=== PATIENT | female | born 1980 | race African-American/Black ===

== ENCOUNTER → 2019-07-29 09:43 | Outpatient (CLI) | payer OTHER, SELFPAY ==
--- NOTE | ~2019-07-29 | XR_ITS ---
EXAMINATION: XR ankle LT min 3V, XR foot LT min 3V EXAM DATE: 07/29/2019 10:17 INDICATION: No known recent injury provided at this time. Pain of the left foot, ankle. TECHNIQUE: Left foot dorsoplantar, lateral and oblique projections obtained and reviewed. Left ankle frontal, lateral and oblique projections obtained and reviewed. There is no prior study for compari son. FINDINGS: Left metatarsal bones unremarkable. The left ankle mortise appears intact. There are no acute fractures or dislocations identified. There is no subcutaneous gas. The soft tissue is unrem arkable. There are no radiopaque foreign bodies. IMPRESSION: 1. Unremarkable left foot, ankle exam. Reviewed, dictated and finalized at location A. DIEM IMPRESSION: 1. Unremarkable left foot, ankle exam.
== END ==
PROVIDERS: PCP Emergency Medicine; Visit Provider Emergency Medicine
DX: M79.672 Pain in left foot (principal)
CPT/HCPCS: 73610; 73630

== ENCOUNTER 2020-11-03 14:45 | Outpatient (CLI) | payer OTHER, SELFPAY ==
--- NOTE | ~2020-11-03 | MM_ITS ---
EXAMINATION: MM screening jose BI w any HISTORY: Screening mammogram TECHNIQUE: Craniocaudal and mediolateral oblique 3-D tomosynthesis images were obtained and synthetic 2-D images were generated. CAD analysis was submitted and interpreted. COMPARISON: None, baseline BREAST PARENCHYMAL COMPOSITION: The breasts are almost entirely fatty. FINDINGS: RIGHT BREAST: An asymmetry is present in the middle third of the breast 10 cm from the nipple, in adelso e with the nipple axis, on the craniocaudal view. LEFT BREAST: There is an asymmetry in the subareolar aspect of the breast on the mediolateral oblique view. IMPRESSION: 1. Bilateral breast findings as described above. 2. Additional mammographic views and possible breast ultrasound are recommended to evaluate for malig barrie and establish a baseline given that this is the first mammographic examination. BI-RADS Category 0: Incomplete: Needs additional imaging evaluation. Reviewed, dictated and finalized at location A. IMPRESSION: 1. Bilateral breast findings as described above. 2. Additional mammographic views and possible breast ultrasound are recommended to evaluate for malignancy and establish a baseline given that this is the fir st mammographic examination. BI-RADS Category 0: Incomplete: Needs additional imaging evaluation.
== END 2020-11-03 14:46 | disposition home or self-care (01) ==
LOC: ANHIMG 14:48
PROVIDERS: PCP Emergency Medicine; Visit Provider Advanced Practice Midwife
DX: Z12.31 Encounter for screening mammogram for malignant neoplasm of breast (principal); R92.8 Other abnormal and inconclusive findings on diagnostic imaging of breast
CPT/HCPCS: 77063; 77067

== ENCOUNTER 2020-11-26 12:59 | Outpatient (CLI) | payer OTHER, SELFPAY ==
--- NOTE | ~2020-11-26 | MMUS_ITS ---
EXAMINATION: MM diagnostic mammo BI, US breast BI limited HISTORY: Bilateral breast asymmetries on baseline screening mammogram TECHNIQUE: Additional 3-D tomosynthesis images of the right breast were performed and synthetic 2-D i mages were generated. CAD analysis was submitted and interpreted. High resolution limited right breas t ultrasound was performed. COMPARISON: 11/03/2020 FINDINGS: MAMMOGRAPHIC FINDINGS: There is a 5 mm asymmetry in the posterior third of the right breast at the 6:00 location 11 cm from the nipple. No persistent asymmetry is identified with spot compression of the left breast. ULTRASOUND: There is no evidence of focal abnormal solid or cystic mass in the vicinity of the mammographic findi ng in either breast. IMPRESSION: 1. Probably benign asymmetry of the right breast. No mammographic evidence of malignancy in the left breast. 2. Recommend 6 month follow-up right diagnostic mammogram and possible ultrasound and routine screeni ng of the left breast. BI-RADS category 3, probably benign findings. Reviewed, dictated and finalized at location A. IMPRESSION: 1. Probably benign asymmetry of the right breast. No mammographic evidence of m alignancy in the left breast. 2. Recommend 6 month follow-up right diagnostic mammogram and possible ultrasou nd and routine screening of the left breast. BI-RADS category 3, probably benign findings.
== END 2020-11-26 13:00 | disposition home or self-care (01) ==
LOC: ANHIMG 13:00
PROVIDERS: PCP Emergency Medicine; Visit Provider Advanced Practice Midwife
DX: R92.8 Other abnormal and inconclusive findings on diagnostic imaging of breast (principal)
CPT/HCPCS: 76642; 77066

== ENCOUNTER 2021-02-17 12:31 | Outpatient (CLI) | payer OTHER, SELFPAY ==
--- NOTE | ~2021-02-17 | XR_ITS ---
XR foot LT min 3V DATE: 02/17/2021 12:49 INDICATION: Left heel pain. No injury. TECHNIQUE: 4 views COMPARISON: 07/29/2019 left foot FINDINGS: Mild plantar calcaneal enthesopathy. No associated erosive change or periostitis. No fracture or dislocation, periosteal reaction or bone destruction. No erosions. IMPRESSION: Mild plantar calcaneal enthesopathy Reviewed, dictated and finalized at location B.
== END 2021-02-17 12:32 | disposition home or self-care (01) ==
LOC: ANHIMG 12:32
PROVIDERS: PCP Emergency Medicine; Visit Provider Emergency Medicine
DX: M77.32 Calcaneal spur, left foot (principal)
CPT/HCPCS: 73630

== ENCOUNTER → 2021-07-20 03:16 | Outpatient (CLI) | payer OTHER, SELFPAY ==
[2021-07-21 14:36] LABS: SARS-CoV-2 RNA PCR Positive
== END ==
PROVIDERS: PCP Emergency Medicine; Visit Provider Emergency Medicine
DX: U07.1 COVID-19 (principal)
CPT/HCPCS: C9803; U0003; U0005

== ENCOUNTER 2022-01-29 18:38 | Emergency (ER) | payer OTHER, SELFPAY ==
[2022-01-29] VITALS (8 sets, daily range): BP systolic 114–132; BP diastolic 59–75; PULSE 72–85; RESP 16; TEMP 35.8–36.8; O2SAT 96–100
--- NOTE | ~2022-01-29 | CT_ITS ---
EXAMINATION: CT abdomen pelvis w con DATE: 01/29/2022 23:00 INDICATION: Left-sided abdominal pain, flank pain TECHNIQUE: Computed tomography (CT) of the abdomen and pelvis was performed with 100 CC Omnipaque 300 intravenous contrast. Automated exposure control and iterative reconstruction technique were employe d. Exam dose: 1212.24 mGy-cm total exam DLP. COMPARISON: None. FINDINGS: The lung bases are clear. Heart size is within normal range. No pericardial or pleural effu dasha. Multiple small stones and/or sludge create a linear interface with bile in the gallbladder lumen. No gallbladder wall thickening or pericholecystic fluid or fat stranding. No bile duct or pancreatic marline t dilatation. No hepatic, pancreatic or splenic space-occupying mass lesion or splenomegaly. Normal morphology of the adrenal glands. No renal mass lesion or urinary tract calculus or hydroureteronephrosis. The urinary bladder is unrem arkable. Uterus and adnexal areas are unremarkable. Normal caliber of the abdominal aorta. There is a stent within the caudal aspect of the IVC and the c ommon iliac veins. No intraperitoneal or retroperitoneal or pelvic mass lesion or adenopathy or ascites. Normal appendix. No bowel obstruction, bowel wall thickening, pneumatosis or intraperitoneal free air . Small fat-containing umbilical hernia. Included skeletal structures are unremarkable. No suspicious osteolytic or osteoblastic lesion. IMPRESSION: Status post cholecystectomy Normal appendix Inferior vena cava and iliac vein stent Probable cholelithiasis versus hyperdense sludge dependent gallbladder; consider gallbladder ultrasou nd examination Reviewed, dictated and finalized at [facility]. Reviewed, dictated and finalized at [facility]. IMPRESSION: Status post cholecystectomy Normal appendix Inferior vena cava and iliac vein stent Probable cholelithiasis versus hyperdense sludge dependent gallbladder; conside r gallbladder ultrasound examination
--- NOTE | 2022-01-29 20:46 | ED.BACK ---
HPI - Back Pain/Injury General Chief Complaint: Back Pain/Injury <Frankie Henderson MD - Last Filed: 01/29/22 21:59> Stated Complaint: back pain <Frankie Henderson MD - Last Filed: 01/29/22 21:59> Time Seen by Provider: 01/29/22 20:45 <Frankie Henderson MD - Last Filed: 01/29/22 21:59> Source: patient <Frankie Henderson MD - Last Filed: 01/29/22 21:59> Mode of arrival: ambulatory <Frankie Henderson MD - Last Filed: 01/29/22 21:59> Limitations: no limitations <Frankie Henderson MD - Last Filed: 01/29/22 21:59> History of Present Illness HPI Narrative: 41 years old -[place]i female presented with sudden onset of sharp pain at the left flank area started 5hours ago. Worse with certain movement, nothing make it better, did not take any pain medication so far. She denies any fever, chills, nausea, vomiting, diarrhea, constipation, urinary symptoms or history of similar symptoms. Patient also denies any recent physical activity. <Frankie Henderson MD - Last Filed: 01/29/22 21:59> Related Data Home Medications: Home Medications Medication Instructions Recorded Confirmed Iron (ferrous sulfate) 07/11/19 lisinopril 20 mg tablet 07/11/19 metformin 500 mg tablet mg 07/11/19 <Frankie Henderson MD - Last Filed: 01/29/22 21:59> Allergies/Adverse Reactions: Allergies Allergy/AdvReac Type Severity Reaction Status Date / Time No Known Allergies Allergy Verified 01/29/22 19:43 <Frankie Henderson MD - Last Filed: 01/29/22 21:59> Review of Systems Review of Systems: All systems reviewed & are unremarkable except as noted in HPI and below <Frankie Henderson MD - Last Filed: 01/29/22 21:59> PMFSH Social History Social History: Social History Gender identity (if verbalized by the patient): Female <Frankie Henderson MD - Last Filed: 01/29/22 21:59> Exam Narrative: General appearance: Well-developed, well-nourished Skin: Normal color Head: Normocephalic, nontraumatic Eyes: Clear conjunctiva ENT: Oropharynx normal, ears normal, nose normal Neck: Supple, nontender Chest and respiratory: Airway patent, no respiratory distress, no accessory muscle use Heart: Regular rate/rhythm Abdomen: Soft, moderate tenderness left abdomen, left upper quadrant, left flank area. No rash, no bruises, no swelling. organomegaly, quiet bowel sounds Vascular: Normal peripheral pulses, normal capillary refill. Musculoskeletal: Normal range of motion, nontender back Neurologic: Alert and oriented ?3, SPARE PARTS CLERK is normal as tested, no gross motor deficit <Frankie Henderson MD - Last Filed: 01/29/22 21:59> Course Course Emergency Course: CT scan of the abdomen pelvis showed no evidence of acute abnormality. <Samy Santiago MD - Last Filed: 01/30/22 00:37> Vital Signs Vital signs: Vital Signs Temperature 36.8 C 01/29/22 18:53 Pulse Rate 85 01/29/22 18:53 Respiratory Rate 16 01/29/22 18:53 Pulse Oximetry 100 01/29/22 18:53 Temperature 35.8 C L 01/29/22 22:47 Pulse Rate 72 01/29/22 22:47 Respiratory Rate 16 01/29/22 22:47 Blood Pressure 120/72 01/29/22 23:46 Pulse Oximetry 100 01/29/22 23:45 <Frankie Henderson MD - Last Filed: 01/29/22 21:59> Vital Signs Temperature 36.8 C 01/29/22 18:53 Pulse Rate 85 01/29/22 18:53 Respiratory Rate 16 01/29/22 18:53 Pulse Oximetry 100 01/29/22 18:53 Temperature 35.8 C L 01/29/22 22:47 Pulse Rate 72 01/29/22 22:47 Respiratory Rate 16 01/29/22 22:47 Blood Pressure 120/72 01/29/22 23:46 Pulse Oximetry 100 01/29/22 23:45 <Samy Santiago MD
[2022-01-29] MEDS: SODIUM CHLORIDE 0.9% IV 1,000 ML 999 ML IV CONT (22:01)
[2022-01-29] MEDS: MORPHINE SULFATE (*CRX) 4 MG/ML INJ IV PUSH (22:01)
[2022-01-29] MEDS: ONDANSETRON INJ 4 MG/2 ML VIAL IV PUSH (22:02)
[2022-01-29 22:14] LABS: Appearance Urine Slightly Cloudy (Clear); Basophils Absolute Auto 0.1 K/mm3 (0.0-0.1); Basophils Percent Auto 1.1 % (0.2-1.2); Bilirubin Urine Negative (Negative); Blood Urine Negative (Negative); Color Urine Yellow (Yellow); Eosinophils Absolute Auto 0.1 K/mm3 (0-0.3); Eosinophils Percent Auto 1.4 % (0-4.4); Glucose Urine UA Negative (Negative); Hematocrit 41.1 % (37.0-47.0); Hemoglobin 12.5 g/dL (12.0-15.0); Immature Granulocyte Absolute 0.03 K/mm3 (0.00-0.031); Immature Granulocyte Percent A 0.3 % (0-0.5); Ketones Urine Trace mg/dL (Negative); Leukocyte Esterase Ur Negative LEU/UL (Negative); Lymphocytes Absolute Auto 3.24 K/mm3 (0.9-3.2); Mean Corpuscular HGB Conc 30.4 g/dl (32-36); Mean Corpuscular Volume 82.2 fl (80-100); Mean Platelet Volume 10.1 fl (7.4-10.4); Monocytes Absolute Auto 0.7 K/mm3 (0.1-0.6); Neutrophils Absolute Auto 5.1 K/mm3 (1.3-6.7); Neutrophils Percent Auto 55.2 % (45.5-73.1); Nitrate Urine Negative (Negative); Platelet Count Result 383 k/mm3 (150-375); Protein Urine Negative (Negative); Specific Grav Ur 1.025 (1.001-1.035); White Blood Count 9.3 K/mm3 (4.5-10.0); pH Urine 5.5 (5.0-9.0)
[2022-01-29 22:17] LABS: Bacteria Urine Trace /hpf; Mucus Urine Rare /lpf; RBC Urine 0-2 /hpf (0-2); Squamous Epithelial Cell Urine Many /hpf (Few); WBC Urine 0-3 /hpf
[2022-01-29 22:18] LABS: Add Urine Microscopic? YES
[2022-01-29 22:25] LABS: Alanine Aminotransferase 19 U/L (6-35); Albumin Level 4.7 g/dL (3.5-5.1); Alkaline Phosphatase 71 U/L (38-126); Anion Gap 5 mmol/L (8-16); Aspartate Amino Transferase 25 U/L (14-36); Bilirubin,Total 0.3 mg/dL (0.2-1.3); Blood Urea Nitrogen 9 mg/dL (7-17); Calcium 9.3 mg/dL (8.4-10.2); Carbon Dioxide 29 mmol/L (22-30); Chloride 105 mmol/L (98-107); Estimated Glomerular Filt Rate > 60; Glucose 147 mg/dL (65-110); Lipase 77 U/L (23-300); Potassium 3.9 mmol/L (3.4-5.0); Sodium 139 mmol/L (137-145)
[2022-01-30 01:14] VITALS: BP 117/74; PULSE 72; RESP 20; O2SAT 95
== END 2022-01-30 01:15 | disposition home or self-care (01) ==
PROVIDERS: Emergency Medicine; Emergency Provider Emergency Medicine; PCP Emergency Medicine
DX: R10.9 Unspecified abdominal pain (principal); Z79.84 Long term (current) use of oral hypoglycemic drugs
CPT/HCPCS: 36415; 74177; 80053; 81001; 81025; 83690; 85025; 96361; 96374; 96375; 99284; J2270; J2405; J7030; Q9967

== ENCOUNTER 2022-02-02 10:24 | Outpatient (CLI) | payer OTHER, SELFPAY ==
--- NOTE | ~2022-02-02 | US_ITS ---
US abdomen complete EXAMINATION: US Abdomen Complete INDICATION: Left flank pain PROCEDURE: Realtime High Resolution abdomen ultrasound. COMPARISON: No prior studies for comparison FINDINGS: There are gallstones. No significant gallbladder wall thickening or pericholecystic fluid. Common bile duct measures 4.7 mm. Liver echotexture is increased, consistent with fatty infiltration.. Pancreas within normal limits. Pancreatic tail is obscured by bowel gas. Spleen is unremarkeable. Renal echotexture is within norm al limits bilaterally without hydronephrosis, contour deforming mass or renal stone. Right kidney juan sures 11.9 cm. Left kidney measures 11.8 cm. Visualized aspects of the aorta and IVC are within normal limits. Portal vein is patent. No sonograph ic Velázquez's sign indicated by the technologist. IMPRESSION: 1: Cholelithiasis. 2: Hepatic steatosis. Reviewed, dictated and finalized at [facility].
== END 2022-02-02 10:25 | disposition home or self-care (01) ==
PROVIDERS: PCP Emergency Medicine; Visit Provider Emergency Medicine
DX: R10.32 Left lower quadrant pain (principal); K80.20 Calculus of gallbladder without cholecystitis without obstruction; K76.0 Fatty (change of) liver, not elsewhere classified
CPT/HCPCS: 76700

== ENCOUNTER 2022-04-05 09:13 | Outpatient (CLI) | payer OTHER, SELFPAY ==
--- NOTE | ~2022-04-05 | NM_ITS ---
. EXAMINATION: NM hepatobiliary wo pharm DATE: 04/05/2022 11:52 INDICATION: Left flank pain. COMPARISON: CT abdomen and pelvis 01/29/2022, ultrasound 02/02/2022 TECHNIQUE: 5.2 mCi Tc-99m mebrofenin (Choletec) was administered intravenously. Scintigraphic images of the abdomen were obtained for one hour. Then, the patient drank 8 oz Ensure, and imaging was cont inued for 60 minutes. FINDINGS: There is normal clearance of radiotracer from the blood pool. There is homogeneous tracer u ptake by the liver. Activity progresses to the bowel and gallbladder. Gallbladder ejection fraction (GBEF) was 10%. Note that with this technique, normal GBEF >= 33%. IMPRESSION: 1. Low gallbladder ejection fraction, consistent with gallbladder dysfunction and/or chronic cholecy stitis. Reviewed, dictated and finalized at location [facility]. IMPRESSION: 1. Low gallbladder ejection fraction, consistent with gallbladder dysfunction and/or chronic cholecystitis.
== END 2022-04-05 09:14 | disposition home or self-care (01) ==
PROVIDERS: PCP Emergency Medicine; Visit Provider Surgery
DX: R10.9 Unspecified abdominal pain (principal)
CPT/HCPCS: 78226; A9537

== ENCOUNTER 2022-04-25 19:36 | Emergency (ER) | payer OTHER, SELFPAY ==
[2022-04-25 19:38] VITALS: BP 122/72; PULSE 80; RESP 18; TEMP 37; O2SAT 100
[2022-04-25 20:30] VITALS: BP 114/66; PULSE 86
[2022-04-25 20:31] VITALS: BP 115/68; PULSE 76
[2022-04-25 20:32] VITALS: BP 121/80; PULSE 79
[2022-04-25 20:47] LABS: Basophils Absolute Auto 0.1 K/mm3 (0.0-0.1); Basophils Percent Auto 0.9 % (0.2-1.2); Eosinophils Absolute Auto 0.1 K/mm3 (0-0.3); Eosinophils Percent Auto 1.4 % (0-4.4); Hematocrit 29.8 % (37.0-47.0); Hemoglobin 9.1 g/dL (12.0-15.0); Immature Granulocyte Absolute 0.03 K/mm3 (0.00-0.031); Immature Granulocyte Percent A 0.3 % (0-0.5); Lymphocytes Absolute Auto 2.98 K/mm3 (0.9-3.2); Lymphocytes Percent Auto 33.6 % (18.3-44.2); Mean Corpuscular HGB Conc 30.5 g/dl (32-36); Mean Corpuscular Volume 81.9 fl (80-100); Mean Platelet Volume 9.9 fl (7.4-10.4); Monocytes Absolute Auto 0.6 K/mm3 (0.1-0.6); Monocytes Percent Auto 7.1 % (2.6-8.5); Neutrophils Percent Auto 56.7 % (45.5-73.1); Platelet Count Result 452 k/mm3 (150-375); Red Blood Count 3.64 M/mm3 (4.2-5.4); Red Cell Distribution Width 14.3 % (11.5-14.5); White Blood Count 8.9 K/mm3 (4.5-10.0)
--- NOTE | 2022-04-25 20:47 | ED.GENADULT ---
HPI - General Adult General Chief complaint: Vaginal Bleeding Stated complaint: Vaginal bleeding Time Seen by Provider: 04/25/22 20:06 History of Present Illness HPI narrative: Patient is a 41-year-old female who presents ER with vaginal bleeding. Has been a chronic issue for several months. Recently was on progesterone for 12 days. It did slow things down but when she stopped her bleeding became heavier again. Of last week she has had heavy periods with golf ball size clots. Over the last day she has had some dizziness when going from sitting to standing. She reports she is going through 3 pads an hour with some regularity over the last week. She does take Plavix due to peripheral vascular disease and stenting in her legs. Her group burner machine recommended she come here to be evaluated given the heavy bleeding and dizziness. Patient recently had an ultrasound and the [facility]. She does not know the results. Related Data Home Medications Medication Instructions Recorded Confirmed aspirin 81 mg tablet,delayed 81 mg PO DAILY 02/08/22 04/13/22 release (Adult Aspirin Regimen) clopidogrel 75 mg tablet 75 mg PO DAILY 02/08/22 04/13/22 furosemide 20 mg tablet 20 mg PO QAM 02/08/22 04/13/22 lisinopril 20 mg tablet 20 mg PO DAILY 04/13/22 04/13/22 metformin 500 mg tablet 500 mg PO DAILY 04/13/22 04/13/22 progesterone micronized 200 mg 200 mg PO .COMPLEX 04/13/22 04/13/22 capsule simvastatin 10 mg tablet 10 mg PO DAILY 04/13/22 04/13/22 Allergies Allergy/AdvReac Type Severity Reaction Status Date / Time No Known Allergies Allergy Verified 04/25/22 19:41 Review of Systems Review of Systems: All systems reviewed & are unremarkable except as noted in HPI and below Constitutional: Constitutional: Denies chills, Denies fatigue and Denies fever(s) ENT: Denies nasal congestion and Denies sore throat Cardiovascular: Cardiovascular: Denies chest pain, Denies rapid heart rate and Denies radiating jaw, neck or arm pain Respiratory: Respiratory: Denies cough and Denies dyspnea Gastrointestinal: Gastrointestinal: Denies abdominal pain, Denies nausea and Denies vomiting Genitourinary: Genitourinary: Reports abnormal vaginal bleeding, Denies nocturia, Denies dysuria and Denies pelvic pain Neurologic: Reports dizziness, Denies focal weakness and Denies numbness PMFSH Past Medical History Medical History (Updated 04/25/22 @ 22:04 by Shoaib Cruz MD) Diabetes Heart disease Surgical History Surgical History (Updated 04/25/22 @ 20:52 by Shoaib Cruz MD) H/O vascular surgery Stent placement bilateral lower extremities December 2021.... IVC and iliac vein stents seen on CT. Family History Family History (Updated 04/13/22 @ 15:00 by Valerie Sibley MA) Other Cancer Heart disease Hypertension Lymphoma Social History Social History Smoking status: Never smoker Alcohol intake: current Gender identity (if verbalized by the patient): Female Exam Narrative: GENERAL: Well-appearing, well-nourished, and in no acute distress. HEAD: Normocephalic, atraumatic. CHEST: Clear to auscultation. No respiratory distress. HEART: Regular rate and rhythm. Normal peripheral pulses. ABDOMEN: Soft, nontender, nondistended. EXTREMITIES: Normal range of motion. No edema. SKIN: Warm, dry, no rash. NEURO: Alert and oriented x3. PSYCH: Normal mood and affect. Course Course Emergency Course: Patient has follow-up with Dr. Boyd on 05/03/2022. Discussed case with on-call OB Dr. Martinez. Given the fact the patient has had stenting of her IVC and iliac vein we are concerned that patient may have a clotting disorder so estrogen will be avoided. Patient will be restarted on her progesterone 200 mg daily. She needs to follow-up with her OB/Guynn for definitive treatment of her bleeding. Patient verbalized understanding this. Discussed return prec
[2022-04-25 20:59] LABS: Prothrombin Time 12.5 Seconds (11.1-14.7)
[2022-04-25] MEDS: SODIUM CHLORIDE 0.9% IV 1,000 ML 999 ML IV CONT (21:04)
[2022-04-25 21:40] LABS: Anion Gap 12 mmol/L (8-16); Blood Urea Nitrogen 8 mg/dL (7-17); Calcium 8.5 mg/dL (8.4-10.2); Carbon Dioxide 24 mmol/L (22-30); Chloride 103 mmol/L (98-107); Estimated CRCL calculation 103 ml/min; Estimated Glomerular Filt Rate > 60; Glucose 164 mg/dL (65-110); Potassium 3.6 mmol/L (3.4-5.0); Sodium 139 mmol/L (137-145)
[2022-04-25 23:19] VITALS: BP 140/79; PULSE 72; RESP 18; O2SAT 98
== END 2022-04-25 23:21 | disposition home or self-care (01) ==
PROVIDERS: Emergency Provider Emergency Medicine; PCP Emergency Medicine
DX: N92.0 Excessive and frequent menstruation with regular cycle (principal); E11.9 Type 2 diabetes mellitus without complications; I51.9 Heart disease, unspecified; Z79.82 Long term (current) use of aspirin; Z79.84 Long term (current) use of oral hypoglycemic drugs
CPT/HCPCS: 36415; 80048; 85025; 85610; 85730; 96360; 99283; J7030

== ENCOUNTER 2022-08-16 08:58 | Outpatient (CLI) | payer OTHER, SELFPAY ==
--- NOTE | 2022-08-16 09:05 | ECG_ITS ---
Measurements Intervals [place] Rate: 61 P: 38 WV: 161 QRS: 10 QRSD: 83 T: -1 QT: 375 QTc: 379 Interpretive Statements SINUS RHYTHM WITH SINUS ARRHYTHMIA NO PREVIOUS ECG AVAILABLE FOR COMPARISON Electronically Signed On 08-16-2022 14:58:26 [employer]OUNTS RECEIVABLE ASSOCIATE by Esvin Rivera M.D.
[2022-08-16 10:56] LABS: Hematocrit 37.7 % (37.0-47.0); Hemoglobin 11.1 g/dL (12.0-15.0)
[2022-08-16 11:13] LABS: Anion Gap 5 mmol/L (8-16); Blood Urea Nitrogen 10 mg/dL (7-17); Calcium 8.8 mg/dL (8.4-10.2); Carbon Dioxide 28 mmol/L (22-30); Chloride 103 mmol/L (98-107); Estimated Glomerular Filt Rate > 60; Glucose 123 mg/dL (65-110); Potassium 3.8 mmol/L (3.4-5.0); Sodium 136 mmol/L (137-145)
[2022-08-16 11:14] LABS: Alanine Aminotransferase 17 U/L (6-35); Albumin Level 4.3 g/dL (3.5-5.1); Alkaline Phosphatase 72 U/L (38-126); Amylase 65 U/L (30-110); Aspartate Amino Transferase 22 U/L (14-36); Bilirubin,Total 0.4 mg/dL (0.2-1.3); Lipase 49 U/L (23-300)
== END 2022-08-16 08:59 | disposition home or self-care (01) ==
LOC: ANHSURGERY 09:02
PROVIDERS: Anesthesiology; PCP Emergency Medicine; Visit Provider Surgery
DX: E11.9 Type 2 diabetes mellitus without complications (principal); D64.9 Anemia, unspecified; K80.10 Calculus of gallbladder with chronic cholecystitis without obstruction; Z01.818 Encounter for other preprocedural examination
CPT/HCPCS: 36415; 80048; 80076; 82150; 83690; 85014; 85018; 86850; 86900; 86901; 93005

== ENCOUNTER 2022-08-21 00:58 | Day surgery (SDC) | payer OTHER, SELFPAY ==
[2022-08-10 10:00] VITALS: BMI 37.8
--- NOTE | 2022-08-10 10:06 | PC.NURSE ---
Addendum entered by Shirley Cm RN 08/10/22 10:10: FOLLOW INSTRUCTIONS FROM DR. PAULINO REGARDING PLAVIX. Original Note: Report to the Outpatient Waiting Room, entrance under the green pavilion located off [facility], at time 7:30 on date 08/21/22. Planned Procedure Time: 9:30. Time changes happen often and if your time is changed the preop area will call you the afternoon before. - You and your visitor will be asked to self-screen and do not enter if you have any COVID symptoms. - Only one visitor is requested with a max of two and NO children visitors are allowed at this time. - The patient visitor may be requested to leave or wait in car when not with patient due to distancing restrictions. - A mask is optional within the hospital at this time. Patients may have clear liquids (water, carbonated beverages, clear teas, apple juice) until 3 hours prior to surgery (6:30) with a maximum of 20 ounces. - No food from midnight until time of surgery Take the following medications with a SIP of water the morning of surgery: NONE DO NOT STOP ANY OF YOUR OTHER PRESCRIPTION MEDICATIONS PRIOR TO SURGERY EXCEPT THE FOLLOWING Medications to discontinue per physician: VITAMINS/SUPPLEMENTS Date to take last dose: 08/17/22 Please no make-up, nail dominican, hairspray, perfume, deodorant, or body powder the day of surgery. No jewelry (including any body piercings) or valuables the day of surgery, leave them at home. Please take a shower or bath the night before, or the morning of, surgery with an antibacterial soap (HIBICLENS). Wear comfortable, loose fitting clothing. - Jewelry must be removed prior to entering the operating room. Rings and piercings that are not removed may be cut off. - The hospital will not accept responsibility for valuables. - Please leave all valuables, including medications, at home the day of surgery. If you are going home after surgery, a licensed sanitation truck driver must drive you home. - NO public transportation without another adult if you receive anesthesia. - We recommend that an adult stay with you for 24 hours following discharge. - We also recommend that you do not drive, make important decision, drink alcoholic beverages, or take any drugs that were not prescribed by your health care provider for at least 24 hours after your discharge time. Follow any additional instructions given to you from your surgeon. If you or anyone in your household have experienced Covid symptoms in the past week, please notify your surgeon or the nurse liaison at the phone number below for possible testing. Telephone instructions given to MARIBELL BIRD and asked if any additional questions and then verbalized understanding. Patient advised to call surgeon office or pre surgery nurse liaison [phone] if any additional questions.
--- NOTE | 2022-08-18 13:30 | WPDANESEPPF ---
Anes - Initial Pre Proc Eval Procedure: Operation Date: 08/21/22 09:30 Proposed Procedures p Robotic Assisted Cholecystectomy - Sheila Limon MD <Silvio Vega MD - Last Filed: 08/22/22 11:10> Date/Time: 08/18/22 13:30 <Silvio Vega MD - Last Filed: 08/22/22 11:10> Surgeon: Sheila Limon MD <Silvio Vega MD - Last Filed: 08/22/22 11:10> Pre Op Diagnosis: chronic calculus cholecystitis <Silvio Vega MD - Last Filed: 08/22/22 11:10> Patient Data Age: 42 Gender: F Height: 1.63 m Weight: 99.8 kg <Silvio Vega MD - Last Filed: 08/22/22 11:10> Allergies Allergy/AdvReac Type Severity Reaction Status Date / Time No Known Allergies Allergy Verified 08/21/22 07:59 <Silvio Vega MD - Last Filed: 08/22/22 11:10> Home Medications Medication Instructions Recorded Confirmed Type aspirin 81 mg tablet,delayed 81 mg PO DAILY 02/08/22 08/10/22 History release (Adult Aspirin Regimen) clopidogrel 75 mg tablet 75 mg PO DAILY 02/08/22 08/10/22 History furosemide 20 mg tablet 20 mg PO QAM 02/08/22 08/10/22 History lisinopril 20 mg tablet 20 mg PO DAILY 04/13/22 08/10/22 History metformin 500 mg tablet 500 mg PO DAILY 04/13/22 08/10/22 History simvastatin 10 mg tablet 10 mg PO DAILY 04/13/22 08/10/22 History progesterone micronized 200 mg 200 mg PO DAILY #12 caps 04/25/22 08/10/22 Rx capsule ferrous sulfate 325 mg (65 mg 325 mg PO DAILY 08/10/22 08/10/22 History iron) tablet (Iron (ferrous sulfate)) hydrocodone 5 mg-acetaminophen 325 1 tablet PO Q6H PRN pain #20 tabs 08/21/22 Rx mg tablet <Silvio Vega MD - Last Filed: 08/22/22 11:10> Patient hx anesthesia problems: none <Giovani Zazueta MD - Last Filed: 08/21/22 08:48> Family hx anesthesia problems: none <Giovani Zazueta MD - Last Filed: 08/21/22 08:48> Results Review: All pre-operative results and documents have been reviewed as part of the pre-operative evaluation. <Silvio Vega MD - Last Filed: 08/22/22 11:10> PMFSH Past Medical History Medical History: Medical History Diabetes Heart disease KENDAL (obstructive sleep apnea) <Silvio Vega MD - Last Filed: 08/22/22 11:10> Surgical History Surgical History: Surgical History H/O vascular surgery Stent placement bilateral lower extremities December 2021.... IVC and iliac vein stents seen on CT. <Silvio Vega MD - Last Filed: 08/22/22 11:10> Family History Family History: Family History Other Cancer Heart disease Hypertension Lymphoma <Silvio Vega MD - Last Filed: 08/22/22 11:10> Social History Social History: Social History Smoking status: Never smoker Alcohol intake: never Substance use: never Substance use type: does not use Living arrangements: with family Occupation/Education: unemployed Gender identity (if verbalized by the patient): Female Spiritual care concerns: No <Silvio Vega MD - Last Filed: 08/22/22 11:10> Anes - Eval Final PreProcedure Day of Procedure 08/18/22 13:30 <Silvio Vega MD - Last Filed: 08/22/22 11:10> Patient weight: obese <Giovani Zazueta MD - Last Filed: 08/21/22 08:48> Heart: regular rate and rhythm <Giovani Zazueta MD - Last Filed: 08/21/22 08:48> Lungs: clear to auscultation <Giovani Zazueta MD - Last Filed: 08/21/22 08:48> Airway: Mallampati scale class II <Giovani Zazueta MD - Last Filed: 08/21/22 08:48> Neurological: alert and oriented <Giovani Zazueta MD - Last Filed: 08/21/22 08:48> Last oral intake: >/= 8 hours <Giovani Zazueta MD - Last Filed: 08/21/22 08:48> ASA classificatio
[2022-08-21] VITALS (10 sets, daily range): BP systolic 102–140; BP diastolic 53–90; PULSE 52–80; RESP 16–17; TEMP 36.7–36.8; O2SAT 92–100
[2022-08-21] MEDS: ACETAMINOPHEN 500 MG TABLET 1000 MG PO (08:01)
[2022-08-21] MEDS: LACTATED RINGERS 1,000 ML 30 ML IV CONT ×2 (08:26→11:37)
[2022-08-21] MEDS: INDOCYANINE GREEN 25 MG VIAL 3.75 MG IV PUSH (08:28)
[2022-08-21] MEDS: KETOROLAC 15 MG/ML VIAL (*BKC) IV PUSH (08:28)
[2022-08-21 08:38] LABS: Glucose Point of Care 125 mg/dl (65-105)
--- NOTE | 2022-08-21 09:23 | WPDHPUPDATE1 ---
History and Physical Update Update Date/Time: 08/21/22 09:23 History and Physical has been reviewed, including an updated exam of the patient. There are NO changes in the patient's condition. Risks, benefits, and alternatives have been discussed and questions answered. Patient agrees to proceed with procedure.
--- NOTE | 2022-08-21 11:28 | W.PM.PROC2 ---
Procedure Note - Detailed Date of Procedure 08/21/22 Pre-op Diagnosis chronic calculus cholecystitis Post-op Diagnosis Same Procedure Performed Robotic assisted cholecystectomy Surgeon Sheila Limon MD Anesthesia General Indications 42-year-old female presenting to the office with history and imaging consistent with chronic cholecystitis, cholelithiasis Findings moderate cholecystitis Description of Procedure The patient was taken to the operating room and placed in the supine position. After adequate induction of general anesthesia, the patient was prepped and draped in the normal sterile fashion. A time-out was then done to verify the patient's identity, as well as the procedure being performed. I began by making a 8 mm incision in the periumbilical region. A Veress needle was then placed in the peritoneal cavity and CO2 gas was insufflated. After adequate pneumoperitoneum was achieved, the Veress needle was removed and a 8 mm Optiview trocar was placed under direct visualization. Once into the abdominal cavity, the introducer was removed and the laparoscope was placed through this trocar site. Under direct visualization, I placed a further 12 mm port in the left mid abdomen and 2 8 mm ports in the right mid abdomen. The robot was then docked to these ports sites. I then went to the console. The gallbladder was then identified and noted to be moderately inflamed. I was able to place a grasper at the dome of the gallbladder and this was retracted up and over the liver. A 2nd retractor was used to grasp the infundibulum and retracted laterally. This allowed visualization and dissection of the triangle of Calot. There were some omental adhesions to the gallbladder and these were taken down with the cautery. I then began dissection around the triangle Calot. I first identified the cystic duct, I was able to visualize the entirety of the duct from its proximal insertion into the gallbladder 2 at the distal junction with the common hepatic/common bile duct junction. I did use the firefly visualization at this point to confirm the anatomy. The proximal cystic duct was then further skeletonized, clipped, and transected. Next I visualized the cystic artery. Again the structure was skeletonized, clipped, and transected. I then again used firefly to confirm anatomy and no aberrant anatomy was noted. I then used the Bovie cautery to take down the peritoneal attachments of the gallbladder off the liver bed. Once the gallbladder specimen was completely detached, an Endo pouch was placed through the 12 mm port site and the gallbladder specimen was placed in the endo-pouch and subsequently removed. I then re-examined the right upper quadrant. Hemostasis was noted in the liver bed and the clips were noted to be in good position on both the duct and the artery. No other pathology was seen in the right upper quadrant. All instruments were then removed and the robot was undocked. I then closed the 12 incision at the fascial level using a Lm cone and 0 Vicryl suture under direct visualization. The abdomen was then desufflated and all ports were removed. All port sites were then closed with 4-0 Monocryl subcuticular suture. Dermabond was placed on each was wound. The patient tolerated the procedure well and was extubated in the operating room postop. The patient will now be transferred to the recovery room in stable condition. Estimated Blood Loss 5 Drains No Packing No Pathology Yes Complications No immediate complications Condition Stable Disposition PACU [facility] Billing Surgery - Charge Forward: Surgery Billing
[2022-08-21 11:47] LABS: Glucose Point of Care 134 mg/dl (65-105)
[2022-08-21] MEDS: fentaNYL CITRATE INJ (*CRX) 100 MCG/2 ML VIAL 25 MCG IV PUSH ×4 (12:03→12:49)
[2022-08-21] MEDS: oxyCODONE HCL (*CRX) 5 MG TAB IR PO (13:04)
== END 2022-08-21 13:54 | disposition home or self-care (01) ==
PROVIDERS: PCP Emergency Medicine; Visit Provider Surgery
PROC: 0FT44ZZ Resection of Gallbladder, Percutaneous Endoscopic Approach (ICD-10-PCS; CPT 47562; principal; 2022-08-21 09:30)
DX: K80.10 Calculus of gallbladder with chronic cholecystitis without obstruction (principal); E11.9 Type 2 diabetes mellitus without complications; I51.9 Heart disease, unspecified; G47.33 Obstructive sleep apnea (adult) (pediatric); Z95.820 Peripheral vascular angioplasty status with implants and grafts; Z79.82 Long term (current) use of aspirin; E66.9 Obesity, unspecified; Z68.37 Body mass index [BMI] 37.0-37.9, adult
CPT/HCPCS: 47562; 82948; 88304; A9270; J1100; J1170; J1885; J2250; J2405; J2704; J3010; J7120

== ENCOUNTER 2023-07-21 15:11 | Emergency (ER) | payer OTHER, SELFPAY ==
[2023-07-21 15:34] VITALS: BP 147/86; PULSE 68; RESP 16; TEMP 37.6; O2SAT 100
--- NOTE | 2023-07-21 15:42 | ED.URI ---
HPI - URI/Sore Throat General Chief Complaint: Upper Respiratory Infection Stated Complaint: Sore Throat Time Seen by Provider: 07/21/23 15:50 Source: patient and RN notes reviewed Mode of arrival: ambulatory Limitations: no limitations History of Present Illness HPI Narrative: 42-year-old female presents concern for several day history of sore throat, cough. She denies fever, body aches, chills, sweats. Denies taking any medications [id number] for her symptoms MD elicited complaint: cough and sore throat Related Data Home Medications Medication Instructions Recorded Confirmed aspirin 81 mg tablet,delayed 81 mg PO DAILY 02/08/22 07/21/23 release (Adult Aspirin Regimen) clopidogrel 75 mg tablet 75 mg PO DAILY 02/08/22 07/21/23 furosemide 20 mg tablet 20 mg PO QAM 02/08/22 07/21/23 lisinopril 20 mg tablet 20 mg PO DAILY 04/13/22 07/21/23 metformin 500 mg tablet 500 mg PO DAILY 04/13/22 07/21/23 simvastatin 10 mg tablet 10 mg PO DAILY 04/13/22 07/21/23 ferrous sulfate 325 mg (65 mg 325 mg PO DAILY 08/10/22 07/21/23 iron) tablet (Iron (ferrous sulfate)) Allergies Allergy/AdvReac Type Severity Reaction Status Date / Time No Known Allergies Allergy Verified 07/21/23 15:35 Review of Systems Review of Systems: CONSTITUTIONAL: Denies malaise, chills, sweats, or fever. EYES: Denies visual changes, redness, or discharge. ENT: Reports rhinorrhea, congestion, and sore throat. CARDIOVASCULAR: Denies chest pain, palpitations, or edema. RESPIRATORY: Reports cough. Denies dyspnea. GASTROINTESTINAL: Denies abdominal pain, nausea, vomiting, diarrhea SKIN: Denies rash or itching. MUSCULOSKELETAL: Denies myalgia. NEUROLOGIC: Denies headache. All systems reviewed & are unremarkable except as noted in HPI and below PMFSH Past Medical History Medical History (Updated 07/21/23 @ 15:57 by Sarah Flynn NP) Diabetes Heart disease KENDAL (obstructive sleep apnea) Surgical History Surgical History (Updated 09/05/22 @ 09:37 by Angelica Sarah) H/O vascular surgery Stent placement bilateral lower extremities December 2021.... IVC and iliac vein stents seen on CT. Hx laparoscopic cholecystectomy robotic assisted cholecystectomy 08/21/22 Family History Family History Other Cancer Heart disease Hypertension Lymphoma Social History Social History Smoking status: Never smoker Alcohol intake: never Substance use: never Substance use type: does not use Living arrangements: with family Occupation/Education: unemployed Gender identity (if verbalized by the patient): Female Spiritual care concerns: No Comments At time of signature, agree with nursing past medical, surgical, social and family history. There is no relevant family history pertinent to the presenting complaint Exam Narrative: GENERAL: Well-appearing, well-nourished, and in no acute distress. HEAD: Normocephalic EYES: PERRLA, conjunctivae clear ENT: Nares clear, turbinates edematous and erythematous, clear discharge. Mucous membranes moist. TM pearly ennis with dull light reflex bilaterally; no tragal tenderness. Oropharynx not erythematous without lesions. Tonsils not enlarged and without exudate, no drooling, no hoarseness, no trismus, uvula midline. NECK: Supple. No lymphadenopathy CHEST: Clear to auscultation, breath sounds equal. No wheezing, rhonchi, rales, or stridor. No respiratory distress, speaks in full sentences. HEART: Regular rate and rhythm. No murmur heard. SKIN: Warm, dry, no rash. NEURO: Alert and oriented x3. PSYCH: Normal mood and affect Course Course Emergency Course: Patient is aware of diagnosis, understands and agrees to treatment plan. Anticipatory guidance given. Patient agrees to follow-up as directed and is aware of reasons to seek care at the emergency department. Portions of this record november
== END 2023-07-21 16:05 | disposition home or self-care (01) ==
PROVIDERS: Emergency Provider Nurse Practitioner; PCP Emergency Medicine
DX: J06.9 Acute upper respiratory infection, unspecified (principal); E11.9 Type 2 diabetes mellitus without complications; Z79.84 Long term (current) use of oral hypoglycemic drugs; E78.00 Pure hypercholesterolemia, unspecified; I10 Essential (primary) hypertension; I73.9 Peripheral vascular disease, unspecified; G47.33 Obstructive sleep apnea (adult) (pediatric); Z95.820 Peripheral vascular angioplasty status with implants and grafts; Z79.82 Long term (current) use of aspirin
CPT/HCPCS: 87081; 87426; 87804; 87880; 99213; C9803; G0463

== ENCOUNTER 2023-10-08 15:18 | Emergency (ER) | payer OTHER, SELFPAY ==
--- NOTE | ~2023-10-08 | US_ITS ---
EXAMINATION: US venous doppler LE RT DATE: 10/08/2023 16:11 INDICATION: Right lower extremity swelling TECHNIQUE: Jain scale images without and with compression and Doppler images of the right lower extre mity veins were obtained. COMPARISON: None FINDINGS: The right common femoral vein, profunda femoral vein, femoral vein, popliteal vein, peronea l trunk, posterior tibial veins, and greater saphenous vein are patent. IMPRESSION: 1. Patent right lower extremity veins. No evidence of deep venous thrombosis. Reviewed, dictated and finalized at location F.
[2023-10-08 15:36] VITALS: BP 145/86; PULSE 87; RESP 20; TEMP 36.9; O2SAT 100
--- NOTE | 2023-10-08 15:37 | ED.GENADULT ---
HPI - General Adult General Chief complaint: Extremity Problem,Nontraumatic Stated complaint: RLE swelling/tender/warm below knee Time Seen by Provider: 10/08/23 15:37 Focused HPI: This is a 43-year-old female with PMH of DM, vascular insufficiency who presents to the ED with chief complaint of right lower extremity swelling and erythema beginning earlier today. Patient reports the lateral right calf is painful and seems to be more swollen than the left. Also reports the areas seems warm. Reports history of arterial stents and this leg due to vascular insufficiency and currently takes Plavix but no anticoagulant meds. Denies fevers, chills, nausea, vomiting, recent infection or injury. Denies any recent wounds. States she contacted her doctor who told her to the ER for further evaluation GENERAL: Well-appearing, well-nourished, and in no acute distress. HEAD: Normocephalic, atraumatic. CHEST: Clear to auscultation. No respiratory distress. HEART: Regular rate and rhythm. NEURO: Alert and oriented x3. MSK: Minimal swelling noted to the right lateral calf. Moderate tenderness in this area. Minimal skin changes noted. Patient screened in triage and initial orders placed. Additional care and disposition to be based upon diagnostic testing and treatment. Source: patient Mode of arrival: ambulatory Limitations: no limitations Related Data Home Medications Medication Instructions Recorded Confirmed aspirin 81 mg tablet,delayed 81 mg PO DAILY 02/08/22 07/21/23 release (Adult Aspirin Regimen) clopidogrel 75 mg tablet 75 mg PO DAILY 02/08/22 07/21/23 furosemide 20 mg tablet 20 mg PO QAM 02/08/22 07/21/23 lisinopril 20 mg tablet 20 mg PO DAILY 04/13/22 07/21/23 metformin 500 mg tablet 500 mg PO DAILY 04/13/22 07/21/23 simvastatin 10 mg tablet 10 mg PO DAILY 04/13/22 07/21/23 ferrous sulfate 325 mg (65 mg 325 mg PO DAILY 08/10/22 07/21/23 iron) tablet (Iron (ferrous sulfate)) Allergies Allergy/AdvReac Type Severity Reaction Status Date / Time No Known Allergies Allergy Verified 07/21/23 15:35 Review of Systems Review of Systems: All systems as dictated in HPI [facility] Past Medical History Medical History (Updated 10/08/23 @ 16:47 by Walter Harris PA-C) Diabetes Heart disease KENDAL (obstructive sleep apnea) Surgical History Surgical History (Updated 09/05/22 @ 09:37 by Angelica Sarah) H/O vascular surgery Stent placement bilateral lower extremities December 2021.... IVC and iliac vein stents seen on CT. Hx laparoscopic cholecystectomy robotic assisted cholecystectomy 08/21/22 Family History Family History Other Cancer Heart disease Hypertension Lymphoma Social History Social History Smoking status: Never smoker Alcohol intake: never Substance use: never Substance use type: does not use Living arrangements: with family Occupation/Education: unemployed Gender identity (if verbalized by the patient): Female Spiritual care concerns: No Exam Narrative: GENERAL: Well-appearing, well-nourished, and in no acute distress. HEAD: Normocephalic, atraumatic. EYES: PERRLA and EOMI. ENT: Nares clear, no rhinorrhea or epistaxis. Mucous membranes moist. Oropharynx without tonsillar hypertrophy exudate or other lesions. NECK: Supple. No adenopathy or masses. CHEST: No respiratory distress. Clear to auscultation. No wheezes rales or rhonchi HEART: Regular rate and rhythm. No murmur heard. Normal peripheral pulses. ABDOMEN: Soft, nontender, nondistended, normal active bowel sounds. MSK: See triage note SKIN: See triage note NEURO: Alert and oriented x3. No focal deficits. PSYCH: Normal mood and affect. Medical Decision Making MDM Narrative Medical decision making narrative: This is a 43-year-old female who presents to the ED with chief complaint of right lower extr
[2023-10-08 15:57] LABS: Basophils Absolute Auto 0.1 K/mm3 (0.0-0.1); Basophils Percent Auto 1.1 % (0.2-1.2); Eosinophils Absolute Auto 0.1 K/mm3 (0-0.3); Eosinophils Percent Auto 0.9 % (0-4.4); Immature Granulocyte Absolute 0.03 K/mm3 (0.00-0.031); Immature Granulocyte Percent A 0.4 % (0-0.5); Lymphocytes Absolute Auto 2.61 K/mm3 (0.9-3.2); Lymphocytes Percent Auto 37.3 % (18.3-44.2); Mean Corpuscular Hemoglobin 25.6 pg (26-34); Mean Corpuscular Volume 82.7 fl (80-100); Mean Platelet Volume 10.4 fl (7.4-10.4); Monocytes Absolute Auto 0.5 K/mm3 (0.1-0.6); Monocytes Percent Auto 6.4 % (2.6-8.5); Neutrophils Absolute Auto 3.8 K/mm3 (1.3-6.7); Neutrophils Percent Auto 53.9 % (45.5-73.1); Platelet Count Result 407 k/mm3 (150-375); Red Blood Count 5.08 M/mm3 (4.2-5.4); Red Cell Distribution Width 14.6 % (11.5-14.5)
[2023-10-08 16:07] LABS: Anion Gap 5 mmol/L (8-16); Blood Urea Nitrogen 8 mg/dL (7-17); Calcium 9.5 mg/dL (8.4-10.2); Carbon Dioxide 28 mmol/L (22-30); Chloride 104 mmol/L (98-107); Estimated CRCL calculation 118 ml/min; Estimated Glomerular Filt Rate > 60; Glucose 206 mg/dL (65-110); Potassium 3.8 mmol/L (3.4-5.0); Sodium 137 mmol/L (137-145)
[2023-10-08 16:08] LABS: INR 0.9; Prothrombin Time 12.8 Seconds (11.1-14.7)
== END 2023-10-08 16:59 | disposition home or self-care (01) ==
LOC: ANHED 16:58
PROVIDERS: Emergency Provider Physician Assistant; PCP Emergency Medicine
DX: L03.115 Cellulitis of right lower limb (principal); I51.9 Heart disease, unspecified; E11.9 Type 2 diabetes mellitus without complications; G47.33 Obstructive sleep apnea (adult) (pediatric); Z90.49 Acquired absence of other specified parts of digestive tract; Z79.82 Long term (current) use of aspirin; Z79.84 Long term (current) use of oral hypoglycemic drugs
CPT/HCPCS: 36415; 80048; 85025; 85610; 85730; 93971; 99284

== ENCOUNTER 2024-05-04 11:25 | Emergency (ER) | payer OTHER, SELFPAY ==
[2024-05-04 11:34] VITALS: BP 155/115; PULSE 89; RESP 18; TEMP 36.8; O2SAT 98
[2024-05-04 13:22] VITALS: BP 153/97; PULSE 87; RESP 14; TEMP 36.7; O2SAT 99
--- NOTE | 2024-05-04 13:40 | ED.FALL ---
HPI - Fall General Chief Complaint: Fall Stated Complaint: dizzy, fall Time Seen by Provider: 05/04/24 13:13 History of Present Illness HPI Narrative: 43-year-old female presents to the emergency department for evaluation for vertigo and lightheaded dizziness. Patient states this morning when she got a shower she had some lightheaded dizziness. Patient states this occurred a 2nd time. Patient denies striking head denies any loss of consciousness. Patient denies any injury from the falls. Patient does have history of hypertension and diabetes. Related Data Home Medications Medication Instructions Recorded Confirmed aspirin 81 mg tablet,delayed 81 mg PO DAILY 02/08/22 07/21/23 release (Adult Aspirin Regimen) clopidogrel 75 mg tablet 75 mg PO DAILY 02/08/22 07/21/23 furosemide 20 mg tablet 20 mg PO QAM 02/08/22 07/21/23 lisinopril 20 mg tablet 20 mg PO DAILY 04/13/22 07/21/23 metformin 500 mg tablet 500 mg PO DAILY 04/13/22 07/21/23 simvastatin 10 mg tablet 10 mg PO DAILY 04/13/22 07/21/23 ferrous sulfate 325 mg (65 mg 325 mg PO DAILY 08/10/22 07/21/23 iron) tablet (Iron (ferrous sulfate)) Allergies Allergy/AdvReac Type Severity Reaction Status Date / Time No Known Allergies Allergy Verified 07/21/23 15:35 Review of Systems Review of Systems: All systems reviewed & are unremarkable except as noted in HPI and below PMFSH Past Medical History Medical History (Updated 05/04/24 @ 16:14 by Mustapha Zaidi MD) Diabetes Heart disease KENDAL (obstructive sleep apnea) Surgical History Surgical History (Updated 09/05/22 @ 09:37 by Angelica Sarah) H/O vascular surgery Stent placement bilateral lower extremities December 2021.... IVC and iliac vein stents seen on CT. Hx laparoscopic cholecystectomy robotic assisted cholecystectomy 08/21/22 Family History Family History Other Cancer Heart disease Hypertension Lymphoma Social History Social History Smoking status: Never smoker Alcohol intake: never Substance use: never Substance use type: does not use Living arrangements: with family Occupation/Education: unemployed Gender identity (if verbalized by the patient): Female Spiritual care concerns: No Exam Narrative: APPEARANCE: Well appearing, no pain, no distress, well-nourished. HEAD: normocephalic, atraumatic. EYES: PERRLA/EOMI, conjunctivae clear. NOSE: Normal no drainage EARS:TMS clear with good light reflex. THROAT: Pharynx clear, no exudate. NECK: Supple. No adenopathy, no masses. RESPIRATORY: Airway patent, respirations nonlabored. Clear to auscultation bilaterally, no rales, rhonchi, wheezing. CARDIOVASCULAR: Regular rate and rhythm without murmurs rubs or gallops. ABDOMINAL: Soft, nontender, nondistended, normal bowel sounds MUSCULOSKELETAL: Moves all extremities. Strength/ROM intact, No edema, No calf tenderness. NEURO: Alert. Cranial nerves II through XII intact. Grossly intact SKIN: Warm, dry. Normal Color Course Vital Signs Vital signs: Vital Signs Temperature 98.2 F 05/04/24 11:34 Pulse Rate 89 05/04/24 11:34 Respiratory Rate 18 05/04/24 11:34 Blood Pressure 155/115 H 05/04/24 11:34 Pulse Oximetry 98 05/04/24 11:34 Oxygen Delivery Room Air 05/04/24 11:34 Temperature 98.1 F 05/04/24 13:22 Pulse Rate 96 05/04/24 15:54 Respiratory Rate 15 05/04/24 15:54 Blood Pressure 158/98 H 05/04/24 15:54 Pulse Oximetry 100 05/04/24 15:54 Oxygen Delivery Room Air 05/04/24 11:34 MDM - Fall MDM Narrative Medical decision making narrative: 43-year-old female present to the emergency department for evaluation for dizziness. Patient is afebrile with no leukocytosis and hemoglobin of 13. Patient has an INR of 1.0 patient has no acute abnormalities on her CMP. Urine was concerning for urinary tract infection. Patient di
[2024-05-04] MEDS: lisinopriL 20 MG TABLET PO (14:17)
[2024-05-04] MEDS: MECLIZINE HCL 25 MG TABLET PO (14:17)
[2024-05-04] MEDS: hydrALAZINE HCL 20 MG/ML VIAL 10 MG IV PUSH (14:18)
[2024-05-04 14:20] LABS: Basophils Absolute Auto 0.1 K/mm3 (0.0-0.1); Eosinophils Absolute Auto 0.1 K/mm3 (0-0.3); Eosinophils Percent Auto 0.9 % (0-4.4); Hematocrit 41.3 % (37.0-47.0); Immature Granulocyte Absolute 0.02 K/mm3 (0.00-0.031); Immature Granulocyte Percent A 0.3 % (0-0.5); Lymphocytes Absolute Auto 2.65 K/mm3 (0.9-3.2); Lymphocytes Percent Auto 33.7 % (18.3-44.2); Mean Corpuscular HGB Conc 31.5 g/dl (32-36); Mean Corpuscular Hemoglobin 25.2 pg (26-34); Mean Corpuscular Volume 80.2 fl (80-100); Mean Platelet Volume 9.6 fl (7.4-10.4); Monocytes Absolute Auto 0.5 K/mm3 (0.1-0.6); Monocytes Percent Auto 6.6 % (2.6-8.5); Neutrophils Absolute Auto 4.5 K/mm3 (1.3-6.7); Neutrophils Percent Auto 57.5 % (45.5-73.1); Platelet Count Result 364 k/mm3 (150-375); Red Blood Count 5.15 M/mm3 (4.2-5.4); Red Cell Distribution Width 13.9 % (11.5-14.5); White Blood Count 7.9 K/mm3 (4.5-10.0)
[2024-05-04 14:20] LABS: Influenza A QL RT-PCR Negative (Negative); Influenza B QL RT-PCR Negative (Negative); RSV RNA, RT-PCR Negative (Negative); SARS-CoV-2 RNA PCR Negative (Negative)
[2024-05-04 14:30] LABS: Alanine Aminotransferase 15 U/L (6-35); Albumin Level 4.1 g/dL (3.5-5.1); Alkaline Phosphatase 75 U/L (38-126); Anion Gap 7 mmol/L (4-12); Aspartate Amino Transferase 24 U/L (14-36); Bilirubin,Total 0.4 mg/dL (0.2-1.3); Blood Urea Nitrogen 9 mg/dL (7-17); Calcium 9.2 mg/dL (8.4-10.2); Carbon Dioxide 28 mmol/L (22-30); Chloride 103 mmol/L (98-107); Estimated CRCL calculation 121 ml/min; Estimated Glomerular Filt Rate > 60; Glucose 118 mg/dL (65-110); Partial Thromboplastin Time 26.5 Seconds (22.3-36.8); Potassium 3.9 mmol/L (3.4-5.0); Prothrombin Time 13.4 Seconds (11.1-14.7); Sodium 138 mmol/L (137-145)
[2024-05-04 14:32] LABS: Add Urine Microscopic? YES; Appearance Urine Clear (Clear); Bacteria Urine 3+ /hpf; Bilirubin Urine Negative (Negative); Blood Urine Negative (Negative); Color Urine Yellow (Yellow); Glucose Urine UA Negative (Negative); Ketones Urine Trace mg/dL (Negative); Leukocyte Esterase Ur 2+ LEU/UL (Negative); Nitrate Urine Positive (Negative); Non Pathogenic Casts 0-2; Protein Urine Trace mg/dL (Negative); Specific Grav Ur 1.025 (1.001-1.035); Squamous Epithelial Cell Urine Few /hpf (Few); WBC Urine 51-100 /hpf (0-3); pH Urine 6.5 (5.0-9.0)
[2024-05-04 14:57] VITALS: BP 164/77; BP 168/100; PULSE 78
[2024-05-04 15:00] VITALS: BP 147/120
[2024-05-04 15:09] VITALS: BP 152/108; PULSE 79
[2024-05-04 15:54] VITALS: BP 158/98; PULSE 96; RESP 15; O2SAT 100
[2024-05-04] MEDS: KETOROLAC 15 MG/ML VIAL (*BKC) IV PUSH (16:35)
== END 2024-05-04 16:56 | disposition home or self-care (01) ==
PROVIDERS: Emergency Provider Emergency Medicine; PCP Emergency Medicine
DX: N39.0 Urinary tract infection, site not specified (principal); R42 Dizziness and giddiness; Z20.822 Contact with and (suspected) exposure to COVID-19; I51.9 Heart disease, unspecified; E11.9 Type 2 diabetes mellitus without complications; G47.33 Obstructive sleep apnea (adult) (pediatric); Z79.82 Long term (current) use of aspirin; Z79.02 Long term (current) use of antithrombotics/antiplatelets; Z79.84 Long term (current) use of oral hypoglycemic drugs; Z90.49 Acquired absence of other specified parts of digestive tract
CPT/HCPCS: 36415; 80053; 81001; 85025; 85610; 85730; 87086; 87186; 87637; 96365; 96375; 99284; A9270; J0360; J0696; J1885

== ENCOUNTER 2024-05-23 15:20 | Outpatient (CLI) | payer OTHER, SELFPAY ==
--- NOTE | ~2024-05-23 | MM_ITS ---
EXAMINATION: MM screening [facility] BI w any HISTORY: Screening TECHNIQUE: Craniocaudal and mediolateral oblique 3-D tomosynthesis images were obtained and synthetic 2-D images were generated. CAD analysis was submitted and interpreted. COMPARISON: Comparison to multiple prior studies sequentially, with oldest reviewed study dated 11/03. BREAST PARENCHYMAL COMPOSITION: Not dense: There are scattered areas of fibroglandular density. FINDINGS: There is developing asymmetry in the subareolar location of the left breast. There is no ma mmographic evidence for malignancy in the right breast. IMPRESSION: 1. Developing left breast asymmetry. 2. Additional mammographic views and possible breast ultrasound are recommended. BI-RADS Category 0: Incomplete: Needs additional imaging evaluation. Reviewed, dictated and finalized at location B. ICTIVE MAINTENANCE TECHNICIAN IMPRESSION: 1. Developing left breast asymmetry. 2. Additional mammographic views and possible breast ultrasound are recommended . BI-RADS Category 0: Incomplete: Needs additional imaging evaluation.
== END 2024-05-23 15:21 | disposition home or self-care (01) ==
LOC: ANHIMG 15:38
PROVIDERS: PCP Emergency Medicine; Visit Provider Emergency Medicine
DX: Z12.31 Encounter for screening mammogram for malignant neoplasm of breast (principal); R92.8 Other abnormal and inconclusive findings on diagnostic imaging of breast
CPT/HCPCS: 77063; 77067

== ENCOUNTER 2024-07-29 11:06 | Outpatient (CLI) | payer OTHER, SELFPAY ==
--- NOTE | ~2024-07-29 | MMUS_ITS ---
EXAMINATION: MM diagnostic jose LT w any, US breast LT limited HISTORY: Left breast asymmetry, milky discharge TECHNIQUE: Additional 3-D tomosynthesis images of the left breast were performed and synthetic 2-D im ages were generated. CAD analysis was submitted and interpreted. High resolution limited left breast ultrasound was performed. COMPARISON: 05/23/2024 BREAST PARENCHYMAL COMPOSITION:Not Dense. There are scattered areas of fibroglandular density. FINDINGS: MAMMOGRAPHIC FINDINGS: Left breast asymmetry effaces with spot compression. No persistent mass lesion or distortion seen. Be nign calcifications are present. ULTRASOUND: Sonographic imaging of the subareolar region demonstrates no solid or cystic mass. No dilated ducts s een. IMPRESSION: No mammographic or sonographic evidence for malignancy. No significant abnormality identified. BI-RADS Category 1: Negative Reviewed, dictated and finalized at [facility]. ISHING SPECIALIST IMPRESSION: No mammographic or sonographic evidence for malignancy. No significant abnorma lity identified. BI-RADS Category 1: Negative
== END 2024-07-29 11:07 | disposition home or self-care (01) ==
PROVIDERS: PCP Emergency Medicine; Visit Provider Emergency Medicine
DX: R92.8 Other abnormal and inconclusive findings on diagnostic imaging of breast (principal)
CPT/HCPCS: 76642; 77061; 77065; G0279

== ENCOUNTER 2024-08-04 21:36 | Emergency (ER) | payer OTHER, SELFPAY ==
[2024-08-04 21:54] VITALS: BP 146/96; PULSE 99; RESP 18; TEMP 37.1; O2SAT 97
[2024-08-04 23:08] LABS: Influenza A QL RT-PCR Positive (Negative); Influenza B QL RT-PCR Negative (Negative); RSV RNA, RT-PCR Negative (Negative); SARS-CoV-2 RNA PCR Negative (Negative)
[2024-08-04 23:10] VITALS: O2SAT 98
--- NOTE | 2024-08-04 23:10 | PC.NURSE ---
pt c/o cough, headache and sore throat since yesterday but states sx have worsened today
--- NOTE | 2024-08-04 23:17 | ED_ITS ---
HPI - General Adult General Chief complaint: Upper Respiratory Infection Stated complaint: sore throat, fever, headache Time Seen by Provider: 08/04/24 22:30 History of Present Illness HPI narrative: The patient is a 44-year-old female who presents to the emergency department this evening complaining of a cough, sore throat, fevers, headaches and body aches which started last night and worsened this morning. Denies any sick contacts at home or at work. Denies any nausea vomiting or abdominal pain and denies any additional symptoms or concerns at this time. Related Data Home Medications ?Medication ?Instructions ?Recorded ?Confirmed ?Last Taken ?Type aspirin 81 mg tablet,delayed 81 mg PO DAILY 02/08/22 07/21/23 Unknown History release (Adult Aspirin Regimen) clopidogrel 75 mg tablet 75 mg PO DAILY 02/08/22 07/21/23 Unknown History furosemide 20 mg tablet 20 mg PO QAM 02/08/22 07/21/23 Unknown History lisinopril 20 mg tablet 20 mg PO DAILY 04/13/22 07/21/23 Unknown History metformin 500 mg tablet 500 mg PO DAILY 04/13/22 07/21/23 Unknown History simvastatin 10 mg tablet 10 mg PO DAILY 04/13/22 07/21/23 Unknown History ferrous sulfate 325 mg (65 mg 325 mg PO DAILY 08/10/22 07/21/23 Unknown History iron) tablet (Iron (ferrous sulfate)) Allergies Allergy/AdvReac Type Severity Reaction Status Date / Time No Known Allergies Allergy Verified 08/04/24 21:37 Review of Systems Review of Systems: All systems are reviewed and are negative unless stated otherwise in the HPI. [facility] Past Medical History Medical History KENDAL (obstructive sleep apnea) Heart disease Diabetes Surgical History Surgical History Hx laparoscopic cholecystectomy robotic assisted cholecystectomy 08/21/22 H/O vascular surgery Stent placement bilateral lower extremities December 2021.... IVC and iliac vein stents seen on CT. Family History Family History Other Cancer Heart disease Hypertension Lymphoma Social History Social History Smoking status: Never smoker Alcohol intake: never Substance use: never Substance use type: does not use Living arrangements: with family Occupation/Education: unemployed Gender identity (if verbalized by the patient): Female Spiritual care concerns: No Exam Narrative: General: Alert, awake, afebrile, in no acute distress, dry cough. HEENT: PERRL, no rhinorrhea, no post nasal drip, oropharynx clear, no tonsillar exudates. Neck: Trachea midline, no JVD, no lymphadenopathy. Cardiovascular: Regular rate and rhythm, no murmurs, rubs or gallops, no peripheral edema. Respiratory: Clear to auscultation bilaterally, no tachypnea, no wheezing, no rhonchi, no rubs, no respiratory distress. Abdomen: Soft, nontender, nondistended, no rebound, no guarding, no peritoneal signs. Musculoskeletal: No joint swelling or deformity, normal muscle tone. Skin: No rashes or petechia, no signs of infection. Psychiatric: Alert and oriented, normal behavior and judgment for situation. Neurological: Alert and oriented to person, place, and time. Follows all commands. No focal deficits, speech is clear and fluent. Course Vital Signs Vital signs: Vital Signs Temperature 98.7 F 08/04/24 21:54 Pulse Rate 99 08/04/24 21:54 Respiratory Rate 18 08/04/24 21:54 Blood Pressure 146/96 H 08/04/24 21:54 Pulse Oximetry 97 08/04/24 21:54 Oxygen Delivery Room Air 08/04/24 21:54 Temperature 98.7 F 08/04/24 21:54 Pulse Rate 99 08/04/24 21:54 Respiratory Rate 18 08/04/24 21:54 Blood Pressure 146/96 H 08/04/24 21:54 Pulse Oximetry 98 08/04/24 23:10 Oxygen Delivery Room Air 08/04/24 23:10 Medical Decision Making MDM Narrative Medical decision making narrative: The patient was evaluated by myself in the emergency department. History is obtained from patient who is an independent historian and physical exam was performed. External medical records were reviewed at this time. Patient was administered 15 mg of IM Toradol for body aches. Viral swabs were obtained at this time and did return back positive for influenza A. Patient was administered her 1st dose of Tamiflu 75 mg at this time. Differential diagnosis considerations include acute viral syndrome, strep throat, influenza. Comorbidities impacting this visit include none. I have evaluated and discussed social determinants of health with the patient that could potentially impact subsequent diagnosis and treatment plans. On repeat assessment of the patient, reevaluation revealed that the patient is doing well and is in no acute distress. Patient symptoms have improved since she arrived to our emergency department. Repeat vital signs were all reviewed and noted to be stable. Differential diagnosis and treatment plan were discussed with the patient at bedside. Patient agrees with discussion and after shared medical decision making agrees with discharge. All questions were answered to the patient's satisfaction. Patient will follow up with her PCP in 3-5 days. Script for Tamiflu sent to patient's pharmacy to take as prescribed for the next 5 days. Patient was provided with strict return precautions and instructed to return to the emergency department if any new or worsening symptoms develop. The patient was discharged in stable condition. Vital Signs Vital Signs: Vital Signs Temperature 98.7 F 08/04/24 21:54 Pulse Rate 99 08/04/24 21:54 Respiratory Rate 18 08/04/24 21:54 Blood Pressure 146/96 H 08/04/24 21:54 Pulse Oximetry 97 08/04/24 21:54 Oxygen Delivery Room Air 08/04/24 21:54 Temperature 98.7 F 08/04/24 21:54 Pulse Rate 99 08/04/24 21:54 Respiratory Rate 18 08/04/24 21:54 Blood Pressure 146/96 H 08/04/24 21:54 Pulse Oximetry 98 08/04/24 23:10 Oxygen Delivery Room Air 08/04/24 23:10 Lab Data Labs: Lab Results 08/04/24 Range/Units 22:20 Influenza A (RT-PCR) Positive A (Negative) Influenza B (RT-PCR) Negative (Negative) RSV (RT-PCR) Negative (Negative) SARS-CoV-2 RNA (RT-PCR) Negative (Negative) Discharge Plan Discharge Clinical Impression: Influenza Patient Disposition: Home, Self-Care Condition: Improved Instructions: Antibiotic Form, Influenza (ED) Additional Instructions: Please follow-up with your family doctor within the next 3-5 days. Return to the ED if any new or worsening symptoms develop. Take the prescribed Tamiflu as instructed. Use Tylenol and or ibuprofen as needed for fevers and body aches. Maintain your oral hydration by drinking lots of fluids. Patient Language: [place] Prescriptions: New oseltamivir [Tamiflu] 75 mg capsule 75 mg PO Q12H 5 Days Qty: 9 0RF No Action pseudoephedrine HCl [12 Hour Decongestant] 120 mg tablet extended release 120 mg PO Q12H PRN (Reason: nasal congestion) Qty: 20 0RF dextromethorphan-guaifenesin [Mucinex DM] 60-1,200 mg tablet extended release 12 hr 1 tablet PO Q12H Qty: 12 0RF furosemide 20 mg tablet 20 mg PO QAM clopidogrel 75 mg tablet 75 mg PO DAILY aspirin [Adult Aspirin Regimen] 81 mg tablet,delayed release (DR/EC) 81 mg PO DAILY metformin 500 mg tablet 500 mg PO DAILY simvastatin 10 mg tablet 10 mg PO DAILY lisinopril 20 mg tablet 20 mg PO DAILY progesterone micronized 200 mg capsule 200 mg PO DAILY Qty: 12 0RF cephalexin 500 mg capsule 500 mg PO Q8H 7 Days Qty: 21 0RF cephalexin 500 mg capsule 500 mg PO Q8H 7 Days Qty: 21 0RF ferrous sulfate [Iron (ferrous sulfate)] 325 mg (65 mg iron) Tablet 325 mg PO DAILY hydrocodone-acetaminophen 5-325 mg tablet 1 tablet PO Q6H PRN (Reason: pain) Qty: 20 0RF Follow-up/Referrals: Keenan William MD [Primary Care Provider] - 3 Days Time of Disposition: 23:18
[2024-08-04] MEDS: KETOROLAC 30 MG/ML VIAL (*BKC) 15 MG IM (23:35)
[2024-08-04 23:36] VITALS: BP 136/83; PULSE 87; RESP 18; O2SAT 99
[2024-08-04] MEDS: OSELTAMIVIR PHOSPHATE 75 MG CAPSULE PO (23:36)
--- OUTSIDE RECORDS SUMMARY | 2024-08-07 15:01 | XMS_ITS | CONTINUITY OF CARE DOCUMENT ---
Author Name tico doshi Address Unknown Organization [facility] Address [address] [facility] [address] [place] [address] Phone [phone] Care Team Providers Care Director Of Aviation Name Role Phone Mesfin JONES, Lynette Tse Unavailable [phone] Sunny DIAZ, Corinne Unavailable HITESH VELIZ MD Unavailable [phone] PROBLEMS Condition Status Date Provider Notes Shortness of breath active Lynette Toure MD HTN essential active Lynette Toure MD DM - type 2 active Lynette Toure MD Hypercholesterolemia active Lynette bradford MD Edema - localized active Lynette Chew Venous insufficiency active Lynette bradford MD Cardiovascular Condition Screening active S jeyson Toure MD Sleep apnea active Lynette Toure MD Cardiology examination active Lynette sandhu MD ENCOUNTERS Date Type Provider Location Encounter Diag nosis - In-person encounter Office Visit Lynette Toure MD [facility] - In-person encounter Office Visit Lynette Toure MD [facility] Cardiology examination - In-person encounter Office Visit Lynette Toure MD [facility] - In-person encounter Office Visit Lynette Toure MD [facility] - In-person encounter Office Visit Lynette Toure MD [facility] Sleep apnea - In-person encounter Office Visit Lynette Toure MD [facility] Cardiovascular Condition Screening - In-person encounter Office Visit Lynette Toure MD [facility] Venous insufficiency - In-person encounter Office Visit Lynette Toure MD [facility] Shortness of breathHTN essentialDM - type 2HypercholesterolemiaE jorge l - localized VITAL SIGNS Date Observation Value Provider Body Mass Index (Ratio) 39.82 kg/m2 Mainor Toure MD blood pressure, diastolic -1 mm[Hg] Li nkLogic blood pressure, systolic 137 mm[Hg] Amina kLog blood pressure, diastolic 90 mm[Hg] Shawn yla [facility] blood pressure, systolic 137 mm[Hg] Martha la [facility] oxygen saturation, oximetry 98 % Claudia [facility] pulse rate 83 /min Claudia [facility] blood pressure, cuff size regular Ka yla [facility] weight E&M 232 [lb_av] Claudia [facility] height E&M 64 [in_i] Claudia [facility] Body Mass Index (Ratio) 38.41 kg/m2 Mainor Toure MD blood pressure, cuff size large Ta randall Vora blood pressure, diastolic 84 mm[Hg] Ta bitha Vora blood pressure, systolic 126 mm[Hg] Tab ithsanchez Vora weight E&M 223.8 [lb_av] Veronika Vora respiratory rate E&M 12 /min Veronikasanchez Vora pulse rate 80 /min Veronika Vora height E&M 64 [in_i] Veronika Vora Body Mass Index (Ratio) 39.82 kg/m2 Mainor Toure MD blood pressure, diastolic 72 mm[Hg] Li nkLog blood pressure, systolic 140 mm[Hg] Amina Marciog blood pressure, cuff size regular Fa chris Weiser blood pressure, diastolic 72 mm[Hg] Fa [facility] blood pressure, systolic 140 mm[Hg] Wyatt [facility] oxygen saturation, oximetry 95 % [facility] respiratory rate E&M 16 /min Claribel Holloway ille pulse rate 82 /min [facility] weight E&M 232 [lb_av] [facility] height E&M 64 [in_i] [facility] Body Mass Index (Ratio) 43.77 kg/m2 Mainor Toure MD blood pressure, diastolic -1 mm[Hg] Irma sonaliLog blood pressure, systolic 127 mm[Hg] Amina Covarrubiasog blood pressure, diastolic 82 mm[Hg] [facility] de[facility] Pires blood pressure, systolic 127 mm[Hg] Sta savannah Pires pulse rate 69 /min Cait Pranay weight E&M 255 [lb_av] Cait Pranay respiratory rate E&M 18 /min Cait Jeevan paul height E&M 64 [in_i] Cait Pranay Body Mass Index (Ratio) 37.76 kg/m2 Mainor Toure MD blood pressure, cuff size large Ke rri Frederickuenenfsuzie blood pressure, diastolic 82 mm[Hg] Ke rri Frederickuenenfeldchasity blood pressure, systolic 131 mm[Hg] Ker ri Shannan respiratory rate E&M 16 /min Mariluz zayasdevinchasity pulse rate 66 /min Mariluz Brooks lder weight E&M 220 [lb_av] Mariluz Brooks lder height E&M 64 [in_i] Mariluz Brooks lder Body Mass Index (Ratio) 39.13 kg/m2 Carradha Perez blood pressure, diastolic 87 mm[Hg] Li nkLogic blood pressure, systolic 134 mm[Hg] Amina kLogic blood pressure, diastolic 87 mm[Hg] Sa ra Lopes blood pressure, systolic 134 mm[Hg] Pal a Lopes oxygen saturation, oximetry 96 % Roxanne Lopes respiratory rate E&M 20 /min Roxanne Si ms pulse rate 66 /min Orxanne Lopes weight E&M 228 [lb_av] Roxanne Lopes blood pressure, cuff size regular Sa ra Lopes height E&M 64 [in_i] Roxanne Lopes Body Mass Index (Ratio) 39.30 kg/m2 Raphael jasso Barrios blood pressure, diastolic 80 mm[Hg] Irma nkLogic blood pressure, systolic 146 mm[Hg] Amina kLogic blood pressure, diastolic 80 mm[Hg] Rebecca Knowles blood pressure, systolic 146 mm[Hg] Rakesh Knowles respiratory rate E&M 18 /min Deb Knowles pulse rate 71 /min Derick narvaez weight E&M 229 [lb_av] Derick narvaez blood pressure, cuff size regular Rebecca Knowles height E&M 64 [in_i] Derick narvaez weight E&M 231 [lb_av] Marty Call al Body Mass Index (Ratio) 39.65 kg/m2 Mainor Toure MD blood pressure, diastolic 98 mm[Hg] Li nkLogic blood pressure, systolic 142 mm[Hg] Amina kLogic blood pressure, diastolic 98 mm[Hg] Ca therine Nico blood pressure, systolic 142 mm[Hg] Cat herine Nico respiratory rate E&M 16 /min Catheri ne [place] pulse rate 67 /min Prerna [place] weight E&M 231 [lb_av] Prerna Nico height E&M 64 [in_i] Prerna [place] ALLERGIES No Known Drug Allergies HISTORY OF MEDICATION USE Medication Status Instructions Dates Provider Indications Com ments Mauro Bautista U-100 Insulin 100 unit/mL (3 mL) insulin pen active 23 units of an evening Veronika Vora clopidogrel 75 mg tablet active TAKE 1 TABLET BY MOUTH EVERY DAY Lynette Toure MD aspirin 81 mg tablet,delayed release (DR/EC) active TAKE 1 TABLET BY MOUTH EVERY DAY ret furosemide 20 mg tablet active Take 1 tablet by mouth twice a day Lynette Toure MD aspirin 81 mg tablet,delayed release (DR/EC) completed - [facility] clopidogrel 75 mg tablet completed - Aurelio Lasix 20 mg tablet completed TAKE 1 TABLET BY MOUTH DAILY - Lynette Toure MD simvastatin 10 mg tablet active Take 1 tablet by mouth once a day Lynette Toure MD hydrochlorothiazide 12.5 mg capsule active TAKE 1 CAPSULE BY MOUTH EVERY DAY Lynette Toure MD lisinopril 20 mg tablet active Take 1 1/2 tablet by mouth once a day okay to take 1 pill in the morning and the other half in the evening to get a total of 30mg a day Lynette Toure MD metformin 1,000 mg tablet active Take 1 tablet twice a day Derick Knowles SOCIAL HISTORY Date Observation Value Provider smoking status Never smoker Lynette sandhu MD smoking status Never smoker Lynette sandhu MD social history reviewed E&M revi ewed - no changes required Lynette Toure MD social history reviewed E&M revi ewed - no changes required Lynette Toure MD social history E&M S moking History: Ratna olmos has never smoked. Lynette Toure MD smoking status Never smoker Cait Pires social history reviewed E&M revi ewed - no changes required Lynette Toure MD social history E&M S moking History: Ratna olmos has never smoked. Lynette Toure MD smoking status Never smoker Mariluz An dasilva social history reviewed E&M revi ewed - no changes required Lynette Toure MD number of grandchildren Lynette Toure MD Concepcion Denis social history reviewed E&M revi ewed - no changes required Lynette Toure MD social history E&M S moking History: Ratna olmos has never smoked. Lynette Toure MD social history reviewed E&M revi ewed - no changes required Lynette Toure MD smoking status Never smoker Prerna butler INSURANCE PROVIDERS Payer name Policy type / Coverage type [facility] party ID [employer] MEDICA[employer] Medicaid [id number] ADVANCE DIRECTIVES Name Date DISCUSSED - NO DECISION MADE TREATMENT PLAN Date Name Performer [id number],B,h as noted improvement of SOB w ill add additonal 10mg of lisinopril for better BP H er updated medication list for this problem includes: Aspirin 81 Mg Tablet,delayed Release (dr/ec) (Aspirin) ..... Take 1 tablet by mouth every day Furosemide 20 Mg Tablet (Furosemide) ..... Take 1 tablet by mouth twice a day Hydrochlorothiazide 12.5 Mg Capsule (Hydrochlorothiazide) Lisinopril 20 Mg Tablet (Lisinopril) Lynette Toure MD [id number],S,h as had improvement of her edema s till has trace edema bilateral lower extremities. Lynette Toure MD [id number],C, H er updated medication list for this problem includes: Simvastatin 10 Mg Tablet (Simvastatin) Lynette Toure MD [id number],C, B P today: 127/82 P rior BP: 131/82 (05/26/2022) Her updated medication list for this problem includes: Aspirin 81 Mg Tablet,delayed Release (dr/ec) (Aspirin) ..... Take 1 tablet by mouth every day Furosemide 20 Mg Tablet (Furosemide) ..... Take 1 tablet by mouth twice a day Hydrochlorothiazide 12.5 Mg Capsule (Hydrochlorothiazide) Lisinopril 20 Mg Tablet (Lisinopril) Lynette Toure MD [id number],C, H ome sleep study shows an AHI of 13.9 which is consistent with a diagnosis of mild KENDAL. Mean oxygen saturation of 9 5%, with the lowest being 89%. May 26, 2022 P ending getting her CPAP November 24, 2022 T he patient is using CPAP on a regular basis. The patient has been benefiting from therapy and should continue use. May 25, 2023 The patient is using CPAP on a regular basis. The patient has been benefiting from therapy and should continue use. Lynette Toure MD [id number],S, E cho 10/2021 C ONCLUSIONS: 1 . Normal left ventricular systolic function. Normal left ventricular size. Normal left ventricular wall thickness. Normal left v entricular diastolic function. E/E': 7.8. Left ventricular ejection fraction is measured at 60 %. 2 . Normal right ventricular size. Normal right ventricular systolic function. 3 . Normal appearing tricuspid valve leaflets. There is mild tricuspid regurgitation. IVC is normal in size with normal r espiratory response. Unable to adequately assess the RVSP. Routine stress 10/2021 S ummary and Interpretation 1 . Normal exercise capacity 2 . Normal hemodynamic response to exercise 3 . No diagnostic ST or T changes 4 . No significant arrhythmias 5 . There is no evidence for exercise-induced myocardial ischemia Lynette Toure MD [id number],S, H er updated medication list for this problem includes: Aspirin 81 Mg Tablet,delayed Release (dr/ec) (Aspirin) ..... Take 1 tablet by mouth every day Furosemide 20 Mg Tablet (Furosemide) ..... Take 1 tablet by mouth twice a day Hydrochlorothiazide 12.5 Mg Capsule (Hydrochlorothiazide) Lisinopril 20 Mg Tablet (Lisinopril) Lynette Toure MD [id number],C, B P today: 127/82 P rior BP: 131/82 (05/26/2022) Her updated medication list for this problem includes: Aspirin 81 Mg Tablet,delayed Release (dr/ec) (Aspirin) ..... Take 1 tablet by mouth every day Furosemide 20 Mg Tablet (Furosemide) ..... Take 1 tablet by mouth twice a day Hydrochlorothiazide 12.5 Mg Capsule (Hydrochlorothiazide) Lisinopril 20 Mg Tablet (Lisinopril) Lynette Toure MD [id number],S, C heck A1c, 7.6 Lipid panel was good LDL 51. Her updated medication list for this problem includes: Aspirin 81 Mg Tablet,delayed Release (dr/ec) (Aspirin) Metformin 1,000 Mg Tablet (Metformin) ..... Take 1 tablet twice a day Lisinopril 20 Mg Tablet (Lisinopril) Lynette Toure MD [id number],C, H ome sleep study shows an AHI of 13.9 which is consistent with a diagnosis of mild KENDAL. Mean oxygen saturation of 9 5%, with the lowest being 89%. May 26, 2022 P ending getting her CPAP November 24, 2022 T he patient is using CPAP on a regular basis. The patient has been benefiting from therapy and should continue use. Lynette Toure MD [id number],C, S he had stenting 16 x 100 Abre stent R common illiac vein, 16 x 150 into the L common illiac vein, 12/30/21. Has noted some improvement in swelling as well as the pain, right leg. Encouraged use of compression and eventually can graduate to lower levels of compression. 12/2021May 26, 2022 S till notices some improvement but has residual edema. Continues to wear compression stockings November 24, 2022 U sing compression stockings Lynette Toure MD [id number],C,H ome sleep study shows an AHI of 13.9 which is consistent with a diagnosis of mild KENDAL. Mean oxygen saturation of 9 5%, with the lowest being 89%. May 26, 2022 P ending getting her CPAP Lynette Toure MD [id number],S,I ncrfreddye Lasix C onclusions: The diffusing capacity is high for the measured alveolar volume suggesting a chest wall limitation or reduced force generation a s possible explanations for the restriction. P ulmonary Function Diagnosis: M ild Restriction I ncreased Diffusion S evere Neuromuscular Disease Remains on ASA plavix. Lynette Toure MD [id number],S, C heck A1c, Lipid panel was good LDL 51. Her updated medication list for this problem includes: Aspirin 81 Mg Tablet,delayed Release (dr/ec) (Aspirin) Metformin 1,000 Mg Tablet (Metformin) ..... Take 1 tablet twice a day Lisinopril 20 Mg Tablet (Lisinopril) Lynette Toure MD [id number],C, B P today: 131/82 P rior BP: 134/87 (02/24/2022) Her updated medication list for this problem includes: Aspirin 81 Mg Tablet,delayed Release (dr/ec) (Aspirin) Hydrochlorothiazide 12.5 Mg Capsule (Hydrochlorothiazide) Lisinopril 20 Mg Tablet (Lisinopril) Lynette Toure MD [id number],C, S he had stenting 16 x 100 Abre stent R common illiac vein, 16 x 150 into the L common illiac vein, 12/30/21. Has noted some improvement in swelling as well as the pain, right leg. Encouraged use of compression and eventually can graduate to lower levels of compression. 12/2021May 26, 2022 S till notices some improvement but has residual edema. Continues to wear compression stockings Lynette Toure MD [id number],B, s tart lasix 20mg daily for 1month and see if ther eis improveent juan thomson venouls doplers a nd check for chf Lynette Toure MD [id number],C,C onclusions: The diffusing capacity is high for the measured alveolar volume suggesting a chest wall limitation or reduced force generation a s possible explanations for the restriction. P ulmonary Function Diagnosis: M ild Restriction I ncreased Diffusion S evere Neuromuscular Disease Remains on ASA plavix. Lynette Toure MD [id number],C, B P elevated. Discussion of benefits for remote patient monitoring took place. Patient gives consent for remote monitoring of physiologic parameters including, but not limited to, weight, blood pressure, pulse oximetry, respiratory flow rate. B P today: 134/87 P rior BP: 146/80 (11/16/2021) Her updated medication list for this problem includes: Aspirin 81 Mg Tablet,delayed Release (dr/ec) (Aspirin) Lasix 20 Mg Tablet (Furosemide) ..... Take 1 tablet by mouth daily Hydrochlorothiazide 12.5 Mg Capsule (Hydrochlorothiazide) Lisinopril 20 Mg Tablet (Lisinopril) February 24, 2022 R eviewed RPM monitor, she has good downward direction of BP, continue use. Lynette Toure MD [id number],C,C berto A1c, Lipid panel was good LDL 51. Her updated medication list for this problem includes: Aspirin 81 Mg Tablet,delayed Release (dr/ec) (Aspirin) Metformin 1,000 Mg Tablet (Metformin) ..... Take 1 tablet twice a day Lisinopril 20 Mg Tablet (Lisinopril) Lynette Toure MD [id number],C,S he had stenting 16 x 100 Abre stent R common illiac vein, 16 x 150 into the L common illiac vein, 12/30/21. Has noted some improvement in swelling as well as the pain, right leg. Encouraged use of compression and eventually can graduate to lower levels of compression. 12/2021 Lynette Toure MD [id number],SJoe 10/2021 C ONCLUSIONS: 1 . Normal left ventricular systolic function. Normal left ventricular size. Normal left ventricular wall thickness. Normal left v entricular diastolic function. E/E': 7.8. Left ventricular ejection fraction is measured at 60 %. 2 . Normal right ventricular size. Normal right ventricular systolic function. 3 . Normal appearing tricuspid valve leaflets. There is mild tricuspid regurgitation. IVC is normal in size with normal r espiratory response. Unable to adequately assess the RVSP. Routine stress 10/2021 S ummary and Interpretation 1 . Normal exercise capacity 2 . Normal hemodynamic response to exercise 3 . No diagnostic ST or T changes 4 . No significant arrhythmias 5 . There is no evidence for exercise-induced myocardial ischemia Lynette Toure MD [id number],C,B P elevated. Discussion of benefits for remote patient monitoring took place. Patient gives consent for remote monitoring of physiologic parameters including, but not limited to, weight, blood pressure, pulse oximetry, respiratory flow rate. BP today: 146/80 P rior BP: 142/98 (10/14/2021) Her updated medication list for this problem includes: Lasix 20 Mg Tablet (Furosemide) ..... Take 1 tablet by mouth daily Hydrochlorothiazide 12.5 Mg Capsule (Hydrochlorothiazide) Lisinopril 20 Mg Tablet (Lisinopril) Lynette Toure MD [id number],CV ector 10/26/21 CONCLUSIONS: 1 . No evidence of significant venous insufficiency of the lower extremities bilaterally. 2 . Significant venous insufficiency of the great saphenous vein bilaterally. 3 . Significant venous insufficiency of the femoral vein bilaterally. E lectronically Signed By: Carrie Toure MD, [facility] Will schedule JAG and venogram to eval for May-Thurner syndrome. Lynette Toure MD [id number],S,s tart lasix 20mg daily for 1month and see if ther eis improveent c heck venouls doplers a nd check for chf Lynette Toure MD [id number],S, Lynette patiño MD [id number],C, H er updated medication list for this problem includes: Simvastatin 10 Mg Tablet (Simvastatin) Lynette Toure MD [id number],C,c grahamk echo and pft c grahamk stress Lynette Toure MD [id number],C, H er updated medication list for this problem includes: Hydrochlorothiazide 12.5 Mg Capsule (Hydrochlorothiazide) Lisinopril 20 Mg Tablet (Lisinopril) BP today: 142/98 Lynette Toure MD Cardiology: H er updated medication list for this problem includes: Simvastatin 10 Mg Tablet (Simvastatin) ..... Take 1 tablet by mouth once a day T his visit has been a part of the consistent, comprehensive, and ongoing management of the chronic medical condition(s) listed above for the patient. Lynette Toure MD Cardiology: H er updated medication list for this problem includes: Aspirin 81 Mg Tablet,delayed Release (dr/ec) (Aspirin) ..... Take 1 tablet by mouth every day Hydrochlorothiazide 12.5 Mg Capsule (Hydrochlorothiazide) ..... Take 1 capsule by mouth every day Lisinopril 20 Mg Tablet (Lisinopril) ..... Take 1 1/2 tablet by mouth once a day okay to take 1 pill in the morning and the other half in the evening to get a total of 30mg a day Furosemide 20 Mg Tablet (Furosemide) ..... Take 1 tablet by mouth twice a day T his visit has been a part of the consistent, comprehensive, and ongoing management of the chronic medical condition(s) listed above for the patient. B P today: 137/90 P rior BP: 126/84 (12/05/2023) Lynette Toure MD Cardiology: H ome sleep study shows an AHI of 13.9 which is consistent with a diagnosis of mild KENDAL. Mean oxygen saturation of 9 5%, with the lowest being 89%. May 26, 2022 P ending getting her CPAP November 24, 2022 T he patient is using CPAP on a regular basis. The patient has been benefiting from therapy and should continue use. May 25, 2023 T he patient is using CPAP on a regular basis. The patient has been benefiting from therapy and should continue use. December 05, 2023 T he patient is using CPAP on a regular basis. The patient has been benefiting from therapy and should continue use. July 02, 2024 T he patient is using CPAP on a regular basis. The patient has been benefiting from therapy and should continue use. This visit has been a part of the consistent, comprehensive, and ongoing management of the chronic medical condition(s) listed above for the patient. Lynette Toure MD Cardiology: C ONCLUSIONS: 1 . Normal left ventricular systolic function. Normal left ventricular size. Normal left ventricular wall thickness. Normal left v entricular diastolic function. E/E': 7.8. Left ventricular ejection fraction is measured at 60 %. 2 . Normal right ventricular size. Normal right ventricular systolic function. 3 . Normal appearing tricuspid valve leaflets. There is mild tricuspid regurgitation. IVC is normal in size with normal r espiratory response. Unable to adequately assess the RVSP. E lectronically signed by Lynette Toure MD on 11/01/2021 at 8:51 AM Summary and Interpretation 1 . Normal exercise capacity 2 . Normal hemodynamic response to exercise 3 . No diagnostic ST or T changes 4 . No significant arrhythmias 5 . There is no evidence for exercise-induced myocardial ischemia E lectronically signed by Zurdo Diehl MD on 11/03/2021 at 6:07 PM Lynette Toure MD Cardiology: Juan thomson A1c, 7.6 Lipid panel was good LDL 51. May be a candidate for [facility], not on ozempic Lynette Toure MD Cardiology: Juan thomson A1c, 7.6 Lipid panel was good LDL 51. Her updated medication list for this problem includes: Aspirin 81 Mg Tablet,delayed Release (dr/ec) (Aspirin) Metformin 1,000 Mg Tablet (Metformin) ..... Take 1 tablet twice a day Lisinopril 20 Mg Tablet (Lisinopril) M panda 2023 w ill recheck A1c, recalls her last A1c was 10, was started on insulin Lynette Toure MD Cardiology: H ome sleep study shows an AHI of 13.9 which is consistent with a diagnosis of mild KENDAL. Mean oxygen saturation of 9 5%, with the lowest being 89%. May 26, 2022 P ending getting her CPAP November 24, 2022 T he patient is using CPAP on a regular basis. The patient has been benefiting from therapy and should continue use. May 25, 2023 T he patient is using CPAP on a regular basis. The patient has been benefiting from therapy and should continue use. December 05, 2023 T he patient is using CPAP on a regular basis. The patient has been benefiting from therapy and should continue use. Lynette Toure MD Cardiology:check lab s Her updated medication list for this problem includes: Simvastatin 10 Mg Tablet (Simvastatin) ..... Take 1 tablet by mouth once a day Lynette Toure MD Cardiology: S he had stenting 16 x 100 Abre stent R common illiac vein, 16 x 150 into the L common illiac vein, 12/30/21. Has noted some improvement in swelling as well as the pain, right leg. Encouraged use of compression and eventually can graduate to lower levels of compression. 12/2021May 26, 2022 S till notices some improvement but has residual edema. Continues to wear compression stockings November 24, 2022 U sing compression stockings December 05, 2023 r echeck reflux study since she has had bilateral iliac vein revasc. Remains on plavix no bleeding issues Lynette Toure MD Cardiology:CONCLUSIO NS: 1 . Normal left ventricular systolic function. Normal left ventricular size. Normal left ventricular wall thickness. Normal left v entricular diastolic function. E/E': 7.8. Left ventricular ejection fraction is measured at 60 %. 2 . Normal right ventricular size. Normal right ventricular systolic function. 3 . Normal appearing tricuspid valve leaflets. There is mild tricuspid regurgitation. IVC is normal in size with normal r espiratory response. Unable to adequately assess the RVSP. E lectronically signed by Lynette Toure MD on 11/01/2021 at 8:51 AM Summary and Interpretation 1 . Normal exercise capacity 2 . Normal hemodynamic response to exercise 3 . No diagnostic ST or T changes 4 . No significant arrhythmias 5 . There is no evidence for exercise-induced myocardial ischemia E lectronically signed by Zurdo Diehl MD on 11/03/2021 at 6:07 PM Lynette Toure MD Cardiology:has noted improvement of SOB w ill add additonal 10mg of lisinopril for better BP H er updated medication list for this problem includes: Aspirin 81 Mg Tablet,delayed Release (dr/ec) (Aspirin) ..... Take 1 tablet by mouth every day Furosemide 20 Mg Tablet (Furosemide) ..... Take 1 tablet by mouth twice a day Hydrochlorothiazide 12.5 Mg Capsule (Hydrochlorothiazide) Lisinopril 20 Mg Tablet (Lisinopril) Lynette Toure MD Cardiology:has had i mprovement of her edema s till has trace edema bilateral lower extremities. Lynette Toure MD Cardiology: H er updated medication list for this problem includes: Simvastatin 10 Mg Tablet (Simvastatin) Lynette Toure MD Cardiology: B P today: 127/82 P rior BP: 131/82 (05/26/2022) Her updated medication list for this problem includes: Aspirin 81 Mg Tablet,delayed Release (dr/ec) (Aspirin) ..... Take 1 tablet by mouth every day Furosemide 20 Mg Tablet (Furosemide) ..... Take 1 tablet by mouth twice a day Hydrochlorothiazide 12.5 Mg Capsule (Hydrochlorothiazide) Lisinopril 20 Mg Tablet (Lisinopril) Lynette Toure MD Cardiology: H ome sleep study shows an AHI of 13.9 which is consistent with a diagnosis of mild KENDAL. Mean oxygen saturation of 9 5%, with the lowest being 89%. May 26, 2022 P ending getting her CPAP November 24, 2022 T he patient is using CPAP on a regular basis. The patient has been benefiting from therapy and should continue use. May 25, 2023 T he patient is using CPAP on a regular basis. The patient has been benefiting from therapy and should continue use. Lynette Toure MD Cardiology: E magali 10/2021 C ONCLUSIONS: 1 . Normal left ventricular systolic function. Normal left ventricular size. Normal left ventricular wall thickness. Normal left v entricular diastolic function. E/E': 7.8. Left ventricular ejection fraction is measured at 60 %. 2 . Normal right ventricular size. Normal right ventricular systolic function. 3 . Normal appearing tricuspid valve leaflets. There is mild tricuspid regurgitation. IVC is normal in size with normal r espiratory response. Unable to adequately assess the RVSP. Routine stress 10/2021 S ummary and Interpretation 1 . Normal exercise capacity 2 . Normal hemodynamic response to exercise 3 . No diagnostic ST or T changes 4 . No significant arrhythmias 5 . There is no evidence for exercise-induced myocardial ischemia Lynette Toure MD Cardiology: H er updated medication list for this problem includes: Aspirin 81 Mg Tablet,delayed Release (dr/ec) (Aspirin) ..... Take 1 tablet by mouth every day Furosemide 20 Mg Tablet (Furosemide) ..... Take 1 tablet by mouth twice a day Hydrochlorothiazide 12.5 Mg Capsule (Hydrochlorothiazide) Lisinopril 20 Mg Tablet (Lisinopril) Lynette Toure MD Cardiology: B P today: 127/82 P rior BP: 131/82 (05/26/2022) Her updated medication list for this problem includes: Aspirin 81 Mg Tablet,delayed Release (dr/ec) (Aspirin) ..... Take 1 tablet by mouth every day Furosemide 20 Mg Tablet (Furosemide) ..... Take 1 tablet by mouth twice a day Hydrochlorothiazide 12.5 Mg Capsule (Hydrochlorothiazide) Lisinopril 20 Mg Tablet (Lisinopril) Lynette Toure MD Cardiology: C heck A1c, 7.6 Lipid panel was good LDL 51. Her updated medication list for this problem includes: Aspirin 81 Mg Tablet,delayed Release (dr/ec) (Aspirin) Metformin 1,000 Mg Tablet (Metformin) ..... Take 1 tablet twice a day Lisinopril 20 Mg Tablet (Lisinopril) Lynette Toure MD Cardiology: H ome sleep study shows an AHI of 13.9 which is consistent with a diagnosis of mild KENDAL. Mean oxygen saturation of 9 5%, with the lowest being 89%. May 26, 2022 P ending getting her CPAP November 24, 2022 T he patient is using CPAP on a regular basis. The patient has been benefiting from therapy and should continue use. Lynette Toure MD Cardiology: S he had stenting 16 x 100 Abre stent R common illiac vein, 16 x 150 into the L common illiac vein, 12/30/21. Has noted some improvement in swelling as well as the pain, right leg. Encouraged use of compression and eventually can graduate to lower levels of compression. 12/2021May 26, 2022 S till notices some improvement but has residual edema. Continues to wear compression stockings November 24, 2022 U sing compression stockings Lynette Toure MD Cardiology:Home slee p study shows an AHI of 13.9 which is consistent with a diagnosis of mild KENDAL. Mean oxygen saturation of 9 5%, with the lowest being 89%. May 26, 2022 P ending getting her CPAP Lynette Toure MD Cardiology:Increase Lasix C onclusions: The diffusing capacity is high for the measured alveolar volume suggesting a chest wall limitation or reduced force generation a s possible explanations for the restriction. P ulmonary Function Diagnosis: M ild Restriction I ncreased Diffusion S evere Neuromuscular Disease Remains on ASA plavix. Lynette Toure MD Cardiology: Juan thomson A1c, Lipid panel was good LDL 51. Her updated medication list for this problem includes: Aspirin 81 Mg Tablet,delayed Release (dr/ec) (Aspirin) Metformin 1,000 Mg Tablet (Metformin) ..... Take 1 tablet twice a day Lisinopril 20 Mg Tablet (Lisinopril) Lynette Toure MD Cardiology: B P today: 131/82 P rior BP: 134/87 (02/24/2022) Her updated medication list for this problem includes: Aspirin 81 Mg Tablet,delayed Release (dr/ec) (Aspirin) Hydrochlorothiazide 12.5 Mg Capsule (Hydrochlorothiazide) Lisinopril 20 Mg Tablet (Lisinopril) Lynette Toure MD Cardiology: S he had stenting 16 x 100 Abre stent R common illiac vein, 16 x 150 into the L common illiac vein, 12/30/21. Has noted some improvement in swelling as well as the pain, right leg. Encouraged use of compression and eventually can graduate to lower levels of compression. 12/2021May 26, 2022 S till notices some improvement but has residual edema. Continues to wear compression stockings Lynette Toure MD Cardiology: s tart lasix 20mg daily for 1month and see if ther eis improveent c berto venoulcarrie doplers a nd check for chf Lynette Toure MD Cardiology:Conclusio ns: The diffusing capacity is high for the measured alveolar volume suggesting a chest wall limitation or reduced force generation a s possible explanations for the restriction. P ulmonary Function Diagnosis: M ild Restriction I ncreased Diffusion S evere Neuromuscular Disease Remains on ASA plavix. Lynette Toure MD Cardiology: B P elevated. Discussion of benefits for remote patient monitoring took place. Patient gives consent for remote monitoring of physiologic parameters including, but not limited to, weight, blood pressure, pulse oximetry, respiratory flow rate. B P today: 134/87 P rior BP: 146/80 (11/16/2021) Her updated medication list for this problem includes: Aspirin 81 Mg Tablet,delayed Release (dr/ec) (Aspirin) Lasix 20 Mg Tablet (Furosemide) ..... Take 1 tablet by mouth daily Hydrochlorothiazide 12.5 Mg Capsule (Hydrochlorothiazide) Lisinopril 20 Mg Tablet (Lisinopril) February 24, 2022 R maddisond RPM monitor, she has good downward direction of BP, continue use. Lynette Toure MD Cardiology:Check A1c , Lipid panel was good LDL 51. Her updated medication list for this problem includes: Aspirin 81 Mg Tablet,delayed Release (dr/ec) (Aspirin) Metformin 1,000 Mg Tablet (Metformin) ..... Take 1 tablet twice a day Lisinopril 20 Mg Tablet (Lisinopril) Lynette Toure MD Cardiology:She had s tenting 16 x 100 Abre stent R common illiac vein, 16 x 150 into the L common illiac vein, 12/30/21. Has noted some improvement in swelling as well as the pain, right leg. Encouraged use of compression and eventually can graduate to lower levels of compression. 12/2021 Lynette Toure MD Cardiology:Echo 10/15 022 C ONCLUSIONS: 1 . Normal left ventricular systolic function. Normal left ventricular size. Normal left ventricular wall thickness. Normal left v entricular diastolic function. E/E': 7.8. Left ventricular ejection fraction is measured at 60 %. 2 . Normal right ventricular size. Normal right ventricular systolic function. 3 . Normal appearing tricuspid valve leaflets. There is mild tricuspid regurgitation. IVC is normal in size with normal r espiratory response. Unable to adequately assess the RVSP. Routine stress 10/2021 S ummary and Interpretation 1 . Normal exercise capacity 2 . Normal hemodynamic response to exercise 3 . No diagnostic ST or T changes 4 . No significant arrhythmias 5 . There is no evidence for exercise-induced myocardial ischemia Lynette Toure MD Cardiology:BP elevat ed. Discussion of benefits for remote patient monitoring took place. Patient gives consent for remote monitoring of physiologic parameters including, but not limited to, weight, blood pressure, pulse oximetry, respiratory flow rate. BP today: 146/80 P rior BP: 142/98 (10/14/2021) Her updated medication list for this problem includes: Lasix 20 Mg Tablet (Furosemide) ..... Take 1 tablet by mouth daily Hydrochlorothiazide 12.5 Mg Capsule (Hydrochlorothiazide) Lisinopril 20 Mg Tablet (Lisinopril) Lynette Toure MD Cardiology:Venous US 10/26/21 CONCLUSIONS: 1 . No evidence of significant venous insufficiency of the lower extremities bilaterally. 2 . Significant venous insufficiency of the great saphenous vein bilaterally. 3 . Significant venous insufficiency of the femoral vein bilaterally. E lectronically Signed By: Carrie Toure MD, FACC Will schedule JAG and venogram to eval for May-Thurner syndrome. Lynette Toure MD Cardiology:start las ix 20mg daily for 1month and see if ther eis improveent c heck venouls doplers a nd check for chf Lynette Toure MD Cardiology Lynette Toure MD Cardiology: H er updated medication list for this problem includes: Simvastatin 10 Mg Tablet (Simvastatin) Lynette Toure MD Cardiology:check ech o and pft c heck stress Lynette Toure MD Cardiology: H er updated medication list for this problem includes: Hydrochlorothiazide 12.5 Mg Capsule (Hydrochlorothiazide) Lisinopril 20 Mg Tablet (Lisinopril) BP today: 142/98 Lynette Toure MD Date Name Complete Echo HEMOGLOBIN A1c LIPID PANEL COMPREHENSIVE METABO LIC PANEL, W/EGFR Venous Doppler Bilat eral LE - Reflux COMPREHENSIVE METABO LIC PANEL, W/EGFR EKG LIPID PANEL LIPID PANEL HEMOGLOBIN A1c PROTHROMBIN TIME WIT H INR LIPID PANEL CBC (INCLUDES DIFF/P LT) BASIC METABOLIC PANE L W/EGFR EKG RPM (remote patient monitoring) Arterial Duplex Bi-L ower EX Venogram w/ IVUS - S LHV Venous Doppler Bilat eral LE - Reflux Sleep Study Home Complete Echo Stress Routine 6 minute walk test DLCO - 84666 FRC - 28739 FVC - 18378 HISTORY OF PROCEDURES Procedure Date Procedure Name Provider Procedure Notes S tatus Complex e/m visit add on Lynette Toure MD completed EKG Lynette Toure MD compl eted EKG Lynette Toure MD compl eted EKG Lynette Toure MD compl eted EKG Lynette Toure MD compl eted EKG Lynette Toure MD compl eted 6 minute walk test Lynette Toure MD completed Spirometry Lynette Toure MD compl eted FVC / MVV - [id number] Lynette Toure MD completed BLOOD COUNT HEMOGLOBIN Lynette Toure MD completed FRC - 43971 Lynette Toure MD comp leted SpO2 w/o 6min walk/titration Lynette Toure MD completed SVC - 88191 Lynette Toure MD comp leted DLCO - [id number] Lynette Toure MD com pleted
--- OUTSIDE RECORDS SUMMARY | 2024-08-07 15:01 | XMS_ITS | Continuity of Care Document ---
Author Organization [facility] Address [address] [place] [address] Phone Care Team Providers Care Child Custody Evaluator Name Role Phone Lino OCAMPOPrerna Unavailable Unavailable Allergies, Adverse Reactions, Alerts Substance [...] and/or drug screening 6 HEMOGLOBIN; GLYCOSYLATED (A1C) 16 COLLECTION OF CAPILLARY [...] oral eval problem focused 013 OFFICE/OUTPATIENT VISIT, [facility] Advance Directives Directive Yes / No Effective Date File Name No Information Encounters Encounter Description Practice Location Reason(s) For Visit Diagnoses Date Provider Providers Copied on Encounter [facility], [address], [place], [place], [address] , [place] tel: [phone] [facility] No Information 8 Lino Graff. [address], [place], [place], [address], [place]. tel:[phone] OFFICE/OUTPA TIENT VISIT, EST [facility], [address], [place], [place], [address] , [place] tel: [phone] [facility] SOB and Dizziness (chief complaint) Body mass index (BMI) 40.0-44.9, adultType 2 diabetes mellitus with hyperglycemiaEss ential (primary) hypertensionDizz inessIron deficiency anemia, unspecified 8 Lino Graff. [address], [place], [place], [address], [place]. [phone] [facility], [address], [place], [place], [address] , [place] tel: [phone] [facility] No Information 7 No Information OFFICE/OUTPA TIENT VISIT, EST [facility], [address], [place], [place], [address] , [place] tel: [phone] [facility] anemia (chief complaint) diabetes (chief complaint) Type 2 diabetes mellitus with hyperglycemiaMen orrhagiaEssentia l (primary) hypertension 7 No Information OFFICE OUTPT EST 25 MIN [facility], [address], [place], [place], [address] , [place] tel: [phone] [facility] diabetes (chief complaint) Essential (primary) hypertensionIron deficiency anemia, unspecifiedType 2 diabetes mellitus with hyperglycemiaEnc ounter for screening for other disorder 6 No Information OFFICE OUTPT EST 25 MIN [facility], [address], [place], [place], [address] , [place] tel: [phone] [facility] diabetes (chief complaint) hypertensi on (chief complaint) Type 2 diabetes mellitus with diabetic neuropathy, unspecifiedIron deficiency anemia, unspecifiedEssen tial (primary) hypertensionEnco unter for general adult medical examination without abnormal findings 6 No Information OFFICE OUTPT EST 25 MIN [facility], [address], [place], [place], [address] , tel: [phone] [facility] diabetes (chief complaint) Essential (primary) hypertension 6 Kailey Fallon. [address], [place], [place], [address], [place]. [phone] Referring Provider: Vasyl Zaman, [address], [place], [address] . tel:[phone] OFFICE/OUTPA TIENT VISIT, NEW [facility], [address], [place], [place], [address] , [place] tel: [phone] [facility] foot (chief complaint) foot (chief complaint) Venous insufficiencyDia betes mellitus with neurological complications 5 No Information OFFICE OUTPT EST 25 MIN [facility], [address], [place], [place], [address] , [place] tel: [phone] [facility] Diabetes (chief complaint) Hypertensi on (chief complaint) DM (diabetes mellitus)Benign essential hypertensionIron deficiency anemia, unspecifiedOverw eight 5 No Information [facility], [address], [place], [place], [address] , [place] tel: [phone] [facility] Dental examination 4 No Information OFFICE/OUTPA TIENT VISIT, EST [facility], [address], [place], [place], [address] , [place] tel: [phone] [facility] diabetes (chief complaint) Anemia, Iron DeficiencyDiabet es type 2, uncontrolled 4 No Information [facility], [address], [place], [place], [address] , [place] tel: [phone] [facility] No Information 4 No Information OFFICE/OUTPA TIENT VISIT, EST [facility], [address], [place], [place], [address] , tel: [phone] [facility] DM/HTN (chief complaint) Diabetes type 2, uncontrolledHype rtensionLighthea dedness 4 No Information [facility], [address], [place], [place], [address] , tel: [phone] [facility] [place] [place] Dental examination 3 Tiffany Trent. [address], [place], [place], [address], . tel:[phone] [facility], [address], [place], [place], [address] , tel: [phone] [facility] [place] Dental examination 3 Tiffany Trent. [address], [place], [place], [address], . tel:[phone] OFFICE/OUTPA TIENT VISIT, NEW [facility], [address], [place], [place], [address] , tel: [phone] [facility] Hosp f/up for diabetes (chief complaint) hypertensi [...] mellitus Payers Payer name Insurance type Covered constitution party ID Authoriza tion(s) No Information Social History Type Description Quantity Date Captured Comments Sex Female Smoking Status No Information Chief Complaint And Reason For Visit No Information Reason For Referral Reason For Referral No Information Plan Of Treatment Date Type Action Status Goal Urine Microalbumin. Due on F due Goal Lipid Panel. Due on due [...] due Goal Urine Microalbumin. Due on due Referral Referred To: [facility] Ordered: Referrals: Ophthalmology. [facility]. Evaluate and treat ordered Referral Referred To: Chava Gupta DPM [address] [place], [place], [phone] Ordered: Referrals: Podiatry. Chava Gupta DPM. Evaluate and treat ordered Referral Referred To: [facility] Ordered: Referral: [facility]. Electrical Engineering Technologist. Evaluate and treat. ordered Patient Education Iron-Rich [...] Lab Order COMPREHE NSIVE METABOLIC PANEL W/EGFR ([id number]), Appointment on: , Sent on: Sent Future Order: Lab Order HEMOGLOB IN A1c (496), Appointment on: , Sent on: Sent Future Order: Lab Order LIPID PA ROXIE ([id number]), Appointment on: , Sent on: Sent Future Order: Lab Order TSH, 3RD GENERATION ([id number]), Appointment on: , Sent on: Sent Nutrition [...] without explanation. She has not seen an mortgage lender. She checks her feet daily and uses [...] Labs todayLisinopril , Lantus refilled, sent to [facility] next week Related to Dizziness Giving encouragement [...]
--- OUTSIDE RECORDS SUMMARY | 2024-08-07 15:01 | XMS_ITS | Clinical Summary ---
Author Organization [facility] Address [address], [address] [place] [address] Phone Care Team Providers Care Assistant Professor Of Biochemistry Name Role Phone Keenan William MD Primary Care Provider [phone] Neftali Rudd MD Unavailable Allergies No known active allergies Medications lisinopril (PRINIVIL, ZESTRIL) 20 MG Tablet Take 30 mg by mouth daily. 0 08/23/2018 Active Aspirin Low Dose 81 MG Tablet Delayed Response Take 81 mg by mouth daily. 06/09/2022 Active clopidogrel (PLAVIX) 75 MG Tablet Take 75 mg by mouth daily. 06/09/2022 Active furosemide (LASIX) 20 MG Tablet Take 20 mg by mouth 2 times daily. 05/26/2022 Active hydroCHLOROthiaz abelino (MICROZIDE) 12.5 MG Capsule 01/14/2021 Act valentino metFORMIN (GLUCOPHAGE) 1000 MG Tablet 10/31/2021 Acti ve Progesterone 200 MG Capsule Take 200 mg by mouth daily. 06/19/2022 Active simvastatin (ZOCOR) 10 MG Tablet 03/27/2022 Active Lancets (OneTouch Delica Plus [id number]) Misc 09/01/2022 Active OneTouch Verio Strip 09/01/2022 Active Lantus SoloStar 100 UNIT/ML Solution Pen-injector 09/05/2023 Active ergocalciferol (VITAMIN D) 91666 UNIT Capsule 09/05/2023 Active FeroSul 325 (65 Fe) MG TabletIndication s:Iron deficiency anemia due to chronic blood loss TAKE 1 TABLET BY MOUTH DAILY 30 Tablet 06/27/2024 Active Active Problems Problem Noted Date Diagnosed Date HTN (hypertension) 06/05/2024 Iron deficiency anemia due to chronic blood loss 10/08/2018 Encounters Date Type Department Care Team Description 2024 Telephone [facility] [address] [phone] Neftali Rudd MD 06/27/2024 Refill [facility] [address] [phone] Neftali Rudd MD Medication Refill 06/05/2024 10:15 AM DRESSAGE INSTRUCTOR Office Visit [facility] [address] [phone] Ana Cristina Shannon, [employer]ER [employer], DIVER TENDER Iron deficiency anemia due to chronic blood loss (Primary Dx); Thrombocytosis; Other fatigue; Excessive bleeding in premenopausal period 06/05/2024 Travel from Last 3 Months Family History Medical History Relation Name Comments Diabetes Mother Hypertension Mother Relation Name Status Comments Mother Social History Tobacco Use Types Packs/Day Years Used Date Smoking Tobacco: Never Smokeless Tobacco: Never Tobacco Cessation:Counseling Given: Not Answered Alcohol Use Standard Drinks/Week Comments Never 0 (1 standard drink = 0.6 oz pur e alcohol) AUDIT-C Answer Date Recorded Frequency of Alcohol Consumption Never 10/07/2018 Average Number of Drinks Not on file 019 Frequency of Binge Drinking Not on file 09/14 PHQ-2 Answer Date Recorded PHQ-2 Score 0 03/20/2019 Comments Unknown Sex and Gender Information Value Date Recorded Sex Assigned at Not on file Legal Sex Female 12:29 PM DRESSAGE INSTRUCTOR Gender Identity Not on file Sexual Orientation Not on file Last Filed Vital Signs Vital Sign Reading Time Taken Comments Blood Pressure 170/100 06/05/2024 9:02 AM DRESSAGE INSTRUCTOR Pulse 75 06/05/2024 9:02 AM DRESSAGE INSTRUCTOR Temperature 36.8 ??C (98.2 ??F) 06/05/2024 9:02 AM CS T Respiratory Rate 16 06/05/2024 9:02 AM DRESSAGE INSTRUCTOR Oxygen Saturation 98% 06/05/2024 9:02 AM DRESSAGE INSTRUCTOR Inhaled Oxygen Concentration - - Weight 105.2 kg (232 lb) 06/05/2024 9:02 AM DRESSAGE INSTRUCTOR Height 157.5 cm (5' 2 ) 06/05/2024 9:02 AM DRESSAGE INSTRUCTOR Body Mass Index 42.43 06/05/2024 9:02 AM DRESSAGE INSTRUCTOR Plan of Treatment Upcoming Encounters Date Type Department Care Team (Late st Contact Info) Description 09/04/2024 10:00 AM DRESSAGE INSTRUCTOR Lab [facility] [address] [phone] Lab, Cc [facility] 09/04/2024 10:15 AM DRESSAGE INSTRUCTOR Office Visit [facility] [address] [phone] Neftali Rudd MD [address] [place] [address] [phone] Health Maintenance Due Date Last Done Comments TdaP Immunization 1980 Hepatitis B Immunization (1 of 3 - 19+ 3-dose series) 1999 Pap Smear 2001 Cervical Cancer Screening (CCS) 2010 HPV/Cotest 2010 Influenza Immunization (#1) 2024 SARS-COV-2 Immunization ( season) 2024 09/20/2021, 09/21/2020 Respiratory Syncytial Virus (RSV) Immunization (Adult) (1 - 1-dose 75+ series) 2055 Discussion re Starting/Frequency of Mammograms Completed 11/28/2021, 06/06/2021 Hepatitis C Virus (HCV) Screening Completed 01/29/2024 Meningococcal Immunization (ACWY) Aged Out No longer eligible b ased on patient's age to complete this topic Pneumococcal Immunization Combined Aged Out No longer eligible b ased on patient's age to complete this topic Rotavirus Immunization Aged Out No lo nger eligible based on patient's age to complete this topic Procedures Procedure Name Priority Date/Time Associated Diagnosis Comments CBC WITH AUTO DIFF [place] Routine 06/05/2024 8:49 AM DRESSAGE INSTRUCTOR IRON AND TIBC [id number] [place] Routine 06/05/2024 8:49 AM DRESSAGE INSTRUCTOR FERRITIN [id number] [place] Routine 06/05/2024 8: 49 AM DRESSAGE INSTRUCTOR RETICULOCYTE COUNT (RETIC) Routine 06/05/2024 8:49 AM DRESSAGE INSTRUCTOR Iron deficiency anemia due to chronic blood loss Thrombocytosis Other fatigue from Last 3 Months Results * IRON AND TIBC [id number] [place] (06/05/2024 8:49 AM DRESSAGE INSTRUCTOR) Iron Bind.Cap.(TIBC) 321 250 - 450 UG/DL [facility] UIBC 272 131 - 425 UG/DL [facility] Iron, Serum 49 27 - 159 UG/DL [facility] Iron Saturation 15 15 - 55 % [facility] 06/05/2024 8:49 AM DRESSAGE INSTRUCTOR Ko [facility] - 06/06/2024 7:12 AM DRESSAGE INSTRUCTOR TESTING PERFORMED AT: [CB] [employer] [place], [address] [place], [address], PHONE: [phone], BOX LOADER: HOLLY CORNELIUS, PHD us Neftali Rudd MD LAB SEND OUTS Final Result [facility] [place] [address], * FERRITIN [id number] [place] (06/05/2024 8:49 AM DRESSAGE INSTRUCTOR) Ferritin, Serum 42 15 - 150 NG/ML [facility] 06/05/2024 8:49 AM DRESSAGE INSTRUCTOR Ko [facility] - 06/06/2024 7:12 AM DRESSAGE INSTRUCTOR TESTING PERFORMED AT: [CB] [employer] [place], [address] [place], [address], PHONE: [phone], BOX LOADER: HOLLY CORNELIUS, PHD us Neftali Rudd MD LAB SEND OUTS Final Result [facility] [place] [address], * (ABNORMAL) CBC WITH AUTO DIFF [place] (06/05/2024 8:49 AM DRESSAGE INSTRUCTOR) WBC 7.0 4.0 - 10.0 10*3/uL [facility] HGB 12.9 11.2 - 15.7 g/dL [facility] HCT 41.9 34.1 - 44.9 % [facility] PLT 386(H) 163 - 369 10*3/uL [facility] MPV 9.5 9.4 - 12.4 fL [facility] RBC 5.25(H) 3.93 - 5.22 10*6/uL [facility] MCV 80 79 - 95 fL [facility] MCH 24.6(L) 25.6 - 32.2 pg [facility] MCHC 30.8(L) 32.2 - 36.5 g/dL [facility] RDW 14.6(H) 11.6 - 14.4 % [facility] Neutrophils % 59.1 36.0 - 66.0 % [facility] Lymphocytes % 30.4 19.0 - 40.0 % [facility] Monocytes % 7.9 4.1 - 12.1 % [facility] Eosinophils % 1.2 0.0 - 3.5 % [facility] Basophils % 1.0 0.0 - 1.0 % [facility] Absolute Neutrophils 4.1 1.4 - 6.6 10*3/uL [facility] Absolute Lymphocytes 2.1 0.8 - 4.0 10*3/uL [facility] Absolute Monocytes 0.6 0.2 - 1.2 10*3/uL [facility] Absolute Eosinophils 0.1 0.0 - 0.4 10*3/uL [facility] Absolute Basophils 0.1 0.0 - 0.1 10*3/uL [facility] 06/05/2024 8:49 AM DRESSAGE INSTRUCTOR Neftali Rudd MD LAB SEND OUTS Final Result Performing Organization Address [facility] Co de Phone Number [facility] [place] [address], [place] [phone] * RETICULOCYTE COUNT (RETIC) (06/05/2024 8:49 AM DRESSAGE INSTRUCTOR) Reticulocyte count 1.53 0.50 - 1.70 % [facility] RET-He 28.90 28.20 - 36.60 pg [facility] Comment: RET-He is a direct assessment of incorporation of iron into erythrocyte hemoglobin. It provides an indirect measure of the iron available for new erythropoiesis over past 2-4 days. Blood 06/05/2024 8:49 AM DRESSAGE INSTRUCTOR Narrative [facility] - 06/05/2024 9:04 AM DRESSAGE INSTRUCTOR Release to patient->Immediate Neftali Rudd MD HEMATOLOGY ORDERABLES Final Resu lt Performing Organization Address [facility] Co de Phone Number [facility] [place] [address], [place] [phone] from Last 3 Months Insurance MEDICAID [place] Care Teams Assistant Professor Of Biochemistry Relationship Specialty Start Date End Date Keenan William MD [address] [address] PCP - General Family Medicine 09/18/18 Neftali Rudd MD [address] [place] [id number] Consulting Physician Oncology 06/30/22
--- OUTSIDE RECORDS SUMMARY | 2024-08-07 15:01 | XMS_ITS | Data Portability ---
Author Organization [facility] [place] Address [address] [place] [address] [place] [address] Care Team Providers Care Smelter Charger Name Role Phone HITESH VELIZ Primary Care Provider [phone] Assessment No assessment recorded. Plan of Treatment Reminders Order Date Submit Date Provider Last Modified By Organization Details Last Modified Time Details Appointments SURG Salpingec lola 2024 07:30A Amie BOYD MD Not available Not available Not available Lab None recorded. Referral None recorded. Procedures None recorded. Surgeries salpingec lola, laparosco pic (SURG) 2023 025 [facility], [facility] [address], [address], 08/06/2024 15:21:43 oophorect neida (SURG) [address], [address] [place] [address], [address], 08/06/2024 16:32:35 Imaging US, transvagi nal 2023 024 [email or web address] [place], [address], [place], [address], 04/08/2024 15:00:18 US, transvagi nal 2023 024 [email or web address] [place], [address], [place], [address], 06/10/2024 18:14:52 Medication Orders None recorded. Patient TargetsNo targets recorded. Patient InstructionsNo instructions recorded. Reason for Referral None Reported. Results Created Date Observation Date Name Description Value Unit Range Abnormal Flag Note LastModifiedBy Organization Detail LastModifiedTime 01/29/20 24 01/29/2024 HIV 1/2 ANTIG EN/AN TIBOD Y, REFLE X CONFI RMATI ON HIV antigen/anti body Nonrea ctive nonrea ctive HIV-1 antig en and HIV-1 /HIV- 2 antib odies were not detec kwasi. No labor atory evide nce of HIV infec tion. Not Available [facility] (Lab) [address], [place], [address], 01/30/2024 12:50:02 01/29/20 24 01/29/2024 HEPAT ITIS B SURFA CE ANTIG EN hepatitis B surface antigen Non-re active non-re active This assay was perfo rmed using [employer] ratio n reage nts and test kits. Value s obtai ruthie with other assay metho ds or kits canno t be used inter valderrama eably . Not Available [facility] (Lab) [address], [place], [address], 01/30/2024 12:50:03 01/29/20 24 01/29/2024 HEPAT ITIS C ANTIB ARSEN SCREE N, REFLE X TO CONFI RMATI ON hepatitis C antibody Non-re active non-re active Antib odies to HCV Not Detec kwasi, does not exclu de the possi bilit y of expos ure to HCV. Not Available [facility] (Lab) [address], [place], [address], 01/30/2024 12:50:04 01/29/20 24 01/29/2024 RPR SCREE N, REFLE X TITER /CONF IRMAT ION RPR screen Nonrea ctive nonrea ctive Not Available [facility] (Lab) [address] [place], [address], 01/30/2024 12:50:05 01/29/20 24 01/29/2024 HEPAT ITIS B CORE, IGM hepatitis B core IgM antibody Non-re active non-re active IgM anti- HBc not detec kwasi. Does not exclu de the possi bilit y of expos ure to or infec tion with HBV. Not Available [facility] (Lab) [address], [place], [address], 01/30/2024 12:50:06 01/29/20 24 01/29/2024 IMAGE GUIDE D PAP AND HPV REGAR DLESS image guided Pap, HPV regardless of Pap result SEE RESULT S BELOW CASE REPOR T: Cytol ogy Gynec ologi lynn Repor t Case: [id number] Aut[address] sukumar ledesma Provi rosa elena: Aruna Zamarripa, JOE Bacon cted: 01/28 1638 Order ing Locat ion: [place] [facility] Recei warner: 01/29 0139 First Scree n: Leann Roman ret, CT Speci men: Karen ayoub Pap - Image d, Cervi x STATE MENT OF ADEQU ACY: Satis facto ry for evalu ation Trans forma tion zone compo nent prese nt ----- ----- ----- ----- ----- ----- ----- ----- ----- ----- ----- ----- ----- ----- ----- ----- ----- ---- FINAL DIAGN OSIS: Negat valentino for Intra epith elial Diana luther or Paolo sood (NIL) . David fairchild d by Leann Roman ret, CT on 2023 at 6:47 AM ----- ----- ----- ----- ----- ----- ----- ----- ----- ----- ----- ----- ----- ----- ----- ----- ----- ---- HPV RESUL TS: HPV mRNA E6/E7 : No HPV mRNA Detec kwasi NOTE: This high risk HPV mRNA assay detec ts fourt een high- risk HPV types (16, 18, 31, 33, 35, 39, 45, 51, 52, 56, 58, 59, 66, 68) witho ut diffe renti ation . COMME NT: This speci men was revie wed by a Cytot echno logis t and/o r Patho logis t (as indic ated in this repor t) after evalu ation using the Thinp rep Imagi ng Syste m. CLINI LYNN INFOR MATIO N: Menst rual Statu s: LMP (if appli cable ): Clini lynn Histo ry/Pr eviou s Pap: Type of Neopl raquel (if appli cable ): Signi fican t Clini lynn Findi ngs: Other Histo ry: Hormo madelyn (if appli cable ): PAP EDUCA INGRID L NOTE: The Pap Test is a scree mega test with an inher ent false negat valentino rate. Liqui d-bas ed sampl ing may decre ase, but will not elimi margret, false negat valentino resul ts. A negat valentino resul t does not precl ude the prese nce and/o r devel opmen t of disea se, since the prese nce of abnor mal cells in the sampl e depen ds on the locat ion of the lesio n and sampl ing techn ique. Brian nued regul ar scree mega is the best metho d of cance r preve ntion . If repor kwasi cytol ogic findi ng do not corre late with physi lynn and/o r histo rical findi ngs, furth er inves tigat ion is recom alma rosa d, as clini alexia lincoln nted. Not Available [facility] (Lab) [address], [place], [address], 02/02/2024 07:50:55 02/05/20 24 02/05/2024 US, pelvi s No observ ation record ed. [email or web address] [place] [address], [place], [address], 02/05/2024 17:25:59 02/05/20 24 02/05/2024 US, trans vagin al No observ ation record ed. [email or web address] [place] [address], [place], [address], 02/05/2024 17:25:49 02/05/20 24 02/05/2024 US, pelvi s No observ ation record ed. daisha Castañedae [address], [place], [address], 02/11/2024 08:44:40 04/08/20 24 04/08/2024 US, trans vagin al No observ ation record ed. [email or web address] [place] [address], [place], [address], 04/08/2024 13:17:01 04/08/20 24 04/08/2024 US, trans vagin al No observ ation record ed. mar Cecilia [address], [place], [address], 04/09/2024 10:06:41 06/10/20 24 06/10/2024 US, trans vagin al No observ ation record ed. [email or web address] [place] [address], [place], [address], 06/10/2024 14:50:21 06/10/2006/10/2024 US, trans vagin al No observ ation record ed. [email or web address] [address], [place], [address], 2024 08:59:51 Result Notes None recorded. Problems Name Problem SNOMED Code Status Onset Date Resolution Date Notes Provider Name and Address Organization Details Recorded Time SNOMED CT Concept Completed 201810/27/2020 Encntr for general adult medical exam w/o abnormal findings; Recorded Elsewhere : No Locati on: [facility] So urce: EHR Chron ic: N Practic e ID: [id number] Bill able Time: 01:00:00 PM Yara simon [facility] 17:48:10 Finding of menstrual bleeding Completed 201810/27/2020 Menorrhag ia;Record ed Elsewhere : No Locati on: [facility] So urce: EHR Chron ic: N Practic e ID: [id number] Bill able Time: 01:00:00 PM Yara simon [facility] 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 17:48:11 Problem Notes None recorded. Procedures Surgical History Date Name Laterality Status Provider Name and Address Organization Details Recorded Time 024 Date of Last Pap Smear completed Brenda Camacho [facility] 02/07/2024 17:07:24 cholecystectomy completed JORGE ALBERTO Shannon [address], [place], [address], [place] [facility] 01/30/2024 08:46:36 Imaging Results Imaging Date Name Status LastModified by Organization Details LastModified Time 02/05/2024 US, pelvis completed [email or web address] [place] [address], [place], [address], 02/05/2024 17:25:59 02/05/2024 US, transvaginal completed [email or web address] [facility] [address], [place], [address], 02/05/2024 17:25:49 02/05/2024 US, pelvis completed [email or web address] Cecilia [address], [place], [address], 02/11/2024 08:44:40 04/08/2024 US, transvaginal completed [email or web address] [place] [address], [place], [address], 04/08/2024 13:17:01 04/08/2024 US, transvaginal completed [email or web address] [address], [place], [address], 04/09/2024 10:06:41 06/10/2024 US, transvaginal completed [email or web address] [place] [address], [place], [address], 06/10/2024 14:50:21 06/10/2024 US, transvaginal completed [email or web address] [address], [place], [address], 2024 08:59:51 Procedure Notes None recorded. Medical Equipment None Reported. Allergies No known drug allergies Medications Name Sig Start Date Stop Date Status Note LastModified by Organization Details LastModified Time cyclobenzap rine 10 mg tablet TAKE 1 TABLET BY MOUTH THREE TIMES DAILY NEEDED FOR MUSCLE SPASM 01/28 completed Not Available Not Available Not Available metformin 500 mg tablet 10/28 completed Not Available Not Available Not Available azithromyci n 250 mg tablet 01/28 completed Not Available Not Available Not Available meloxicam 15 mg tablet TAKE 1 TABLET BY MOUTH EVERY DAY NEEDED 01/28 completed Not Available Not Available Not Available lisinopril 20 mg tablet TAKE 1 TABLET BY MOUTH EVERY DAY active Not Available Not Available No t Available simvastatin 10 mg tablet active Not Available Not Available Not Available metformin 850 mg tablet 04/10 completed Not Available Not Available Not Available metronidazo le 500 mg tablet TAKE 1 TABLET BY MOUTH TWICE DAILY FOR 7 DAYS 01/27 completed Not Available Not Available Not Available [facility]SC Lisinopril 40 mg tablet 10/28 completed Not Available Not Available Not Available clopidogrel 75 mg tablet TAKE 1 TABLET BY MOUTH EVERY DAY active Not Available Not Available No t Available sulfamethox azole 800 mg-trimetho prim 160 mg tablet TK 1 T PO BID 10/28 completed Not Available Not Available Not Available aspirin 81 mg tablet,maite yed release TAKE 1 TABLET BY MOUTH EVERY DAY active Not Available Not Available No t Available cephalexin 500 mg capsule TAKE 1 CAPSULE BY MOUTH EVERY 8 HOURS FOR 7 DAYS 06/25 completed Not Available Not Available Not Available metformin 1,000 mg tablet 01/28 completed Not Available Not Available Not Available progesteron e micronized 200 mg capsule TAKE 1 CAPSULE BY MOUTH EVERY DAY 01/28 completed Not Available Not Available Not Available hydrochloro thiazide 12.5 mg capsule TAKE ONE CAPSULE BY MOUTH EVERY MORNING 04/10 completed Not Available Not Available Not Available diclofenac potassium 50 mg tablet TAKE 1 TABLET BY MOUTH THREE TIMES DAILY NEEDED FOR PAIN 01/28 completed Not Available Not Available Not Available furosemide 20 mg tablet TAKE 1 TABLET BY MOUTH TWICE DAILY 04/10 completed Not Available Not Available Not Available ergocalcife rol (vitamin D2) 1,250 mcg (50,000 unit) capsule TAKE 1 CAPSULE BY MOUTH WEEKLY active Not Available Not Available No t Available cefdinir 300 mg capsule 04/10 completed Not Available Not Available Not Available iron 18 mg tablet 01/28 completed Not Available Not Available Not Available nitrofurant oin monohydrate /macrocryst als 100 mg capsule 04/10 completed Not Available Not Available Not Available FeroSul 325 mg (65 mg iron) tablet TAKE 1 TABLET BY MOUTH DAILY active Not Available Not Available No t Available Lantus Solostar U-100 Insulin 100 unit/mL (3 mL) subcutaneou s pen ADMINISTE R 38 UNITS UNDER THE SKIN AT BEDTIME active Not Available Not Available No t Available OneTouch Verio test strips TEST TWICE DAILY 04/10 completed Not Available Not Available Not Available TRUEplus Pen Needle 31 gauge x 5/16 USE ONCE A DAY 06/25 completed Not Available Not Available Not Available OneTouch Delica Plus Lancet 33 gauge TEST TWICE DAILY 04/10 completed Not Available Not Available Not Available OneTouch Verio Reflect Meter TEST TWICE DAILY 04/10 completed Not Available Not Available Not Available Vitals Date Recorded Body height Body mass index (BMI) Body weight Systolic blood pressure Diastolic blood pressure Provider Name and Address Organization Details Last Updated DateTime 02/07/2024 170.18 cm 35.4 kg/m2 587076.8 8 g 137 mm[Hg] 83 mm[Hg] Brenda Camacho [facility] 4 17:06:52 Date Recorded Body height Body mass index (BMI) Body weight Systolic blood pressure Diastolic blood pressure Provider Name and Address Organization Details Last Updated DateTime 04/10/2024 170.18 cm 36.3 kg/m2 473509.4 3 g 138 mm[Hg] 86 mm[Hg] Rose [facility] 4 10:08:04 Date Recorded Body height Body mass index (BMI) Body weight Systolic blood pressure Diastolic blood pressure Provider Name and Address Organization Details Last Updated DateTime 06/25/2024 170.18 cm 36.6 kg/m2 080485.6 1 g 138 mm[Hg] 85 mm[Hg] Rose [facility] 4 16:29:39 Social History Question Answer Notes LastModified by Organizat ion Details LastModified Time Tobacco Smoking Status Never Smoker Yara simon, [facility] 10/28/2020 14:09:53 Do You Have An Advance Directive? No [email or web address] Information n ot available 10/28/2020 What Is Your Level Of Alcohol Consumption? Occasional [email or web address] Information not available 10/28/2020 How Many Years Have You Consumed Alcohol? 2 [email or web address] Information not available 10/28/2020 Are You Blind Or Do You Have Difficulty Seeing? No [email or web address] Information n ot available 10/28/2020 How Much Tobacco Do You Chew? None Information not available 10/28/2020 In The 14 Days Before Symptom Onset, Have You Had Close Contact With A Laboratory-confirm ed COVID-19 While That Case Was Ill? No [email or web address] Information n ot available 10/28/2020 In The 14 Days Before Symptom Onset, Have You Had Close Contact With A Person Who Is Under Investigation For COVID-19 While That Person Was Ill? No [email or web address] Information not available 10/28/2020 Have You Been To An Area Known To Be High Risk For COVID-19? No [email or web address] Information not available 10/28/2020 Are You Deaf Or Do You Have Serious Difficulty Hearing? No [email or web address] Information not available 10/28/2020 What Type Of Diet Are You Following? REGULAR [email or web address] Information n ot available 10/28/2020 What Is The Highest Grade Or Level Of School You Have Completed Or The Highest Degree You Have Received? [id number] [email or web address] Information not available 10/28/2020 What Is Your Occupation? Unemployed Information not available 10/28/2020 Are There Any Guns Present In Your Home? No [email or web address] Information not available 10/28/2020 Do You Use Protection During Sex? Always [email or web address] Information not available 10/28/2020 Do You Use Your Seat Belt Or Car Seat Routinely? Yes [email or web address] Information not available 10/28/2020 Do You Have Smoke And Carbon Monoxide Detectors In Your Home? Yes [email or web address] Information not available 10/28/2020 How Much Tobacco Do You Smoke? No Information not available 10/28/2020 Do You Feel Stressed (tense, Restless, Nervous, Or Anxious, Or Unable To Sleep At Night)? [id number] Information not available 10/28/2020 Do You Use Any Illicit Or Recreational Drugs? No [email or web address] Information not available 10/28/2020 Do You Use Sunscreen Routinely? No [email or web address] Information not available 10/28/2020 Have You Used IV Drugs? No [email or web address] Information not available 10/28/2020 Sex: Unknown Functional Status Question Answer Note LastModified by Organizat ion Details LastModified Time Do you have difficulty walking or climbing stairs? No [email or web address] Information not available 01/28/2024 Are you able to walk? YESWOREST [email or web address] Information not available 10/28/2020 Are you able to care for yourself? Yes [email or web address] Information not available 04/06/2022 Do you have difficulty dressing or bathing? No [email or web address] Information not available 01/28/2024 What is your exercise level? Occasional Information not available 10/28/2020 Mental Status None recorded. Family History Relationship Description Onset Age of this Age Resolved Age Notes LastModified by Organization Details LastModified Time Mother Hypertensive disorder Not available 2020 09:34:44 Mother Diabetes mellitus [email or web address] Not available 2020 09:34:52 Medical History Condition Response Diabetes Y Heart Problems Y Other Y Anemia Y Hypertension Y Gynecological History Statement/Question Response Abnormal Pap N Flow Heavy Date of LMP 05/28/2024 N Was last menstrual period normal Y STIs/STDs N Current Control Method None Are cycles usually normal Y Sexually Active? Y None Menses Monthly Y Age of first menstrual cycle 15 Date of Last Pap Smear 01/29/2024 Sexual Problems? N Desired Control Method None LMP Definite N Obstetrics History GPAL:G 0 P 0 0 0 0 Past Encounters Encounter ID Performer Location Encounter Start Date Encounter Closed Date Diagnosis/Indication Diagnosis SNOMED-CT Code Diagnosis ICD10 Code Diagnosis Note [id number] Chela Enciso [place] [address] [address] 10/28/2020 13:56:08 10/28/2020 14:24:27 Gynecologic examination 03836536 Z01.419 Suggested Calcium with Vitamin D 1200-1500m g daily. Patient advised to get an annual flu shot in the fall and she could obtain at [facility] or [facility]. Also to obtain TDap vaccinatio n if you have not had one in the last 10 years. Recommend yearly mammograms . Encouraged monthly self breast exams. Encourage safe sexual practices, to use condoms and limit partners if not already in a monogamous relationsh ip. Engage in daily exercise of low impact aerobic exercise 45-60 minutes 4-5 times weekly. Avoid tobacco and illicit drugs as well as using moderation with alcohol intake less than 1-2 8 oz beverages daily. This lifestyle behavior pattern will lead to less health conditions and longer life span. If BMI greater than 25 weight watchers or dietary consult advised. All questions have been answered. Patient appears to understand informatio n, but if you have any questions please call or respond to this email. [id number] Aruna CharliepandaJORGE ALBERTO [place] [address],[place] [address] 04/06/2022 14:34:52 04/06/2022 17:44:26 Abnormal uterine bleeding 8594039278 9100 N93.9 Given amount and duration of bleeding, we agreed to short term course of prometrium to help stop this current episode of bleeding.R /B of medication discussed with patientLab s orderedPel luis alberto u/s orderedSTI endocervic al testing sentUPT declined - female partners onlyConsul kwasi with (Dr. Boyd at [facility] on patient case, She will f/u for MD consult following pelvic u/s to discuss surgical options - patient interested in ablation.E D precaution s discussed with patient Time spent in visit is a total of 30 mins with at least 50% of visit consisting of counseling and review of plan of care. Venereal d isease screening 359589328 Z11.3 [id number] [facility] [address],[place] [address] 04/10/2022 16:42:17 04/10/2022 18:05:48 Irregular periods 45422723 N92.6 [id number] Chapo Boyd MD [place] [address],[place] [address] 05/03/2022 14:00:32 05/03/2022 15:04:56 Abnormal uterine bleeding 1834116254 9100 N93.9 This patient is a 41-year-ol d female with abnormal uterine bleeding. She has some severe menorrhagi a episodes. This is been going on for about 3 months. She was recently treated with micronized progestero ne and it has effectivel y controlled her bleeding. We discussed her ultrasound results. She has a complex cyst we will follow-up on. We talked about ovarian cyst. Talked about the etiology, natural history, treatment of ovarian cyst. Talked about abnormal uterine bleeding. Talked about etiology and natural history of Abnormal uterine bleeding and the evaluation . we spent over 40 minutes face-to-fa ce. More than 50% was counseling . Talked about the treatment of abnormal bleeding and her anemia. I gave her options on the treatment bleeding. She is going to continue the progestero ne that has resolved her bleeding, 200 mg of micronized progestero ne, for 3 months while she reaccumula eugenia blood volume. She will follow up in 6 weeks on the ovarian cyst. She will follow-up in 3 months for the abnormal uterine bleeding. We will watch her bleeding to see if it returns. Cyst of ovary 68823540 N 83.209 [id number] JORGE ALBERTO Servin [place] [address],[place] [address] 01/29/2024 16:41:12 01/30/2024 10:41:27 Gynecologic examination 55947782 Z01.419 WWEpap updatedgc/ ct/trich testing added to papHIV/Hep B&C/Syphil is testing ordered per pt requestmam mogram order givenrouti ne labs UTD/PCP Patient advised to get an annual flu shot in the fall and she could obtain at local pharmacy. Also to obtain TDap vaccinatio n if you have not had one in the last 10 years. Recommend yearly mammograms . Encouraged monthly self breast exams. Encourage safe sexual practices, to use condoms and limit partners if not already in a monogamous relationsh ip. Engage in regular exercise. Avoid tobacco and illicit drugs. This lifestyle behavior pattern will lead to less health conditions and longer life span. If BMI greater than 25 dietary consult advised. All questions have been answered. Screening for malignant neoplasm of breast 386085017 Z12.39 Venereal d isease screening 524096903 Z11.3 Sexually t ransmitted infectious disease 7970315 A64 Cyst of ovary 50155984 N 83.209 recommende d updated u/s for f/u on right complex ovarian cyst / AUBfollow back up with Dr. Boyd for u/s f/u scheduled [id number] [facility] [address],[place] [address] 02/05/2024 16:27:06 02/05/2024 17:26:10 Cyst of right ovary 8031570671 6567043 N83.291 Cyst of left ovary 44036 45536 6172671 N83.292 [id number] Chapo Boyd MD [place] [address],[place] [address] 02/07/2024 17:01:51 02/09/2024 10:03:42 Cyst of ovary 41820895 N83.209 43-year-ol d female presents for follow-up after pelvic ultrasound . She has a complex cyst on 1 ovary and a unusual appearance to the contralate ral ovary. We talked about ovarian cysts and masses. Talked about the etiology, natural history, treatment of ovarian abnormalit ies. We talked about her ultrasound findings. We reviewed images together. We spent over 20 minutes on her care. We agreed to follow-up with pelvic ultrasound in 2 months and to discussed afterwards . [facility] [address],[place] [address] 04/08/2024 10:40:48 04/08/2024 14:23:57 Cyst of left ovary 8740581545 [id number] N83.292 [id number] Chapo Boyd MD [place] [address],[place] [address] 04/10/2024 09:53:26 04/11/2024 08:19:06 Cyst of ovary 34982663 N83.209 This patient is a 43-year-ol d female who presents for follow-up on ovarian cyst. She has had resolution are near resolution of the previously seen cyst and has another simple cyst on the contralate ral ovary. We spent time talking about ovarian cyst. Etiology, natural history, treatment of. We spent over 20 minutes on her care in total. We reviewed the images together of the ultrasound . We agreed to repeat ultrasound in 2 months. We would like to see complete resolution of the previously seen complex cyst. [id number] [facility] [address],[place] [address] 06/10/2024 09:46:34 06/10/2024 10:35:48 Cyst of right ovary 7642685316 1908375 N83.291 N83.292 [id number] Chapo Boyd MD [place] [address],[place] [address] 06/25/2024 15:55:10 06/26/2024 09:49:40 Mass of ovary 200542838 R19.09 43-year-ol d female with a persistent right ovarian mass. 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 We talked about treatment options. Talked about the risks, benefits, and alternativ es to treatment of the ovarian mass. We spent time talking about continued observatio n. We agreed to remove the right ovary and the fallopian tubes. I spent over 20 minutes on this patient's care. The patient understand s the procedure. The procedure was described to the patient in great detail. the patient also understand s the risks. The risks were also explained in detail. She understand s that injuries May occur during surgery. She understand s these injuries can result in hospitaliz ation, more surgery, and severe illness. She understand s there is risk of hemorrhage and infection. Health Concerns Section Related Observation LastModified by Organization Detai ls LastModified Time None Recorded Concern Status LastModified by Organization Details LastModified Time None Recorded Advance Directives Directive N: Payers Encounter Date Sequence Insurance Name Policy Number Policy Rodas Covered Member ID Rodas Member ID Guarantor Name 02/07/2024 1 [facility] (MEDICAID HMO) [id number] Ale Huynh [id number] Ale Huynh 04/08/2024 1 [facility] (MEDICAID HMO) [id number] Ale Huynh [id number] Ale Huynh 04/10/2024 1 [employer] [place] ([place] [id number] Ale Huynh [id number] Ale Huynh 06/10/2024 1 [employer] [facility] [facility] [place] [id number] Ale Huynh [id number] Ale Huynh 06/25/2024 1 [employer] [facility] [facility] [place] [id number] Ale Huynh [id number] Ale Huynh Notes Date Note Type Note Provider Name and Address Organization Details Recorded Time 02/07/2024 text/html 43-year-old radha perez presents for follow-up after pelvic ultrasound. She has a complex cyst on 1 ovary and a unusual appearance to the contralateral ovary. We talked about ovarian cysts and masses. Talked about the etiology, natural history, treatment of ovarian abnormalities. We talked about her ultrasound findings. We reviewed images together. We spent over 20 minutes on her care. We agreed to follow-up with pelvic ultrasound in 2 months and to discussed afterwards. Chapo Boyd MD [address], [place], [address], [facility] 02/08/2024 23:04:50 04/10/2024 text/html This patient is a 43-year-old female who presents for follow-up on ovarian cyst. She has had resolution are near resolution of the previously seen cyst and has another simple cyst on the contralateral ovary. We spent time talking about ovarian cyst. Etiology, natural history, treatment of. We spent over 20 minutes on her care in total. We reviewed the images together of the ultrasound. We agreed to repeat ultrasound in 2 months. We would like to see complete resolution of the previously seen complex cyst. Chapo Boyd MD [address], [place], [address], [facility] 04/10/2024 22:40:50 06/25/2024 text/html 43-year-old fema le with a persistent right ovarian mass. 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 We talked about treatment options. Talked about the risks, benefits, and alternatives to treatment of the ovarian mass. We spent time talking about continued observation. We agreed to remove the right ovary and the fallopian tubes. I spent over 20 minutes on this patient's care. The patient understands the procedure. The procedure was described to the patient in great detail. the patient also understands the risks. The risks were also explained in detail. She understands that injuries May occur during surgery. She understands these injuries can result in hospitalization, more surgery, and severe illness. She understands there is risk of hemorrhage and infection. Chapo Boyd MD [address], [place], [address], [facility] 06/25/2024 19:00:49 OBGyn Episode No OBEpisode recorded.
--- OUTSIDE RECORDS SUMMARY | 2024-08-07 15:01 | XMS_ITS | Clinical Summary ---
Author Organization [facility] [employer] Address [address] [place] [place] [address] Care Team Providers Care Optics Engineer Name Role Phone Keenan William MD Primary Care Provider [phone] Source Comments [facility],non-owned Affiliates and Associated Physician Practices is amultiple site organization consisting of ambulatory clinics and hospital sitesin [place], [place], [place] and [place]. This disclosure is being madepursuant to the Care Everywhere program and may not contain all information available regarding this patient. Last updated 18.[facility] [employer] Allergies No known active allergies Medications * Be aware that medications may not be up to date on this document. Alwaysverify current medications with the patient. Medication Sig Dispensed Refills Start Date End Date Status lisinopril (PRINIVIL; ZESTRIL) 20 MG tablet Take 20 mg by mouth once daily Active insulin glargine (LANTUS) vial Inject 55 Units subcutaneously at bedtime Active naproxen sodium (ANAPROX DS) 550 MG tablet Take 1 Tab by mouth 2 times daily as needed for Pain 20 Tab 0 01/10/2016 Active Additional Information Patient not taking.Reported on 11/28/2021 HYDROcodone-acetam inophen (NORCO) 5-325 MG tablet Take 1 Tab by mouth every 4 hours as needed for Pain 15 Tab 0 01/10/2016 Active Additional Information Patient not taking.Reported on 11/28/2021 hydroCHLOROthiazid e (MICROZIDE) 12.5 MG capsule 01/14/2021 Active FEROSUL 325 (65 Fe) MG tablet Take 325 mg by mouth once daily 01/17/2021 Active simvastatin (ZOCOR) 10 MG tablet 12/04/2020 Active metFORMIN (GLUCOPHAGE) 1000 MG tablet 10/31/2021 Active Family History Medical History Relation Name Comments Cancer - Breast Maternal Aunt Lymphoma Mother Relation Name Status Comments Maternal Aunt Mother Social History Tobacco Use Types Packs/Day Years Used Date Smoking Tobacco: Never Smokeless Tobacco: Never Alcohol Use Standard Drinks/Week Comments No 0 (1 standard drink = 0.6 oz pur e alcohol) Sex and Gender Information Value Date Recorded Sex Assigned at Not on file Gender Identity Not on file Sexual Orientation Not on file Last Filed Vital Signs Vital Sign Reading Time Taken Comments Blood Pressure 127/83 11/28/2021 10:06 AM CDT Pulse 73 11/28/2021 10:06 AM CDT Temperature 36.1 ??C (97 ??F) 11/28/2021 10:06 AM CDT Respiratory Rate 29 01/10/2016 5:16 AM CDT Oxygen Saturation 98% 11/28/2021 10:06 AM CDT Inhaled Oxygen Concentration - - Weight 104.3 kg (230 lb) 11/28/2021 10:06 AM CDT Height 165.1 cm (5' 5 ) 11/28/2021 10:06 AM CDT Body Mass Index 38.27 11/28/2021 10:06 AM CDT Plan of Treatment Health Maintenance Due Date Last Done Comments HIV SCREENING 1995 HEPATITIS C SCREENING 07/28/1998 DTAP/TDAP/TD VACCINES (1 - Tdap) 1999 HEPATITIS B VACCINE (1 of 3 - 19+ 3-dose series) 1999 SCREENING FOR DIABETES 01/27/2021 01/10/2016 PAP SMEAR 10/29/2023 10/28/2020 MAMMOGRAM 11/29/2023 11/28/2021, 01/27/2021 COVID-19 VACCINE ( - 2023-2 5 season) 2024 INFLUENZA VACCINE (#1) 2024 DEPRESSION SCREENING 07/16/2024 ZOSTER VACCINE (1 of 2) 2030 HIB VACCINE Aged Out No longer eligi ble based on patient's age to complete this topic HPV VACCINE Aged Out No longer eligi ble based on patient's age to complete this topic MENINGOCOCCAL (Group B) VACCINE Aged Out No longer eligible b ased on patient's age to complete this topic MENINGOCOCCAL VACCINE Aged Out No olivia robbie eligible based on patient's age to complete this topic PNEUMOCOCCAL VACCINE Aged Out No long er eligible based on patient's age to complete this topic Procedures Procedure Name Priority Date/Time Associated Diagnosis Comments MAMMO BILAT DIAGNOSTIC W RITESH Routine 11/28/2021 11:37 AM CDT Breast asymmetry COMPREHENSIVE METABOLIC PANEL STAT 01/10/2016 2:07 AM CDT from Last 3 Months or Most Recently Relevant to Health Maintenance Results * (ABNORMAL) MAMMO BILAT DIAGNOSTIC W RITESH (11/28/2021 11:37 AM CDT) Anatomical Region Laterality Modality Breast Bilateral Mammography 11/28/2021 11:3 8 AM CDT Impressions 11/28/2021 2:38 PM CDT IMPRESSION: 1. The asymmetry of the right breast is sonographically occult and beside the CC view, is not visible on the other views mammographically. However, it has not changed since 11/03/2020 examination representing one year of stability RECOMMENDATION: The patient is about to been placed on screening MRI of the breasts due to being high risk. This will start in 6 months and can substitute a right diagnostic mammography in 6 months for surveillance of this asymmetry. If needed, a right diagnostic mammography can be performed after MRI. Therefore, recommend a right diagnostic mammography in 12 months which will coincide with annual screening mammography of the left breast. Again the lesion is sonographically occult. Patient was notified of the findings and recommendations at the time of her examination by Dr. Carter and the final recommendation, given the addition of screening MRI of the breasts, by Dr. Currie. OVERALL ASSESSMENT: BI-RADS CATEGORY 3: PROBABLY BENIGN. This report was electronically signed by CHUCHO CARTER ??on 11/28/2021 2:38 PM . Narrative 11/28/2021 2:38 PM CDT EXAMINATIONS: 1. MAMMO BILAT DIAGNOSTIC W RITESH AND WITH CAD AND 2. LIMITED ??RIGHT BREAST ULTRASOUND (COMBINED REPORT) DATE OF EXAM: 11/28/2021 HISTORY: This is a 41-year-old female who on her baseline screening mammogram on 11/03/2020 at [facility], was found to have an asymmetry in central posterior depth of right breast along the nipple line. The diagnostic mammogram and ultrasound on 06/06/2021 from this institution demonstrates persistence of the central asymmetry on cephalocaudal view, but it was not visible on the other views and ultrasound was normal. This examination is diagnostic evaluation of a probably benign asymmetry of the right breast which coincided with screening mammography of the left breast. COMPARISON: Right diagnostic mammogram and ultrasound dated 06/06/2021 from this institution, bilaterally screening mammogram dated 11/03/2020 from [facility] MAMMOGRAPHY: TECHNICAL INFORMATION: Diagnostic mammogram obtained with full-field digital mammography. Tomosynthesis (3-D) and reconstructed synthetic 2-D images acquired and reviewed as part of this examination. ??CAD was utilized. Cephalocaudal and mediolateral oblique projections of both breasts, true mediolateral projection of the right breast, and a spot compression cephalocaudal and mediolateral oblique views of the right breast were obtained with tomosynthesis. Total of 8 projections are available. BREAST COMPOSITION: Category A: The breasts are almost entirely fatty. FINDINGS: The 5 mm asymmetry along the nipple line in posterior depth of right breast, 11 cm deep to the nipple, is similar to the prior cephalocaudal projections of the right breast and has not changed. However, again it is not visible in the ML or MLO views of the right breast. On the spot compression cephalocaudal view, the lesion persists, but is slightly obscured by overlying vessels. I cannot confirm a fatty hilum to verify that this is an intramammary lymph node which is my primary concern. The scattered periareolar isomorphic benign microcalcifications of the left breast have increased in the interval. No suspicious interval changes are identified on either side. ULTRASOUND: Limited right breast ultrasound: ??Ultrasound of the right breast was performed in the retroareolar region as well as at 12 and 6:00 position of the right breast, 11 cm from the nipple, by the technologist and also Dr. Carter. Sonographic examination of the examined area is normal without a benign or a malignant lesion. Sharron Currie MD MAMMO ORDERABLES * (ABNORMAL) COMPREHENSIVE METABOLIC PANEL (01/10/2016 2:07 AM CDT) Glucose 271(H) 74 - 106 mg/dL 01/10/2016 2:30 AM CDT [facility] Sodium 137 136 - 145 mmol/L 01/10/2016 2:30 AM CDT [facility] Potassium 4.3 3.5 - 5.1 mmol/L 01/10/2016 2:30 AM CDT [facility] Chloride 105 98 - 107 mmol/L 01/10/2016 2:30 AM CDT [facility] CO2 27 22 - 31 mmol/L 01/10/2016 2:30 AM CDT [facility] Calcium 8.9 8.5 - 10.1 mg/dL 01/10/2016 2:30 AM CDT [facility] Anion Gap 5 5 - 20 mmol/L 01/10/2016 2:30 AM CDT [facility] BUN 11 7 - 21 mg/dL 01/10/2016 2:30 AM CDT [facility] Creatinine 0.89 0.50 - 1.30 mg/dL 01/10/2016 2:30 AM CDT [facility] Alkaline Phosphatase 94 38 - 126 U/L 01/10/2016 2:30 AM CDT [facility] ALT 28 12 - 78 U/L 01/10/2016 2:30 AM CDT [facility] AST 16 5 - 40 U/L 01/10/2016 2:30 AM CDT [facility] Protein Total 8.1 6.4 - 8.2 gm/dL 01/10/2016 2:30 AM CDT [facility] Albumin 3.6 3.4 - 5.0 gm/dL 01/10/2016 2:30 AM CDT [facility] Bilirubin Total 0.2 0.2 - 1.0 mg/dL 01/10/2016 2:30 AM CDT [facility] eGFR by MDRD >60 >60 mL/min/1.7 3m2 01/10/2016 2:30 AM CDT [facility] eGFR by MDRD >60 >60 mL/min/1.7 3m2 01/10/2016 2:30 AM CDT [facility] Blood BLOOD SPECIMEN / Unknown 01/10/2016 2:07 AM CDT 01/10/2016 2:14 AM CDT Andrzej Fitch MD LAB - CHEMISTRY [facility] Organization Address City/State/ZIP Co de Phone Number [facility] [address] [place] [address] from Last 3 Months or Most Recently Relevant to Health Maintenance Care Teams Optics Engineer Relationship Specialty Start Date End Date Keenan William MD [address] [address] PCP - General 12/21/20
--- OUTSIDE RECORDS SUMMARY | 2024-08-07 15:01 | XMS_ITS | Patient Health Summary ---
Author Organization [facility] Address [address] [place] [address] Care Team Providers Care Spiral Binder Name Role Phone Keenan William MD Primary Care Provider [phone] Note from [facility],non-owned Affiliates and Associated Physician Practices is amultiple site organization consisting of ambulatory clinics and hospital sitesin [place], [place], [place] and [place]. This disclosure is being madepursuant to the Care Everywhere program and may not contain all information available regarding this patient. Last updated 18.[facility] Allergies No known active allergies Medications * Be aware that medications may not be up to date on this document. Alwaysverify current medications with the patient. * lisinopril (PRINIVIL; ZESTRIL) 20 MG tablet Take 20 mg by mouth once daily * insulin glargine (LANTUS) vial Inject 55 Units subcutaneously at bedtime * naproxen sodium (ANAPROX DS) 550 MG tablet(Started 01/10/2016) Take 1 Tab by mouth 2 times daily as needed for Pain * HYDROcodone-acetaminophen (NORCO) 5-325 MG tablet(Started 01/10/2016) Take 1 Tab by mouth every 4 hours as needed for Pain * hydroCHLOROthiazide (MICROZIDE) 12.5 MG capsule(Started 01/14/2021) * FEROSUL 325 (65 Fe) MG tablet(Started 01/17/2021) Take 325 mg by mouth once daily * simvastatin (ZOCOR) 10 MG tablet(Started 12/04/2020) * metFORMIN (GLUCOPHAGE) 1000 MG tablet(Started 10/31/2021) Social History Tobacco Use Types Packs/Day Years [...] Mass Index 38.27 11/28/2021 10:06 AM CDT Procedures * US BREAST RIGHT LTD(Performed 11/28/2021) Performed for Breast asymmetry * MAMMO BILAT DIAGNOSTIC W RITESH(Performed 11/28/2021) Performed for Breast asymmetry * US BREAST RIGHT LTD(Performed 06/06/2021) Performed for Abnormal mammogram * MAMMO RIGHT DIAGNOSTIC W RITESH(Performed 06/06/2021) Performed for Abnormal mammogram * US BREAST BILATERAL OUTSIDE(Performed 02/09/2021) Performed for Abnormal mammogram * MM OUTSIDE MAMMOGRAM(Performed 01/27/2021) Performed for Abnormal mammogram * SKIN TEST PPD - POINT OF CARE(Performed 08/26/2018) Performed for PPD screening test * CARDIAC EKG ORDER(Performed 01/11/2016) * TROPONIN I(Performed 01/10/2016) * D-DIMER(Performed 01/10/2016) * XR CHEST 2VW(Performed 01/10/2016) * COMPREHENSIVE METABOLIC PANEL(Performed 01/10/2016) * CBC W AUTO DIFFERENTIAL(Performed 01/10/2016) * TROPONIN I(Performed 01/10/2016) Results * US BREAST RIGHT LTD (11/28/2021 12:23 PM CDT) Only the most recent of2 resultswithin the time period is included. Anatomical Region Laterality Modality Breast Right Mammography 11/28/2021 11:3 8 AM CDT Impressions [...] her baseline screening mammogram on 11/03/2020 at [facility], was found to have an [...] institution, bilaterally screening mammogram dated 11/03/2020 from [facility] MAMMOGRAPHY: TECHNICAL INFORMATION: Diagnostic mammogram [...] a benign or a malignant lesion. Sharron Curire MD US ORDERABLES * (ABNORMAL) MAMMO BILAT DIAGNOSTIC W RITESH [...] her baseline screening mammogram on 11/03/2020 at [facility], was found to have an [...] institution, bilaterally screening mammogram dated 11/03/2020 from [facility] MAMMOGRAPHY: TECHNICAL INFORMATION: Diagnostic mammogram [...] Sharron Currie MD MAMMO ORDERABLES * (ABNORMAL) MAMMO RIGHT DIAGNOSTIC W RITESH (06/06/2021 9:37 AM INGOT CAR OPERATOR) Anatomical Region Laterality Modality Breast Right Mammography 06/06/2021 10:4 3 AM INGOT CAR OPERATOR Impressions 06/06/2021 11:04 AM INGOT CAR OPERATOR IMPRESSION: Probably benign small asymmetry in the central right breast on the craniocaudal view in the mid to posterior depth, similar to slightly less prominent than on the prior outside study. There is no ultrasound correlate. RECOMMENDATION: ??Patient return in 6 months time for bilateral diagnostic mammography in November 2021. Dr. Kraft discussed the examination findings and recommendations with the patient at the time of the examination. Patient is scheduled to see Dr. Currie in the breast clinic today. OVERALL ASSESSMENT: ??BI-RADS CATEGORY 3: PROBABLY BENIGN. This report was electronically signed by MONY KRAFT M.D. ??on 06/06/2021 11:04 AM . Narrative 06/06/2021 11:04 AM INGOT CAR OPERATOR EXAMINATIONS: 1. ??DIGITAL MAMMO RIGHT DIAGNOSTIC W RITESH WITH CAD AND 2. ??LIMITED ??RIGHT BREAST ULTRASOUND (COMBINED REPORT) DATE OF EXAM: 06/06/2021 9:37 AM HISTORY: Short-term follow-up of probably benign asymmetry in the right breast centrally on the cc view. COMPARISON: With prior outside mammogram 11/03/2020 from [facility] as well as a targeted right breast ultrasound 11/26/2020 from the same facility. Also compare with a diagnostic right mammogram from that facility 11/26/2020. MAMMOGRAM: TECHNIQUE: Diagnostic right mammography was performed. Tomosynthesis (3-D) and reconstructed C - view (synthetic 2-D) images acquired. Right CC, MLO, true lateral and CC and MLO spot compression views obtained. A total of 5 images were obtained. ??Computer-aided detection (CAD) was utilized. BREAST COMPOSITION: Category A: The breasts are almost entirely fatty. FINDINGS: ??Previously described asymmetry in the central right breast on the craniocaudal view, 11 cm from the nipple is less prominent on the current study. This is probably noted in the slightly superior breast on the MLO view, 11 cm from the nipple, mid depth. No suspicious microcalcifications. LIMITED RIGHT BREAST ULTRASOUND: Ultrasound of the 12, central, and 6:00 regions of the breast was performed. Scanning performed through the central breast as well as the superior and inferior breast 6:00 and 12:00 regions. Ultrasound is normal. There is no cystic or solid lesion. No abnormalities noted to correspond with the asymmetry mammography. Sharron Currie MD MAMMO ORDERABLES * (ABNORMAL) US BREAST BILATERAL OUTSIDE (02/09/2021 1:19 PM CDT) Anatomical Region Laterality Modality Other 02/14/2021 10:3 3 AM CDT Impressions 02/14/2021 11:50 AM CDT IMPRESSION: 1. Probably benign small asymmetry in the central right breast on the craniocaudal view, without ultrasound correlate on the images submitted. 2. No suspicious findings in the left breast on diagnostic mammography or targeted breast ultrasound. RECOMMENDATION: ??Agree with recommendation for a six-month follow-up diagnostic right mammogram in May 2021. Patient will receive her results from and follow up with Dr. Currie. OVERALL ASSESSMENT: ??BI-RADS CATEGORY 3: PROBABLY BENIGN. Note: The findings, conclusions and recommendations within this report do not replace the initial findings, conclusions and recommendations made at the facility where the study was performed, based upon the imaging and clinical condition at that time, and comparison with the prior report and clinical history is necessary. The provided images may or may not represent the [place] source data set and thus may contain changes, which may lower the sensitivity in the second opinion interpretation. This report was electronically signed by MONY KRAFT M.D. ??on 02/14/2021 11:50 AM . Narrative 02/14/2021 11:50 AM CDT EXAMINATION: RADIOLOGY CONSULTATION ON OUTSIDE IMAGING STUDIES DATE OF CONSULTATION: 02/14/2021 10:33 AM REASON FOR CONSULTATION / HISTORY: Abnormal outside screening mammogram. OUTSIDE STUDIES FOR REVIEW: 1. Screening bilateral digital mammogram and bilateral tomosynthesis dated 11/03/2020. 2. Digital bilateral diagnostic mammogram and tomosynthesis dated 11/26/2020. 3. Limited bilateral breast ultrasound dated 11/26/2020. The outside final report was provided at the time of this second opinion. FACILITY WHERE STUDY PERFORMED: [facility] [place] [facility]. COMPARISON: No studies prior to 11/03/2020. This was reportedly patient's baseline exam. FINDINGS: Screening mammogram 11/03/2020: 4 images were submitted for review consisting of bilateral craniocaudal and mediolateral oblique projections. The breast are predominantly of fat density. Right side: Small asymmetry in the central breast on the craniocaudal view, 11 cm from the nipple and best seen on the right CC tomosynthesis slice 32/74. No suspicious microcalcifications. Left side: Small asymmetry in the subareolar breast on the left MLO tomosynthesis slice 6 at 84, 0.8 cm from the nipple. No suspicious microcalcifications. Diagnostic bilateral mammography findings 11/26/2020: A total of 4 images were submitted with bilateral true lateral and right CC and left MLO spot compression 2-D/3-D images. Left side: The questionable asymmetry in the subareolar left breast on the MLO view compresses out, without suspicious finding. Right side: Questionable asymmetry in the central breast on the craniocaudal view, 11 cm from the nipple is noted on the right CC ritesh synthesis slice 2371, measuring up to 0.5 cm in size. No corresponding asymmetry on the lateral view. Bilateral targeted breast ultrasound 11/26/2020: Right side: Right breast images submitted labeled right breast-9 images are submitted. The images demonstrate no abnormality. Left breast: Images submitted labeled left subareolar 12, 3:00, 6 and 9:00 regions. A total of 4 images were submitted. The images demonstrate no abnormality. Reportedly, patient's lifetime risk of breast cancer is 20.4 percent from risk assessment performed in the breast center at [facility], 01/27/2021. Patient has family history of breast cancer in a maternal aunt. Procedure Note Mony Kraft MD - 02/14/2021 EXAMINATION: RADIOLOGY CONSULTATION ON OUTSIDE IMAGING STUDIES DATE OF CONSULTATION: 02/14/2021 10:33 AM REASON FOR CONSULTATION / HISTORY: Abnormal outside screening mammogram. OUTSIDE STUDIES FOR REVIEW: 1. Screening bilateral digital mammogram and bilateral tomosynthesis dated 11/03/2020. 2. Digital bilateral diagnostic mammogram and tomosynthesis dated 11/26/2020. 3. Limited bilateral breast ultrasound dated 11/26/2020. The outside final report was provided at the time of this secondopinion. FACILITY WHERE STUDY PERFORMED: [facility]. COMPARISON: No studies prior to 11/03/2020. This was reportedly patient's baseline exam. FINDINGS: Screening mammogram 11/03/2020: 4 images were submitted for review consisting of bilateral craniocaudal and mediolateral oblique projections. The breast are predominantly of fat density. Right side: Small asymmetry in the central breast on the craniocaudal view, 11 cm from the nipple and best seen on the right CC tomosynthesis slice 32/74. No suspicious microcalcifications. Left side: Small asymmetry in the subareolar breast on the left MLO tomosynthesis slice 6 at 84, 0.8 cm from the nipple. No suspicious microcalcifications. Diagnostic bilateral mammography findings 11/26/2020: A total of 4 images were submitted with bilateral true lateral and right CC and left MLO spot compression 2-D/3-D images. Left side: The questionable asymmetry in the subareolar left breast onthe MLO view compresses out, without suspicious finding. Right side: Questionable asymmetry in the central breast on the craniocaudal view, 11 cm from the nipple is noted on the right CC ritesh synthesis slice 2371, measuring up to 0.5 cm in size. No corresponding asymmetry on the lateral view. Bilateral targeted breast ultrasound 11/26/2020: Right side: Right breast images submitted labeled right breast-9 images are submitted. The images demonstrate no abnormality. Left breast: Images submitted labeled left subareolar 12, 3:00, 6 and9:00 regions. A total of 4 images were submitted. The images demonstrate no abnormality. Reportedly, patient's lifetime risk of breast cancer is 20.4 percentfrom risk assessment performed in the breast center at [facility], 01/27/2021. Patient has family history of breast cancer in a maternalaunt. IMPRESSION: 1. Probably benign small asymmetry in the central right breast on the craniocaudal view, without ultrasound correlate on the images submitted. 2. No suspicious findings in the left breast on diagnostic mammographyor targeted breast ultrasound. RECOMMENDATION: Agree with recommendation for a six-month follow-up diagnostic right mammogram in May 2021. Patient will receive her results from and follow up with Dr. Currie. OVERALL ASSESSMENT: BI-RADS CATEGORY 3: PROBABLY BENIGN. Note: The findings, conclusions and recommendations within this reportdo not replace the initial findings, conclusions and recommendations madeat the facility where the study was performed, based upon the imaging and clinical condition at that time, and comparison with the prior reportand clinical history is necessary. The provided images may or may not represent the [place] source data set and thus may contain changes, which may lower the sensitivity in the second opinion interpretation. This report was electronically signed by MONY KRAFT M.D. on 02/14/2021 11:50 AM . Sharron Currie MD IMAGING * (ABNORMAL) MM OUTSIDE MAMMO FILM READ (01/27/2021 12:19 PM CDT) Anatomical Region Laterality Modality Other 02/14/2021 10:3 3 AM CDT Impressions 02/14/2021 11:50 AM CDT IMPRESSION: 1. Probably benign small asymmetry in the central right breast on the craniocaudal view, without ultrasound correlate on the images submitted. 2. No suspicious findings in the left breast on diagnostic mammography or targeted breast ultrasound. RECOMMENDATION: ??Agree with recommendation for a six-month follow-up diagnostic right mammogram in May 2021. Patient will receive her results from and follow up with Dr. Currie. OVERALL ASSESSMENT: ??BI-RADS CATEGORY 3: PROBABLY BENIGN. Note: The findings, conclusions and recommendations within this report do not replace the initial findings, conclusions and recommendations made at the facility where the study was performed, based upon the imaging and clinical condition at that time, and comparison with the prior report and clinical history is necessary. The provided images may or may not represent the [place] source data set and thus may contain changes, which may lower the sensitivity in the second opinion interpretation. This report was electronically signed by MONY KRAFT M.D. ??on 02/14/2021 11:50 AM . Narrative 02/14/2021 11:50 AM CDT EXAMINATION: RADIOLOGY CONSULTATION ON OUTSIDE IMAGING STUDIES DATE OF CONSULTATION: 02/14/2021 10:33 AM REASON FOR CONSULTATION / HISTORY: Abnormal outside screening mammogram. OUTSIDE STUDIES FOR REVIEW: 1. Screening bilateral digital mammogram and bilateral tomosynthesis dated 11/03/2020. 2. Digital bilateral diagnostic mammogram and tomosynthesis dated 11/26/2020. 3. Limited bilateral breast ultrasound dated 11/26/2020. The outside final report was provided at the time of this second opinion. FACILITY WHERE STUDY PERFORMED: [facility] [place] [facility]. COMPARISON: No studies prior to 11/03/2020. This was reportedly patient's baseline exam. FINDINGS: Screening mammogram 11/03/2020: 4 images were submitted for review consisting of bilateral craniocaudal and mediolateral oblique projections. The breast are predominantly of fat density. Right side: Small asymmetry in the central breast on the craniocaudal view, 11 cm from the nipple and best seen on the right CC tomosynthesis slice 32/74. No suspicious microcalcifications. Left side: Small asymmetry in the subareolar breast on the left MLO tomosynthesis slice 6 at 84, 0.8 cm from the nipple. No suspicious microcalcifications. Diagnostic bilateral mammography findings 11/26/2020: A total of 4 images were submitted with bilateral true lateral and right CC and left MLO spot compression 2-D/3-D images. Left side: The questionable asymmetry in the subareolar left breast on the MLO view compresses out, without suspicious finding. Right side: Questionable asymmetry in the central breast on the craniocaudal view, 11 cm from the nipple is noted on the right CC ritesh synthesis slice 2371, measuring up to 0.5 cm in size. No corresponding asymmetry on the lateral view. Bilateral targeted breast ultrasound 11/26/2020: Right side: Right breast images submitted labeled right breast-9 images are submitted. The images demonstrate no abnormality. Left breast: Images submitted labeled left subareolar 12, 3:00, 6 and 9:00 regions. A total of 4 images were submitted. The images demonstrate no abnormality. Reportedly, patient's lifetime risk of breast cancer is 20.4 percent from risk assessment performed in the breast center at [facility], 01/27/2021. Patient has family history of breast cancer in a maternal aunt. Procedure Note Mony Kraft MD - 02/14/2021 EXAMINATION: RADIOLOGY CONSULTATION ON OUTSIDE IMAGING STUDIES DATE OF CONSULTATION: 02/14/2021 10:33 AM REASON FOR CONSULTATION / HISTORY: Abnormal outside screening mammogram. OUTSIDE STUDIES FOR REVIEW: 1. Screening bilateral digital mammogram and bilateral tomosynthesis dated 11/03/2020. 2. Digital bilateral diagnostic mammogram and tomosynthesis dated 11/26/2020. 3. Limited bilateral breast ultrasound dated 11/26/2020. The outside final report was provided at the time of this secondopinion. FACILITY WHERE STUDY PERFORMED: [facility]. COMPARISON: No studies prior to 11/03/2020. This was reportedly patient's baseline exam. FINDINGS: Screening mammogram 11/03/2020: 4 images were submitted for review consisting of bilateral craniocaudal and mediolateral oblique projections. The breast are predominantly of fat density. Right side: Small asymmetry in the central breast on the craniocaudal view, 11 cm from the nipple and best seen on the right CC tomosynthesis slice 32/74. No suspicious microcalcifications. Left side: Small asymmetry in the subareolar breast on the left MLO tomosynthesis slice 6 at 84, 0.8 cm from the nipple. No suspicious microcalcifications. Diagnostic bilateral mammography findings 11/26/2020: A total of 4 images were submitted with bilateral true lateral and right CC and left MLO spot compression 2-D/3-D images. Left side: The questionable asymmetry in the subareolar left breast onthe MLO view compresses out, without suspicious finding. Right side: Questionable asymmetry in the central breast on the craniocaudal view, 11 cm from the nipple is noted on the right CC ritesh synthesis slice 2371, measuring up to 0.5 cm in size. No corresponding asymmetry on the lateral view. Bilateral targeted breast ultrasound 11/26/2020: Right side: Right breast images submitted labeled right breast-9 images are submitted. The images demonstrate no abnormality. Left breast: Images submitted labeled left subareolar 12, 3:00, 6 and9:00 regions. A total of 4 images were submitted. The images demonstrate no abnormality. Reportedly, patient's lifetime risk of breast cancer is 20.4 percentfrom risk assessment performed in the breast center at [facility], 01/27/2021. Patient has family history of breast cancer in a maternalaunt. IMPRESSION: 1. Probably benign small asymmetry in the central right breast on the craniocaudal view, without ultrasound correlate on the images submitted. 2. No suspicious findings in the left breast on diagnostic mammographyor targeted breast ultrasound. RECOMMENDATION: Agree with recommendation for a six-month follow-up diagnostic right mammogram in May 2021. Patient will receive her results from and follow up with Dr. Currie. OVERALL ASSESSMENT: BI-RADS CATEGORY 3: PROBABLY BENIGN. Note: The findings, conclusions and recommendations within this reportdo not replace the initial findings, conclusions and recommendations madeat the facility where the study was performed, based upon the imaging and clinical condition at that time, and comparison with the prior reportand clinical history is necessary. The provided images may or may not represent the [place] source data set and thus may contain changes, which may lower the sensitivity in the second opinion interpretation. This report was electronically signed by MONY KRAFT M.D. on 02/14/2021 11:50 AM . Sharron Currie MD IMAGING * SKIN TEST PPD - POINT OF CARE (08/26/2018 12:06 PM INGOT CAR OPERATOR) PPD 0MM Normal PPd placed 08/23/2018 @ 2:20pm, PPd read 08/26/2018 @12:07pm Other MISCELLANEOUS SAMPLE S / Unknown 08/26/2018 12:06 PM INGOT CAR OPERATOR Reji Young [employer] LAB - POINT OF CARE ORDERABLES * CARDIAC EKG ORDER (01/11/2016 10:36 PM CDT) Narrative 01/11/2016 10:36 PM CDT Ordered by an unspecified provider. Scanned Document CARDIAC SERVICES ORD ERABLES * TROPONIN I (01/10/2016 4:52 AM CDT) Only the most recent of2 resultswithin the time period is included. Troponin I <0.015 0.000 - 0.049 ng/mL 01/10/2016 5:36 AM CDT [facility] Blood BLOOD SPECIMEN / Unknown 01/10/2016 4:52 AM CDT 01/10/2016 5:20 AM CDT Narrative [facility] - 01/10/2016 5:36 AM CDT Note: Diagnosis of myocardial infarction requires symptoms of ischemia or EKG changes of ischemia and Troponin I >99th of normal (0.05 ng/mL). Troponin should be drawn on initial assessment and 3-6 hours later as clinically indicated. Any condition resulting in myocardial cell damage can increase cardiac troponin levels. In addition to myocardial infarction, these include but are not limited to congestive heart failure (CHF), arrhythmia, myocarditis, and non-cardiac related causes such as pulmonary embolism, renal failure and sepsis. Andrzej Fitch MD LAB - CHEMISTRY ORDE HUANG [facility] [address] [place] [address] * D-DIMER (01/10/2016 3:36 AM CDT) D-Dimer 0.32 0.17 - 0.5 mg/L FEU 01/10/2016 4:06 AM CDT [facility] Blood BLOOD SPECIMEN / Unknown 01/10/2016 3:36 AM CDT 01/10/2016 3:43 AM CDT Narrative [facility] - 01/10/2016 4:06 AM CDT The [employer] D-Dimer assay is intended for use as an aid in diagnosis of venous thromboembolism [(VTE): deep vein thrombosis (DVT), pulmonary embolism (PE), and disseminated intravascular coagulation (DIC)], and has received U.S. Food and Drug Administration (FDA) approval to exclude VTE in patients with low or moderate pretest probability of PE or DVT (per Wells' rules). At a clinical cut-off value 0.50 mg/L FEU, the Negative Predictive Value of this assay is 99.8% for excluding PE and 100% for excluding DVT. A very low percentage of patients with VTE may yield D-Dimer results below the cut-off value. An elevated D-Dimer result has low specificity (40.4% for PE, 35.5% for DVT) and is a poor predictor of VTE. An elevated D-Dimer result may indicate DIC in the appropriate clinical setting. Results of this test should always be interpreted in conjunction with the patient's medical history, clinical presentation, and other findings. Andrzej Fitch MD LAB - COAGULATION OR DERABLES Performing Organization Address City/State/[facility] Co de Phone Number [facility] [address] [phone] * XR CHEST PA AND LATERAL (01/10/2016 2:20 AM CDT) Anatomical Region Laterality Modality Chest Radiographic Deepali ging 01/10/2016 8:19 AM CDT Impressions 01/10/2016 8:19 AM CDT Normal chest radiographs. Narrative 01/10/2016 8:19 AM CDT FRONTAL AND LATERAL VIEWS OF THE CHEST HISTORY: Chest pain. COMPARISON: None. FINDINGS: Lines/tubes: ??None. Lungs: ??The lungs are well inflated and clear. There is no evidence of pneumonia or pulmonary edema. Pleura: ??There is no pleural effusion or pneumothorax. Heart and mediastinum: ??The heart and the mediastinum are normal. Bones: ??The thoracic skeleton is unremarkable. Procedure Note Damaris Bowers MD - 01/10/2016 FRONTAL AND LATERAL VIEWS OF THE CHEST HISTORY: Chest pain. COMPARISON: None. FINDINGS: Lines/tubes: None. Lungs: The lungs are well inflated and clear. There is no evidence of pneumonia or pulmonary edema. Pleura: There is no pleural effusion or pneumothorax. Heart and mediastinum: The heart and the mediastinum are normal. Bones: The thoracic skeleton is unremarkable. IMPRESSION Normal chest radiographs. Andrzej Fitch MD DIAGNOSTIC IMAGING O RDERABLES * (ABNORMAL) CBC W AUTO DIFFERENTIAL (01/10/2016 2:07 AM CDT) Pathologist [facility] WBC 10.6 4.4 - 10.7 x10E9/L 01/10/2016 2:30 AM CDT [facility] WBC Corrected x10E9/L 01/10/2016 2:30 AM CDT [facility] RBC 5.09 3.80 - 5.20 x10E12/L 01/10/2016 2:30 AM CDT [facility] Hemoglobin 10.8(L) 12.0 - 15.6 gm/dL 01/10/2016 2:30 AM CDT [facility] Hematocrit 35.3(L) 35.9 - 45.5 % 01/10/2016 2:30 AM CDT [facility] MCV 69.4(L) 80.7 - 98.3 fl 01/10/2016 2:30 AM CDT [facility] MCH 21.2(L) 26.7 - 34.0 pg 01/10/2016 2:30 AM CDT [facility] MCHC 30.6(L) 30.8 - 35.9 gm/dL 01/10/2016 2:30 AM CDT [facility] Platelet Count 463(H) 153 - 416 x10E9/L 01/10/2016 2:30 AM CDT [facility] RDW-CV 22.1(H) 12.1 - 14.9 % 01/10/2016 2:30 AM CDT [facility] MPV 10.1 9.4 - 12.9 fl 01/10/2016 2:30 AM CDT [facility] Neutrophils % 47.5 44.0 - 73.0 % 01/10/2016 2:30 AM CDT [facility] Lymphocytes % 42.4 20.0 - 43.0 % 01/10/2016 2:30 AM CDT [facility] Monocytes % 8.2 5.0 - 13.0 % 01/10/2016 2:30 AM CDT [facility] Eosinophils % 0.9 0.0 - 6.0 % 01/10/2016 2:30 AM CDT [facility] Basophils % 0.8 0.0 - 2.0 % 01/10/2016 2:30 AM CDT [facility] Immature Granulocytes 0.2 0 - 1 % 01/10/2016 2:30 AM CDT [facility] Neutrophil Absolute 5.04 2.01 - 7.14 x10E9/L 01/10/2016 2:30 AM CDT [facility] Lymphocytes Absolute 4.50(H) 1.07 - 3.94 x10E9/L 01/10/2016 2:30 AM CDT [facility] Monocytes Absolute 0.87 0.26 - 1.07 x10E9/L 01/10/2016 2:30 AM CDT [facility] Eosinophils Absolute 0.10 0 - 0.47 x10E9/L 01/10/2016 2:30 AM CDT [facility] Basophils Absolute 0.08 0 - 0.08 x10E9/L 01/10/2016 2:30 AM CDT [facility] Immature Granulocytes Absolute 0.02 0.00 - 0.06 x10E9/L 01/10/2016 2:30 AM CDT [facility] nRBC Auto 0 /100 WBC 01/10/2016 2:30 AM CDT [facility] Blood BLOOD SPECIMEN / Unknown Venipuncture / Unknown 01/10/2016 2:07 AM CDT 01/10/2016 2:16 AM CDT Andrzej Fitch MD LAB - HEMATOLOGY ORD ERABLES [facility] [address] [place] [address] * (ABNORMAL) COMPREHENSIVE METABOLIC PANEL (01/10/2016 2:07 AM CDT) Glucose 271(H) 74 - 106 mg/dL 01/10/2016 2:30 AM CDT [facility] Sodium 137 136 - 145 mmol/L 01/10/2016 2:30 AM CDT [facility] Potassium 4.3 3.5 - 5.1 mmol/L 01/10/2016 2:30 AM CDT [facility] Chloride 105 98 - 107 mmol/L 01/10/2016 2:30 AM CDT [facility] CO2 27 22 - 31 mmol/L 01/10/2016 2:30 AM CDT [facility] Calcium 8.9 8.5 - 10.1 mg/dL 01/10/2016 2:30 AM CDT [facility] Anion Gap 5 5 - 20 mmol/L 01/10/2016 2:30 AM CDT [facility] BUN 11 7 - 21 mg/dL 01/10/2016 2:30 AM CDT [facility] Creatinine 0.89 0.50 - 1.30 mg/dL 01/10/2016 2:30 AM CDT [facility] Alkaline Phosphatase 94 38 - 126 U/L 01/10/2016 2:30 AM CDT [facility] ALT 28 12 - 78 U/L 01/10/2016 2:30 AM CDT [facility] AST 16 5 - 40 U/L 01/10/2016 2:30 AM CDT [facility] Protein Total 8.1 6.4 - 8.2 gm/dL 01/10/2016 2:30 AM CDT [facility] Albumin 3.6 3.4 - 5.0 gm/dL 01/10/2016 2:30 AM CDT [facility] Bilirubin Total 0.2 0.2 - 1.0 mg/dL 01/10/2016 2:30 AM CDT [facility] eGFR by MDRD >60 >60 mL/min/1.7 3m2 01/10/2016 2:30 AM CDT [facility] eGFR by MDRD >60 >60 mL/min/1.7 3m2 01/10/2016 2:30 AM CDT [facility] Blood BLOOD SPECIMEN / Unknown 01/10/2016 2:07 AM CDT 01/10/2016 2:14 AM CDT Andrzej Fitch MD LAB - CHEMISTRY GATITO ENCINAS [facility] Organization Address City/State/ZIP Co de Phone Number [facility] [address] [place], [place] [id number] Care Teams Spiral Binder Relationship Specialty Start Date End Date Keenan William MD [address] [place] [id number] [facility] - General 12/21/20
--- OUTSIDE RECORDS SUMMARY | 2024-08-07 15:01 | XMS_ITS | Referral Summary ---
Author Organization [facility] Address [address] [place] [address] Care Team Providers Care Photoengraving Etcher Name Role Phone Keenan William MD Primary Care Provider Source Comments [facility],non-owned Affiliates and Associated Physician Practices is amultiple site organization consisting of ambulatory clinics and hospital sitesin [place], [place], [place] and [place]. This disclosure is being madepursuant to the Care Everywhere program and may not contain all information available regarding this patient. Last updated 18.[facility] [place] Allergies No known active allergies Medications * [...] metFORMIN (GLUCOPHAGE) 1000 MG tablet 10/31/2021 Active Social History Tobacco Use Types Packs/Day Years [...] 11/28/2021 10:06 AM CDT Plan of Treatment Not on file Procedures Procedure Name Priority Date/Time Associated Diagnosis [...] her baseline screening mammogram on 11/03/2020 at [facility], was found to have an [...] institution, bilaterally screening mammogram dated 11/03/2020 from [facility] MAMMOGRAPHY: TECHNICAL INFORMATION: Diagnostic mammogram [...] - 21 mg/dL 01/10/2016 2:30 AM CDT [facility] Creatinine 0.89 0.50 - 1.30 mg/dL 01/10/2016 2:30 AM CDT [facility] Alkaline Phosphatase 94 38 - 126 U/L 01/10/2016 2:30 AM CDT [facility] ALT 28 12 - 78 U/L 01/10/2016 2:30 AM CDT [facility] AST 16 5 - 40 U/L 01/10/2016 2:30 AM CDT [facility] Protein Total 8.1 6.4 - 8.2 gm/dL 01/10/2016 2:30 AM CDT [facility] Albumin 3.6 3.4 - 5.0 gm/dL 01/10/2016 2:30 AM CDT [facility] Bilirubin Total 0.2 0.2 - 1.0 mg/dL 01/10/2016 2:30 AM CDT [facility] eGFR by MDRD >60 >60 mL/min/1.7 3m2 01/10/2016 2:30 AM CDT [facility] eGFR by MDRD >60 >60 mL/min/1.7 3m2 01/10/2016 2:30 AM CDT [facility] Blood BLOOD SPECIMEN / Unknown 01/10/2016 2:07 AM CDT 01/10/2016 2:14 AM CDT Andrzej Fitch MD LAB - CHEMISTRY GATITO ENCINAS [facility] Organization Address City/State/ZIP Co de Phone Number [facility] [address] [place] [address] from Last 3 Months or Most Recently Relevant to Health Maintenance Administered Medications Care Teams Photoengraving Etcher Relationship Specialty Start Date End Date Keenan William MD [address] [place] [address] PCP - General 12/21/20
--- OUTSIDE RECORDS SUMMARY | 2024-08-07 15:02 | XMS_ITS | CONTINUITY OF CARE DOCUMENT ---
Author Name tico doshi Address Unknown Organization [facility] Address [address] [place] [address] Phone [phone] Care Team Providers Care Gas Meter Repairer Name Role Phone Mesfin JONES, Lynette Tse Unavailable Sunny DIAZ, Corinne Unavailable HITESH VELIZ MD Unavailable [phone] PROBLEMS Condition Status Date Provider Notes Shortness [...] In-person encounter Office Visit Lynette Toure MD [facility] - In-person encounter Office Visit Lynette Toure MD [facility] Cardiology examination - In-person encounter Office Visit Lynette Toure MD [facility] - In-person encounter Office Visit Lynette Toure MD [facility] - In-person encounter Office Visit Lynette Toure MD [facility] Sleep apnea - In-person encounter Office Visit Lynette Toure MD [facility] Cardiovascular Condition Screening - In-person encounter Office Visit Lynette Toure MD [facility] Venous insufficiency - In-person encounter Office Visit Lynette Toure MD [facility] Shortness of breathHTN essentialDM - type 2HypercholesterolemiaE jorge l - localized VITAL SIGNS Date Observation Value Provider Body Mass Index (Ratio) 39.82 kg/m2 Mainor Toure MD blood pressure, diastolic -1 mm[Hg] Li nkLogic blood pressure, systolic 137 mm[Hg] Amina kLog blood pressure, diastolic 90 mm[Hg] Shawn yla [facility] blood pressure, systolic 137 mm[Hg] Martha la [facility] oxygen saturation, oximetry 98 % Claudia [facility] pulse rate 83 /min Claudia [facility] blood pressure, cuff size regular Ka yla [facility] weight E&M 232 [lb_av] Claudia [facility] height E&M 64 [in_i] Claudia [facility] Body Mass Index (Ratio) 38.41 [...] blood pressure, cuff size regular Fa chris [place] blood pressure, diastolic 72 mm[Hg] Fa [facility] blood pressure, systolic 140 mm[Hg] Wyatt [facility] oxygen saturation, oximetry 95 % [facility] respiratory rate E&M 16 /min Claribel Holloway ille pulse rate 82 /min [facility] weight E&M 232 [lb_av] [facility] height E&M 64 [in_i] [facility] Body Mass Index (Ratio) 43.77 kg/m2 Mainor [...] Roxanne Si ms pulse rate 66 /min Roxanne Lopes weight E&M 228 [lb_av] Roxanne Lopes [...] respiratory rate E&M 16 /min Catheri ne [place] pulse rate 67 /min Prerna [place] weight E&M 231 [lb_av] Prerna Nico height E&M 64 [in_i] Prerna [place] ALLERGIES No Known Drug Allergies HISTORY OF [...] 81 mg tablet,delayed release (DR/EC) completed - [facility] clopidogrel 75 mg tablet completed - [...] Payer name Policy type / Coverage type [facility] green party ID [employer] Medicaid [id number] ADVANCE DIRECTIVES Name Date DISCUSSED - NO DECISION MADE TREATMENT PLAN Date Name Performer [id number],B,h as noted improvement of SOB w ill [...] 20 Mg Tablet (Lisinopril) Lynette Toure MD [id number],S,h as had improvement of her edema s till has trace edema bilateral lower extremities. Lynette Toure MD [id number],C, H er updated medication list for this problem includes: Simvastatin 10 Mg Tablet (Simvastatin) Lynette Toure MD [id number],C, B P today: 127/82 P rior BP: 131/82 (05/26/2022) Her updated medication list for this problem includes: Aspirin 81 Mg Tablet,delayed Release (dr/ec) (Aspirin) ..... Take 1 tablet by mouth every day Furosemide 20 Mg Tablet (Furosemide) ..... Take 1 tablet by mouth twice a day Hydrochlorothiazide 12.5 Mg Capsule (Hydrochlorothiazide) Lisinopril 20 Mg Tablet (Lisinopril) Lynette Toure MD [id number],C, H ome sleep study shows an AHI [...] and should continue use. Lynette Toure MD [id number],S, E cho 10/2021 C ONCLUSIONS: 1 . [...] for exercise-induced myocardial ischemia Lynette Toure MD [id number],S, H er updated medication list for this problem includes: Aspirin 81 Mg Tablet,delayed Release (dr/ec) (Aspirin) ..... Take 1 tablet by mouth every day Furosemide 20 Mg Tablet (Furosemide) ..... Take 1 tablet by mouth twice a day Hydrochlorothiazide 12.5 Mg Capsule (Hydrochlorothiazide) Lisinopril 20 Mg Tablet (Lisinopril) Lynette Toure MD [id number],C, B P today: 127/82 P rior BP: 131/82 (05/26/2022) Her updated medication list for this problem includes: Aspirin 81 Mg Tablet,delayed Release (dr/ec) (Aspirin) ..... Take 1 tablet by mouth every day Furosemide 20 Mg Tablet (Furosemide) ..... Take 1 tablet by mouth twice a day Hydrochlorothiazide 12.5 Mg Capsule (Hydrochlorothiazide) Lisinopril 20 Mg Tablet (Lisinopril) Lynette Toure MD [id number],S, C heck A1c, 7.6 Lipid panel was good LDL 51. Her updated medication list for this problem includes: Aspirin 81 Mg Tablet,delayed Release (dr/ec) (Aspirin) Metformin 1,000 Mg Tablet (Metformin) ..... Take 1 tablet twice a day Lisinopril 20 Mg Tablet (Lisinopril) Lynette Toure MD [id number],C, H ome sleep study shows an AHI [...] and should continue use. Lynette Toure MD [id number],C, S he had stenting 16 x 100 [...] U sing compression stockings Lynette Toure MD [id number],C,H ome sleep study shows an AHI of 13.9 which is consistent with a diagnosis of mild KENDAL. Mean oxygen saturation of 9 5%, with the lowest being 89%. May 26, 2022 P ending getting her CPAP Lynette Toure MD [id number],S,I ncrfreddye Lasix C onclusions: The diffusing capacity is high for the measured alveolar volume suggesting a chest wall limitation or reduced force generation a s possible explanations for the restriction. P ulmonary Function Diagnosis: M ild Restriction I ncreased Diffusion S evere Neuromuscular Disease Remains on ASA plavix. Lynette Toure MD [id number],S, C heck A1c, Lipid panel was good LDL 51. Her updated medication list for this problem includes: Aspirin 81 Mg Tablet,delayed Release (dr/ec) (Aspirin) Metformin 1,000 Mg Tablet (Metformin) ..... Take 1 tablet twice a day Lisinopril 20 Mg Tablet (Lisinopril) Lynette Toure MD [id number],C, B P today: 131/82 P rior BP: 134/87 (02/24/2022) Her updated medication list for this problem includes: Aspirin 81 Mg Tablet,delayed Release (dr/ec) (Aspirin) Hydrochlorothiazide 12.5 Mg Capsule (Hydrochlorothiazide) Lisinopril 20 Mg Tablet (Lisinopril) Lynette Toure MD [id number],C, S he had stenting 16 x 100 [...] to wear compression stockings Lynette Toure MD [id number],B, s tart lasix 20mg daily for 1month and see if ther eis improveent juan thomson venouls doplers a nd check for chf Lynette Toure MD [id number],C,C onclusions: The diffusing capacity is high for the measured alveolar volume suggesting a chest wall limitation or reduced force generation a s possible explanations for the restriction. P ulmonary Function Diagnosis: M ild Restriction I ncreased Diffusion S evere Neuromuscular Disease Remains on ASA plavix. Lynette Toure MD [id number],C, B P elevated. Discussion of benefits for [...] of BP, continue use. Lynette Toure MD [id number],C,C berto A1c, Lipid panel was good LDL 51. Her updated medication list for this problem includes: Aspirin 81 Mg Tablet,delayed Release (dr/ec) (Aspirin) Metformin 1,000 Mg Tablet (Metformin) ..... Take 1 tablet twice a day Lisinopril 20 Mg Tablet (Lisinopril) Lynette Toure MD [id number],C,S he had stenting 16 x 100 Abre stent R common illiac vein, 16 x 150 into the L common illiac vein, 12/30/21. Has noted some improvement in swelling as well as the pain, right leg. Encouraged use of compression and eventually can graduate to lower levels of compression. 12/2021 Lynette Toure MD [id number],SJoe 10/2021 C ONCLUSIONS: 1 . Normal left [...] for exercise-induced myocardial ischemia Lynette Toure MD [id number],C,B P elevated. Discussion of benefits for remote [...] 20 Mg Tablet (Lisinopril) Lynette Toure MD [id number],CV ector 10/26/21 CONCLUSIONS: 1 . No evidence of significant venous insufficiency of the lower extremities bilaterally. 2 . Significant venous insufficiency of the great saphenous vein bilaterally. 3 . Significant venous insufficiency of the femoral vein bilaterally. E lectronically Signed By: Carrie Toure MD, [facility] Will schedule JAG and venogram to eval for May-Thurner syndrome. Lynette Toure MD [id number],S,s tart lasix 20mg daily for 1month and see if ther eis improveent c heck venouls doplers a nd check for chf Lynette Toure MD [id number],S, Lynette patiño MD [id number],C, H er updated medication list for this problem includes: Simvastatin 10 Mg Tablet (Simvastatin) Lynette Toure MD [id number],C,c grahamk echo and pft c grahamk stress Lynette Toure MD [id number],C, H er updated medication list for this [...] Routine 6 minute walk test DLCO - 77734 FRC - 28961 FVC - 25468 HISTORY OF PROCEDURES Procedure Date Procedure Name [...] MD compl eted FVC / MVV - 42418 Lynette Toure MD completed BLOOD COUNT HEMOGLOBIN Lynette Toure MD completed FRC - 81425 Lynette Toure MD comp leted SpO2 w/o 6min walk/titration Lynette Toure MD completed SVC - 91867 Lynette Toure MD comp leted DLCO - 60145 Lynette Toure MD com pleted
--- OUTSIDE RECORDS SUMMARY | 2024-08-07 15:02 | XMS_ITS | Continuity of Care Document ---
Author Organization [facility] Address [address] [place] [address] Phone Care Team Providers Care Horticultural Manager Name Role Phone Lino OCAMPOPrerna Unavailable Unavailable [...] oral eval problem focused 013 OFFICE/OUTPATIENT VISIT, [facility] Advance Directives Directive Yes / No Effective Date File Name No Information Encounters Encounter Description Practice Location Reason(s) For Visit Diagnoses Date Provider Providers Copied on Encounter [facility], [address], [place], [place], [address] , [place] tel: [phone] [facility] No Information [address] Lino Graff. [address], [place], [place], [address], [place]. tel:[phone] OFFICE/OUTPA TIENT VISIT, EST [facility], [address], [place], [place], [address] , [place] tel: [phone] [facility] SOB and Dizziness (chief complaint) Body mass index (BMI) 40.0-44.9, adultType 2 diabetes mellitus with hyperglycemiaEss ential (primary) hypertensionDizz inessIron deficiency anemia, unspecified 8 Lino Graff. [address], [place], [place], [address], [place]. [phone] [facility], [address], [place], [place], [address] , [place] tel: [phone] [facility] No Information 7 No Information OFFICE/OUTPA TIENT VISIT, EST [facility], [address], [place], [place], [address] , [place] tel: [phone] [facility] anemia (chief complaint) diabetes (chief complaint) Type 2 diabetes mellitus with hyperglycemiaMen orrhagiaEssentia l (primary) hypertension 7 No Information OFFICE OUTPT EST 25 MIN [facility], [address], [place], [place], [address] , [place] tel: [phone] [facility] diabetes (chief complaint) Essential (primary) hypertensionIron deficiency anemia, unspecifiedType 2 diabetes mellitus with hyperglycemiaEnc ounter for screening for other disorder 6 No Information OFFICE OUTPT EST 25 MIN [facility], [address], [place], [place], [address] , [place] tel: [phone] [facility] diabetes (chief complaint) hypertensi on (chief complaint) Type 2 diabetes mellitus with diabetic neuropathy, unspecifiedIron deficiency anemia, unspecifiedEssen tial (primary) hypertensionEnco unter for general adult medical examination without abnormal findings 6 No Information OFFICE OUTPT EST 25 MIN [facility], [address], [place], [place], [address] , tel: [phone] [facility] diabetes (chief complaint) Essential (primary) hypertension 6 Kailey Fallon. [address], [place], [place], [address], [place]. [phone] Referring Provider: Vasyl Zaman, [address], [place], [address] . tel:[phone] OFFICE/OUTPA TIENT VISIT, NEW [facility], [address], [place], [place], [address] , [place] tel: [phone] [facility] foot (chief complaint) foot (chief complaint) Venous insufficiencyDia betes mellitus with neurological complications 5 No Information OFFICE OUTPT EST 25 MIN [facility], [address], [place], [place], [address] , [place] tel: [phone] [facility] Diabetes (chief complaint) Hypertensi on (chief complaint) DM (diabetes mellitus)Benign essential hypertensionIron deficiency anemia, unspecifiedOverw eight 5 No Information [facility], [address], [place], [place], [address] , [place] tel: [phone] [facility] [place] Dental examination 4 No Information OFFICE/OUTPA TIENT VISIT, EST [facility], [address], [place], [place], [address] , [place] tel: [phone] [facility] diabetes (chief complaint) Anemia, Iron DeficiencyDiabet es type 2, uncontrolled 4 No Information [facility], [address], [place], [place], [address] , [place] tel: [phone] [facility] No Information 4 No Information OFFICE/OUTPA TIENT VISIT, EST [facility], [address], [place], [place], [address] , tel: [phone] [facility] DM/HTN (chief complaint) Diabetes type 2, uncontrolledHype rtensionLighthea dedness 4 No Information [facility], [address], [place], [place], [address] , tel: [phone] [facility] [place] [facility] examination 3 Tiffany Trent. [address], [place], [place], [address], . tel:[phone] [facility], [address], [place], [place], [address] , tel: [phone] [facility] [place] [facility] examination 3 Tiffany Trent. [address], [place], [place], [address], . tel:[phone] OFFICE/OUTPA TIENT VISIT, NEW [facility], [address], [place], [place], [address] , tel: [phone] [facility] Hosp f/up for diabetes (chief complaint) hypertensi [...] mellitus Payers Payer name Insurance type Covered libertarian ID Authoriza tion(s) No Information Social History [...] Panel. Due on due Referral Referred To: [facility] Ordered: Referrals: Ophthalmology. [facility]. Evaluate and treat ordered Referral Referred To: Chava Gupta DPM [address] [place], [place], [phone] Ordered: Referrals: Podiatry. Chava Gupta DPM. Evaluate and treat ordered Referral Referred To: [facility] Ordered: Referral: [facility]. Chef De Froid. Evaluate and treat. ordered Patient Education Iron-Rich [...] Lab Order COMPREHE NSIVE METABOLIC PANEL W/EGFR (01115), Appointment on: , Sent on: Sent Future Order: Lab Order HEMOGLOB IN A1c (496), Appointment on: , Sent on: Sent Future Order: Lab Order LIPID PA ROXIE ([id number]), Appointment on: , Sent on: Sent Future Order: Lab Order TSH, 3RD GENERATION (389), Appointment on: , Sent on: Sent Nutrition [...] without explanation. She has not seen an picture frame maker. She checks her feet daily and uses [...] Labs todayLisinopril , Lantus refilled, sent to [facility] next week Related to Dizziness Giving encouragement [...]
== END 2024-08-04 23:37 | disposition home or self-care (01) ==
PROVIDERS: Physician Assistant; Emergency Provider Emergency Medicine; PCP Emergency Medicine
DX: J10.1 Influenza due to other identified influenza virus with other respiratory manifestations (principal); Z20.822 Contact with and (suspected) exposure to COVID-19; I51.9 Heart disease, unspecified; E11.9 Type 2 diabetes mellitus without complications; G47.33 Obstructive sleep apnea (adult) (pediatric); Z90.49 Acquired absence of other specified parts of digestive tract; Z79.84 Long term (current) use of oral hypoglycemic drugs; Z79.82 Long term (current) use of aspirin; Z79.899 Other long term (current) drug therapy
CPT/HCPCS: 87637; 96372; 99283; A9270; J1885

== ENCOUNTER 2024-08-26 09:07 | Outpatient (CLI) | payer OTHER, SELFPAY ==
--- NOTE | 2024-08-26 09:15 | ECG_ITS ---
Test Date: 2024-08-26 09:37:21 Measurements Intervals [place] Rate: 74 P: 26 NV: 147 QRS: 10 QRSD: 76 T: 1 QT: 355 QTc: 395 Interpretive Statements SINUS RHYTHM BORDERLINE ST-T WAVE ABNORMALITY- INFERIOR LEADS BASELINE ARTIFACT- II, III, AVF BORDERLINE ECG No previous ECG available for comparison Electronically Signed On 08-26-2024 09:47:35 VITAMIN MANAGER by Yovanny Hdz D.O.
[2024-08-26 09:46] LABS: Hematocrit 42.2 % (37.0-47.0); Hemoglobin 12.9 g/dL (12.0-15.0)
--- OUTSIDE RECORDS SUMMARY | 2024-08-26 09:46 | XMS_ITS | Patient Health Summary ---
Author Organization [facility] Address [address] [place] [address] Care Team Providers Care Warehouse Team Leader Name Role Phone Keenan William MD Primary Care Provider [phone] Note from [facility],non-owned Affiliates and Associated Physician Practices is amultiple site organization consisting of ambulatory clinics and hospital sitesin [place], [place], [place] and [place]. This disclosure is being madepursuant to the Care Everywhere program and may not contain all information available regarding this patient. Last updated 18.[facility] Allergies No known active allergies Medications [...] 73 11/28/2021 10:06 AM CDT Temperature 36.1 C (97 F) 11/28/2021 10:06 AM CDT Respiratory Rate 29 [...] report was electronically signed by CHUCHO CARTER on 11/28/2021 2:38 PM . Narrative 11/28/2021 2:38 PM CDT EXAMINATIONS: 1. MAMMO BILAT DIAGNOSTIC W RITESH AND WITH CAD AND 2. LIMITED RIGHT BREAST ULTRASOUND (COMBINED REPORT) DATE OF EXAM: 11/28/2021 HISTORY: This is a 41-year-old female who on her baseline screening mammogram on 11/03/2020 at [facility], was found to have an asymmetry in [...] institution, bilaterally screening mammogram dated 11/03/2020 from [facility] MAMMOGRAPHY: TECHNICAL INFORMATION: Diagnostic mammogram obtained with full-field digital mammography. Tomosynthesis (3-D) and reconstructed synthetic 2-D images acquired and reviewed as part of this examination. CAD was utilized. Cephalocaudal and mediolateral oblique projections [...] either side. ULTRASOUND: Limited right breast ultrasound: Ultrasound of the right breast was performed in the retroareolar region as well as at 12 and 6:00 position of the right breast, 11 cm from the nipple, by the technologist and also Dr. Carter. Sonographic examination of the examined area is normal without a benign or a malignant lesion. Sharron Currie MD US ORDERABLES * (ABNORMAL) MAMMO BILAT [...] report was electronically signed by CHUCHO CARTER on 11/28/2021 2:38 PM . Narrative 11/28/2021 2:38 PM CDT EXAMINATIONS: 1. MAMMO BILAT DIAGNOSTIC W RITESH AND WITH CAD AND 2. LIMITED RIGHT BREAST ULTRASOUND (COMBINED REPORT) DATE OF EXAM: 11/28/2021 HISTORY: This is a 41-year-old female who on her baseline screening mammogram on 11/03/2020 at [facility], was found to have an asymmetry in [...] institution, bilaterally screening mammogram dated 11/03/2020 from [facility] MAMMOGRAPHY: TECHNICAL INFORMATION: Diagnostic mammogram obtained with full-field digital mammography. Tomosynthesis (3-D) and reconstructed synthetic 2-D images acquired and reviewed as part of this examination. CAD was utilized. Cephalocaudal and mediolateral oblique projections [...] either side. ULTRASOUND: Limited right breast ultrasound: Ultrasound of the right breast was performed in [...] RIGHT DIAGNOSTIC W RITESH (06/06/2021 9:37 AM SLATE CUTTER) Anatomical Region Laterality Modality Breast Right Mammography 06/06/2021 10:4 3 AM SLATE CUTTER Impressions 06/06/2021 11:04 AM SLATE CUTTER IMPRESSION: Probably benign small asymmetry in the central right breast on the craniocaudal view in the mid to posterior depth, similar to slightly less prominent than on the prior outside study. There is no ultrasound correlate. RECOMMENDATION: Patient return in 6 months time for bilateral diagnostic mammography in November 2021. Dr. Kraft discussed the examination findings and recommendations with the patient at the time of the examination. Patient is scheduled to see Dr. Currie in the breast clinic today. OVERALL ASSESSMENT: BI-RADS CATEGORY 3: PROBABLY BENIGN. This report was electronically signed by MONY KRAFT M.D. on 06/06/2021 11:04 AM . Narrative 06/06/2021 11:04 AM SLATE CUTTER EXAMINATIONS: 1. DIGITAL MAMMO RIGHT DIAGNOSTIC W RITESH WITH CAD AND 2. LIMITED RIGHT BREAST ULTRASOUND (COMBINED REPORT) DATE OF EXAM: 06/06/2021 9:37 AM HISTORY: Short-term follow-up of probably benign asymmetry in the right breast centrally on the cc view. COMPARISON: With prior outside mammogram 11/03/2020 from [facility] as well as a targeted right breast ultrasound 11/26/2020 from the same facility. Also compare with a diagnostic right mammogram from that facility 11/26/2020. MAMMOGRAM: TECHNIQUE: Diagnostic right mammography was performed. Tomosynthesis (3-D) and reconstructed C - view (synthetic 2-D) images acquired. Right CC, MLO, true lateral and CC and MLO spot compression views obtained. A total of 5 images were obtained. Computer-aided detection (CAD) was utilized. BREAST COMPOSITION: Category A: The breasts are almost entirely fatty. FINDINGS: Previously described asymmetry in the central right breast [...] diagnostic mammography or targeted breast ultrasound. RECOMMENDATION: Agree with recommendation [...] images may or may not represent the [place] source data set and thus may contain changes, which may lower the sensitivity in the second opinion interpretation. This report was electronically signed by MONY KRAFT M.D. on 02/14/2021 11:50 AM . Narrative 02/14/2021 11:50 [...] this second opinion. FACILITY WHERE STUDY PERFORMED: [facility] [place] [facility]. COMPARISON: No studies prior to 11/03/2020. This [...] assessment performed in the breast center at [facility], 01/27/2021. Patient has family history of breast [...] assessment performed in the breast center at [facility], 01/27/2021. Patient has family history of breast [...] images may or may not represent the [place] source data set and thus may contain [...] diagnostic mammography or targeted breast ultrasound. RECOMMENDATION: Agree with recommendation [...] images may or may not represent the [place] source data set and thus may contain changes, which may lower the sensitivity in the second opinion interpretation. This report was electronically signed by MONY KRAFT M.D. on 02/14/2021 11:50 AM . Narrative 02/14/2021 11:50 [...] this second opinion. FACILITY WHERE STUDY PERFORMED: [facility] [facility]. COMPARISON: No studies prior to 11/03/2020. This [...] assessment performed in the breast center at [facility], 01/27/2021. Patient has family history of breast [...] assessment performed in the breast center at [facility], 01/27/2021. Patient has family history of breast [...] images may or may not represent the [place] source data set and thus may contain changes, which may lower the sensitivity in the second opinion interpretation. This report was electronically signed by MONY KRAFT M.D. on 02/14/2021 11:50 AM . Sharron Currie MD IMAGING * SKIN TEST PPD - POINT OF CARE (08/26/2018 12:06 PM SLATE CUTTER) PPD 0MM Normal PPd placed 08/23/2018 @ 2:20pm, PPd read 08/26/2018 @12:07pm Other MISCELLANEOUS SAMPLE S / Unknown 08/26/2018 12:06 PM SLATE CUTTER Reji Young MARINE TOWER OPERATOR-[employer] [facility]CH[facility] LAB - POINT OF CARE ORDERABLES * CARDIAC EKG ORDER (01/11/2016 10:36 PM CDT) Narrative 01/11/2016 10:36 PM CDT Ordered by an unspecified provider. Scanned Document CARDIAC SERVICES ORD ERABLES * TROPONIN I (01/10/2016 4:52 AM CDT) Only the most recent of2 resultswithin the time period is included. Troponin I <0.015 0.000 - 0.049 ng/mL 01/10/2016 5:36 AM CDT [facility] Blood BLOOD SPECIMEN / Unknown 01/10/2016 4:52 AM CDT 01/10/2016 5:20 AM CDT Narrative [facility] - 01/10/2016 5:36 AM CDT Note: [...] sepsis. Andrzej Fitch MD LAB - CHEMISTRY [facility] Organization Address City/State/ZIP Co de Phone Number [facility] [address] [place] [address] * D-DIMER (01/10/2016 3:36 AM CDT) D-Dimer 0.32 0.17 - 0.5 mg/L FEU 01/10/2016 4:06 AM CDT [facility] Blood BLOOD SPECIMEN / Unknown 01/10/2016 3:36 AM CDT 01/10/2016 3:43 AM CDT Narrative [facility] - 01/10/2016 4:06 AM CDT The [...] - COAGULATION OR DERABLES Performing Organization Address City/State/[facility] Co de Phone Number [facility] [address] [place] [address] * XR CHEST PA AND LATERAL (01/10/2016 [...] normal. Bones: The thoracic skeleton is unremarkable. Procedure Note Damaris [...] W AUTO DIFFERENTIAL (01/10/2016 2:07 AM CDT) WBC 10.6 4.4 - 10.7 x10E9/L 01/10/2016 2:30 AM CDT [facility] WBC Corrected x10E9/L 01/10/2016 2:30 AM CDT [facility] RBC 5.09 3.80 - 5.20 x10E12/L 01/10/2016 2:30 AM CDT [facility] Hemoglobin 10.8(L) 12.0 - 15.6 gm/dL 01/10/2016 2:30 AM CDT [facility] Hematocrit 35.3(L) 35.9 - 45.5 % 01/10/2016 2:30 AM CDT [facility] MCV 69.4(L) 80.7 - 98.3 fl 01/10/2016 2:30 AM CDT [facility] MCH 21.2(L) 26.7 - 34.0 pg 01/10/2016 2:30 AM CDT [facility] MCHC 30.6(L) 30.8 - 35.9 gm/dL 01/10/2016 2:30 AM CDT [facility] Platelet Count 463(H) 153 - 416 x10E9/L 01/10/2016 2:30 AM CDT [facility] RDW-CV 22.1(H) 12.1 - 14.9 % 01/10/2016 2:30 AM CDT [facility] MPV 10.1 9.4 - 12.9 fl 01/10/2016 2:30 AM CDT [facility] Neutrophils % 47.5 44.0 - 73.0 % 01/10/2016 2:30 AM CDT [facility] Lymphocytes % 42.4 20.0 - 43.0 % 01/10/2016 2:30 AM CDT [facility] Monocytes % 8.2 5.0 - 13.0 % 01/10/2016 2:30 AM CDT [facility] Eosinophils % 0.9 0.0 - 6.0 % 01/10/2016 2:30 AM CDT [facility] Basophils % 0.8 0.0 - 2.0 % 01/10/2016 2:30 AM CDT [facility] Immature Granulocytes 0.2 0 - 1 % 01/10/2016 2:30 AM CDT [facility] Neutrophil Absolute 5.04 2.01 - 7.14 x10E9/L 01/10/2016 2:30 AM CDT [facility] Lymphocytes Absolute 4.50(H) 1.07 - 3.94 x10E9/L 01/10/2016 2:30 AM CDT [facility] Monocytes Absolute 0.87 0.26 - 1.07 x10E9/L 01/10/2016 2:30 AM CDT [facility] Eosinophils Absolute 0.10 0 - 0.47 x10E9/L 01/10/2016 2:30 AM CDT [facility] Basophils Absolute 0.08 0 - 0.08 x10E9/L 01/10/2016 2:30 AM CDT [facility] Immature Granulocytes Absolute 0.02 0.00 - 0.06 x10E9/L 01/10/2016 2:30 AM CDT [facility] nRBC Auto 0 /100 WBC 01/10/2016 2:30 AM CDT [facility] Blood BLOOD SPECIMEN / Unknown Venipuncture / Unknown 01/10/2016 2:07 AM CDT 01/10/2016 2:16 AM CDT Andrzej Fitch MD LAB - HEMATOLOGY ORD ERABLES [facility] [address] [place] [address] * (ABNORMAL) COMPREHENSIVE METABOLIC PANEL (01/10/2016 2:07 AM CDT) [facility] Glucose 271(H) 74 - 106 mg/dL 01/10/2016 2:30 AM CDT [facility] Sodium 137 136 - 145 mmol/L 01/10/2016 2:30 AM CDT [facility] Potassium 4.3 3.5 - 5.1 mmol/L 01/10/2016 2:30 AM CDT [facility] Chloride 105 98 - 107 mmol/L 01/10/2016 2:30 AM CDT [facility] CO2 27 22 - 31 mmol/L [...] >60 mL/min/1.7 3m2 01/10/2016 2:30 AM CDT [facility] Blood BLOOD SPECIMEN / Unknown 01/10/2016 2:07 AM CDT 01/10/2016 2:14 AM CDT Andrzej Fitch MD LAB - CHEMISTRY [facility] [address] [place], [place] [id number] Care Teams Warehouse Team Leader Relationship Specialty Start Date End Date Keenan William MD [address] [place] [address] PCP - General 12/21/20
--- OUTSIDE RECORDS SUMMARY | 2024-08-26 09:46 | XMS_ITS | Continuity of Care Document ---
Author Organization [facility] Address [address] [place] [address] Phone Care Team Providers Care Nanoscience Technician Name Role Phone Prerna Huynh DO Unavailable [...] oral eval problem focused 013 OFFICE/OUTPATIENT VISIT, [facility] Advance Directives Directive Yes / No Effective Date File Name No Information Encounters Encounter Description Practice Location Reason(s) For Visit Diagnoses Date Provider Providers Copied on Encounter [facility], [address], [place], [place], [id number] , [place] tel: [phone] [facility] No Information [address] Lino Graff. [address], [place], [place], [address], [place]. tel:[phone] OFFICE/OUTPA TIENT VISIT, EST [facility], [address], [place], [place], [address] , [place] tel: [phone] [facility] SOB and Dizziness (chief complaint) Body mass index (BMI) 40.0-44.9, adultType 2 diabetes mellitus with hyperglycemiaEss ential (primary) hypertensionDizz inessIron deficiency anemia, unspecified Lino Graff. [address], [place], [place], [address], [place]. [phone] [facility], [address], [place], [place], [address] , [place] tel: [phone] [facility] No Information 7 No Information OFFICE/OUTPA TIENT VISIT, EST [facility], [address], [place], [place], [address] , [place] tel: [phone] [facility] anemia (chief complaint) diabetes (chief complaint) Type 2 diabetes mellitus with hyperglycemiaMen orrhagiaEssentia l (primary) hypertension 7 No Information OFFICE OUTPT EST 25 MIN [facility], [address], [place], [place], [address] , [place] tel: [phone] [facility] diabetes (chief complaint) Essential (primary) hypertensionIron deficiency anemia, unspecifiedType 2 diabetes mellitus with hyperglycemiaEnc ounter for screening for other disorder 6 No Information OFFICE OUTPT EST 25 MIN [facility], [address], [place], [place], [address] , [place] tel: [phone] [facility] diabetes (chief complaint) hypertensi on (chief complaint) Type 2 diabetes mellitus with diabetic neuropathy, unspecifiedIron deficiency anemia, unspecifiedEssen tial (primary) hypertensionEnco unter for general adult medical examination without abnormal findings 6 No Information OFFICE OUTPT EST 25 MIN [facility], [address], [place], [place], [address] , [place] tel: [phone] [facility] diabetes (chief complaint) Essential (primary) hypertension 6 Kailey Fallon. [address], [place], [place], [address], [place]. [phone] Referring Provider: Vasyl Zaman, [address], [place], [address] . tel:[phone] OFFICE/OUTPA TIENT VISIT, NEW [facility], [address], [place], [place], [address] , [place] tel: [phone] [facility] foot (chief complaint) foot (chief complaint) Venous insufficiencyDia betes mellitus with neurological complications 5 No Information OFFICE OUTPT EST 25 MIN [facility], [address], [place], [place], [address] , [place] tel: [phone] [facility] Diabetes (chief complaint) Hypertensi on (chief complaint) DM (diabetes mellitus)Benign essential hypertensionIron deficiency anemia, unspecifiedOverw eight 5 No Information [facility], [address], [place], [place], [address] , [place] tel: [phone] [facility] Dental examination 4 No Information OFFICE/OUTPA TIENT VISIT, EST [facility], [address], [place], [place], [address] , [place] tel: [phone] [facility] diabetes (chief complaint) Anemia, Iron DeficiencyDiabet es type 2, uncontrolled 4 No Information [facility], [address], [place], [place], [address] , [place] tel: [phone] [facility] No Information 4 No Information OFFICE/OUTPA TIENT VISIT, EST [facility], [address], [place], [place], [address] , tel: [phone] [facility] DM/HTN (chief complaint) Diabetes type 2, uncontrolledHype rtensionLighthea dedness 4 No Information [facility], [address], [place], [place], [address] , tel: [phone] [facility] Dental examination 3 Tiffany Trent. [address], [place], [place], [address], . tel:[phone] [facility], [address], [place], [place], [address] , tel: [phone] [facility] Dental examination 3 Tiffany Trent. [address], [place], [place], [address], . tel:[phone] OFFICE/OUTPA TIENT VISIT, NEW [facility], [address], [place], [place], [address] , tel: [phone] [facility] Hosp f/up for diabetes (chief complaint) hypertensi [...] Panel. Due on due Referral Referred To: [facility] Ordered: Referrals: Ophthalmology. [facility]. Evaluate and treat ordered Referral Referred To: Chava Gupta DPM [address] [place], [place], [phone] Ordered: Referrals: Podiatry. Chava Gupta DPM. Evaluate and treat ordered Referral Referred To: [facility] Ordered: Referral: [facility]. Student Activities Director. Evaluate and treat. ordered Patient Education [place] [...] Lab Order COMPREHE NSIVE METABOLIC PANEL W/EGFR (06702), Appointment on: , Sent on: Sent Future [...] without explanation. She has not seen an case management assistant. She checks her feet daily and uses [...] Labs todayLisinopril , Lantus refilled, sent to [facility] next week Related to Dizziness Giving encouragement [...]
--- OUTSIDE RECORDS SUMMARY | 2024-08-26 09:47 | XMS_ITS | Referral Summary ---
Author Organization [facility] Address [address] [place] [address] Care Team Providers Care Ready To Wear Department Manager Name Role Phone Keenan William MD Primary Care Provider [phone] Source Comments [facility],non-owned Affiliates and Associated Physician Practices is amultiple site organization consisting of ambulatory clinics and hospital sitesin [place], [place], [place] and [place]. This disclosure is being madepursuant to the Care Everywhere program and may not contain all information available regarding this patient. Last updated 18.[facility] Allergies No known active allergies Medications * [...] her baseline screening mammogram on 11/03/2020 at [facility], was found to have an asymmetry in [...] institution, bilaterally screening mammogram dated 11/03/2020 from [facility] MAMMOGRAPHY: TECHNICAL INFORMATION: Diagnostic mammogram obtained with [...] >60 mL/min/1.7 3m2 01/10/2016 2:30 AM CDT [facility] Blood BLOOD SPECIMEN / Unknown 01/10/2016 2:07 AM CDT 01/10/2016 2:14 AM CDT Andrzej Fitch MD LAB - CHEMISTRY [facility]ITO ENCIN[facility] Organization Address City/State/[facility] Co de Phone Number [facility] [address] [place] [address] from Last 3 Months or Most Recently Relevant to Health Maintenance Administered Medications Care Teams Ready To Wear Department Manager Relationship Specialty Start Date End Date Keenan William MD [address] [place] [address] PCP - General 12/21/20
--- OUTSIDE RECORDS SUMMARY | 2024-08-26 09:47 | XMS_ITS | Clinical Summary ---
Author Organization [facility] [employer] Address [address] [facility] [facility] [place] [address] Care Team Providers Care Desktop Operator Name Role Phone Keenan William MD Primary Care Provider [phone] Source Comments [facility],non-owned Affiliates and Associated Physician Practices is amultiple site organization consisting of ambulatory clinics and hospital sitesin [place], [place], [place] and [place]. This disclosure is being madepursuant to the Care Everywhere program and may not contain all information available regarding this patient. Last updated 18.[facility] [employer] Allergies No known active allergies Medications * [...] 10/28/2020 MAMMOGRAM 11/29/2023 11/28/2021, 01/27/2021 COVID-19 VACCINE (1 - 2023-2 5 season) 2024 INFLUENZA VACCINE [...] her baseline screening mammogram on 11/03/2020 at [facility], was found to have an asymmetry [...] institution, bilaterally screening mammogram dated 11/03/2020 from [facility] MAMMOGRAPHY: TECHNICAL INFORMATION: Diagnostic mammogram obtained [...] mL/min/1.7 3m2 01/10/2016 2:30 AM CDT [facility] Blood BLOOD SPECIMEN / Unknown 01/10/2016 2:07 AM CDT 01/10/2016 2:14 AM CDT Andrzej Fitch MD LAB - CHEMISTRY GATITO ENCINAS [facility] [address] [place] [address] from Last 3 Months or Most Recently Relevant to Health Maintenance Care Teams Desktop Operator Relationship Specialty Start Date End Date Keenan William MD [address] [facility] [address] [place] [address] PCP - General 12/21/20
--- OUTSIDE RECORDS SUMMARY | 2024-08-26 09:47 | XMS_ITS | Clinical Summary ---
Author Organization [facility] Address [address] [place] [address] Phone Care Team Providers Care Cartography Technician Name Role Phone Keenan William MD Primary Care Provider [phone] Neftali Rudd MD Unavailable Allergies No known [...] Tablet 03/27/2022 Active Lancets (OneTouch Delica Plus [id number]) Misc 09/01/2022 Active OneTouch Verio Strip 09/01/2022 Active Lantus SoloStar 100 UNIT/ML Solution Pen-injector 09/05/2023 Active ergocalciferol (VITAMIN D) 68634 UNIT Capsule 09/05/2023 Active FeroSul 325 (65 Fe) MG TabletIndication s:Iron deficiency anemia due to chronic blood loss TAKE 1 TABLET BY MOUTH DAILY 30 Tablet 06/27/2024 Active Active Problems Problem Noted Date Diagnosed Date HTN (hypertension) 06/05/2024 Iron deficiency anemia due to chronic blood loss 10/08/2018 Encounters Date Type Department Care Team Description 2024 Telephone [facility] [address] [phone] Neftali Rudd MD 06/27/2024 Refill [facility] [address] [phone] Neftali Rudd MD Medication Refill 06/05/2024 10:15 AM OPERATIONS RESEARCH SCIENTIST Office Visit [facility] [address] [phone] Ana Cristina Harris, RAILROAD CONDUCTOR, ADVERTISING PHOTOGRAPHER Iron deficiency anemia due to chronic blood [...] on file Legal Sex Female 12:29 PM OPERATIONS RESEARCH SCIENTIST Gender Identity Not on file Sexual Orientation Not on file Last Filed Vital Signs Vital Sign Reading Time Taken Comments Blood Pressure 170/100 06/05/2024 9:02 AM OPERATIONS RESEARCH SCIENTIST Pulse 75 06/05/2024 9:02 AM OPERATIONS RESEARCH SCIENTIST Temperature 36.8 C (98.2 F) 06/05/2024 9:02 AM OPERATIONS RESEARCH SCIENTIST Respiratory Rate 16 06/05/2024 9:02 AM OPERATIONS RESEARCH SCIENTIST Oxygen Saturation 98% 06/05/2024 9:02 AM OPERATIONS RESEARCH SCIENTIST Inhaled Oxygen Concentration - - Weight 105.2 kg (232 lb) 06/05/2024 9:02 AM OPERATIONS RESEARCH SCIENTIST Height 157.5 cm (5' 2 ) 06/05/2024 9:02 AM OPERATIONS RESEARCH SCIENTIST Body Mass Index 42.43 06/05/2024 9:02 AM OPERATIONS RESEARCH SCIENTIST Plan of Treatment Upcoming Encounters Date Type Department Care Team (Late st Contact Info) Description 09/04/2024 10:00 AM OPERATIONS RESEARCH SCIENTIST Lab [facility] [address] [address] Lab, [facility] 09/04/2024 10:15 AM OPERATIONS RESEARCH SCIENTIST Office Visit [facility] [address] [phone] Neftali Rudd MD [address] [place] [phone] Health Maintenance Due Date Last Done Comments [...] AUTO DIFF [place] Routine 06/05/2024 8:49 AM OPERATIONS RESEARCH SCIENTIST IRON AND TIBC [id number] [place] Routine 06/05/2024 8:49 AM OPERATIONS RESEARCH SCIENTIST FERRITIN [id number] [place] Routine 06/05/2024 8: 49 AM OPERATIONS RESEARCH SCIENTIST RETICULOCYTE COUNT (RETIC) Routine 06/05/2024 8:49 AM OPERATIONS RESEARCH SCIENTIST Iron deficiency anemia due to chronic blood loss Thrombocytosis Other fatigue from Last 3 Months Results * IRON AND TIBC [id number] [place] (06/05/2024 8:49 AM OPERATIONS RESEARCH SCIENTIST) Iron Bind.Cap.(TIBC) 321 250 - 450 UG/DL [facility] UIBC 272 131 - 425 UG/DL [facility] Iron, Serum 49 27 - 159 UG/DL [facility] Iron Saturation 15 15 - 55 % [facility] 06/05/2024 8:49 AM OPERATIONS RESEARCH SCIENTIST Narrative [facility] - 06/06/2024 7:12 AM OPERATIONS RESEARCH SCIENTIST TESTING PERFORMED AT: [CB] [facility] [place], [address] [place] [address], [address], PHONE: [phone], TEA TREE FARM WORKER: HOLLY CORNELIUS, PHD us Neftali Rudd MD LAB SEND OUTS Final Result [facility] [place] [address], * FERRITIN [id number] [place] (06/05/2024 8:49 AM OPERATIONS RESEARCH SCIENTIST) Ferritin, Serum 42 15 - 150 NG/ML [facility] 06/05/2024 8:49 AM OPERATIONS RESEARCH SCIENTIST Ko [facility] - 06/06/2024 7:12 AM OPERATIONS RESEARCH SCIENTIST TESTING PERFORMED AT: [] [facility] [place], [address] [facility], [place], [address], PHONE: [phone], TEA TREE FARM WORKER: HOLLY CORNELIUS, PHD us Neftali Rudd MD LAB SEND OUTS Final Result [facility] [place] [address], * (ABNORMAL) CBC WITH AUTO DIFF [place] (06/05/2024 8:49 AM OPERATIONS RESEARCH SCIENTIST) WBC 7.0 4.0 - 10.0 10*3/uL [facility] HGB 12.9 11.2 - 15.7 g/dL [facility] HCT 41.9 34.1 - 44.9 % [facility] PLT 386(H) 163 - 369 10*3/uL [facility] MPV 9.5 9.4 - 12.4 fL [facility] RBC 5.25(H) 3.93 - 5.22 10*6/uL [facility] MCV 80 79 - 95 fL [facility] MCH 24.6(L) 25.6 - 32.2 pg [facility] MCHC 30.8(L) 32.2 - 36.5 g/dL [facility] RDW 14.6(H) 11.6 - 14.4 % [facility] Neutrophils % 59.1 36.0 - 66.0 % [facility] Lymphocytes % 30.4 19.0 - 40.0 % [facility] Monocytes % 7.9 4.1 - 12.1 % [facility] Eosinophils % 1.2 0.0 - 3.5 % [facility] Basophils % 1.0 0.0 - 1.0 % [facility] Absolute Neutrophils 4.1 1.4 - 6.6 10*3/uL [facility] Absolute Lymphocytes 2.1 0.8 - 4.0 10*3/uL [facility] Absolute Monocytes 0.6 0.2 - 1.2 10*3/uL [facility] Absolute Eosinophils 0.1 0.0 - 0.4 10*3/uL [facility] Absolute Basophils 0.1 0.0 - 0.1 10*3/uL [facility] 06/05/2024 8:49 AM OPERATIONS RESEARCH SCIENTIST us Neftali Rudd MD LAB SEND OUTS Final Result Performing Organization Address [facility] Co de Phone Number [facility] [place] [address], [place] [phone] * RETICULOCYTE COUNT (RETIC) (06/05/2024 8:49 AM OPERATIONS RESEARCH SCIENTIST) Reticulocyte count 1.53 0.50 - 1.70 % [facility] RET-He 28.90 28.20 - 36.60 pg [facility] Comment: RET-He is a direct assessment of incorporation of iron into erythrocyte hemoglobin. It provides an indirect measure of the iron available for new erythropoiesis over past 2-4 days. Blood 06/05/2024 8:49 AM OPERATIONS RESEARCH SCIENTIST Narrative [facility] - 06/05/2024 9:04 AM OPERATIONS RESEARCH SCIENTIST Release to patient->Immediate Neftali Rudd MD HEMATOLOGY ORDERABLES Final Resu lt Performing Organization Address City/[facility] Co de Phone Number [facility] [place] [address], [place] [phone] from Last 3 Months Insurance MEDICAID [place] Care Teams Cartography Technician Relationship Specialty Start Date End Date Keenan William MD [address] [address] PCP - General Family Medicine 09/18/18 Neftali Rudd MD [address] [place] [address] Consulting Physician Oncology 06/30/22
[2024-08-26 10:04] LABS: Anion Gap 11 mmol/L (4-12); Blood Urea Nitrogen 11 mg/dL (7-17); Calcium 9.6 mg/dL (8.4-10.2); Carbon Dioxide 23 mmol/L (22-30); Chloride 105 mmol/L (98-107); Estimated Glomerular Filt Rate > 60; Glucose 152 mg/dL (65-110); Potassium 4.4 mmol/L (3.4-5.0); Sodium 139 mmol/L (137-145)
== END 2024-08-26 09:08 | disposition home or self-care (01) ==
LOC: ANHSURGERY 09:10
PROVIDERS: Anesthesiology; PCP Emergency Medicine; Visit Provider Obstetrics & Gynecology
DX: D64.9 Anemia, unspecified (principal); E11.9 Type 2 diabetes mellitus without complications; I10 Essential (primary) hypertension
CPT/HCPCS: 36415; 80048; 85014; 85018; 93005

== ENCOUNTER 2024-09-02 01:00 | Day surgery (SDC) | payer OTHER, SELFPAY ==
[2024-08-20 09:46] VITALS: BMI 39.4
--- NOTE | 2024-08-20 10:38 | SUR.PREOP ---
Report to the Outpatient Waiting Room, entrance under the green pavilion located off [facility], at time 0600 on date 09/02/24. Planned Procedure Time:0730.? Time changes happen often and if your time is changed the preop area will call you the afternoon before. - You and your visitor will be asked to self-screen and do not enter if you have any COVID symptoms. Please call surgeon if you need to reschedule. - A mask is optional within the hospital at this time. Patients may have clear liquids (water, carbonated beverages, clear teas, apple juice) until 3 hours prior to surgery with a maximum of 20 ounces. - No food from midnight until time of surgery and no smoking, or chewing Tabacco (or any form of nicotine). No chewing gum, candy or mints. - Infants may have breast milk until 4 hours before surgery, infant formula 6 hours prior to surgery. - Children will be allowed to drink immediately following surgery.? If applicable, please bring a bottle or sippy cup to assist with drinking. Juice, water, soda, and popsicles are readily available.? For infants on formula, please bring formula the day of surgery.? Pacifiers are allowed. Take only the following medications with a SIP of water on the morning of surgery: hold morning meds DO NOT STOP ANY OF YOUR OTHER PRESCRIPTION MEDICATIONS PRIOR TO SURGERY EXCEPT THE FOLLOWING Medications to discontinue per physician. pt to check with dr. hoskins in regards to plavix and aspirin Date to take last dose Please no make-up, nail frisian, hairspray, perfume, deodorant, or body powder the day of surgery.? No jewelry (including any body piercings) or valuables the day of surgery, leave them at home.? Please take a shower or bath the night before, or the morning of, surgery with an antibacterial soap.? Wear comfortable, loose fitting clothing.? Children are encouraged to wear pajamas. - Jewelry must be removed prior to entering the operating room.? Rings and piercings that are not removed may be cut off. - The hospital will not accept responsibility for valuables.? - Please leave all valuables, including medications, at home the day of surgery. If you are going home after surgery, a licensed drivers license examiner must drive you home.? - NO public transportation without another adult if you receive anesthesia. - We recommend that an adult stay with you for 24 hours following discharge. - We also recommend that you do not drive, make important decision, drink alcoholic beverages, or take any drugs that were not prescribed by your health care provider for at least 24 hours after your discharge time. For Pediatric surgeries, we recommend two adults accompany the child home. Hold all vitamins and supplements for 3 days per anesthesiologist. Follow any additional instructions given to you from your surgeon. Telephone instructions given to _patient_and asked if any additional questions and then verbalized understanding. Patient advised to call surgeon office or pre surgery nurse liaison [phone] if any additional questions.
--- NOTE | 2024-09-01 15:38 | P.PNAN_ITS ---
Anes - Initial Pre Proc Eval Procedure: Operation Date: 09/02/24 07:30 Proposed Procedures p Laparoscopic Bilateral Salpingectomy with Right Oophorectomy - Chapo Boyd MD Date/Time: 09/01/24 15:38 Surgeon: Chapo Boyd MD Pre Op Diagnosis: Right Ovary Mass Patient Data Age: 44 Gender: F Height: 1.63 m Weight: 104.33 kg Allergies Allergy/AdvReac Type Severity Reaction Status Date / Time No Known Allergies Allergy Verified 08/10/24 13:50 Home Medications ?Medication ?Instructions ?Recorded ?Confirmed ?Type aspirin 81 mg tablet,delayed 81 mg PO DAILY 02/08/22 08/20/24 History release (Adult Aspirin Regimen) clopidogrel 75 mg tablet 75 mg PO DAILY 02/08/22 08/20/24 History furosemide 20 mg tablet 20 mg PO QAM 02/08/22 08/20/24 History lisinopril 20 mg tablet 20 mg PO DAILY 04/13/22 08/20/24 History metformin 500 mg tablet 500 mg PO DAILY 04/13/22 08/20/24 History simvastatin 10 mg tablet 10 mg PO DAILY 04/13/22 08/20/24 History ferrous sulfate 325 mg (65 mg 325 mg PO DAILY 08/10/22 08/20/24 History iron) tablet (Iron (ferrous sulfate)) cholecalciferol (vitamin D3) 1,250 50,000 unit PO ONCE 08/20/24 08/20/24 History mcg (50,000 unit) tablet insulin glargine 100 unit/mL 45 unit subcut QPM 08/20/24 08/20/24 History subcutaneous solution (Lantus U-100 Insulin) Patient hx anesthesia problems: post op nausea/vomiting Family hx anesthesia problems: none Results Review: All pre-operative results and documents have been reviewed as part of the pre- operative evaluation. [facility] Past Medical History Medical History (Updated 09/02/24 @ 06:43 by Deepak Ladd DO) Hyperlipidemia Hypertension PVD (peripheral vascular disease) KENDAL (obstructive sleep apnea) Heart disease Diabetes Surgical History Surgical History Hx laparoscopic cholecystectomy robotic assisted cholecystectomy 08/21/22 H/O vascular surgery Stent placement bilateral lower extremities December 2021.... IVC and iliac vein stents seen on CT. Family History Family History Other Cancer Heart disease Hypertension Lymphoma Social History Social History Smoking status: Never smoker Alcohol intake: never Substance use: never Substance use type: does not use Living arrangements: with family Occupation/Education: unemployed Gender identity (if verbalized by the patient): Female Spiritual care concerns: No Anes - Eval Final PreProcedure Day of Procedure 09/01/24 15:38 Patient weight: obese Heart: regular rate and rhythm Lungs: clear to auscultation Airway: Mallampati scale class II Neurological: alert and oriented Last oral intake: >/= 8 hours ASA classification: III Emergent: no Anesthetic plan: proceed Anesthesia type and monitoring: general ETT and standard monitoring Results Review: All pre-operative results and documents have been reviewed as part of the pre- operative evaluation. Informed Consent: The patient's anesthetic plan and its attendant risks and benefits were discussed with the patient/family/POA. Questions were solicited and answers provided to the satisfaction of the patient/family/POA.
[2024-09-02] VITALS (9 sets, daily range): BP systolic 121–143; BP diastolic 69–97; PULSE 75–95; RESP 14–16; TEMP 36.8–36.9; O2SAT 100
--- OUTSIDE RECORDS SUMMARY | 2024-09-02 01:03 | XMS_ITS | Referral Summary ---
Author Organization [facility] Address [address] [facility] [place] [address] Care Team Providers Care Secretary Bookkeeper Name Role Phone Keenan William MD Primary Care Provider [phone] Source Comments [facility],non-owned Affiliates and Associated Physician Practices is amultiple site organization consisting of ambulatory clinics and hospital sitesin [place], [place], [place] and [place]. This disclosure is being madepursuant to the Care Everywhere program and may not contain all information available regarding this patient. Last updated 18.[facility] [employer] Allergies No known active allergies Medications * [...] her baseline screening mammogram on 11/03/2020 at [facility], was found to have an [...] institution, bilaterally screening mammogram dated 11/03/2020 from [facility] MAMMOGRAPHY: TECHNICAL INFORMATION: Diagnostic mammogram [...] Fitch MD LAB - CHEMISTRY GATITO ENCINAS [facility] Organization Address City/State/[facility] Co de Phone Number [facility] [address] [place] [address] from Last 3 Months or Most Recently Relevant to Health Maintenance Administered Medications Care Teams Secretary Bookkeeper Relationship Specialty Start Date End Date Keenan William MD [address] [facility] [address] [place] [address] PCP - General 12/21/20
--- OUTSIDE RECORDS SUMMARY | 2024-09-02 01:03 | XMS_ITS | Clinical Summary ---
Author Organization [facility] Address [address] [place] [address] Phone Care Team Providers Care Finisher [employer] Name Role Phone Keenan William MD Primary Care Provider [phone] Neftali Rudd MD Unavailable Allergies No known [...] Tablet 03/27/2022 Active Lancets (OneTouch Delica Plus [id number]) Misc 09/01/2022 Active OneTouch Verio Strip 09/01/2022 Active Lantus SoloStar 100 UNIT/ML Solution Pen-injector 09/05/2023 Active ergocalciferol (VITAMIN D) 46815 UNIT Capsule 09/05/2023 Active FeroSul 325 (65 Fe) MG TabletIndication s:Iron deficiency anemia due to chronic blood loss TAKE 1 TABLET BY MOUTH DAILY 30 Tablet 06/27/2024 Active Active Problems Problem Noted Date Diagnosed Date HTN (hypertension) 06/05/2024 Iron deficiency anemia due to chronic blood loss 10/08/2018 Encounters Date Type Department Care Team Description 2024 Telephone [facility] [address] [phone] Neftali Rudd MD 06/27/2024 Refill [facility] [address] [phone] Neftali Rudd MD Medication Refill 06/05/2024 10:15 AM GAMES MANAGER Office Visit [facility] [address] [phone] Ana Cristina Harris, SUPERVISOR TELEVISION CHASSIS REPAIR, ACADEMIC GUIDANCE SPECIALIST Iron deficiency anemia due to chronic blood [...] on file Legal Sex Female 12:29 PM GAMES MANAGER Gender Identity Not on file Sexual Orientation Not on file Last Filed Vital Signs Vital Sign Reading Time Taken Comments Blood Pressure 170/100 06/05/2024 9:02 AM GAMES MANAGER Pulse 75 06/05/2024 9:02 AM GAMES MANAGER Temperature 36.8 C (98.2 F) 06/05/2024 9:02 AM GAMES MANAGER Respiratory Rate 16 06/05/2024 9:02 AM GAMES MANAGER Oxygen Saturation 98% 06/05/2024 9:02 AM GAMES MANAGER Inhaled Oxygen Concentration - - Weight 105.2 kg (232 lb) 06/05/2024 9:02 AM GAMES MANAGER Height 157.5 cm (5' 2 ) 06/05/2024 9:02 AM GAMES MANAGER Body Mass Index 42.43 06/05/2024 9:02 AM GAMES MANAGER Plan of Treatment Health Maintenance Due Date [...] AUTO DIFF [place] Routine 06/05/2024 8:49 AM GAMES MANAGER IRON AND TIBC [id number] [place] Routine 06/05/2024 8:49 AM GAMES MANAGER FERRITIN [id number] [place] Routine 06/05/2024 8: 49 AM GAMES MANAGER RETICULOCYTE COUNT (RETIC) Routine 06/05/2024 8:49 AM GAMES MANAGER Iron deficiency anemia due to chronic blood loss Thrombocytosis Other fatigue from Last 3 Months Results * IRON AND TIBC [id number] [place] (06/05/2024 8:49 AM GAMES MANAGER) Iron Bind.Cap.(TIBC) 321 250 - 450 UG/DL CANCER TECHNOLOGY INTEGRATION SPECIALIST [facility] UIBC 272 131 - 425 UG/DL CANCER TECHNOLOGY INTEGRATION SPECIALIST [facility] Iron, Serum 49 27 - 159 UG/DL CANCER TECHNOLOGY INTEGRATION SPECIALIST [facility] Iron Saturation 15 15 - 55 % [facility] TECHNOLOGY INTEGRATION SPECIALIST [facility] 06/05/2024 8:49 AM GAMES MANAGER Narrative CANCER TECHNOLOGY INTEGRATION SPECIALIST [facility] - 06/06/2024 7:12 AM GAMES MANAGER TESTING PERFORMED AT: [CB] [facility] [place], [address] [place], [address], PHONE: [phone], ASSISTANT ELEMENTARY TEACHER: HOLLY CORNELIUS, PHD us Neftali Rudd MD LAB SEND OUTS Final Result Performing Organization Address City/[facility]/ZIP Co de Phone Number CANCER TECHNOLOGY INTEGRATION SPECIALIST [facility] [place] [address], [place] [phone] * FERRITIN [id number] [place] (06/05/2024 8:49 AM GAMES MANAGER) Ferritin, Serum 42 15 - 150 NG/ML CANCER TECHNOLOGY INTEGRATION SPECIALIST [facility] 06/05/2024 8:49 AM GAMES MANAGER Narrative [facility] - 06/06/2024 7:12 AM GAMES MANAGER TESTING PERFORMED AT: [CB] [facility], [address] [place], [address], PHONE: [phone], ASSISTANT ELEMENTARY TEACHER: HOLLY CORNELIUS, PHD us Neftali Rudd MD LAB SEND OUTS Final Result CANCER TECHNOLOGY INTEGRATION SPECIALIST [facility] [address] [address], [place] [phone] * (ABNORMAL) CBC WITH AUTO DIFF [place] (06/05/2024 8:49 AM GAMES MANAGER) WBC 7.0 4.0 - 10.0 10*3/uL CANCER TECHNOLOGY INTEGRATION SPECIALIST [facility] HGB 12.9 11.2 - 15.7 g/dL CANCER TECHNOLOGY INTEGRATION SPECIALIST [facility] HCT 41.9 34.1 - 44.9 % CANCER TECHNOLOGY INTEGRATION SPECIALIST [facility] PLT 386(H) 163 - 369 10*3/uL CANCER TECHNOLOGY INTEGRATION SPECIALIST [facility] MPV 9.5 9.4 - 12.4 fL CANCER TECHNOLOGY INTEGRATION SPECIALIST [facility] RBC 5.25(H) 3.93 - 5.22 10*6/uL CANCER TECHNOLOGY INTEGRATION SPECIALIST [facility] MCV 80 79 - 95 fL CANCER TECHNOLOGY INTEGRATION SPECIALIST [facility] MCH 24.6(L) 25.6 - 32.2 pg CANCER TECHNOLOGY INTEGRATION SPECIALIST [facility] MCHC 30.8(L) 32.2 - 36.5 g/dL CANCER TECHNOLOGY INTEGRATION SPECIALIST [facility] RDW 14.6(H) 11.6 - 14.4 % CANCER TECHNOLOGY INTEGRATION SPECIALIST [facility] Neutrophils % 59.1 36.0 - 66.0 % CANCER TECHNOLOGY INTEGRATION SPECIALIST [facility] Lymphocytes % 30.4 19.0 - 40.0 % CANCER TECHNOLOGY INTEGRATION SPECIALIST [facility] Monocytes % 7.9 4.1 - 12.1 % CANCER TECHNOLOGY INTEGRATION SPECIALIST [facility] Eosinophils % 1.2 0.0 - 3.5 % CANCER TECHNOLOGY INTEGRATION SPECIALIST [facility] Basophils % 1.0 0.0 - 1.0 % CANCER TECHNOLOGY INTEGRATION SPECIALIST [facility] Absolute Neutrophils 4.1 1.4 - 6.6 10*3/uL [facility] Absolute Lymphocytes 2.1 0.8 - 4.0 10*3/uL [facility] Absolute Monocytes 0.6 0.2 - 1.2 10*3/uL [facility] Absolute Eosinophils 0.1 0.0 - 0.4 10*3/uL [facility] Absolute Basophils 0.1 0.0 - 0.1 10*3/uL CANCER TECHNOLOGY INTEGRATION SPECIALIST [facility] 06/05/2024 8:49 AM GAMES MANAGER us Neftali Rudd MD LAB SEND OUTS Final Result CANCER TECHNOLOGY INTEGRATION SPECIALIST [facility] [place] [address], * RETICULOCYTE COUNT (RETIC) (06/05/2024 8:49 AM GAMES MANAGER) Reticulocyte count 1.53 0.50 - 1.70 % CANCER TECHNOLOGY INTEGRATION SPECIALIST [facility] RET-He 28.90 28.20 - 36.60 pg CANCER TECHNOLOGY INTEGRATION SPECIALIST OF [facility] Comment: RET-He is a direct assessment of incorporation of iron into erythrocyte hemoglobin. It provides an indirect measure of the iron available for new erythropoiesis over past 2-4 days. Blood 06/05/2024 8:49 AM GAMES MANAGER Narrative CANCER TECHNOLOGY INTEGRATION SPECIALIST OF [facility] - 06/05/2024 9:04 AM GAMES MANAGER Release to patient->Immediate us Neftali Rudd MD HEMATOLOGY ORDERABLES Final Resu lt CANCER TECHNOLOGY INTEGRATION SPECIALIST [facility] [address] [place] [address], from Last 3 Months Insurance MEDICAID [place] Care Teams Finisher [employer] Relationship Specialty Start Date End Date Keenan William MD [address] [place] [address] PCP - General Family Medicine 09/18/18 Neftali Rudd MD [address] [place] [address] Consulting Physician Oncology 06/30/22
--- OUTSIDE RECORDS SUMMARY | 2024-09-02 01:03 | XMS_ITS | Patient Health Summary ---
Author Organization [facility] Address [address] [place] [address] Care Team Providers Care Sales And Training Specialist Name Role Phone Keenan William MD Primary Care Provider [phone] [facility],non-owned Affiliates and Associated Physician Practices is amultiple site organization consisting of ambulatory clinics and hospital sitesin [place], [place], [place] and [place]. This disclosure is being madepursuant to the Care Everywhere program and may not contain all information available regarding this patient. Last updated 18.[facility] Allergies No known active allergies Medications [...] her baseline screening mammogram on 11/03/2020 at [facility], was found to have an asymmetry [...] institution, bilaterally screening mammogram dated 11/03/2020 from [facility] MAMMOGRAPHY: TECHNICAL INFORMATION: Diagnostic mammogram obtained [...] her baseline screening mammogram on 11/03/2020 at [facility], was found to have an asymmetry [...] institution, bilaterally screening mammogram dated 11/03/2020 from [facility] MAMMOGRAPHY: TECHNICAL INFORMATION: Diagnostic mammogram obtained [...] RIGHT DIAGNOSTIC W RITESH (06/06/2021 9:37 AM MEDICAL RECORD CODER) Anatomical Region Laterality Modality Breast Right Mammography 06/06/2021 10:4 3 AM MEDICAL RECORD CODER Impressions 06/06/2021 11:04 AM MEDICAL RECORD CODER IMPRESSION: Probably benign small asymmetry in the [...] 11:04 AM . Narrative 06/06/2021 11:04 AM MEDICAL RECORD CODER EXAMINATIONS: 1. DIGITAL MAMMO RIGHT DIAGNOSTIC W RITESH WITH CAD AND 2. LIMITED RIGHT BREAST ULTRASOUND (COMBINED REPORT) DATE OF EXAM: 06/06/2021 9:37 AM HISTORY: Short-term follow-up of probably benign asymmetry in the right breast centrally on the cc view. COMPARISON: With prior outside mammogram 11/03/2020 from [facility] as well as a targeted right [...] images may or may not represent the [place] source data set and thus may contain [...] this second opinion. FACILITY WHERE STUDY PERFORMED: [facility] [place] [facility]. COMPARISON: No studies prior to 11/03/2020. [...] assessment performed in the breast center at [facility], 01/27/2021. Patient has family history of breast [...] of this secondopinion. FACILITY WHERE STUDY PERFORMED: [facility]. COMPARISON: No studies prior to 11/03/2020. This [...] assessment performed in the breast center at [facility], 01/27/2021. Patient has family history of breast [...] images may or may not represent the [place] source data set and thus may contain [...] images may or may not represent the [place] source data set and thus may contain [...] this second opinion. FACILITY WHERE STUDY PERFORMED: [facility] [place] [facility]. COMPARISON: No studies prior to 11/03/2020. [...] assessment performed in the breast center at [facility], 01/27/2021. Patient has family history of breast [...] of this secondopinion. FACILITY WHERE STUDY PERFORMED: [facility]. COMPARISON: No studies prior to 11/03/2020. This [...] assessment performed in the breast center at [facility], 01/27/2021. Patient has family history of breast [...] images may or may not represent the [place] source data set and thus may contain changes, which may lower the sensitivity in the second opinion interpretation. This report was electronically signed by MONY KRAFT M.D. on 02/14/2021 11:50 AM . Sharron Currie MD IMAGING * SKIN TEST PPD - POINT OF CARE (08/26/2018 12:06 PM MEDICAL RECORD CODER) PPD 0MM Normal PPd placed 08/23/2018 @ 2:20pm, PPd read 08/26/2018 @12:07pm Other MISCELLANEOUS SAMPLE S / Unknown 08/26/2018 12:06 PM MEDICAL RECORD CODER Reji Young SITE SAFETY REPRESENTATIVE-VIROLOGIST LAB - POINT OF CARE ORDERABLES * CARDIAC EKG ORDER (01/11/2016 10:36 PM CDT) Narrative 01/11/2016 10:36 PM CDT Ordered by an unspecified provider. Scanned Document CARDIAC SERVICES ORD ERABLES * TROPONIN I (01/10/2016 4:52 AM CDT) Only the most recent of2 resultswithin the time period is included. Troponin I <0.015 0.000 - 0.049 ng/mL 01/10/2016 5:36 AM CDT [facility] Blood BLOOD SPECIMEN / Unknown 01/10/2016 4:52 AM CDT 01/10/2016 5:20 AM CDT Narrative [facility] - 01/10/2016 5:36 AM CDT [...] Fitch MD LAB - CHEMISTRY [facility] Organization Address City/State/ZIP Co de Phone Number [facility] [address] [place] [address] * D-DIMER (01/10/2016 3:36 AM CDT) D-Dimer 0.32 0.17 - 0.5 mg/L FEU 01/10/2016 4:06 AM CDT [facility] Blood BLOOD SPECIMEN / Unknown 01/10/2016 3:36 AM CDT 01/10/2016 3:43 AM CDT Narrative [facility] - 01/10/2016 4:06 AM CDT [...] - COAGULATION OR DERABLES Performing Organization Address City/State/[facility] Co de Phone Number [facility] [address] [place] [address] * XR CHEST PA AND LATERAL (01/10/2016 [...] - 416 x10E9/L 01/10/2016 2:30 AM CDT [facility] RDW-CV 22.1(H) 12.1 - 14.9 [...] - 2.0 % 01/10/2016 2:30 AM CDT [facility] Immature Granulocytes 0.2 0 - 1 % 01/10/2016 2:30 AM CDT [facility] Neutrophil Absolute 5.04 2.01 - 7.14 x10E9/L 01/10/2016 2:30 AM CDT [facility] Lymphocytes Absolute 4.50(H) 1.07 - 3.94 x10E9/L 01/10/2016 2:30 AM CDT [facility] Monocytes Absolute 0.87 0.26 - 1.07 x10E9/L 01/10/2016 2:30 AM CDT [facility] Eosinophils Absolute 0.10 0 - 0.47 x10E9/L 01/10/2016 2:30 AM CDT [facility] Basophils Absolute 0.08 0 - 0.08 x10E9/L 01/10/2016 2:30 AM CDT [facility] Immature Granulocytes Absolute 0.02 0.00 - 0.06 x10E9/L 01/10/2016 2:30 AM CDT [facility] nRBC Auto 0 /100 WBC 01/10/2016 2:30 AM CDT [facility] Blood BLOOD SPECIMEN / Unknown Venipuncture / Unknown 01/10/2016 2:07 AM CDT 01/10/2016 2:16 AM CDT Andrzej Fitch MD LAB - HEMATOLOGY ORD ERABLES [facility] [address] [place] [address] * (ABNORMAL) COMPREHENSIVE METABOLIC PANEL (01/10/2016 2:07 AM CDT) [facility] Glucose 271(H) 74 - 106 mg/dL 01/10/2016 2:30 AM CDT [facility] Sodium 137 136 - 145 mmol/L 01/10/2016 2:30 AM CDT [facility] Potassium 4.3 3.5 - 5.1 mmol/L 01/10/2016 2:30 AM CDT [facility] Chloride 105 98 - 107 mmol/L 01/10/2016 2:30 AM CDT [facility] CO2 27 22 - 31 [...] >60 mL/min/1.7 3m2 01/10/2016 2:30 AM CDT [facility] Blood BLOOD SPECIMEN / Unknown 01/10/2016 2:07 AM CDT 01/10/2016 2:14 AM CDT Andrzej Fitch MD LAB - CHEMISTRY [facility] [address], [place] [id number] Care Teams Sales And Training Specialist Relationship Specialty Start Date End Date Keenan William MD [address] [place] [address] PCP - General 12/21/20
--- OUTSIDE RECORDS SUMMARY | 2024-09-02 01:03 | XMS_ITS | Continuity of Care Document ---
Author Organization [facility] Address [address] [place] [address] Phone Care Team Providers Care [employer] Name Role Phone Prerna Huynh DO Unavailable [...] oral eval problem focused 013 OFFICE/OUTPATIENT VISIT, [facility] Advance Directives Directive Yes / No Effective Date File Name No Information Encounters Encounter Description Practice Location Reason(s) For Visit Diagnoses Date Provider Providers Copied on Encounter [facility], [address], [place], [place], [address] , [place] tel: [phone] [facility] No Information [address] Lino Graff. [address], [place], [place], [address], [place]. tel:[phone] OFFICE/OUTPA TIENT VISIT, EST [facility], [address], [place], [place], [address] , [place] tel: [phone] [facility] SOB and Dizziness (chief complaint) Body mass index (BMI) 40.0-44.9, adultType 2 diabetes mellitus with hyperglycemiaEss ential (primary) hypertensionDizz inessIron deficiency anemia, unspecified Lino Graff. [address], [place], [place], [address], [place]. [phone] [facility], [address], [place], [place], [address] , [place] tel: [phone] [facility] No Information 7 No Information OFFICE/OUTPA TIENT VISIT, EST [facility], [address], [place], [place], [address] , [place] tel: [phone] [facility] anemia (chief complaint) diabetes (chief complaint) Type 2 diabetes mellitus with hyperglycemiaMen orrhagiaEssentia l (primary) hypertension 7 No Information OFFICE OUTPT EST 25 MIN [facility], [address], [place], [place], [address] , [place] tel: [phone] [facility] diabetes (chief complaint) Essential (primary) hypertensionIron deficiency anemia, unspecifiedType 2 diabetes mellitus with hyperglycemiaEnc ounter for screening for other disorder 6 No Information OFFICE OUTPT EST 25 MIN [facility], [address], [place], [place], [address] , [place] tel: [phone] [facility] diabetes (chief complaint) hypertensi on (chief complaint) Type 2 diabetes mellitus with diabetic neuropathy, unspecifiedIron deficiency anemia, unspecifiedEssen tial (primary) hypertensionEnco unter for general adult medical examination without abnormal findings 6 No Information OFFICE OUTPT EST 25 MIN [facility], [address], [place], [place], [address] , [place] tel: [phone] [facility] diabetes (chief complaint) Essential (primary) hypertension 6 Kailey Fallon. [address], [place], [place], [address], [place]. [phone] Referring Provider: Vasyl Zaman, [address], [place], [address] . tel:[phone] OFFICE/OUTPA TIENT VISIT, NEW [facility], [address], [place], [place], [address] , [place] tel: [phone] [facility] foot (chief complaint) foot (chief complaint) Venous insufficiencyDia betes mellitus with neurological complications 5 No Information OFFICE OUTPT EST 25 MIN [facility], [address], [place], [place], [address] , [place] tel: [phone] [facility] Diabetes (chief complaint) Hypertensi on (chief complaint) DM (diabetes mellitus)Benign essential hypertensionIron deficiency anemia, unspecifiedOverw eight 5 No Information [facility], [address], [place], [place], [address] , [place] tel: [phone] [facility] Dental examination 4 No Information OFFICE/OUTPA TIENT VISIT, EST [facility], [address], [place], [place], [address] , [place] tel: [phone] [facility] diabetes (chief complaint) Anemia, Iron DeficiencyDiabet es type 2, uncontrolled 4 No Information [facility], [address], [place], [place], [address] , [place] tel: [phone] [facility] No Information 4 No Information OFFICE/OUTPA TIENT VISIT, EST [facility], [address], [place], [place], [address] , tel: [phone] [facility] DM/HTN (chief complaint) Diabetes type 2, uncontrolledHype rtensionLighthea dedness 4 No Information [facility], [address], [place], [place], [address] , tel: [phone] [facility] Dental examination 3 Tiffany Trent. [address], [place], [place], [address], . tel:[phone] [facility], [address], [place], [place], [address] , tel: [phone] [facility] examination 3 Tiffany Trent. [address], [place], [place], [address], . tel:[phone] OFFICE/OUTPA TIENT VISIT, NEW [facility], [address], [place], [place], [address] , tel: [phone] [facility] Hosp f/up for diabetes (chief complaint) hypertensi [...] mellitus Payers Payer name Insurance type Covered alliance party ID Authoriza tion(s) No Information Social History Type Description Quantity Date Captured Comments Sex Female Smoking Status No Information Chief Complaint And Reason For Visit No Information Reason For Referral Reason For Referral No Information Plan Of Treatment Date Type Action Status Goal Lipid Panel. Due on 015 due Goal Urine Microalbumin. Due on due Goal BMP fasting. Due on due Goal BMP fasting. Due on due Goal Lipid Panel. Due on due Goal Urine Microalbumin. Due on due Goal BMP fasting. Due on due Goal Lipid Panel. Due on due Goal Urine Microalbumin. Due on due Goal Urine Microalbumin. Due [...] due Goal BMP fasting. Due on due Referral Referred To: Chava Gupta DPM [address] [place], [place], [phone] Ordered: Referrals: Podiatry. Chava Gupta DPM. Evaluate and treat ordered Referral Referred To: [facility]ed With [facility] Ordered: Referrals: Ophthalmology. [facility] With [facility]. Evaluate and treat ordered Referral Referred To: Merged With [facility] Ordered: Referral: [facility]. Rotating Field Assembler. Evaluate and treat. ordered Patient Education Iron-Rich [...] Lab Order COMPREHE NSIVE METABOLIC PANEL W/EGFR (70920), Appointment on: , Sent on: Sent Future [...] without explanation. 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 She checks her feet daily and uses [...] Labs todayLisinopril , Lantus refilled, sent to [facility] next week Related to Dizziness Giving encouragement [...]
--- OUTSIDE RECORDS SUMMARY | 2024-09-02 01:03 | XMS_ITS | Data Portability ---
Author Organization [facility] [place] Address [address] [place] [address] Care Team Providers Care Azure Architect Name Role Phone HITESH VELIZ Primary Care Provider Assessment No assessment recorded. Plan of Treatment Reminders Order Date Submit Date Provider Last Modified By Organization Details Last Modified Time Details Appointments SURG Salpingec lola 2024 07:30A Amie BOYD MD Not available Not available Not available Lab None recorded. Referral None recorded. Procedures None recorded. Surgeries salpingec lola, laparosco pic (SURG) 2023 025 [id number] [facility], [facility] [address], [address], 08/14/2024 12:53:55 oophorect neida (SURG) 2023 025 [facility], [address] [place] [address], [address], 08/06/2024 16:32:35 Imaging US, transvagi nal 2023 024 [email or web address] [place], [address], [place], [address], 06/10/2024 18:14:52 US, transvagi nal 2023 024 [email or web address] [place], [address], [place], [address], 04/08/2024 15:00:18 Medication Orders None recorded. Patient TargetsNo targets [...] nce of HIV infec tion. Not Available [facility] (Lab) [address], [place], [address], 01/30/2024 12:50:02 01/29/20 24 01/29/2024 HEPAT ITIS B SURFA CE ANTIG EN hepatitis B surface antigen Non-re active non-re active This assay was perfo rmed using [employer] ratio n reage nts and test kits. Value s obtai ruthie with other assay metho ds or kits canno t be used inter valderrama eably . Not Available [facility] (Lab) [address], [place], [address], 01/30/2024 12:50:03 01/29/20 24 01/29/2024 HEPAT ITIS C ANTIB ARSEN SCREE N, REFLE X TO CONFI RMATI ON hepatitis C antibody Non-re active non-re active Antib odies to HCV Not Detec kwasi, does not exclu de the possi bilit y of expos ure to HCV. Not Available [facility] (Lab) [address], [place], [address], 01/30/2024 12:50:04 01/29/20 24 01/29/2024 RPR SCREE N, REFLE X TITER /CONF IRMAT ION RPR screen Nonrea ctive nonrea ctive Not Available [facility] (Lab) [address] [place], [address], 01/30/2024 12:50:05 01/29/20 24 01/29/2024 HEPAT ITIS B CORE, IGM hepatitis B core IgM antibody Non-re active non-re active IgM anti- HBc not detec kwasi. Does not exclu de the possi bilit y of expos ure to or infec tion with HBV. Not Available [facility] (Lab) [address], [place], [address], 01/30/2024 12:50:06 01/29/20 24 01/29/2024 IMAGE GUIDE [...] as clini alexia lincoln nted. Not Available [facility] (Lab) [address], [place], [address], 02/02/2024 07:50:55 02/05/20 24 02/05/2024 US, pelvi s No observ ation record ed. [email or web address] [place] [address], [place], [address], 02/05/2024 17:25:59 02/05/20 24 02/05/2024 US, trans vagin al No observ ation record ed. [email or web address] [place] [address], [place], [address], 02/05/2024 17:25:49 02/05/20 24 02/05/2024 US, pelvi s No observ ation record ed. daisha Castañedae [address], [place], [address], 02/11/2024 08:44:40 04/08/20 24 04/08/2024 US, trans vagin al No observ ation record ed. [email or web address] [place] [address], [place], [address], 04/08/2024 13:17:01 04/08/20 24 04/08/2024 US, trans vagin al No observ ation record ed. mar Cecilia [address], [place], [address], 04/09/2024 10:06:41 06/10/20 24 06/10/2024 US, trans vagin al No observ ation record ed. [email or web address] [place] [address], [place], [address], 06/10/2024 14:50:21 06/10/2006/10/2024 US, trans vagin al No observ ation record ed. [email or web address] [address], [place], [address], 2024 08:59:51 Result Notes None recorded. Problems Name Problem SNOMED Code Status Onset Date Resolution Date Notes Provider Name and Address Organization Details Recorded Time SNOMED CT Concept Completed 201810/27/2020 Encntr for general adult medical exam w/o abnormal findings; Recorded Elsewhere : No Locati on: [facility] So urce: EHR Chron ic: N Practic e ID: [id number] Bill able Time: 01:00:00 PM Yara simon [facility] 17:48:10 Finding of menstrual bleeding Completed 201810/27/2020 Menorrhag ia;Record ed Elsewhere : No Locati on: [facility] So urce: EHR Chron ic: N Practic e ID: [id number] Bill able Time: 01:00:00 PM Yara simon [facility] 17:48:[address] Concept Completed 201810/27/2020 Encntr for automatic oven operator exam (general) (routine) w/o abn findings; Recorded Elsewhere : No Locati on: [facility] So urce: EHR Chron ic: N Practic e ID: [id number] Bill able Time: 01:00:00 PM Yara simon [facility] 17:48:11 Problem Notes None recorded. Procedures Surgical History Date Name Laterality Status Provider Name and Address Organization Details Recorded Time 024 Date of Last Pap Smear completed Brenda Camacho [facility] 02/07/2024 17:07:24 cholecystectomy completed JORGE ALBERTO Shannon [address], [place], [address], [place] [facility] 01/30/2024 08:46:36 Imaging Results Imaging Date Name Status LastModified by Organization Details LastModified Time 02/05/2024 US, pelvis completed [email or web address] [place] [address], [place], [address], 02/05/2024 17:25:59 02/05/2024 US, transvaginal [facility] [email or web address] [facility] [address], [place], [address], 02/05/2024 17:25:49 02/05/2024 US, pelvis completed [email or web address] Cecilia [address], [place], [address], 02/11/2024 08:44:40 04/08/2024 US, transvaginal completed [email or web address] [place] [address], [place], [address], 04/08/2024 13:17:01 04/08/2024 US, transvaginal completed [email or web address] [address], [place], [address], 04/09/2024 10:06:41 06/10/2024 US, transvaginal completed [email or web address] [place] [address], [place], [address], 06/10/2024 14:50:21 06/10/2024 US, transvaginal completed [email or web address] [address], [place], [address], 2024 08:59:51 Procedure Notes None recorded. Medical [...] Not Available azithromyci n 250 mg tablet active Not Available Not Available Not Available meloxicam 15 mg tablet TAKE 1 TABLET BY MOUTH EVERY DAY NEEDED 01/28 completed Not Available Not Available Not Available lisinopril 20 mg tablet TAKE 1 TABLET BY MOUTH EVERY DAY active Not Available Not Available No t Available prednisone 20 mg tablet TAKE 2 TABLETS BY MOUTH DAILY FOR 5 DAYS active Not Available Not Available No t [...] completed Not Available Not Available Not Available oseltamivir 75 mg capsule TAKE 1 CAPSULE BY MOUTH EVERY 12 HOURS FOR 5 DAYS active Not Available Not Available No t Available metformin 1,000 mg tablet active Not Available Not Available Not Available progesteron [...] Not Available Not Available No t Available albuterol sulfate HFA 90 mcg/actuati on aerosol inhaler INHALE 2 PUFFS BY MOUTH EVERY 4 TO 6 HOURS NEEDED FOR SHORTNESS OF BREATH OR WHEEZING active Not Available Not Available No t Available lisinopril 40 mg tablet TAKE 1 TABLET BY MOUTH DAILY [...] (3 mL) subcutaneou s pen ADMINISTE R 45 UNITS UNDER THE SKIN AT BEDTIME active Not Available Not Available No t Available OneTouch Verio test strips TEST TWICE DAILY 04/10 completed Not Available Not Available Not Available TRUEplus Pen Needle 31 gauge x 5/16 USE ONCE A DAY active Not Available Not Available No t Available OneTouch Delica Plus Lancet 33 gauge [...] Updated DateTime 02/07/2024 170.18 cm 35.4 kg/m2 629096.8 8 g 137 mm[Hg] 83 mm[Hg] Brenda Camacho [facility] 4 17:06:52 Date Recorded Body height Body mass index (BMI) Body weight Systolic blood pressure Diastolic blood pressure Provider Name and Address Organization Details Last Updated DateTime 04/10/2024 170.18 cm 36.3 kg/m2 643881.4 3 g 138 mm[Hg] 86 mm[Hg] [facility] 4 10:08:04 Date Recorded Body height Body mass index (BMI) Body weight Systolic blood pressure Diastolic blood pressure Provider Name and Address Organization Details Last Updated DateTime 06/25/2024 170.18 cm 36.6 kg/m2 442954.6 1 g 138 mm[Hg] 85 mm[Hg] [facility] 4 16:29:39 Social History Question Answer Notes LastModified by Organizat ion Details LastModified Time Tobacco Smoking Status Never Smoker Yara simon [facility] 10/28/2020 14:09:53 Do You Have An Advance Directive? No [email or web address] Information n ot available 10/28/2020 What Is Your Level Of Alcohol Consumption? Occasional Information not available 10/28/2020 How Many Years Have You Consumed Alcohol? 2 [email or web address] Information not available 10/28/2020 Are You Blind Or Do You Have Difficulty Seeing? No [email or web address] Information n ot available 10/28/2020 How Much Tobacco Do You Chew? None [email or web address] Information not available 10/28/2020 In The 14 Days Before Symptom Onset, Have You Had Close Contact With A Laboratory-confirm ed COVID-19 While That Case Was Ill? No Information n ot available 10/28/2020 In The 14 Days Before Symptom Onset, Have You Had Close Contact With A Person Who Is Under Investigation For COVID-19 While That Person Was Ill? No [email or web address] Information not available 10/28/2020 Have You Been To An Area Known To Be High Risk For COVID-19? No [email or web address] Information not available 10/28/2020 Are You Deaf Or Do You Have Serious Difficulty Hearing? No [email or web address] Information not available 10/28/2020 What Type Of Diet Are You Following? REGULAR [email or web address] Information n ot available 10/28/2020 What Is The Highest Grade Or Level Of School You Have Completed Or The Highest Degree You Have Received? YQ06055-0 [email or web address] Information not available 10/28/2020 What Is Your Occupation? Unemployed [email or web address] Information not available 10/28/2020 Are There Any Guns Present In Your Home? No [email or web address] Information not available 10/28/2020 Do You Use Protection During Sex? Always [email or web address] Information not available 10/28/2020 Do You Use Your Seat Belt Or Car Seat Routinely? Yes [email or web address] Information not available 10/28/2020 Do You Have Smoke And Carbon Monoxide Detectors In Your Home? Yes [email or web address] Information not available 10/28/2020 How Much Tobacco Do You Smoke? No Information not available 10/28/2020 Do You Feel Stressed (tense, Restless, Nervous, Or Anxious, Or Unable To Sleep At Night)? DW1861-2 [email or web address] Information not available 10/28/2020 Do You Use Any Illicit Or Recreational Drugs? No [email or web address] Information not available 10/28/2020 Do You Use Sunscreen Routinely? No [email or web address] Information not available 10/28/2020 Have You Used IV Drugs? No [email or web address] Information not available 10/28/2020 Sex: Unknown Functional Status Question Answer Note LastModified by Organizat ion Details LastModified Time Do you have difficulty walking or climbing stairs? No [email or web address] Information not available 01/28/2024 Are you able to walk? YESWOREST [email or web address] Information not available 10/28/2020 Are you able to care for yourself? Yes [email or web address] Information not available 04/06/2022 Do you have difficulty dressing or bathing? No [email or web address] Information not available 01/28/2024 What is your exercise level? Occasional [email or web address] Information not available 10/28/2020 Mental Status None recorded. Family History Relationship Description Onset Age of this Age Resolved Age Notes LastModified by Organization Details LastModified Time Mother Hypertensive disorder [email or web address] Not available 2020 09:34:44 Mother Diabetes mellitus Not available 2020 09:34:52 Medical History Condition [...] SNOMED-CT Code Diagnosis ICD10 Code Diagnosis Note [id number] Chela Zaria [place] [address] [address] 10/28/2020 13:56:08 10/28/2020 14:24:27 Gynecologic examination 19069207 Z01.419 Suggested Calcium with Vitamin D 1200-1500m g daily. Patient advised to get an annual flu shot in the fall and she could obtain at [facility] or [facility] take care clinic. Also to obtain TDap vaccinatio [...] please call or respond to this email. [id number] JORGE ALBERTO Servin [place] [address],[place] [address] 04/06/2022 14:34:52 04/06/2022 17:44:26 Abnormal uterine bleeding 5047607972 9100 N93.9 Given amount and duration of bleeding, we agreed to short term course of prometrium to help stop this current episode of bleeding.R /B of medication discussed with patientLab s orderedPel luis alberto u/s orderedSTI endocervic al testing sentUPT declined - female partners onlyConsul kwasi with MD (Dr. Boyd at [facility] on patient case, She will f/u for MD consult following pelvic u/s to discuss surgical options - patient interested in ablation.E D precaution s discussed with patient Time spent in visit is a total of 30 mins with at least 50% of visit consisting of counseling and review of plan of care. Venereal d isease screening 018111512 Z11.3 [id number] Osiris Mcfarland [place] [address],[place] [address] 04/10/2022 16:42:17 04/10/2022 18:05:48 Irregular periods 17135075 N92.6 [id number] Chapo Boyd MD [place] [address],[place] [address] 05/03/2022 14:00:32 05/03/2022 15:04:56 Abnormal uterine bleeding 7937451663 9100 N93.9 This patient is a 41-year-ol [...] see if it returns. Cyst of ovary 20143184 N 83.209 [id number] JORGE ALBERTO Servin [place] [address],[facility] [address] 01/29/2024 16:41:12 01/30/2024 10:41:27 Gynecologic examination 59905635 Z01.419 WWEpap updatedgc/ ct/trich testing added to [...] answered. Screening for malignant neoplasm of breast 867373379 Z12.39 Venereal d isease screening 773887928 Z11.3 Sexually t ransmitted infectious disease 2223158 A64 Cyst of ovary 23076857 N 83.209 recommende d updated u/s for f/u on right complex ovarian cyst / AUBfollow back up with Dr. Boyd for u/s f/u scheduled [id number] [facility] [address],[place] [address] 02/05/2024 16:27:06 02/05/2024 17:26:10 Cyst of right ovary 5759288288 4598030 N83.291 Cyst of left ovary 83227 44633 1615680 N83.292 [id number] Chapo Boyd MD [place] [address],[place] [address] 02/07/2024 17:01:51 02/09/2024 10:03:42 Cyst of ovary 56089021 N83.209 43-year-ol d female presents for follow-up [...] 2 months and to discussed afterwards . [facility] [address],[place] [address] 04/08/2024 10:40:48 04/08/2024 14:23:57 Cyst of left ovary 7810021852 6404291 N83.292 [id number] Chapo Boyd MD [place] [address],[place] [address] 04/10/2024 09:53:26 04/11/2024 08:19:06 Cyst of ovary 24707859 N83.209 This patient is a 43-year-ol d [...] resolution of the previously seen complex cyst. [id number] [facility] [address],[place] [address] 06/10/2024 09:46:34 06/10/2024 10:35:48 Cyst of right ovary 2740178987 3217698 N83.291 N83.292 [id number] Chapo Boyd MD [place] [address] [address] 06/25/2024 15:55:10 06/26/2024 09:49:40 Mass of ovary 613830165 R19.09 43-year-ol d female with a persistent [...] Rodas Member ID Guarantor Name 02/07/2024 1 [facility] (MEDICAID HMO) [id number] 0003 Ale Huynh [id number] Ale Huynh 04/08/2024 1 [facility] (MEDICAID HMO) [id number] 0003 Ale Huynh [id number] Ale Huynh 04/10/2024 1 [facility] (MEDICAID HMO) [id number] 0003 Ale Huynh [id number] Ale Huynh 06/10/2024 1 [facility] (MEDICAID HMO) [id number] 0003 Ale Huynh [id number] Ale Huynh 06/25/2024 1 [facility] [place] (MEDICAID HMO) [id number] 0003 Ale Huynh [id number] Ale Huynh Notes Date Note Type Note [...] afterwards. Chapo Boyd MD [address], [place], [address], , P[facility] 02/08/2024 23:04:50 04/10/2024 text/html This patient [...] cyst. Chapo Boyd MD [address], [place], [address], , [facility] 04/10/2024 22:40:50 06/25/2024 text/html 43-year-old radha perez with a persistent right ovarian mass. Appears [...] infection. Chapo Boyd MD [address], [place], [address], [facility] 06/25/2024 19:00:49 OBGyn Episode No OBEpisode recorded.
--- OUTSIDE RECORDS SUMMARY | 2024-09-02 01:03 | XMS_ITS | Clinical Summary ---
Author Organization [facility] Address [address] [place] [address] Care Team Providers Care Stitching Department Supervisor Name Role Phone Keenan William MD Primary Care Provider [phone] Source Comments [facility],non-owned Affiliates and Associated Physician Practices is amultiple site organization consisting of ambulatory clinics and hospital sitesin [place], [place], [place] and [place]. This disclosure is being madepursuant to the Care Everywhere program and may not contain all information available regarding this patient. Last updated 18.[facility] Allergies No known active allergies Medications * [...] >60 mL/min/1.7 3m2 01/10/2016 2:30 AM CDT [facility] Blood BLOOD SPECIMEN / Unknown 01/10/2016 2:07 AM CDT 01/10/2016 2:14 AM CDT Andrzej Fitch MD LAB - CHEMISTRY GATITO [facility] [address] [place] [address] from Last 3 Months or Most Recently Relevant to Health Maintenance Care Teams Stitching Department Supervisor Relationship Specialty Start Date End Date Keenan William MD [address] [facility] [address] [place] [address] PCP - General 12/21/20
[2024-09-02] MEDS: ACETAMINOPHEN 500 MG TABLET 1000 MG PO (06:50)
[2024-09-02] MEDS: SCOPOLAMINE 1 MG PATCH 1 PATCH TRANSDERM (06:55)
[2024-09-02] MEDS: LACTATED RINGERS 1,000 ML 30 ML IV CONT ×2 (07:00→08:50)
[2024-09-02] MEDS: KETOROLAC 15 MG/ML VIAL (*BKC) IV PUSH (07:00)
[2024-09-02 07:04] LABS: Glucose Point of Care 180 mg/dl (65-105)
[2024-09-02 07:11] LABS: BEDSIDEPREGUCG Negative (Negative)
--- NOTE | 2024-09-02 07:21 | P.HP_ITS ---
H&P: HPI History of Present Illness Date/Time: 09/02/24 07:21 Chief Complaint: Pelvic mass Narrative: This patient is a 44-year-old female with pelvic mass. We agreed to perform laparoscopic bilateral salpingectomy and right oophorectomy. The patient understands the details of the procedure. The procedure has been explained in detail. She understands the risks. She understands that injuries may occur that result in hospitalization, more surgery, and severe illness. She understands risk of hemorrhage and infection. She denies any chest pain or shortness of breath. She denies any nausea, vomiting, fever, chills. Review of Systems Review of Systems: All systems reviewed & are unremarkable except as noted in HPI and below Constitutional: Constitutional: Denies chills, Denies fatigue, Denies fever(s) and Denies weakness Eyes: Eyes: Denies blurry vision, Denies change in vision, Denies loss of peripheral vision, Denies loss of vision, Denies other visual disturbances and Denies eye pain ENT: Denies vertigo, Denies dizziness, Denies hearing loss, Denies mouth pain, Denies nasal obstruction, Denies neck mass and Denies neck pain Cardiovascular: Cardiovascular: Denies chest pain, Denies diaphoresis, Denies syncope, Denies leg edema and Denies dyspnea Respiratory: Respiratory: Denies chest congestion, Denies cough, Denies hemoptysis, Denies dyspnea and Denies wheezing Gastrointestinal: Gastrointestinal: Denies abdominal pain, Denies constipation, Denies diarrhea, Denies nausea and Denies vomiting Genitourinary: Genitourinary: Denies hematuria, Denies change in libido, Denies nocturia, Denies genital lesions, Denies flank pain and Denies urinary urgency Musculoskeletal: Musculoskeletal: Denies abnormal gait, Denies back pain, Denies myalgias, Denies arthralgias, Denies joint swelling, Denies muscle weakness and Denies neck pain Integumentary/Breasts: Skin/Breast: Denies swelling, Denies breast pain, Denies breast mass, Denies dry skin, Denies nipple discharge, Denies unusual bruising and Denies jaundice Neurologic: Denies Neuro-related abnormal movements, Denies Abnormal speech present, Denies abnormal gait, Denies behavioral changes, Denies confusion, Denies vertigo, Denies dizziness, Denies syncope, Denies loss of vision, Denies memory loss, Denies convulsions and Denies weakness Psychiatric: Psychiatric: Denies abnormal sleep pattern, Denies behavioral changes, Denies change in libido, Denies confusion, Denies depression, Denies anhedonia and Denies memory loss Endocrine: Endocrine: Reports no additional endocrine complaints, Denies change in libido and Denies fatigue Hematologic/Lymphatic: Hematologic/Lymphatic: Reports no additional hematologic/lymphatic complaints Allergic/Immunologic: Allergic/Immunologic: Reports no additional allergic/immunologic complaints and Denies wheezing PMFSH Past Medical History Medical History (Updated 09/02/24 @ 07:23 by Chapo Boyd MD) Hyperlipidemia Hypertension PVD (peripheral vascular disease) KENDAL (obstructive sleep apnea) Heart disease Diabetes Surgical History Surgical History Hx laparoscopic cholecystectomy robotic assisted cholecystectomy 08/21/22 H/O vascular surgery Stent placement bilateral lower extremities December 2021.... IVC and iliac vein stents seen on CT. Family History Family History Other Cancer Heart disease Hypertension Lymphoma Social History Social History Smoking status: Never smoker Alcohol intake: never Substance use: never Substance use type: does not use Living arrangements: with family Occupation/Education: unemployed Gender identity (if verbalized by the patient): Female Spiritual care concerns: No Meds Home Medications and Allergies Home Medications ?Medication ?Instructions ?Recorded ?Confirmed ?Type aspirin 81 mg tablet,delayed 81 mg PO DAILY 02/08/22 09/02/24 History release (Adult Aspirin Regimen) clopidogrel 75 mg tablet 75 mg PO DAILY 02/08/22 09/02/24 History furosemide 20 mg tablet 20 mg PO QAM 02/08/22 09/02/24 History lisinopril 20 mg tablet 20 mg PO DAILY 04/13/22 09/02/24 History metformin 500 mg tablet 500 mg PO DAILY 04/13/22 09/02/24 History simvastatin 10 mg tablet 10 mg PO DAILY 04/13/22 09/02/24 History ferrous sulfate 325 mg (65 mg 325 mg PO DAILY 08/10/22 09/02/24 History iron) tablet (Iron (ferrous sulfate)) cholecalciferol (vitamin D3) 1,250 50,000 unit PO ONCE 08/20/24 09/02/24 History mcg (50,000 unit) tablet insulin glargine 100 unit/mL 45 unit subcut QPM 08/20/24 09/02/24 History subcutaneous solution (Lantus U-100 Insulin) Allergies Allergy/AdvReac Type Severity Reaction Status Date / Time No Known Allergies Allergy Verified 09/02/24 07:06 Vital Signs Vital Signs - 24 hr 09/02/24 06:18 Temperature 98.4 F Pulse Rate 88 Respiratory Rate 16 Blood Pressure 132/80 Pulse Oximetry 100 Oxygen Delivery Room Air Exam Const: General: cooperative, healthy appearing, comfortable and no acute distress Orientation/consciousness: oriented to person, oriented to place and oriented to time HENMT: Head: normal to inspection Ears: external ears normal Face/Nose/Sinus: Normal external nose present and normal facial exam Face and sinus: normal facial exam Eyes: General: appearance normal, both eyes and all related structures Neck: Neck: normal visual inspection, trachea midline and supple Resp: Auscultation: clear to auscultation bilaterally, no crackles, no rales, no rhonchi and no wheezes Cardio: Rate: regular rate Rhythm: regular rhythm Heart sounds: no click, no murmurs and no rubs GI: GI Palp: No abdominal tenderness, No Soft to palpation, No Tenderness to palpation present (GI) and No Palpable mass present Auscultation: normal bowel sounds Skin: General skin exam: normal color and no rashes or lesions noted Neuro: General: oriented to person, oriented to place and oriented to time Extrem: General: normal to inspection, no joint enlargement, no clubbing, c yanosis or edema, no pedal edema and no calf tenderness Psych: Appearance: grossly normal Mental Status: mental status grossly normal Speech and movement: Normal speech and movement present Assessment and Plan Assessment and plan (1) Ovarian mass, right: Code(s): N83.8 - Other noninflammatory disorders of ovary, fallopian tube and broad ligament Status: Acute (2) Encounter for female sterilization procedure: Code(s): Z30.2 - Encounter for sterilization Status: Acute Plan This patient is a 44-year-old female with pelvic mass and unwanted fertility. We agreed to perform laparoscopic bilateral salpingectomy and right oophore ctomy. She understands the risks, benefits, and alternatives. She has completed informed consent process and is ready to proceed.
--- NOTE | 2024-09-02 07:23 | WPDHPUPDATE1 ---
History and Physical Update Update Date/Time: 09/02/24 07:23 History and Physical has been reviewed, including an updated exam of the patient. There are NO changes in the patient's condition. Risks, benefits, and alternatives have been discussed and questions answered. Patient agrees to proceed with procedure.
--- NOTE | 2024-09-02 08:48 | P.OP_ITS ---
Procedure Note - Detailed Date of Procedure 09/02/24 Pre-op Diagnosis Right Ovary Mass Post-op Diagnosis Same (With left ovarian cyst) Procedure Performed Laparoscopic bilateral salpingectomy, right oophorectomy, left ovarian cystectomy Surgeon Chapo Boyd MD Anesthesia General Indications Ovarian mass Findings 5 cm left ovarian cyst, firm right ovary, normal-appearing fallopian tubes, normal-appearing uterus. Description of Procedure The patient was taken to the operating room. She was prepped and draped in the dorsal lithotomy position after induction general anesthesia. A 5 mm incision was made with a scalpel on the abdominal skin in the left upper quadrant of the abdomen. A 5 mm trocar was inserted into the intra-abdominal cavity under direct visualization the scope. In the same fashion a 11 mm left lower quadrant trocar was inserted and a 11 mm infraumbilical trocar was inserted. Bilateral salpingectomy was performed. This was done LigaSure cautery and grasper. The tubes were raised. The mesosalpinx was cauterized transected. The tubes were amputated at the corneal region. They were taken at the left lower quadrant trocar site. The right ovary was removed. This infundibulo pelvic ligament was cauterized and transected. The paraovarian tissue was cauterized transected the left right ovary was taken out the left lower quadrant trocar site and an endobag. A left ovarian cystectomy was performed. This was done with sharp and blunt dissection and using LigaSure cautery. Surgicel was applied to the cut surfaces. The pelvis was irrigated. The pneumoperitoneum was reduced. The trocars were removed. Skin was closed with subcuticular 4 micro. The patient's incisions were covered with Dermabond. She was taken recovery room in stable condition. Sponge lap and needle counts were correct x2. Estimated Blood Loss 25 Complications No immediate complications Condition Stable Disposition Same day
[2024-09-02 09:03] LABS: Glucose Point of Care 181 mg/dl (65-105)
== END 2024-09-02 11:00 | disposition home or self-care (01) ==
PROVIDERS: PCP Emergency Medicine; Visit Provider Obstetrics & Gynecology
PROC: (CPT 49320; principal; 2024-09-02 07:30)
DX: Z30.2 Encounter for sterilization (principal); N83.8 Other noninflammatory disorders of ovary, fallopian tube and broad ligament; E78.5 Hyperlipidemia, unspecified; E11.9 Type 2 diabetes mellitus without complications; I11.9 Hypertensive heart disease without heart failure; G89.18 Other acute postprocedural pain; I73.9 Peripheral vascular disease, unspecified; G47.33 Obstructive sleep apnea (adult) (pediatric); E66.9 Obesity, unspecified; Z68.38 Body mass index [BMI] 38.0-38.9, adult; Z79.82 Long term (current) use of aspirin; Z79.02 Long term (current) use of antithrombotics/antiplatelets; Z79.84 Long term (current) use of oral hypoglycemic drugs; Z79.4 Long term (current) use of insulin; Z98.890 Other specified postprocedural states; Z90.49 Acquired absence of other specified parts of digestive tract; Z95.820 Peripheral vascular angioplasty status with implants and grafts; Z80.7 Family history of other malignant neoplasms of lymphoid, hematopoietic and related tissues; Z82.49 Family history of ischemic heart disease and other diseases of the circulatory system
CPT/HCPCS: 58661; 58662; 82948; 88302; 88305; A9270; J1100; J1171; J1885; J2003; J2250; J2405; J2704; J3010; J7030; J7120

== ENCOUNTER 2024-09-04 12:02 | Emergency (ER) | payer OTHER, SELFPAY ==
[2024-09-04] VITALS (7 sets, daily range): BP systolic 108–138; BP diastolic 60–84; PULSE 64–80; RESP 15–17; TEMP 36.6; O2SAT 100
--- NOTE | ~2024-09-04 | CT_ITS ---
EXAMINATION: CT abdomen pelvis w con DATE: 09/04/2024 14:36 INDICATION: Abdominal pain. Bleeding. TECHNIQUE: Computed tomography (CT) of the abdomen and pelvis was performed with 100 mL Omnipaque 350 intravenous contrast. Automated exposure control and iterative reconstruction technique were employe d. The dose-length product was 1314.08 mGy-cm. COMPARISON: CT abdomen and pelvis 01/29/2022 FINDINGS: The visualized portions of the lung bases demonstrate mild atelectasis on the left. No pleu ral effusion. The heart size is normal. No pericardial effusion. The liver and spleen are normal. The gallbladder is absent. The pancreas, adrenal glands, and kidneys are normal. There are no dilated lo ops of bowel. The appendix is normal. There are stents in the common iliac veins. There is an umbilic al hernia containing fat. There is gas in the body wall, consistent with recent surgery. There are no pathologically enlarged lymph nodes. There is no free intraperitoneal fluid. There is mild thoracic spondylosis and mild lumbar spondylosis. There is mild chronic anterior wedging of multiple thoracic vertebral bodies. IMPRESSION: 1. Umbilical hernia containing fat. Reviewed, dictated and finalized at location A. UN[employer] ENGAGEMENT SPECIALIST
--- OUTSIDE RECORDS SUMMARY | 2024-09-04 12:05 | XMS_ITS | Clinical Summary ---
Author Organization [facility] Address [address] [place] [address] Phone Care Team Providers Care Head End Desizing Machine Operator Name Role Phone Keenan William MD Primary Care Provider [phone] Neftali Rudd MD Unavailable Allergies No known [...] Tablet 03/27/2022 Active Lancets (OneTouch Delica Plus [id number]) Misc 09/01/2022 Active OneTouch Verio Strip 09/01/2022 Active Lantus SoloStar 100 UNIT/ML Solution Pen-injector 09/05/2023 Active ergocalciferol (VITAMIN D) 20202 UNIT Capsule 09/05/2023 Active FeroSul 325 (65 Fe) MG TabletIndication s:Iron deficiency anemia due to chronic blood loss TAKE 1 TABLET BY MOUTH DAILY 30 Tablet 06/27/2024 Active Active Problems Problem Noted Date Diagnosed Date HTN (hypertension) 06/05/2024 Iron deficiency anemia due to chronic blood loss 10/08/2018 Encounters Date Type Department Care Team Description 2024 Telephone [facility] [address] [phone] Neftali Rudd MD 06/27/2024 Refill [facility] [address] [phone] Neftali Rudd MD Medication Refill 06/05/2024 10:15 AM TRIMMER HELPER Office Visit [facility] [address] [phone] Ana Cristina Harris, MIRROR MACHINE FEEDER, WILLOWER Iron deficiency anemia due to chronic blood [...] on file Legal Sex Female 12:29 PM TRIMMER HELPER Gender Identity Not on file Sexual Orientation Not on file Last Filed Vital Signs Vital Sign Reading Time Taken Comments Blood Pressure 170/100 06/05/2024 9:02 AM TRIMMER HELPER Pulse 75 06/05/2024 9:02 AM TRIMMER HELPER Temperature 36.8 C (98.2 F) 06/05/2024 9:02 AM TRIMMER HELPER Respiratory Rate 16 06/05/2024 9:02 AM TRIMMER HELPER Oxygen Saturation 98% 06/05/2024 9:02 AM TRIMMER HELPER Inhaled Oxygen Concentration - - Weight 105.2 kg (232 lb) 06/05/2024 9:02 AM TRIMMER HELPER Height 157.5 cm (5' 2 ) 06/05/2024 9:02 AM TRIMMER HELPER Body Mass Index 42.43 06/05/2024 9:02 AM TRIMMER HELPER Plan of Treatment Health Maintenance Due Date [...] AUTO DIFF [place] Routine 06/05/2024 8:49 AM TRIMMER HELPER IRON AND TIBC [id number] [place] Routine 06/05/2024 8:49 AM TRIMMER HELPER FERRITIN [id number] [place] Routine 06/05/2024 8: 49 AM TRIMMER HELPER RETICULOCYTE COUNT (RETIC) Routine 06/05/2024 8:49 AM TRIMMER HELPER Iron deficiency anemia due to chronic blood loss Thrombocytosis Other fatigue from Last 3 Months Results * IRON AND TIBC [id number] [place] (06/05/2024 8:49 AM TRIMMER HELPER) Iron Bind.Cap.(TIBC) 321 250 - 450 UG/DL [facility]EL[facility] UIBC 272 131 - 425 UG/DL [facility] Iron, Serum 49 27 - 159 UG/DL [facility] DEVEL[facility] Iron Saturation 15 15 - 55 % [facility] 06/05/2024 8:49 AM TRIMMER HELPER Narrative [facility] - 06/06/2024 7:12 AM TRIMMER HELPER TESTING PERFORMED AT: [CB] [facility], [address] [place], [address], PHONE: [phone], HONING MACHINE OPERATOR SEMIAUTOMATIC: HOLLY CORNELIUS, PHD us Neftali Rudd MD LAB SEND OUTS Final Result Performing Organization Address City/[facility]/ZIP Co de Phone Number [facility] [employer]EL[employer] [facility] [place] [address], [place] [phone] * FERRITIN [id number] [place] (06/05/2024 8:49 AM TRIMMER HELPER) Ferritin, Serum 42 15 - 150 NG/ML [facility] [employer] 06/05/2024 8:49 AM TRIMMER HELPER Narrative [facility] [employer] DEVEL[employer] - 06/06/2024 7:12 AM TRIMMER HELPER TESTING PERFORMED AT: [CB] [facility], [address] [place], [address], PHONE: [phone], HONING MACHINE OPERATOR SEMIAUTOMATIC: HOLLY CORNELIUS, PHD us Neftali Rudd MD LAB SEND OUTS Final Result [facility] [employer] [employer] [facility] [address] [address], [place] [phone] * (ABNORMAL) CBC WITH AUTO DIFF [place] (06/05/2024 8:49 AM TRIMMER HELPER) WBC 7.0 4.0 - 10.0 10*3/uL [facility] [facility] HGB 12.9 11.2 - 15.7 g/dL [facility] [employer] [employer] [facility] HCT 41.9 34.1 - 44.9 % [facility] [employer] DEVEL[employer] [facility] PLT 386(H) 163 - 369 10*3/uL [facility] [employer] [employer] DEVEL[employer] [facility] MPV 9.5 9.4 - 12.4 fL [facility] [employer] RBC 5.25(H) 3.93 - 5.22 10*6/uL [facility] MCV 80 79 - 95 fL CAN[facility] [employer] DEVEL[employer] [facility] MCH 24.6(L) 25.6 - 32.2 pg [facility] [employer] DEVEL[employer] [facility] MCHC 30.8(L) 32.2 - 36.5 g/dL [facility] DEVEL[facility] RDW 14.6(H) 11.6 - 14.4 % [facility] Neutrophils % 59.1 36.0 - 66.0 % [facility] Lymphocytes % 30.4 19.0 - 40.0 % [facility] Monocytes % 7.9 4.1 - 12.1 % [facility] Eosinophils % 1.2 0.0 - 3.5 % [facility] Basophils % 1.0 0.0 - 1.0 % [facility] Absolute Neutrophils 4.1 1.4 - 6.6 10*3/uL [facility]ER [facility] Absolute Lymphocytes 2.1 0.8 - 4.0 10*3/uL CANCER [facility] [employer]EL[employer] Absolute Monocytes 0.6 0.2 - 1.2 10*3/uL [facility] Absolute Eosinophils 0.1 0.0 - 0.4 10*3/uL CANCER AGILE JAVA DEVELOPER Absolute Basophils 0.1 0.0 - 0.1 10*3/uL [facility] 06/05/2024 8:49 AM TRIMMER HELPER us Neftali Rudd MD LAB SEND OUTS Final Result [facility] DEVEL[facility] [place] [address], * RETICULOCYTE COUNT (RETIC) (06/05/2024 8:49 AM TRIMMER HELPER) Reticulocyte count 1.53 0.50 - 1.70 % [facility] DEVEL[facility] RET-He 28.90 28.20 - 36.60 pg [facility] DEVEL[facility] Comment: RET-He is a direct assessment of incorporation of iron into erythrocyte hemoglobin. It provides an indirect measure of the iron available for new erythropoiesis over past 2-4 days. Blood 06/05/2024 8:49 AM TRIMMER HELPER Narrative [facility] - 06/05/2024 9:04 AM TRIMMER HELPER Release to patient->Immediate us Neftali Rudd MD HEMATOLOGY ORDERABLES Final Resu lt [facility] [employer]EL[employer] [facility] [address] [place] [address], from Last 3 Months Insurance MEDICAID [place] Care Teams Head End Desizing Machine Operator Relationship Specialty Start Date End Date Keenan William MD [address] [place] [id number] PCP - General Family Medicine 09/18/18 Neftali Rudd MD [address] [place] [id number] Consulting Physician Oncology 06/30/22
--- OUTSIDE RECORDS SUMMARY | 2024-09-04 12:05 | XMS_ITS | Referral Summary ---
Author Organization [facility] Address [address] [facility] [place] [address] Care Team Providers Care Leather Belt Loop Cutter Name Role Phone Keenan William MD Primary Care Provider [phone] Source Comments [facility],non-owned Affiliates and Associated Physician Practices is amultiple site organization consisting of ambulatory clinics and hospital sitesin [place], [place], [place] and [place]. This disclosure is being madepursuant to the Care Everywhere program and may not contain all information available regarding this patient. Last updated 18.[facility] [employer] Allergies No known active allergies Medications * [...] Fitch MD LAB - CHEMISTRY [facility] Organization Address City/State/[facility] Co de Phone Number [facility] [address] [place] [address] from Last 3 Months or Most Recently Relevant to Health Maintenance Administered Medications Care Teams Leather Belt Loop Cutter Relationship Specialty Start Date End Date Keenan William MD [address] [facility] [address] [place] [address] PCP - General 12/21/20
--- OUTSIDE RECORDS SUMMARY | 2024-09-04 12:05 | XMS_ITS | Clinical Summary ---
Author Organization [facility] [employer] Address [address] [facility] [address] Care Team Providers Care Farm Operations Technical Director Name Role Phone Keenan William MD Primary Care Provider [phone] Source Comments [facility],non-owned Affiliates and Associated Physician Practices is amultiple site organization consisting of ambulatory clinics and hospital sitesin [place], [place], [place] and [place]. This disclosure is being madepursuant to the Care Everywhere program and may not contain all information available regarding this patient. Last updated 18.[facility] [employer] Allergies No known active allergies Medications * [...] her baseline screening mammogram on 11/03/2020 at [facility], was found to have [...] institution, bilaterally screening mammogram dated 11/03/2020 from [facility] MAMMOGRAPHY: TECHNICAL INFORMATION: Diagnostic [...] >60 mL/min/1.7 3m2 01/10/2016 2:30 AM CDT [facility] Blood BLOOD SPECIMEN / Unknown 01/10/2016 2:07 AM CDT 01/10/2016 2:14 AM CDT Andrzej Fitch MD LAB - CHEMISTRY [place] [facility] [address] [place] [address] from Last 3 Months or Most Recently Relevant to Health Maintenance Care Teams Farm Operations Technical Director Relationship Specialty Start Date End Date Keenan William MD [address] [facility] [address] [place] [address] PCP - General 12/21/20
--- OUTSIDE RECORDS SUMMARY | 2024-09-04 12:05 | XMS_ITS | Continuity of Care Document ---
Author Organization [facility] Address [address] [place] [address] Phone Care Team Providers Care Strategy Manager Name Role Phone Prerna Huynh DO Unavailable [...] oral eval problem focused 013 OFFICE/OUTPATIENT VISIT, [facility] Advance Directives Directive Yes / No Effective Date File Name No Information Encounters Encounter Description Practice Location Reason(s) For Visit Diagnoses Date Provider Providers Copied on Encounter [facility], [address], [place], [place], [address] , [place] tel: [phone] [facility] No Information 8 Lino Graff. [address], [place], [place], [address], [place]. tel:[phone] OFFICE/OUTPA TIENT VISIT, EST [facility], [address], [place], [place], [address] , [place] tel: [phone] [facility] SOB and Dizziness (chief complaint) Body mass index (BMI) 40.0-44.9, adultType 2 diabetes mellitus with hyperglycemiaEss ential (primary) hypertensionDizz inessIron deficiency anemia, unspecified Lino Graff. [address], [place], [place], [address], [place]. [phone] [facility], [address], [place], [place], [address] , [place] tel: [phone] [facility] No Information 7 No Information OFFICE/OUTPA TIENT VISIT, EST [facility], [address], [place], [place], [address] , [place] tel: [phone] [facility] anemia (chief complaint) diabetes (chief complaint) Type 2 diabetes mellitus with hyperglycemiaMen orrhagiaEssentia l (primary) hypertension 7 No Information OFFICE OUTPT EST 25 MIN [facility], [address], [place], [place], [address] , [place] tel: [phone] [facility] diabetes (chief complaint) Essential (primary) hypertensionIron deficiency anemia, unspecifiedType 2 diabetes mellitus with hyperglycemiaEnc ounter for screening for other disorder 6 No Information OFFICE OUTPT EST 25 MIN [facility], [address], [place], [place], [address] , [place] tel: [phone] [facility] diabetes (chief complaint) hypertensi on (chief complaint) Type 2 diabetes mellitus with diabetic neuropathy, unspecifiedIron deficiency anemia, unspecifiedEssen tial (primary) hypertensionEnco unter for general adult medical examination without abnormal findings 6 No Information OFFICE OUTPT EST 25 MIN [facility], [address], [place], [place], [address] , [place] tel: [phone] [facility] diabetes (chief complaint) Essential (primary) hypertension 6 Kailey Fallon. [address], [place], [place], [address], [place]. [phone] Referring Provider: Vasyl Zaman, [address], [place], [address] . tel:[phone] OFFICE/OUTPA TIENT VISIT, NEW [facility], [address], [place], [place], [address] , [place] tel: [phone] [facility] foot (chief complaint) foot (chief complaint) Venous insufficiencyDia betes mellitus with neurological complications 5 No Information OFFICE OUTPT EST 25 MIN [facility], [address], [place], [place], [address] , [place] tel: [phone] [facility] Diabetes (chief complaint) Hypertensi on (chief complaint) DM (diabetes mellitus)Benign essential hypertensionIron deficiency anemia, unspecifiedOverw eight 5 No Information [facility], [address], [place], [place], [address] , [place] tel: [phone] [facility] examination 4 No Information OFFICE/OUTPA TIENT VISIT, EST [facility], [address], [place], [place], [address] , [place] tel: [phone] [facility] diabetes (chief complaint) Anemia, Iron DeficiencyDiabet es type 2, uncontrolled 4 No Information [facility], [address], [place], [place], [address] , [place] tel: [phone] [facility] No Information 4 No Information OFFICE/OUTPA TIENT VISIT, EST [facility], [address], [place], [place], [address] , tel: [phone] [facility] DM/HTN (chief complaint) Diabetes type 2, uncontrolledHype rtensionLighthea dedness 4 No Information [facility], [address], [place], [place], [address] , tel: [phone] [facility] examination 3 Tiffany Trent. [address], [place], [place], [address], . tel:[phone] [facility], [address], [place], [place], [address] , tel: [phone] [facility] examination 3 Tiffany Trent. [address], [place], [place], [address], . tel:[phone] OFFICE/OUTPA TIENT VISIT, NEW [facility], [address], [place], [place], [address] , tel: [phone] [facility] Hosp f/up for diabetes (chief complaint) hypertensi [...] mellitus Payers Payer name Insurance type Covered republican ID Authoriza tion(s) No Information Social History [...] Panel. Due on due Referral Referred To: [facility] Ordered: Referrals: Ophthalmology. [facility]. Evaluate and treat ordered Referral Referred To: Chava Gupta DPM [address] [place], [place], [phone] Ordered: Referrals: Podiatry. Chava Gupta DPM. Evaluate and treat ordered Referral Referred To: [facility] Ordered: Referral: [facility]. Inpatient Services Rn. Evaluate and treat. ordered Patient Education Iron-Rich [...] Lab Order COMPREHE NSIVE METABOLIC PANEL W/EGFR (32757), Appointment on: , Sent on: Sent Future [...] without explanation. She has not seen an mill tender [place]. She checks her feet daily and uses [...] Labs todayLisinopril , Lantus refilled, sent to [facility] next week Related to Dizziness Giving encouragement [...]
--- OUTSIDE RECORDS SUMMARY | 2024-09-04 12:05 | XMS_ITS | Patient Health Summary ---
Author Organization [facility] Address [address] [place] [address] Care Team Providers Care Banking Supervisor Name Role Phone Keenan William MD Primary Care Provider [phone] Note from [facility],non-owned Affiliates and Associated Physician Practices is amultiple site organization consisting of ambulatory clinics and hospital sitesin [place] and [place]. This disclosure is being madepursuant to the Care Everywhere program and may not contain all information available regarding this patient. Last updated 18.[facility] Allergies No known active allergies Medications * [...] her baseline screening mammogram on 11/03/2020 at [facility], was found to have an asymmetry [...] institution, bilaterally screening mammogram dated 11/03/2020 from [facility] MAMMOGRAPHY: TECHNICAL INFORMATION: Diagnostic mammogram obtained [...] CDT EXAMINATIONS: 1. MAMMO BILAT DIAGNOSTIC W RIETSH AND WITH CAD AND 2. LIMITED RIGHT BREAST ULTRASOUND (COMBINED REPORT) DATE OF EXAM: 11/28/2021 HISTORY: This is a 41-year-old female who on her baseline screening mammogram on 11/03/2020 at [facility], was found to have an asymmetry [...] institution, bilaterally screening mammogram dated 11/03/2020 from [facility] MAMMOGRAPHY: TECHNICAL INFORMATION: Diagnostic mammogram obtained [...] RIGHT DIAGNOSTIC W RITESH (06/06/2021 9:37 AM SQL PROGRAMMER) Anatomical Region Laterality Modality Breast Right Mammography 06/06/2021 10:4 3 AM SQL PROGRAMMER Impressions 06/06/2021 11:04 AM SQL PROGRAMMER IMPRESSION: Probably benign small asymmetry in the [...] 11:04 AM . Narrative 06/06/2021 11:04 AM SQL PROGRAMMER EXAMINATIONS: 1. DIGITAL MAMMO RIGHT DIAGNOSTIC W RITESH WITH CAD AND 2. LIMITED RIGHT BREAST ULTRASOUND (COMBINED REPORT) DATE OF EXAM: 06/06/2021 9:37 AM HISTORY: Short-term follow-up of probably benign asymmetry in the right breast centrally on the cc view. COMPARISON: With prior outside mammogram 11/03/2020 from [facility] as well as a targeted [...] images may or may not represent the makah source data set and thus may contain [...] this second opinion. FACILITY WHERE STUDY PERFORMED: [facility]. COMPARISON: No studies prior to 11/03/2020. [...] assessment performed in the breast center at [facility], 01/27/2021. Patient has family history of breast [...] of this secondopinion. FACILITY WHERE STUDY PERFORMED: [facility]. COMPARISON: No studies prior to 11/03/2020. This [...] assessment performed in the breast center at [facility], 01/27/2021. Patient has family history of breast [...] images may or may not represent the makah source data set and thus may contain [...] images may or may not represent the makah source data set and thus may contain [...] this second opinion. FACILITY WHERE STUDY PERFORMED: [facility]. COMPARISON: No studies prior to 11/03/2020. [...] assessment performed in the breast center at [facility], 01/27/2021. Patient has family history of breast [...] of this secondopinion. FACILITY WHERE STUDY PERFORMED: [facility]. COMPARISON: No studies prior to 11/03/2020. This [...] assessment performed in the breast center at [facility], 01/27/2021. Patient has family history of breast [...] images may or may not represent the makah source data set and thus may contain changes, which may lower the sensitivity in the second opinion interpretation. This report was electronically signed by MONY KRAFT M.D. on 02/14/2021 11:50 AM . Sharron Currie MD IMAGING * SKIN TEST PPD - POINT OF CARE (08/26/2018 12:06 PM SQL PROGRAMMER) PPD 0MM Normal PPd placed 08/23/2018 @ 2:20pm, PPd read 08/26/2018 @12:07pm Other MISCELLANEOUS SAMPLE S / Unknown 08/26/2018 12:06 PM SQL PROGRAMMER Reji Young SHANK FAKER-LABORER [facility] - POINT OF CARE ORDERABLES * CARDIAC EKG ORDER (01/11/2016 10:36 PM CDT) Narrative 01/11/2016 10:36 PM CDT Ordered by an unspecified provider. Scanned Document CARDIAC SERVICES ORD ERABLES * TROPONIN I (01/10/2016 4:52 AM CDT) Only the most recent of2 resultswithin the time period is included. Troponin I <0.015 0.000 - 0.049 ng/mL 01/10/2016 5:36 AM CDT [facility] Blood BLOOD SPECIMEN / Unknown 01/10/2016 4:52 AM CDT 01/10/2016 5:20 AM CDT Narrative [facility] - 01/10/2016 5:36 AM CDT [...] Fitch MD LAB - CHEMISTRY [facility] Organization Address City/State/ZIP Co de Phone Number [facility] [address] [place] [address] * D-DIMER (01/10/2016 3:36 AM CDT) D-Dimer 0.32 0.17 - 0.5 mg/L FEU 01/10/2016 4:06 AM CDT [facility] Blood BLOOD SPECIMEN / Unknown 01/10/2016 3:36 AM CDT 01/10/2016 3:43 AM CDT Narrative [facility] - 01/10/2016 4:06 AM CDT [...] - COAGULATION OR DERABLES Performing Organization Address City/State/[facility] Co de Phone Number [facility] [address] [place] [address] * XR CHEST PA AND LATERAL (01/10/2016 [...] - 416 x10E9/L 01/10/2016 2:30 AM CDT [facility] RDW-CV 22.1(H) 12.1 - 14.9 [...] - 2.0 % 01/10/2016 2:30 AM CDT [facility] Immature Granulocytes 0.2 0 - 1 % 01/10/2016 2:30 AM CDT [facility] Neutrophil Absolute 5.04 2.01 - 7.14 x10E9/L 01/10/2016 2:30 AM CDT [facility] Lymphocytes Absolute 4.50(H) 1.07 - 3.94 x10E9/L 01/10/2016 2:30 AM CDT [facility] Monocytes Absolute 0.87 0.26 - 1.07 x10E9/L 01/10/2016 2:30 AM CDT [facility] Eosinophils Absolute 0.10 0 - 0.47 x10E9/L 01/10/2016 2:30 AM CDT [facility] Basophils Absolute 0.08 0 - 0.08 x10E9/L 01/10/2016 2:30 AM CDT [facility] Immature Granulocytes Absolute 0.02 0.00 - 0.06 x10E9/L 01/10/2016 2:30 AM CDT [facility] nRBC Auto 0 /100 WBC 01/10/2016 2:30 AM CDT [facility] Blood BLOOD SPECIMEN / Unknown Venipuncture / Unknown 01/10/2016 2:07 AM CDT 01/10/2016 2:16 AM CDT Andrzej Fitch MD LAB - HEMATOLOGY ORD ERABLES [facility] [address] [place] [address] * (ABNORMAL) COMPREHENSIVE METABOLIC PANEL (01/10/2016 2:07 AM CDT) [facility] Glucose 271(H) 74 - 106 mg/dL 01/10/2016 2:30 AM CDT [facility] Sodium 137 136 - 145 mmol/L 01/10/2016 2:30 AM CDT [facility] Potassium 4.3 3.5 - 5.1 mmol/L 01/10/2016 2:30 AM CDT [facility] Chloride 105 98 - 107 mmol/L 01/10/2016 2:30 AM CDT [facility] CO2 27 22 - 31 [...] >60 mL/min/1.7 3m2 01/10/2016 2:30 AM CDT [facility] Blood BLOOD SPECIMEN / Unknown 01/10/2016 2:07 AM CDT 01/10/2016 2:14 AM CDT Andrzej Fitch MD LAB - CHEMISTRY [facility] [address] [place], [place] [id number] Care Teams Banking Supervisor Relationship Specialty Start Date End Date Keenan William MD [address] [facility] [address] [place] [address] PCP - General 12/21/20
--- OUTSIDE RECORDS SUMMARY | 2024-09-04 12:05 | XMS_ITS | Data Portability ---
Author Organization [facility] Address [address] [place] [address] [place] [address] Care Team Providers Care Contact Lens Fitter Name Role Phone HITESH VELIZ Primary Care Provider [phone] Assessment No assessment recorded. Plan of Treatment Reminders Order Date Submit Date Provider Last Modified By Organization Details Last Modified Time Details Appointments None recorded. Lab None recorded. Referral None recorded. Procedures None recorded. Surgeries salpingecto my, laparoscopi c (SURG) [address], [facility] [address], [address], 5 12:53:55 oophorectom y (SURG) 2023 025 [facility], [facility] [address], [address], 5 11:41:45 Imaging US, transvagina l 2023 024 [email or web address] [place], [address], [place], [address], 18:14:52 US, transvagina l 2023 024 [email or web address] 4 [place], [address], [place], [address], 15:00:18 Medication Orders None recorded. Patient TargetsNo targets recorded. Patient InstructionsNo instructions recorded. Reason for Referral None Reported. Results Created Date Observation Date Name Description Value Unit Range Abnormal Flag Note LastModifiedBy Organization Detail LastModifiedTime 04/08/20 24 04/08/2024 US, trans vagin al No observ ation record ed. [email or web address] [place] [address], [place], [address], 04/08/2024 13:17:01 04/08/20 24 04/08/2024 US, trans vagin al No observ ation record ed. mar Castañedae [address], [place], [address], 04/09/2024 10:06:41 06/10/2006/10/2024 US, trans vagin al No observ ation record ed. [email or web address] [place] [address], [place], [address], 06/10/2024 14:50:21 06/10/20 24 06/10/2024 , trans vagin al No observ ation record ed. [email or web address] [address], [place], [address], 2024 08:59:51 Result Notes None recorded. Problems Name Problem SNOMED Code Status Onset Date Resolution Date Notes Provider Name and Address Organization Details Recorded Time SNOMED CT Concept Completed 201810/27/2020 Encntr for general adult medical exam w/o abnormal findings; Recorded Elsewhere : No Locati on: [facility] So urce: EHR Chron ic: N Practic e ID: [id number] Bill able Time: 01:00:00 PM Yara simon [facility] 17:48:10 Finding of menstrual bleeding Completed 201810/27/2020 Menorrhag ia;Record ed Elsewhere : No Locati on: [facility] So urce: EHR Chron ic: N Practic e ID: [id number] Bill able Time: 01:00:00 PM Yara simon [facility] 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 17:48:11 Problem Notes None recorded. Procedures Surgical History Date Name Laterality Status Provider Name and Address Organization Details Recorded Time 025 OOPHORECTOMY (SURG) completed Chapo Boyd MD [address], [place], [address], [facility] 09/03/2024 21:27:08 024 Date of Last Pap Smear completed Brenda Camacho [facility] 02/07/2024 17:07:24 cholecystectomy completed Aruna mosqueda JOE [address], [place], [address], [facility] 01/30/2024 08:46:36 Imaging Results Imaging Date Name Status LastModified by Organization Details LastModified Time 04/08/2024 US, transvaginal completed [email or web address] [place] [address], [place], [address], 04/08/2024 13:17:01 04/08/2024 US, transvaginal completed [email or web address] [address], [place], [address], 04/09/2024 10:06:41 06/10/2024 US, transvaginal completed [email or web address] [place] [address], [place], [address], 06/10/2024 14:50:21 06/10/2024 US, transvaginal completed [email or web address] [address], [place], [address], 2024 08:59:51 Procedure Notes None recorded. Medical [...] active Not Available Not Available Not Available hydrocodone 5 mg-acetamin ophen 325 mg tablet 2024 active Not Available Not Available Not Avai lable meloxicam 15 mg tablet TAKE 1 TABLET [...] Updated DateTime 04/10/2024 170.18 cm 36.3 kg/m2 249604.4 3 g 138 mm[Hg] 86 mm[Hg] Rose Adams [facility] 10:08:04 Date Recorded Body height Body mass index (BMI) Body weight Systolic blood pressure Diastolic blood pressure Provider Name and Address Organization Details Last Updated DateTime 06/25/2024 170.18 cm 36.6 kg/m2 445088.6 1 g 138 mm[Hg] 85 mm[Hg] Rosemanny Adams [facility] 16:29:39 Social History Question Answer Notes LastModified by Organizat ion Details LastModified Time Tobacco Smoking Status Never Smoker Yara Avendano aurora, [facility] 10/28/2020 14:09:53 Do You Have An Advance Directive? No [email or web address] Information n ot available 10/28/2020 What Is Your Level Of Alcohol Consumption? Occasional [email or web address] Information not available 10/28/2020 How Many Years Have You Consumed Alcohol? 2 [email or web address] Information not available 10/28/2020 Are You Blind Or Do You Have Difficulty Seeing? No [email or web address] Information n ot available 10/28/2020 How Much Tobacco Do You Chew? None [email or web address] Information not available 10/28/2020 In The 14 Days Before Symptom Onset, Have You Had Close Contact With A Laboratory-confirm ed COVID-19 While That Case Was Ill? No [email or web address] Information n ot available 10/28/2020 In The 14 Days Before Symptom Onset, Have You Had Close Contact With A Person Who Is Under Investigation For COVID-19 While That Person Was Ill? No Information not available 10/28/2020 Have You Been To An Area Known To Be High Risk For COVID-19? No Information not available 10/28/2020 Are You Deaf Or Do You Have Serious Difficulty Hearing? No [email or web address] Information not available 10/28/2020 What Type Of Diet Are You Following? REGULAR [email or web address] Information n ot available 10/28/2020 What Is The Highest Grade Or Level Of School You Have Completed Or The Highest Degree You Have Received? [id number] [email or web address] Information not available 10/28/2020 What Is Your Occupation? Unemployed [email or web address] Information not available 10/28/2020 Are There Any Guns Present In Your Home? No Information not available 10/28/2020 Do You Use Protection During Sex? Always [email or web address] Information not available 10/28/2020 Do You Use Your Seat Belt Or Car Seat Routinely? Yes [email or web address] Information not available 10/28/2020 Do You Have Smoke And Carbon Monoxide Detectors In Your Home? Yes [email or web address] Information not available 10/28/2020 How Much Tobacco Do You Smoke? No [email or web address] Information not available 10/28/2020 Do You Feel Stressed (tense, Restless, Nervous, Or Anxious, Or Unable To Sleep At Night)? DJ7746-0 [email or web address] Information not available 10/28/2020 Do You Use Any Illicit Or Recreational Drugs? No Information not available 10/28/2020 Do You Use Sunscreen Routinely? No [email or web address] Information not available 10/28/2020 Have You Used IV Drugs? No [email or web address] Information not available 10/28/2020 Sex: Unknown Functional Status Question Answer Note LastModified by Organizat ion Details LastModified Time Do you have difficulty walking or climbing stairs? No [email or web address] Information not available 01/28/2024 Are you able to walk? YESWOREST [email or web address] Information not available 10/28/2020 Are you able to care for yourself? Yes [email or web address] Information not available 04/06/2022 Do you have difficulty dressing or bathing? No [email or web address] Information not available 01/28/2024 What is your exercise level? Occasional [email or web address] Information not available 10/28/2020 Mental Status None recorded. Family History Relationship Description Onset Age of this Age Resolved Age Notes LastModified by Organization Details LastModified Time Mother Hypertensive disorder [email or web address] Not available 2020 09:34:44 Mother Diabetes mellitus [email or web address] Not available 2020 09:34:52 Medical History Condition [...] SNOMED-CT Code Diagnosis ICD10 Code Diagnosis Note [id number] Chela Enciso [place] [address] [address] 10/28/2020 13:56:08 10/28/2020 14:24:27 Gynecologic examination 87423976 Z01.419 Suggested Calcium with Vitamin D 1200-1500m g daily. Patient advised to get an annual flu shot in the fall and she could obtain at [facility] or [facility]. Also to obtain TDap vaccinatio n if [...] please call or respond to this email. [id number] JORGE ALBERTO Servin [place] [address] [address] 04/06/2022 14:34:52 04/06/2022 17:44:26 Abnormal uterine bleeding 4360935646 9100 N93.9 Given amount and duration of bleeding, we agreed to short term course of prometrium to help stop this current episode of bleeding.R /B of medication discussed with patientLab s orderedPel luis alberto u/s orderedSTI endocervic al testing sentUPT declined - female partners onlyConsul kwasi with MD ([place]. Boyd at [facility] on patient case, She will f/u for MD consult following pelvic u/s to discuss surgical options - patient interested in ablation.E D precaution s discussed with patient Time spent in visit is a total of 30 mins with at least 50% of visit consisting of counseling and review of plan of care. Venereal d isease screening 268004577 Z11.3 [id number] Osiris Mcfarland [place] [address] [address] 04/10/2022 16:42:17 04/10/2022 18:05:48 Irregular periods 92955068 N92.6 [id number] Chapo Boyd MD [place] [address] [address] 05/03/2022 14:00:32 05/03/2022 15:04:56 Abnormal uterine bleeding 2945121626 9100 N93.9 This patient is a 41-year-ol [...] see if it returns. Cyst of ovary 10979125 N 83.209 [id number] JORGE ALBERTO Servin [place] [address] [address] 01/29/2024 16:41:12 01/30/2024 10:41:27 Gynecologic examination 34678031 Z01.419 WWEpap updatedgc/ ct/trich testing added to papHIV/Hep B&C/Syphil is testing ordered per pt requestmam [facility] Patient advised to get [...] answered. Screening for malignant neoplasm of breast 834894623 Z12.39 Venereal d isease screening 587912457 Z11.3 Sexually t ransmitted infectious disease 2584947 A64 Cyst of ovary 67964624 N 83.209 recommende d updated u/s for f/u on right complex ovarian cyst / AUBfollow back up with Dr. Boyd for u/s f/u scheduled [id number] [facility] [address],[facility] [address] 02/05/2024 16:27:06 02/05/2024 17:26:10 Cyst of right ovary 6754326893 9217293 N83.291 Cyst of left ovary 42299 55588 6871412 N83.292 [id number] Chapo Boyd MD [place] [address],[place] [address] 02/07/2024 17:01:51 02/09/2024 10:03:42 Cyst of ovary 29421805 N83.209 43-year-ol d female presents for follow-up [...] months and to discussed afterwards . [facility] [address],[facility] [address] 04/08/2024 10:40:48 04/08/2024 14:23:57 Cyst of left ovary 9030973931 6159774 N83.292 [id number] Chapo Boyd MD [place] [address],[place] [address] 04/10/2024 09:53:26 04/11/2024 08:19:06 Cyst of ovary 67609232 N83.209 This patient is a 43-year-ol d [...] resolution of the previously seen complex cyst. [id number] Osiris Mcfarland [place] [address],[place] [address] 06/10/2024 09:46:34 06/10/2024 10:35:48 Cyst of right ovary 7968914822 7245632 N83.291 N83.292 [id number] Chapo Boyd MD [place] [address] [address] 06/25/2024 15:55:10 06/26/2024 09:49:40 Mass of ovary 872865692 R19.09 43-year-ol d female with a persistent [...] there is risk of hemorrhage and infection. [id number] Chapo Boyd MD [place] [address],[place] [address] 09/02/2024 09:03:17 09/02/2024 13:04:29 Health Concerns Section Related Observation LastModified by Organization Detai ls LastModified Time None Recorded Concern Status LastModified by Organization Details LastModified Time None Recorded Advance Directives Directive N: Payers Encounter Date Sequence Insurance Name Policy Number Policy Rodas Covered Member ID Rodas Member ID Guarantor Name 04/08/2024 1 [facility] (MEDICAID HMO) [id number] Ale Huynh [id number] Ale Huynh 04/10/2024 1 [facility] (MEDICAID HMO) [id number] Ale Huynh [id number] Ale Huynh 06/10/2024 1 [facility] (MEDICAID HMO) [id number] Ale Huynh [id number] Ale Huynh 06/25/2024 1 [facility] (MEDICAID HMO) [id number] 0003 Ale Huynh [id number] Ale Huynh 09/02/2024 1 [facility] (MEDICAID HMO) [id number] Ale Huynh [id number] Ale Huynh Notes Date Note Type Note Provider Name and Address Organization Details Recorded Time 04/10/2024 text/html This patient is a 43-year-old [...] cyst. Chapo Boyd MD [address], [place], [address], [facility] 04/10/2024 22:40:50 06/25/2024 text/html 43-year-old fema [...] infection. Chapo Boyd MD [address], [place], [address], [facility] 06/25/2024 19:00:49 OBGyn Episode No OBEpisode recorded.
--- OUTSIDE RECORDS SUMMARY | 2024-09-04 13:17 | XMS_ITS | Clinical Summary ---
Author Organization [facility] Address [address], [address] [place] [address] Phone Care Team Providers Care Corporate Learning Consultant Name Role Phone Keenan William MD Primary Care Provider [phone] Neftali Rudd MD Unavailable Allergies No known [...] Tablet 03/27/2022 Active Lancets (OneTouch Delica Plus [id number]) Misc 09/01/2022 Active OneTouch Verio Strip 09/01/2022 Active Lantus SoloStar 100 UNIT/ML Solution Pen-injector 09/05/2023 Active ergocalciferol (VITAMIN D) 06369 UNIT Capsule 09/05/2023 Active FeroSul 325 (65 Fe) MG TabletIndication s:Iron deficiency anemia due to chronic blood loss TAKE 1 TABLET BY MOUTH DAILY 30 Tablet 06/27/2024 Active Active Problems Problem Noted Date Diagnosed Date HTN (hypertension) 06/05/2024 Iron deficiency anemia due to chronic blood loss 10/08/2018 Encounters Date Type Department Care Team Description 2024 Telephone [facility] [address] [phone] Neftali Rudd MD 06/27/2024 Refill [facility] [address] [phone] Neftali Rudd MD Medication Refill 06/05/2024 10:15 AM DENTAL OFFICE ASSISTANT Office Visit [facility] [address] [phone] Ana Cristina Harrsi, CASEY SAW OPERATOR, EVIDENCE TECHNICIAN Iron deficiency anemia due to chronic blood [...] on file Legal Sex Female 12:29 PM DENTAL OFFICE ASSISTANT Gender Identity Not on file Sexual Orientation Not on file Last Filed Vital Signs Vital Sign Reading Time Taken Comments Blood Pressure 170/100 06/05/2024 9:02 AM DENTAL OFFICE ASSISTANT Pulse 75 06/05/2024 9:02 AM DENTAL OFFICE ASSISTANT Temperature 36.8 C (98.2 F) 06/05/2024 9:02 AM DENTAL OFFICE ASSISTANT Respiratory Rate 16 06/05/2024 9:02 AM DENTAL OFFICE ASSISTANT Oxygen Saturation 98% 06/05/2024 9:02 AM DENTAL OFFICE ASSISTANT Inhaled Oxygen Concentration - - Weight 105.2 kg (232 lb) 06/05/2024 9:02 AM DENTAL OFFICE ASSISTANT Height 157.5 cm (5' 2 ) 06/05/2024 9:02 AM DENTAL OFFICE ASSISTANT Body Mass Index 42.43 06/05/2024 9:02 AM DENTAL OFFICE ASSISTANT Plan of Treatment Health Maintenance Due Date [...] AUTO DIFF [place] Routine 06/05/2024 8:49 AM DENTAL OFFICE ASSISTANT IRON AND TIBC [id number] [place] Routine 06/05/2024 8:49 AM DENTAL OFFICE ASSISTANT FERRITIN [id number] [place] Routine 06/05/2024 8: 49 AM DENTAL OFFICE ASSISTANT RETICULOCYTE COUNT (RETIC) Routine 06/05/2024 8:49 AM DENTAL OFFICE ASSISTANT Iron deficiency anemia due to chronic blood loss Thrombocytosis Other fatigue from Last 3 Months Results * IRON AND TIBC [id number] [place] (06/05/2024 8:49 AM DENTAL OFFICE ASSISTANT) Iron Bind.Cap.(TIBC) 321 250 - 450 UG/DL [facility] UIBC 272 131 - 425 UG/DL [facility] Iron, Serum 49 27 - 159 UG/DL [facility] Iron Saturation 15 15 - 55 % [facility] 06/05/2024 8:49 AM DENTAL OFFICE ASSISTANT Narrative [facility] - 06/06/2024 7:12 AM DENTAL OFFICE ASSISTANT TESTING PERFORMED AT: [CB] [facility] [place], [address] [place], [address], PHONE: [phone], EMPLOYEE REPRESENTATIVE: HOLLY CORNELIUS, PHD us Neftali Rudd MD LAB SEND OUTS Final Result Performing Organization Address City/[facility]/ZIP Co de Phone Number [facility] [place] [address], [place] [phone] * FERRITIN [id number] [place] (06/05/2024 8:49 AM DENTAL OFFICE ASSISTANT) Ferritin, Serum 42 15 - 150 NG/ML [facility] 06/05/2024 8:49 AM DENTAL OFFICE ASSISTANT Narrative [facility] - 06/06/2024 7:12 AM DENTAL OFFICE ASSISTANT TESTING PERFORMED AT: [CB] [facility] [place], [address] [place], [address], PHONE: [phone], EMPLOYEE REPRESENTATIVE: HOLLY CORNELIUS, PHD us Neftali Rudd MD LAB SEND OUTS Final Result [facility] [address] [address], [place] [phone] * (ABNORMAL) CBC WITH AUTO DIFF [place] (06/05/2024 8:49 AM DENTAL OFFICE ASSISTANT) WBC 7.0 4.0 - 10.0 10*3/uL [facility] HGB 12.9 11.2 - 15.7 g/dL [facility] [facility] HCT 41.9 34.1 - 44.9 % [facility] PLT 386(H) 163 - 369 10*3/uL [facility] MPV 9.5 9.4 - 12.4 fL [facility] RBC 5.25(H) 3.93 - 5.22 10*6/uL [facility] MCV 80 79 - 95 fL [facility] MCH 24.6(L) 25.6 - 32.2 pg [facility] MCHC 30.8(L) 32.2 - 36.5 g/dL [facility] RDW 14.6(H) 11.6 - 14.4 % [facility] Neutrophils % 59.1 36.0 - 66.0 % [facility] Lymphocytes % 30.4 19.0 - 40.0 % [facility] Monocytes % 7.9 4.1 - 12.1 % [facility] Eosinophils % 1.2 0.0 - 3.5 % [facility] Basophils % 1.0 0.0 - 1.0 % [facility] Absolute Neutrophils 4.1 1.4 - 6.6 10*3/uL [facility] Absolute Lymphocytes 2.1 0.8 - 4.0 10*3/uL [facility] Absolute Monocytes 0.6 0.2 - 1.2 10*3/uL [facility] Absolute Eosinophils 0.1 0.0 - 0.4 10*3/uL [facility] Absolute Basophils 0.1 0.0 - 0.1 10*3/uL [facility] 06/05/2024 8:49 AM DENTAL OFFICE ASSISTANT us Neftali Rudd MD LAB SEND OUTS Final Result [facility] [employer] [place] [address], * RETICULOCYTE COUNT (RETIC) (06/05/2024 8:49 AM DENTAL OFFICE ASSISTANT) Reticulocyte count 1.53 0.50 - 1.70 % [facility] RET-He 28.90 28.20 - 36.60 pg [facility] Comment: RET-He is a direct assessment of incorporation of iron into erythrocyte hemoglobin. It provides an indirect measure of the iron available for new erythropoiesis over past 2-4 days. Blood 06/05/2024 8:49 AM DENTAL OFFICE ASSISTANT Narrative [facility] - 06/05/2024 9:04 AM DENTAL OFFICE ASSISTANT Release to patient->Immediate us Neftali Rudd MD HEMATOLOGY ORDERABLES Final Resu lt [facility] [address] [place] [address], from Last 3 Months Insurance MEDICAID [place] Care Teams Corporate Learning Consultant Relationship Specialty Start Date End Date Keenan William MD [address] [place] [address] PCP - General Family Medicine 09/18/18 Neftali Rudd MD [address] [place] [address] Consulting Physician Oncology 06/30/22
--- OUTSIDE RECORDS SUMMARY | 2024-09-04 13:17 | XMS_ITS | Clinical Summary ---
Author Organization [facility] [employer] Address [address] [place] [address] Care Team Providers Care Manufacturing Maintenance Manager Name Role Phone Keenan William MD Primary Care Provider [phone] Source Comments [facility],non-owned Affiliates and Associated Physician Practices is amultiple site organization consisting of ambulatory clinics and hospital sitesin [place], [place] and [place]. This disclosure is being madepursuant to the Care Everywhere program and may not contain all information available regarding this patient. Last updated 18.[facility] [employer] Allergies No known active allergies Medications * [...] her baseline screening mammogram on 11/03/2020 at [facility], was found to have an [...] institution, bilaterally screening mammogram dated 11/03/2020 from [facility] MAMMOGRAPHY: TECHNICAL INFORMATION: Diagnostic mammogram [...] mL/min/1.7 3m2 01/10/2016 2:30 AM CDT [facility] Blood BLOOD SPECIMEN / Unknown 01/10/2016 2:07 AM CDT 01/10/2016 2:14 AM CDT Andrzej Fitch MD LAB - CHEMISTRY GATITO ENCINAS [facility] [address] [place] [address] from Last 3 Months or Most Recently Relevant to Health Maintenance Care Teams Manufacturing Maintenance Manager Relationship Specialty Start Date End Date Keenan William MD [address] [facility] [address] [place] [address] PCP - General 12/21/20
--- OUTSIDE RECORDS SUMMARY | 2024-09-04 13:17 | XMS_ITS | Patient Health Summary ---
Author Organization [facility] Address [address] [place] [address] Care Team Providers Care Rn Orthopaedic Name Role Phone Keenan William MD Primary Care Provider Note from [facility],non-owned Affiliates and Associated Physician Practices is amultiple site organization consisting of ambulatory clinics and hospital sitesin [place], [place], [place] and [place]. This disclosure is being madepursuant to the Care Everywhere program and may not contain all information available regarding this patient. Last updated 18.[facility] Allergies No known active allergies Medications * [...] her baseline screening mammogram on 11/03/2020 at [facility], was found to have an [...] institution, bilaterally screening mammogram dated 11/03/2020 from [facility] MAMMOGRAPHY: TECHNICAL INFORMATION: Diagnostic mammogram [...] her baseline screening mammogram on 11/03/2020 at [facility], was found to have an [...] institution, bilaterally screening mammogram dated 11/03/2020 from [facility] MAMMOGRAPHY: TECHNICAL INFORMATION: Diagnostic mammogram [...] RIGHT DIAGNOSTIC W RITESH (06/06/2021 9:37 AM BAG BUNDLER) Anatomical Region Laterality Modality Breast Right Mammography 06/06/2021 10:4 3 AM BAG BUNDLER Impressions 06/06/2021 11:04 AM BAG BUNDLER IMPRESSION: Probably benign small asymmetry in the [...] 11:04 AM . Narrative 06/06/2021 11:04 AM BAG BUNDLER EXAMINATIONS: 1. DIGITAL MAMMO RIGHT DIAGNOSTIC W RITESH WITH CAD AND 2. LIMITED RIGHT BREAST ULTRASOUND (COMBINED REPORT) DATE OF EXAM: 06/06/2021 9:37 AM HISTORY: Short-term follow-up of probably benign asymmetry in the right breast centrally on the cc view. COMPARISON: With prior outside mammogram 11/03/2020 from [facility] as well as a targeted right breast [...] images may or may not represent the [place] source data set and thus may contain [...] this second opinion. FACILITY WHERE STUDY PERFORMED: [facility] [place] [facility]. COMPARISON: No studies prior to [...] assessment performed in the breast center at [facility], 01/27/2021. Patient has family history of [...] of this secondopinion. FACILITY WHERE STUDY PERFORMED: [facility]. COMPARISON: No studies prior to 11/03/2020. [...] assessment performed in the breast center at [facility], 01/27/2021. Patient has family history of [...] images may or may not represent the [place] source data set and thus may contain [...] images may or may not represent the [place] source data set and thus may contain [...] this second opinion. FACILITY WHERE STUDY PERFORMED: [facility] [place] [facility]. COMPARISON: No studies prior to [...] assessment performed in the breast center at [facility], 01/27/2021. Patient has family history of [...] of this secondopinion. FACILITY WHERE STUDY PERFORMED: [facility]. COMPARISON: No studies prior to 11/03/2020. [...] assessment performed in the breast center at [facility], 01/27/2021. Patient has family history of [...] images may or may not represent the [place] source data set and thus may contain changes, which may lower the sensitivity in the second opinion interpretation. This report was electronically signed by MONY KRAFT M.D. on 02/14/2021 11:50 AM . Sharron Currie MD IMAGING * SKIN TEST PPD - POINT OF CARE (08/26/2018 12:06 PM BAG BUNDLER) PPD 0MM Normal PPd placed 08/23/2018 @ 2:20pm, PPd read 08/26/2018 @12:07pm Other MISCELLANEOUS SAMPLE S / Unknown 08/26/2018 12:06 PM BAG BUNDLER Reji Young FOAM RUBBER [facility] - POINT OF CARE ORDERABLES * CARDIAC EKG ORDER (01/11/2016 10:36 PM CDT) Narrative 01/11/2016 10:36 PM CDT Ordered by an unspecified provider. Scanned Document CARDIAC SERVICES ORD ERABLES * TROPONIN I (01/10/2016 4:52 AM CDT) Only the most recent of2 resultswithin the time period is included. Troponin I <0.015 0.000 - 0.049 ng/mL 01/10/2016 5:36 AM CDT [facility] Blood BLOOD SPECIMEN / Unknown 01/10/2016 4:52 AM CDT 01/10/2016 5:20 AM CDT Narrative [facility] - 01/10/2016 5:36 AM [...] MD LAB - CHEMISTRY GATITO ENCINAS [facility] Organization Address City/State/ZIP Co de Phone Number [facility] [address] [place] [address] * D-DIMER (01/10/2016 3:36 AM CDT) D-Dimer 0.32 0.17 - 0.5 mg/L FEU 01/10/2016 4:06 AM CDT [facility] Blood BLOOD SPECIMEN / Unknown 01/10/2016 3:36 AM CDT 01/10/2016 3:43 AM CDT Narrative [facility] - 01/10/2016 4:06 AM [...] - COAGULATION OR DERABLES Performing Organization Address City/State/[facility] Co de Phone Number [facility] [address] [place] [address] * XR CHEST PA AND LATERAL (01/10/2016 [...] - 416 x10E9/L 01/10/2016 2:30 AM CDT [facility] RDW-CV 22.1(H) 12.1 - [...] - 2.0 % 01/10/2016 2:30 AM CDT [facility] Immature Granulocytes 0.2 0 - 1 % 01/10/2016 2:30 AM CDT [facility] Neutrophil Absolute 5.04 2.01 - 7.14 x10E9/L 01/10/2016 2:30 AM CDT [facility] Lymphocytes Absolute 4.50(H) 1.07 - 3.94 x10E9/L 01/10/2016 2:30 AM CDT [facility] Monocytes Absolute 0.87 0.26 - 1.07 x10E9/L 01/10/2016 2:30 AM CDT [facility] Eosinophils Absolute 0.10 0 - 0.47 x10E9/L 01/10/2016 2:30 AM CDT [facility] Basophils Absolute 0.08 0 - 0.08 x10E9/L 01/10/2016 2:30 AM CDT [facility] Immature Granulocytes Absolute 0.02 0.00 - 0.06 x10E9/L 01/10/2016 2:30 AM CDT [facility] nRBC Auto 0 /100 WBC 01/10/2016 2:30 AM CDT [facility] Blood BLOOD SPECIMEN / Unknown Venipuncture / Unknown 01/10/2016 2:07 AM CDT 01/10/2016 2:16 AM CDT Andrzej Fitch MD LAB - HEMATOLOGY ORD ERABLES [facility] [address] [place] [address] * (ABNORMAL) COMPREHENSIVE METABOLIC PANEL (01/10/2016 2:07 AM CDT) [facility] Glucose 271(H) 74 - 106 mg/dL 01/10/2016 2:30 AM CDT [facility] Sodium 137 136 - 145 mmol/L 01/10/2016 2:30 AM CDT [facility] Potassium 4.3 3.5 - 5.1 mmol/L 01/10/2016 2:30 AM CDT [facility] Chloride 105 98 - 107 mmol/L 01/10/2016 2:30 AM CDT [facility] CO2 27 22 - [...] - CHEMISTRY [facility] [address] [place], [place] [id number] Care Teams Rn Orthopaedic Relationship Specialty Start Date End Date Keenan William MD [address] [place] [address] PCP - General 12/21/20
--- OUTSIDE RECORDS SUMMARY | 2024-09-04 13:17 | XMS_ITS | Referral Summary ---
Author Organization [facility] Address [address] [place] [address] Care Team Providers Care Medical Affairs Leader Name Role Phone Keenan William MD Primary Care Provider [phone] Source Comments [facility],non-owned Affiliates and Associated Physician Practices is amultiple site organization consisting of ambulatory clinics and hospital sitesin [place], [place], [place] and [place]. This disclosure is being madepursuant to the Care Everywhere program and may not contain all information available regarding this patient. Last updated 18.[facility] Allergies No known active allergies Medications * [...] her baseline screening mammogram on 11/03/2020 at [facility], was found to have an asymmetry [...] institution, bilaterally screening mammogram dated 11/03/2020 from [facility] MAMMOGRAPHY: TECHNICAL INFORMATION: Diagnostic mammogram obtained [...] Fitch MD LAB - CHEMISTRY GATITO ENCINAS [facility] Organization Address City/State/[facility] Co de Phone Number [facility] [address] [place] [address] from Last 3 Months or Most Recently Relevant to Health Maintenance Administered Medications Care Teams Medical Affairs Leader Relationship Specialty Start Date End Date Keenan William MD [address] [place] [address] PCP - General 12/21/20
--- OUTSIDE RECORDS SUMMARY | 2024-09-04 13:17 | XMS_ITS | Continuity of Care Document ---
Author Organization [facility] Address [address] [place] [address] Phone Care Team Providers Care Hand Method Lasting Machine Operator Name Role Phone Prerna Huynh DO Unavailable [...] oral eval problem focused 013 OFFICE/OUTPATIENT VISIT, [facility] Advance Directives Directive Yes / No Effective Date File Name No Information Encounters Encounter Description Practice Location Reason(s) For Visit Diagnoses Date Provider Providers Copied on Encounter [facility], [address], [place], [place], [address] , [place] tel: [phone] [facility] No Information [address] Lino Graff. [address], [place], [place], [address], [place]. tel:[phone] OFFICE/OUTPA TIENT VISIT, EST [facility], [address], [place], [place], [address] , [place] tel: [phone] [facility] SOB and Dizziness (chief complaint) Body mass index (BMI) 40.0-44.9, adultType 2 diabetes mellitus with hyperglycemiaEss ential (primary) hypertensionDizz inessIron deficiency anemia, unspecified Lino Graff. [address], [place], [place], [address], [place]. [phone] [facility], [address], [place], [place], [address] , [place] tel: [phone] [facility] No Information 7 No Information OFFICE/OUTPA TIENT VISIT, EST [facility], [address], [place], [place], [address] , [place] tel: [phone] [facility] anemia (chief complaint) diabetes (chief complaint) Type 2 diabetes mellitus with hyperglycemiaMen orrhagiaEssentia l (primary) hypertension 7 No Information OFFICE OUTPT EST 25 MIN [facility], [address], [place], [place], [address] , [place] tel: [phone] [facility] diabetes (chief complaint) Essential (primary) hypertensionIron deficiency anemia, unspecifiedType 2 diabetes mellitus with hyperglycemiaEnc ounter for screening for other disorder 6 No Information OFFICE OUTPT EST 25 MIN [facility], [address], [place], [place], [address] , [place] tel: [phone] [facility] diabetes (chief complaint) hypertensi on (chief complaint) Type 2 diabetes mellitus with diabetic neuropathy, unspecifiedIron deficiency anemia, unspecifiedEssen tial (primary) hypertensionEnco unter for general adult medical examination without abnormal findings 6 No Information OFFICE OUTPT EST 25 MIN [facility], [address], [place], [place], [address] , [place] tel: [phone] [facility] diabetes (chief complaint) Essential (primary) hypertension 6 Kailey Fallon. [address], [place], [place], [address], [place]. [phone] Referring Provider: Vasyl Zaman, [address], [place], [address] . tel:[phone] OFFICE/OUTPA TIENT VISIT, NEW [facility], [address], [place], [place], [address] , [place] tel: [phone] [facility] foot (chief complaint) foot (chief complaint) Venous insufficiencyDia betes mellitus with neurological complications 5 No Information OFFICE OUTPT EST 25 MIN [facility], [address], [place], [place], [address] , [place] tel: [phone] [facility] Diabetes (chief complaint) Hypertensi on (chief complaint) DM (diabetes mellitus)Benign essential hypertensionIron deficiency anemia, unspecifiedOverw eight 5 No Information [facility], [address], [place], [place], [address] , [place] tel: [phone] [facility] Dental examination 4 No Information OFFICE/OUTPA TIENT VISIT, EST [facility], [address], [place], [place], [address] , [place] tel: [phone] [facility] diabetes (chief complaint) Anemia, Iron DeficiencyDiabet es type 2, uncontrolled 4 No Information [facility], [address], [place], [place], [address] , [place] tel: [phone] [facility] No Information 4 No Information OFFICE/OUTPA TIENT VISIT, EST [facility], [address], [place], [place], [address] , tel: [phone] [facility] DM/HTN (chief complaint) Diabetes type 2, uncontrolledHype rtensionLighthea dedness 4 No Information [facility], [address], [place], [place], [address] , tel: [phone] [facility] Dental examination 3 Tiffany Trent. [address], [place], [place], [address], . tel:[phone] [facility], [address], [place], [place], [address] , tel: [phone] [facility] [place] [place] Dental examination 3 Tiffany Trent. [address], [place], [place], [address], . tel:[phone] OFFICE/OUTPA TIENT VISIT, NEW [facility], [address], [place], [place], [address] , tel: [phone] [facility] Hosp f/up for diabetes (chief complaint) hypertensi [...] Panel. Due on due Referral Referred To: [facility] Ordered: Referrals: Ophthalmology. [facility]. Evaluate and treat ordered Referral Referred To: Chava Gupta DPM [address] [place], [place], [phone] Ordered: Referrals: Podiatry. Chava Gupta DPM. Evaluate and treat ordered Referral Referred To: [facility] Ordered: Referral: [facility]. [employer] Belt [employer]. Evaluate and treat. ordered Patient Education Iron-Rich [...] Lab Order COMPREHE NSIVE METABOLIC PANEL W/EGFR (72512), Appointment on: , Sent on: Sent Future [...] without explanation. She has not seen an medical biller. She checks her feet daily and uses [...] Labs todayLisinopril , Lantus refilled, sent to [facility] next week Related to Dizziness Giving encouragement [...]
[2024-09-04] MEDS: MORPHINE SULFATE (*CRX) 4 MG/ML INJ IV PUSH (13:18)
[2024-09-04 13:23] LABS: Basophils Absolute Auto 0.1 K/mm3 (0.0-0.1); Basophils Percent Auto 0.7 % (0.2-1.2); Eosinophils Absolute Auto 0.1 K/mm3 (0-0.3); Eosinophils Percent Auto 0.8 % (0-4.4); Hemoglobin 11.9 g/dL (12.0-15.0); Immature Granulocyte Absolute 0.04 K/mm3 (0.00-0.031); Immature Granulocyte Percent A 0.5 % (0-0.5); Lymphocytes Absolute Auto 2.21 K/mm3 (0.9-3.2); Lymphocytes Percent Auto 29.6 % (18.3-44.2); Mean Corpuscular HGB Conc 31.3 g/dl (32-36); Mean Corpuscular Hemoglobin 25.2 pg (26-34); Mean Corpuscular Volume 80.3 fl (80-100); Mean Platelet Volume 9.6 fl (7.4-10.4); Monocytes Absolute Auto 0.6 K/mm3 (0.1-0.6); Monocytes Percent Auto 7.9 % (2.6-8.5); Neutrophils Absolute Auto 4.5 K/mm3 (1.3-6.7); Neutrophils Percent Auto 60.5 % (45.5-73.1); Platelet Count Result 352 k/mm3 (150-375); Red Blood Count 4.73 M/mm3 (4.2-5.4); Red Cell Distribution Width 15.5 % (11.5-14.5); White Blood Count 7.5 K/mm3 (4.5-10.0)
[2024-09-04 13:34] LABS: Alanine Aminotransferase 25 U/L (6-35); Albumin Level 3.7 g/dL (3.5-5.1); Alkaline Phosphatase 84 U/L (38-126); Anion Gap 9 mmol/L (4-12); Aspartate Amino Transferase 37 U/L (14-36); Bilirubin,Total 0.5 mg/dL (0.2-1.3); Blood Urea Nitrogen 8 mg/dL (7-17); Calcium 8.8 mg/dL (8.4-10.2); Carbon Dioxide 25 mmol/L (22-30); Chloride 107 mmol/L (98-107); Estimated CRCL calculation 130 ml/min; Estimated Glomerular Filt Rate > 60; Glucose 111 mg/dL (65-110); Potassium 4.2 mmol/L (3.4-5.0); Sodium 141 mmol/L (137-145)
[2024-09-04 13:44] LABS: Prothrombin Time 13.1 Seconds (11.1-14.7)
--- NOTE | 2024-09-04 14:00 | ED_ITS ---
HPI - General Adult General Chief complaint: Vaginal Bleeding Stated complaint: s/p hysterectomy two days, heavy vaginal bleeding Time Seen by Provider: 09/04/24 12:49 History of Present Illness HPI narrative: Patient is a 44-year-old female who presents ER with vaginal bleeding. Began last night but is continuing today. She has passed some clots. It is bright red. She recently underwent laparoscopic bilateral salpingectomy as well as right oophorectomy in left ovarian cystectomy. Her PHOTO RETOUCHER was Dr. Boyd. No urinary symptoms. She has some suprapubic cramping. Related Data Home Medications ?Medication ?Instructions ?Recorded ?Confirmed ?Last Taken ?Type aspirin 81 mg tablet,delayed 81 mg PO DAILY 02/08/22 09/02/24 08/28/24 History release (Adult Aspirin Regimen) clopidogrel 75 mg tablet 75 mg PO DAILY 02/08/22 09/02/24 08/28/24 History furosemide 20 mg tablet 20 mg PO QAM 02/08/22 09/02/24 09/01/24 History lisinopril 20 mg tablet 20 mg PO DAILY 04/13/22 09/02/24 09/01/24 History metformin 500 mg tablet 500 mg PO DAILY 04/13/22 09/02/24 09/01/24 History simvastatin 10 mg tablet 10 mg PO DAILY 04/13/22 09/02/24 09/01/24 History ferrous sulfate 325 mg (65 mg 325 mg PO DAILY 08/10/22 09/02/24 08/28/24 History iron) tablet (Iron (ferrous sulfate)) cholecalciferol (vitamin D3) 1,250 50,000 unit PO ONCE 08/20/24 09/02/24 08/28/24 History mcg (50,000 unit) tablet insulin glargine 100 unit/mL 45 unit subcut QPM 08/20/24 09/02/24 09/01/24 History subcutaneous solution (Lantus U-100 Insulin) Allergies Allergy/AdvReac Type Severity Reaction Status Date / Time No Known Allergies Allergy Verified 09/04/24 12:07 [facility] Past Medical History Medical History (Updated 09/04/24 @ 16:13 by Shoaib Cruz MD) Hyperlipidemia Hypertension PVD (peripheral vascular disease) KENDAL (obstructive sleep apnea) Heart disease Diabetes Surgical History Surgical History Hx laparoscopic cholecystectomy robotic assisted cholecystectomy 08/21/22 H/O vascular surgery Stent placement bilateral lower extremities December 2021.... IVC and iliac vein stents seen on CT. Family History Family History Other Cancer Heart disease Hypertension Lymphoma Social History Social History Smoking status: Never smoker Alcohol intake: never Substance use: never Substance use type: does not use Living arrangements: with family Occupation/Education: unemployed Gender identity (if verbalized by the patient): Female Spiritual care concerns: No Exam 2 Narrative: GENERAL: Well-appearing, well-nourished, and in no acute distress. HEAD: Normocephalic, atraumatic. ENT: Mucous membranes moist. CHEST: Clear to auscultation. No respiratory distress. HEART: Regular rate and rhythm. Normal peripheral pulses. ABDOMEN: Soft, nontender, nondistended, dressings on trocar sites without blood or pus. : Normal external genitalia with evidence of bleeding. Speculum exam with moderate amount of pooling blood. When cleared it does not refill. Cervix closed. No discharge. EXTREMITIES: Normal range of motion. No edema. SKIN: Warm, dry, no rash. NEURO: Alert and oriented x3. PSYCH: Normal mood and affect. Course Course Emergency Course: Discussed with gynecology. No interventions necessary at this time. Outpatient follow-up. Patient has pain control for home and has been educated on lab and imaging findings. Vital Signs Vital signs: Vital Signs Temperature 97.8 F 09/04/24 12:04 Pulse Rate 77 09/04/24 12:04 Respiratory Rate 17 09/04/24 12:04 Blood Pressure 138/77 09/04/24 12:04 Pulse Oximetry 100 09/04/24 12:04 Oxygen Delivery Room Air 09/04/24 12:04 Temperature 97.8 F 09/04/24 12:04 Pulse Rate 64 09/04/24 14:46 Respiratory Rate 15 09/04/24 14:46 Blood Pressure 119/65 09/04/24 15:31 Pulse Oximetry 100 09/04/24 15:31 Oxygen Delivery Room Air 09/04/24 12:04 Medical Decision Making Vital Signs Vital Signs: Vital Signs Temperature 97.8 F 09/04/24 12:04 Pulse Rate 77 09/04/24 12:04 Respiratory Rate 17 09/04/24 12:04 Blood Pressure 138/77 09/04/24 12:04 Pulse Oximetry 100 09/04/24 12:04 Oxygen Delivery Room Air 09/04/24 12:04 Temperature 97.8 F 09/04/24 12:04 Pulse Rate 64 09/04/24 14:46 Respiratory Rate 15 09/04/24 14:46 Blood Pressure 119/65 09/04/24 15:31 Pulse Oximetry 100 09/04/24 15:31 Oxygen Delivery Room Air 09/04/24 12:04 Lab Data 09/04/24 13:16 09/04/24 13:16 Labs: Lab Results 09/04/24 Range/Units 13:16 WBC 7.5 (4.5-10.0) K/mm3 RBC 4.73 (4.2-5.4) M/mm3 Hgb 11.9 L (12.0-15.0) g/dL Hct 38.0 (37.0-47.0) % MCV 80.3 (80-100) fl MCH 25.2 L (26-34) pg MCHC 31.3 L (32-36) g/dl RDW 15.5 H (11.5-14.5) % Plt Count 352 (150-375) k/mm3 MPV 9.6 (7.4-10.4) fl Immature Gran % (Auto) 0.5 (0-0.5) % Neut % (Auto) 60.5 (45.5-73.1) % Lymph % (Auto) 29.6 (18.3-44.2) % [place] % (Auto) 7.9 (2.6-8.5) % Eos % (Auto) 0.8 (0-4.4) % Baso % (Auto) 0.7 (0.2-1.2) % Lymph # (Auto) 2.21 (0.9-3.2) K/mm3 [place] # (Auto) 0.6 (0.1-0.6) K/mm3 Eos # (Auto) 0.1 (0-0.3) K/mm3 Baso # (Auto) 0.1 (0.0-0.1) K/mm3 Abs Immat Gran (auto) 0.04 H (0.00-0.031) K/mm3 Absolute Neuts (auto) 4.5 (1.3-6.7) K/mm3 Absolute Nucleated RBC 0.000 (0.0-0.012) K/mm3 Nucleated RBC % 0.0 (0.0-0.2) % PT 13.1 (11.1-14.7) Seconds INR 1.0 APTT 25.0 (22.3-36.8) Seconds Sodium 141 (137-145) mmol/L Potassium 4.2 (3.4-5.0) mmol/L Chloride 107 (98-107) mmol/L Carbon Dioxide 25 (22-30) mmol/L Anion Gap 9 (4-12) mmol/L BUN 8 (7-17) mg/dL Creatinine 0.55 L (0.7-1.0) mg/dL Estim Creat Clear Calc 130 ml/min Estimated GFR > 60 (59 - ) Glucose 111 H (65-110) mg/dL Calcium 8.8 (8.4-10.2) mg/dL Total Bilirubin 0.5 (0.2-1.3) mg/dL AST 37 H (14-36) U/L ALT 25 (6-35) U/L Alkaline Phosphatase 84 (38-126) U/L Total Protein 7.0 (6.3-8.2) g/dL Albumin 3.7 (3.5-5.1) g/dL Blood Type O Positive Antibody Screen Negative Imaging Data Radiologist's impression: ITS Impressions Abdomen/Pelvis CT 09/04/24 14:37 IMPRESSION: 1. Umbilical hernia containing fat. Discharge Plan Discharge Clinical Impression: Abnormal vaginal bleeding Patient Disposition: Home, Self-Care Condition: Stable Additional Instructions: Your experiencing vaginal bleeding after her surgical procedure. He may have had disruption of your hormone is from having your or removed. Follow-up with your weight loss consultant for further treatment. Return the ER if you lose consciousness, your bleeding through 1 pad an hour for 3 continuous hours, or you have additional concerns. Patient Language: Liberian Prescriptions: No Action furosemide 20 mg tablet 20 mg PO QAM Patient Comments: patient takes 40mg clopidogrel 75 mg tablet 75 mg PO DAILY aspirin [Adult Aspirin Regimen] 81 mg tablet,delayed release (DR/EC) 81 mg PO DAILY metformin 500 mg tablet 500 mg PO DAILY Patient Comments: patient takes 1000mg simvastatin 10 mg tablet 10 mg PO DAILY lisinopril 20 mg tablet 20 mg PO DAILY Patient Comments: patient takes 40mg cholecalciferol (vitamin D3) 1,250 mcg (50,000 unit) tablet 50,000 unit PO ONCE Patient Comments: patient takes on insulin glargine [Lantus U-100 Insulin] 100 unit/mL solution 45 unit subcut QPM hydrocodone-acetaminophen 5-325 mg tablet 1 - 2 tablet PO Q6H PRN (Reason: pain) Qty: 14 0RF ferrous sulfate [Iron (ferrous sulfate)] 325 mg (65 mg iron) Tablet 325 mg PO DAILY Follow-up/Referrals: Chapo Boyd MD [Physician] - 1 Week
== END 2024-09-04 16:58 | disposition home or self-care (01) ==
PROVIDERS: Physician Assistant; Emergency Provider Emergency Medicine; PCP Emergency Medicine
DX: N93.9 Abnormal uterine and vaginal bleeding, unspecified (principal); Z79.82 Long term (current) use of aspirin; Z79.4 Long term (current) use of insulin; E78.5 Hyperlipidemia, unspecified; I10 Essential (primary) hypertension; G47.33 Obstructive sleep apnea (adult) (pediatric); E11.9 Type 2 diabetes mellitus without complications
CPT/HCPCS: 36415; 74177; 80053; 85025; 85610; 85730; 86850; 86900; 86901; 96374; 99284; J2270; Q9967

== ENCOUNTER 2024-11-24 15:58 | Emergency (ER) | payer OTHER, SELFPAY ==
--- NOTE | ~2024-11-24 | XR_ITS ---
EXAMINATION: XR chest 1V portable DATE: 11/24/2024 17:24 INDICATION: Leg and hand edema TECHNIQUE: frontal view of the chest was obtained. COMPARISON: None FINDINGS: The lungs are clear with no focal airspace opacities, pulmonary edema, pleural effusion or pneumothor ax. The cardiomediastinal silhouette is normal. Visualized bones and soft tissues are unremarkable. IMPRESSION: 1. No acute cardiopulmonary disease. Reviewed, dictated and finalized at location A.
--- OUTSIDE RECORDS SUMMARY | 2024-11-24 15:59 | XMS_ITS | Continuity of Care Document ---
Author Organization [facility] Address [address] [place] [address] Phone Care Team Providers Care Nanofabrication Specialist Name Role Phone Prerna Huynh DO Unavailable [...] oral eval problem focused 013 OFFICE/OUTPATIENT VISIT, [facility] Advance Directives Directive Yes / No Effective Date File Name No Information Encounters Encounter Description Practice Location Reason(s) For Visit Diagnoses Date Provider Providers Copied on Encounter [facility], [address], [place], [place], [id number] , [place] tel: [phone] [facility] No Information 8 Lino Graff. [address], [place], [place], [address], [place]. tel:[phone] OFFICE/OUTPA TIENT VISIT, EST [facility], [address], [place], [place], [address] , [place] tel: [phone] [facility] SOB and Dizziness (chief complaint) Body mass index (BMI) 40.0-44.9, adultType 2 diabetes mellitus with hyperglycemiaEss ential (primary) hypertensionDizz inessIron deficiency anemia, unspecified Lino Graff. [address], [place], [place], [address], [place]. [phone] [facility], [address], [place], [place], [address] , [place] tel: [phone] [facility] No Information 7 No Information OFFICE/OUTPA TIENT VISIT, EST [facility], [address], [place], [place], [address] , [place] tel: [phone] [facility] anemia (chief complaint) diabetes (chief complaint) Type 2 diabetes mellitus with hyperglycemiaMen orrhagiaEssentia l (primary) hypertension 7 No Information OFFICE OUTPT EST 25 MIN [facility], [address], [place], [place], [address] , [place] tel: [phone] [facility] diabetes (chief complaint) Essential (primary) hypertensionIron deficiency anemia, unspecifiedType 2 diabetes mellitus with hyperglycemiaEnc ounter for screening for other disorder 6 No Information OFFICE OUTPT EST 25 MIN [facility], [address], [place], [place], [address] , [place] tel: [phone] [facility] diabetes (chief complaint) hypertensi on (chief complaint) Type 2 diabetes mellitus with diabetic neuropathy, unspecifiedIron deficiency anemia, unspecifiedEssen tial (primary) hypertensionEnco unter for general adult medical examination without abnormal findings 6 No Information OFFICE OUTPT EST 25 MIN [facility], [address], [place], [place], [address] , [place] tel: [phone] [facility] diabetes (chief complaint) Essential (primary) hypertension 6 Kailey Fallon. [address], [place], [place], [address], [place]. [phone] Referring Provider: Vasyl Zaman, [address], [place], [address] . tel:[phone] OFFICE/OUTPA TIENT VISIT, NEW [facility], [address], [place], [place], [address] , [place] tel: [phone] [facility] foot (chief complaint) foot (chief complaint) Venous insufficiencyDia betes mellitus with neurological complications 5 No Information OFFICE OUTPT EST 25 MIN [facility], [address], [place], [place], [address] , [place] tel: [phone] [facility] Diabetes (chief complaint) Hypertensi on (chief complaint) DM (diabetes mellitus)Benign essential hypertensionIron deficiency anemia, unspecifiedOverw eight 5 No Information [facility], [address], [place], [place], [address] , [place] tel: [phone] [facility] Dental examination 4 No Information OFFICE/OUTPA TIENT VISIT, EST [facility], [address], [place], [place], [address] , [place] tel: [phone] [facility] diabetes (chief complaint) Anemia, Iron DeficiencyDiabet es type 2, uncontrolled 4 No Information [facility], [address], [place], [place], [address] , [place] tel: [phone] [facility] No Information 4 No Information OFFICE/OUTPA TIENT VISIT, EST [facility], [address], [place], [place], [address] , tel: [phone] [facility] DM/HTN (chief complaint) Diabetes type 2, uncontrolledHype rtensionLighthea dedness 4 No Information [facility], [address], [place], [place], [address] , tel: [phone] [facility] examination 3 Tiffany Trent. [address], [place], [place], [address], . tel:[phone] [facility], [address], [place], [place], [address] , tel: [phone] [facility] examination 3 Tiffany Trent. [address], [place], [place], [address], . tel:[phone] OFFICE/OUTPA TIENT VISIT, NEW [facility], [address], [place], [place], [address] , tel: [phone] [facility] Hosp f/up for diabetes (chief complaint) hypertensi [...] Goal Lipid Panel. Due on due Goal Lipid Panel. Due on due Goal Urine Microalbumin. Due on due Goal BMP fasting. Due on due Goal Urine Microalbumin. Due on due Goal BMP fasting. Due on due Goal Lipid Panel. Due on due Goal Lipid Panel. Due on due Goal BMP fasting. Due on due Goal Urine Microalbumin. Due on due Goal BMP fasting. Due on due Goal Urine Microalbumin. Due on due Goal BMP fasting. Due on due Goal Lipid Panel. Due on due Referral Referred To: [facility] Ordered: Referrals: Ophthalmology. [facility]. Evaluate and treat ordered Referral Referred To: Chava Gupta DPM [address] [place], [place], [id number] Ordered: Referrals: Podiatry. Chava Gupta DPM. Evaluate and treat ordered Referral Referred To: [facility] Ordered: Referral: [facility]. Patent Engineer. Evaluate and treat. ordered Patient Education Iron-Rich [...] Ordered Future Order: Lab Order Lipid Pa josef ([id number]), Ordered on: Ordered Future Order: Lab Order CBC (Inc ludes DIFF/PLT) ([id number]), Ordered on: Ordered Future Order: Lab Order Comprehe nsive Metabolic Panel (OC71), Ordered on: Ordered Future Order: Lab Order Lipid Pa josef (OC73), Ordered on: Ordered Future Order: Lab Order Microalb umin, Random Urine with Creatinine (QH) ([id number]), Ordered on: Ordered Future Order: Lab Order Urinalys is, Macroscopic (OC80), Ordered on: Ordered Future Order: Lab Order CBC (H/H , RBC, INDICES, WBC, PLT) ([id number]), Appointment on: , Sent on: Sent Future Order: Lab Order COMPREHE NSIVE METABOLIC PANEL W/EGFR ([id number]), Appointment on: , Sent on: Sent Future Order: Lab Order HEMOGLOB IN A1c (496), Appointment on: , Sent on: Sent Future Order: Lab Order LIPID PA JOSEF ([id number]), Appointment on: , Sent on: Sent [...] without explanation. She has not seen an boat tender. She checks her feet daily and uses [...] Labs todayLisinopril , Lantus refilled, sent to [facility] next week Related to Dizziness Giving encouragement [...] activity. Related to Be nign essential hypertension Follow a low sodium diet. Relate d to Benign essential hypertension Diet - lots of veget genevieve and fruits, avoid animal fat and excess salt Related to Benign essential hypertension Exercise - 20-30 min utes of aerobic exercise 5 days a week Related to Benign essential hypertension Diet - Avoid sugars and white starches. Mediations alone are unable to cont Related to DM (diabetes mellitus) Increase physical activity. Rela kwasi to DM (diabetes mellitus) Check blood sugar twice a day. R elated to DM (diabetes mellitus) Assessments Type Assessment Date No Information Patient Care Teams Name Effective Dates (start - stop) Status Members No Information
[2024-11-24 16:00] VITALS: BP 150/81; PULSE 92; RESP 16; TEMP 36.9; O2SAT 98
--- OUTSIDE RECORDS SUMMARY | 2024-11-24 16:00 | XMS_ITS | Clinical Summary ---
Author Organization [facility] Address [address], [address] [place] [address] Phone Care Team Providers Care Oncology Consultant Name Role Phone Keenan William MD Primary Care Provider [phone] Neftali Rudd MD Unavailable Allergies No known [...] Tablet 03/27/2022 Active Lancets (OneTouch Delica Plus [id number]) Misc 09/01/2022 Active OneTouch Verio Strip 09/01/2022 Active Lantus SoloStar 100 UNIT/ML Solution Pen-injector 09/05/2023 Active ergocalciferol (VITAMIN D) 60033 UNIT Capsule 09/05/2023 Active FeroSul 325 (65 Fe) MG TabletIndication s:Iron deficiency anemia due to chronic blood loss TAKE 1 TABLET BY MOUTH DAILY 30 Tablet 06/27/2024 Active Active Problems Problem Noted Date Diagnosed Date HTN (hypertension) 06/05/2024 Iron deficiency anemia due to chronic blood loss 10/08/2018 Family History Medical History Relation Name Comments [...] on file Legal Sex Female 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 Gender Identity Not on file Sexual Orientation Not on file Last Filed Vital Signs Vital Sign Reading Time Taken Comments Blood Pressure 170/100 06/05/2024 9:02 AM TICKER INSTALLER Pulse 75 06/05/2024 9:02 AM TICKER INSTALLER Temperature 36.8 C (98.2 F) 06/05/2024 9:02 AM TICKER INSTALLER Respiratory Rate 16 06/05/2024 9:02 AM TICKER INSTALLER Oxygen Saturation 98% 06/05/2024 9:02 AM TICKER INSTALLER Inhaled Oxygen Concentration - - Weight 105.2 kg (232 lb) 06/05/2024 9:02 AM TICKER INSTALLER Height 157.5 cm (5' 2 ) 06/05/2024 9:02 AM TICKER INSTALLER Body Mass Index 42.43 06/05/2024 9:02 AM TICKER INSTALLER Plan of Treatment Health Maintenance Due Date Last Done Comments TdaP Immunization 1980 Hepatitis B Immunization (1 of 3 - 19+ 3-dose series) 1999 Pap Smear 2001 Cervical Cancer Screening (CCS) 2010 HPV/Cotest 2010 Mammogram 11/28/2022 11/28/2021, 11/28/2021 Influenza Immunization (#1) 2024 SARS-COV-2 Immunization ( [...] on patient's age to complete this topic Insurance [place]ICAID [place] Care Teams Oncology Consultant Relationship Specialty Start Date End Date Keenan William MD [address] [place] [id number] PCP - General Family Medicine 09/18/18 Neftali Rudd MD [address] [place] [address] Consulting Physician Oncology 06/30/22
--- OUTSIDE RECORDS SUMMARY | 2024-11-24 16:00 | XMS_ITS | Data Portability ---
Author Organization [facility] Address [address] [place] [address] Care Team Providers Care Consumer Loan Officer Name Role Phone HITESH VELIZ Primary Care Provider Assessment No assessment recorded. Plan of Treatment Reminders Order Date Submit Date Provider Last Modified By Organization Details Last Modified Time Details Appointments None recorded. Lab None recorded. Referral None recorded. Procedures None recorded. Surgeries salpingecto my, laparoscopi c (SURG) [address], [facility] [address], [address], 5 12:53:55 oophorectom y (SURG) 2023 025 [facility], [facility] [address], [address], 5 11:41:45 Imaging US, transvagina l 2023 024 [email or web address] [place], [address], [address], [place], [address], 4 18:14:52 Medication Orders None recorded. Patient TargetsNo targets recorded. Patient InstructionsNo instructions recorded. Reason for Referral None Reported. Results Created Date Observation Date Name Description Value Unit Range Abnormal Flag Note LastModifiedBy Organization Detail LastModifiedTime 04/08/20 24 04/08/2024 US, trans vagin al No observ ation record ed. [email or web address] [place] [address], [place], [address], 04/08/2024 13:17:01 04/08/20 24 04/08/2024 US, trans vagin al No observ ation record ed. [email or web address] [address], [place], [address], 04/09/2024 10:06:41 06/10/20 24 06/10/2024 US, trans vagin al No observ ation record ed. [email or web address] [place] [address], [place], [address], 06/10/2024 14:50:21 06/10/2006/10/2024 US, trans vagin al No observ ation record ed. [email or web address] [address], [place], [address], 2024 08:59:51 Result Notes None recorded. Problems Name Problem SNOMED Code Status Onset Date Resolution Date Notes Provider Name and Address Organization Details Recorded Time SNOMED CT Concept Completed 201810/27/2020 Encntr for general adult medical exam w/o abnormal findings; Recorded Elsewhere : No Locati on: [facility] So urce: EHR Chron ic: N Practic e ID: [id number] Bill able Time: 01:00:00 PM Yara simon [facility] 17:48:10 Finding of menstrual bleeding Completed 201810/27/2020 Menorrhag ia;Record ed Elsewhere : No Locati on: [facility] So urce: EHR Chron ic: N Practic e ID: [id number] Bill able Time: 01:00:00 PM Yara simon [facility] 17:48:[address] Concept Completed 201810/27/2020 Encntr for director of reservations exam (general) (routine) w/o abn findings; Recorded Elsewhere : No Locati on: [facility] So urce: EHR Chron ic: N Practic e ID: [id number] Bill able Time: 01:00:00 PM Yara Juan Albertotaina simon, [facility] 17:48:11 Problem Notes None recorded. Procedures Surgical History Date Name Laterality Status Provider Name and Address Organization Details Recorded Time 025 fallopian tube excision completed Rose Adams [facility] 09/22/2024 12:11:22 025 OOPHORECTOMY (SURG) completed Chapo Boyd MD [address], [place], [address], [facility] 09/03/2024 21:27:08 024 Date of Last Pap Smear completed Brenda Camacho [facility] 02/07/2024 17:07:24 cholecystectomy completed Aruna mosqueda JOE [address], [place], [address], [facility] 01/30/2024 08:46:36 Imaging Results Imaging Date Name Status LastModified by Organization Details LastModified Time 04/08/2024 US, transvaginal completed [email or web address] [place] [address], [place], [address], 04/08/2024 13:17:01 04/08/2024 US, transvaginal completed [email or web address] [address], [place], [address], 04/09/2024 10:06:41 06/10/2024 US, transvaginal completed [email or web address] [place] [address], [place], [address], 06/10/2024 14:50:21 06/10/2024 US, transvaginal completed [email or web address] [address], [place], [address], 2024 08:59:51 Procedure Notes None recorded. Medical [...] Not Available azithromyci n 250 mg tablet 09/22 completed Not Available Not Available Not Available hydrocodone 5 mg-acetamin ophen 325 mg tablet TAKE 1 TO 2 TABLETS BY MOUTH EVERY 6 HOURS NEEDED FOR PAIN 09/22 completed Not Available Not Available Not Available meloxicam 15 mg tablet TAKE 1 TABLET BY MOUTH EVERY DAY NEEDED 01/28 completed Not Available Not Available Not Available lisinopril 20 mg tablet TAKE 1 TABLET BY MOUTH EVERY DAY 09/22 completed Not Available Not Available Not Available prednisone 20 mg tablet TAKE 2 TABLETS BY MOUTH DAILY FOR 5 DAYS 09/22 completed Not Available Not Available Not Available simvastatin 10 mg tablet active Not Available Not Available Not Available metformin 850 mg tablet 04/10 completed Not Available Not Available Not Available metronidazo le 500 mg tablet TAKE 1 TABLET BY MOUTH TWICE DAILY FOR 7 DAYS 01/27 completed Not Available Not Available Not Available THNE Lisinopril 40 mg tablet 10/28 completed Not [...] gauge x 5/16 USE ONCE A DAY 09/22 completed Not Available Not Available Not Available [...] Updated DateTime 04/10/2024 170.18 cm 36.3 kg/m2 011269.4 3 g 138 mm[Hg] 86 mm[Hg] Rose Adams [facility] 10:08:04 Date Recorded Body height Body mass index (BMI) Body weight Systolic blood pressure Diastolic blood pressure Provider Name and Address Organization Details Last Updated DateTime 06/25/2024 170.18 cm 36.6 kg/m2 108356.6 1 g 138 mm[Hg] 85 mm[Hg] Rose [facility] 4 16:29:39 Date Recorded Body height Body mass index (BMI) Body weight Systolic blood pressure Diastolic blood pressure Provider Name and Address Organization Details Last Updated DateTime 09/22/2024 170.18 cm 35.9 kg/m2 067945.6 5 g 139 mm[Hg] 85 mm[Hg] [facility] 5 12:09:09 Social History Question Answer Notes LastModified by Organizat ion Details LastModified Time Tobacco Smoking Status Never Smoker Yara simon, [facility] 10/28/2020 14:09:53 Do You Have An Advance Directive? No [email or web address] Information n ot available 10/28/2020 How Many Years Have You Consumed Alcohol? 2 [email or web address] Information not available 10/28/2020 Are You Blind Or Do You Have Difficulty Seeing? No [email or web address] Information n ot available 10/28/2020 How Much Tobacco Do You Chew? None [email or web address] Information not available 10/28/2020 In The 14 Days Before Symptom Onset, Have You Had Close Contact With A Laboratory-confirm ed COVID-19 While That Case Was Ill? No [email or web address] Information n ot available 10/28/2020 In The 14 Days Before Symptom Onset, Have You Had Close Contact With A Person Who Is Under Investigation For COVID-19 While That Person Was Ill? No [email or web address] Information not available 10/28/2020 Have You Been To An Area Known To Be High Risk For COVID-19? No Information not available 10/28/2020 Are You Deaf Or Do You Have Serious Difficulty Hearing? No [email or web address] Information not available 10/28/2020 What Type Of Diet Are You Following? REGULAR [email or web address] Information n ot available 10/28/2020 What Is The Highest Grade Or Level Of School You Have Completed Or The Highest Degree You Have Received? [id number] [email or web address] Information not available 10/28/2020 Are There Any Guns Present In Your Home? No [email or web address] Information not available 10/28/2020 Do You Use Protection During Sex? Always [email or web address] Information not available 10/28/2020 Do You Use Your Seat Belt Or Car Seat Routinely? Yes [email or web address] Information not available 10/28/2020 Do You Have Smoke And Carbon Monoxide Detectors In Your Home? Yes [email or web address] Information not available 10/28/2020 How Much Tobacco Do You Smoke? No [email or web address] Information not available 10/28/2020 Do You Use Sunscreen Routinely? No [email or web address] Information not available 10/28/2020 Have You Used IV Drugs? No [email or web address] Information not available 10/28/2020 Sex: Unknown Functional Status Question Answer Note LastModified by Organizat ion Details LastModified Time Do you use any illicit or recreational drugs? No [email or web address] Information not available 10/28/2020 What is your level of alcohol consumption? Occasional [email or web address] Information not available 10/28/2020 Do you have difficulty walking or climbing stairs? No [email or web address] Information not available 01/28/2024 Are you able to walk? [email or web address] Information not available 10/28/2020 Are you able to care for yourself? Yes [email or web address] Information n ot available 04/06/2022 What is your occupation? Unemployed [email or web address] Information not available 10/28/2020 Do you have difficulty dressing or bathing? No [email or web address] Information not available 01/28/2024 What is your exercise level? Occasional [email or web address] Information not available 10/28/2020 Mental Status Question Answer Note LastModified by Organization D etails LastModified Time Do you feel stressed (tense, restless, nervous, or anxious, or unable to sleep at night)? [id number] [email or web address] Information not available 10/28/2020 Family History Relationship Description Onset Age of this Age Resolved Age Notes LastModified by Organization Details LastModified Time Mother Hypertensive disorder Not available 2020 09:34:44 Mother Diabetes mellitus [email or web address] Not available 2020 09:34:52 Medical History Condition Response Diabetes Y Heart Problems Y Other Y Anemia Y Hypertension Y Gynecological History Statement/Question Response Abnormal Pap N Flow Heavy Date of LMP 08/06/2024 N Was last menstrual period normal Y [...] SNOMED-CT Code Diagnosis ICD10 Code Diagnosis Note [id number] Chela Enciso CNM [place] [address] [address] 10/28/2020 13:56:08 10/28/2020 14:24:27 Gynecologic examination 48932631 Z01.419 Suggested Calcium with Vitamin D 1200-1500m g daily. Patient advised to get an annual flu shot in the fall and she could obtain at [facility] or [facility] care clinic. Also to obtain TDap vaccinatio [...] please call or respond to this email. [id number] JORGE ALBERTO Servin [place] [address] [address] 04/06/2022 14:34:52 04/06/2022 17:44:26 Abnormal uterine bleeding 7381651735 9100 N93.9 Given amount and duration of bleeding, we agreed to short term course of prometrium to help stop this current episode of bleeding.R /B of medication discussed with patientLab s orderedPel luis alberto u/s orderedSTI endocervic al testing sentUPT declined - female partners onlyConsul kwasi with MD ([facility] Boyd [facility] [...] plan of care. Venereal d isease screening 590114287 Z11.3 [id number] Chapo Boyd MD [place] [address] [address] 04/10/2022 16:42:17 04/10/2022 18:05:48 Irregular periods 34204012 N92.6 [id number] Chapo Boyd MD [place] [address] [address] 05/03/2022 14:00:32 05/03/2022 15:04:56 Abnormal uterine bleeding 7637620462 9100 N93.9 This patient is a 41-year-ol [...] see if it returns. Cyst of ovary 22399911 N 83.209 [id number] JORGE ALBERTO Servin [place] [address],[facility] [address] 01/29/2024 16:41:12 01/30/2024 10:41:27 Gynecologic examination 13492295 Z01.419 WWEpap updatedgc/ ct/trich testing added to [...] answered. Screening for malignant neoplasm of breast 066418261 Z12.39 Venereal d isease screening 823816553 Z11.3 Sexually t ransmitted infectious disease 7826071 A64 Cyst of ovary 41694432 N 83.209 recommende d updated u/s for f/u on right complex ovarian cyst / AUBfollow back up with Dr. Boyd for u/s f/u scheduled [id number] Chapo Boyd MD [place] [address],[place] [address] 02/05/2024 16:27:06 02/05/2024 17:26:10 Cyst of right ovary 3609900757 3399334 N83.291 Cyst of left ovary 38628 90897 1452658 N83.292 [id number] Chapo Boyd MD [place] [address],[place] [address] 02/07/2024 17:01:51 02/09/2024 10:03:42 Cyst of ovary 50269727 N83.209 43-year-ol d female presents for follow-up [...] 2 months and to discussed afterwards . [id number] Chapo Boyd MD [place] [address],[facility] [address] 04/08/2024 10:40:48 04/08/2024 14:23:57 Cyst of left ovary 4481308122 3654326 N83.292 [id number] Chapo Boyd MD [place] [address],[facility] [address] 04/10/2024 09:53:26 04/11/2024 08:19:06 Cyst of ovary 29720073 N83.209 This patient is a 43-year-ol d [...] resolution of the previously seen complex cyst. [id number] Chapo Boyd MD [place] [address],[place] [address] 06/10/2024 09:46:34 06/10/2024 10:35:48 Cyst of right ovary 8216314468 5417094 N83.291 N83.292 [id number] Chapo Boyd MD [place] [address],[place] [address] 06/25/2024 15:55:10 06/26/2024 09:49:40 Mass of ovary 958423854 R19.09 43-year-ol d female with a persistent [...] there is risk of hemorrhage and infection. [id number] Chapo Boyd MD [place] [address] [address] 09/02/2024 09:03:17 09/02/2024 13:04:29 [id number] Chapo Boyd MD [place] [address] [address] 09/22/2024 12:02:55 09/22/2024 12:48:05 Postoperative care 403311334 Z48.89 This patient is a 44-year-ol d female who presents for postop follow-up. She is 1 week postop from a laparoscop ic bilatera Salpingect neida. Her incisions are clean dry and intact. She has no complaints . She is recovering normally. She will follow up as needed. Surgery included right oophorecto my and left salpingect neida. Health Concerns Section Related Observation LastModified by Organization Detai ls LastModified Time None Recorded Concern Status LastModified by Organization Details LastModified Time None Recorded Advance Directives Directive N: Payers Encounter Date Sequence Insurance Name Policy Number Policy Rodas Covered Member ID Rodas Member ID Guarantor Name 04/10/2024 1 [facility] (MEDICAID HMO) [id number] Ale Huynh [id number] Ale Huynh 06/10/2024 1 [facility] (MEDICAID HMO) [id number] Ale Huynh [id number] Ale Huynh 06/25/2024 1 [facility] (MEDICAID HMO) [id number] Ale Huynh [id number] Ale Huynh 09/02/2024 1 [facility] (MEDICAID HMO) [id number] Ale Huynh [id number] Ale Huynh 09/22/2024 1 [facility] (MEDICAID HMO) [id number] 0003 Ale Huynh [id number] Ale Huynh Notes Date Note Type Note [...] cyst. Chapo Boyd MD [address], [place], [address], [facility] 04/10/2024 22:40:50 06/25/2024 text/html 43-year-old fema [...] infection. Chapo Boyd MD [address], [place], [address], [facility] 06/25/2024 19:00:49 09/22/2024 text/html This patient is a 44-year-old female who presents for postop follow-up. She is 1 week postop from a laparoscopic bilatera Salpingectomy. Her incisions are clean dry and intact. She has no complaints. She is recovering normally. She will follow up as needed. Surgery included right oophorectomy and left salpingectomy. Chapo Boyd MD [address], [place], [address], [facility] 09/22/2024 12:47:59 OBGyn Episode No OBEpisode recorded.
--- OUTSIDE RECORDS SUMMARY | 2024-11-24 16:00 | XMS_ITS | CONTINUITY OF CARE DOCUMENT ---
Author Name tico doshi Address Unknown Organization [facility] Address [address] [address] [place] [address] Phone [phone] Care Team Providers Care Back Roller Name Role Phone Mesfin JONES, Lynette Tse Unavailable [phone] Sunny DIAZ, Corinne Unavailable HITESH VELIZ MD Unavailable [phone] PROBLEMS Condition Status Date Provider Notes Shortness [...] In-person encounter Office Visit Lynette Toure MD [facility] - In-person encounter Office Visit Lynette Toure MD [facility] Cardiology examination - In-person encounter Office Visit Lynette Toure MD [facility] - In-person encounter Office Visit Lynette Toure MD [facility] - In-person encounter Office Visit Lynette Toure MD [facility] Sleep apnea - In-person encounter Office Visit Lynette Toure MD [facility] Cardiovascular Condition Screening - In-person encounter Office Visit Lynette Toure MD [facility] Venous insufficiency - In-person encounter Office Visit Lynette Toure MD [facility] Shortness of breathHTN essentialDM - type 2HypercholesterolemiaE jorge l - localized VITAL SIGNS Date Observation Value Provider Body Mass Index (Ratio) 39.82 kg/m2 Mainor Toure MD blood pressure, diastolic -1 mm[Hg] Li nkLogic blood pressure, systolic 137 mm[Hg] Amina kLog blood pressure, diastolic 90 mm[Hg] Shawn yla [facility] blood pressure, systolic 137 mm[Hg] Martha la [facility] oxygen saturation, oximetry 98 % Claudia [facility] pulse rate 83 /min Claudia [facility] blood pressure, cuff size regular Ka yla [facility] weight E&M 232 [lb_av] Claudia [facility] height E&M 64 [in_i] Claudia [facility] Body Mass Index (Ratio) 38.41 kg/m2 Mainor [...] blood pressure, cuff size regular Fa chris [place] blood pressure, diastolic 72 mm[Hg] Fa [facility] blood pressure, systolic 140 mm[Hg] Wyatt [facility] oxygen saturation, oximetry 95 % [facility] respiratory rate E&M 16 /min Claribel [place] pulse rate 82 /min [facility] weight E&M 232 [lb_av] [facility] height E&M 64 [in_i] [facility] Body Mass Index (Ratio) 43.77 kg/m2 [...] blood pressure, diastolic 98 mm[Hg] Ca therine [place] blood pressure, systolic 142 mm[Hg] Cat herine [place] respiratory rate E&M 16 /min Catheri ne [place] pulse rate 67 /min Prerna [place] weight E&M 231 [lb_av] Prerna [place] height E&M 64 [in_i] Prerna [place] ALLERGIES No Known Drug Allergies HISTORY OF MEDICATION USE Medication Status Instructions Dates Provider Indications Com ments Mauro Bautista U-100 Insulin 100 unit/mL (3 mL) insulin pen active 23 units of an evening Veronika Vora clopidogrel 75 mg tablet active TAKE 1 TABLET BY MOUTH EVERY DAY Mallory Rushing aspirin 81 mg tablet,delayed release (DR/EC) active TAKE 1 TABLET BY MOUTH EVERY DAY furosemide 20 mg tablet active Take 1 tablet by mouth twice a day Lynette Toure MD aspirin 81 mg tablet,delayed release (DR/EC) completed - Mallory Rushing clopidogrel 75 mg tablet completed - Lasix 20 mg tablet completed TAKE 1 [...] Payer name Policy type / Coverage type [facility] ID [place] MEDICAID Medicaid [id number] ADVANCE DIRECTIVES Name Date DISCUSSED - NO DECISION MADE TREATMENT PLAN Date Name Performer [id number],B,h as noted improvement of SOB w ill [...] 20 Mg Tablet (Lisinopril) Lynette Toure MD [id number],S,h as had improvement of her edema s till has trace edema bilateral lower extremities. Lynette Toure MD [id number],C, H er updated medication list for this problem includes: Simvastatin 10 Mg Tablet (Simvastatin) Lynette Toure MD [id number],C, B P today: 127/82 P rior BP: 131/82 (05/26/2022) Her updated medication list for this problem includes: Aspirin 81 Mg Tablet,delayed Release (dr/ec) (Aspirin) ..... Take 1 tablet by mouth every day Furosemide 20 Mg Tablet (Furosemide) ..... Take 1 tablet by mouth twice a day Hydrochlorothiazide 12.5 Mg Capsule (Hydrochlorothiazide) Lisinopril 20 Mg Tablet (Lisinopril) Lynette Toure MD [id number],C, H ome sleep study shows an AHI [...] and should continue use. Lynette Toure MD [id number],S, E cho 10/2021 C ONCLUSIONS: 1 . [...] for exercise-induced myocardial ischemia Lynette Toure MD [id number],S, H er updated medication list for this problem includes: Aspirin 81 Mg Tablet,delayed Release (dr/ec) (Aspirin) ..... Take 1 tablet by mouth every day Furosemide 20 Mg Tablet (Furosemide) ..... Take 1 tablet by mouth twice a day Hydrochlorothiazide 12.5 Mg Capsule (Hydrochlorothiazide) Lisinopril 20 Mg Tablet (Lisinopril) Lynette Toure MD [id number],C, B P today: 127/82 P rior BP: 131/82 (05/26/2022) Her updated medication list for this problem includes: Aspirin 81 Mg Tablet,delayed Release (dr/ec) (Aspirin) ..... Take 1 tablet by mouth every day Furosemide 20 Mg Tablet (Furosemide) ..... Take 1 tablet by mouth twice a day Hydrochlorothiazide 12.5 Mg Capsule (Hydrochlorothiazide) Lisinopril 20 Mg Tablet (Lisinopril) Lynette Toure MD [id number],S, C heck A1c, 7.6 Lipid panel was good LDL 51. Her updated medication list for this problem includes: Aspirin 81 Mg Tablet,delayed Release (dr/ec) (Aspirin) Metformin 1,000 Mg Tablet (Metformin) ..... Take 1 tablet twice a day Lisinopril 20 Mg Tablet (Lisinopril) Lynette Toure MD [id number],C, H ome sleep study shows an AHI [...] and should continue use. Lynette Toure MD [id number],C, S he had stenting 16 x 100 [...] U sing compression stockings Lynette Toure MD [id number],C,H ome sleep study shows an AHI of 13.9 which is consistent with a diagnosis of mild KENDAL. Mean oxygen saturation of 9 5%, with the lowest being 89%. May 26, 2022 P ending getting her CPAP Lynette Toure MD [id number],S,I ncrease Lasix C onclusions: The diffusing capacity is high for the measured alveolar volume suggesting a chest wall limitation or reduced force generation a s possible explanations for the restriction. P ulmonary Function Diagnosis: M ild Restriction I ncreased Diffusion S evere Neuromuscular Disease Remains on ASA plavix. Lynette Toure MD [id number],S, C heck A1c, Lipid panel was good LDL 51. Her updated medication list for this problem includes: Aspirin 81 Mg Tablet,delayed Release (dr/ec) (Aspirin) Metformin 1,000 Mg Tablet (Metformin) ..... Take 1 tablet twice a day Lisinopril 20 Mg Tablet (Lisinopril) Lynette Toure MD [id number],C, B P today: 131/82 P rior BP: 134/87 (02/24/2022) Her updated medication list for this problem includes: Aspirin 81 Mg Tablet,delayed Release (dr/ec) (Aspirin) Hydrochlorothiazide 12.5 Mg Capsule (Hydrochlorothiazide) Lisinopril 20 Mg Tablet (Lisinopril) Lynette Toure MD [id number],C, S he had stenting 16 x 100 [...] to wear compression stockings Lynette Toure MD [id number],B, s tart lasix 20mg daily for 1month and see if ther eis improveent juan lallers a nd check for chf Lynette Toure MD [id number],C,C onclusions: The diffusing capacity is high for the measured alveolar volume suggesting a chest wall limitation or reduced force generation a s possible explanations for the restriction. P ulmonary Function Diagnosis: M ild Restriction I ncreased Diffusion S evere Neuromuscular Disease Remains on ASA plavix. Lynette Toure MD [id number],C, B P elevated. Discussion of benefits for [...] of BP, continue use. Lynette Toure MD [id number],C,C berto A1c, Lipid panel was good LDL 51. Her updated medication list for this problem includes: Aspirin 81 Mg Tablet,delayed Release (dr/ec) (Aspirin) Metformin 1,000 Mg Tablet (Metformin) ..... Take 1 tablet twice a day Lisinopril 20 Mg Tablet (Lisinopril) Lynette Toure MD [id number],C,S he had stenting 16 x 100 Abre stent R common illiac vein, 16 x 150 into the L common illiac vein, 12/30/21. Has noted some improvement in swelling as well as the pain, right leg. Encouraged use of compression and eventually can graduate to lower levels of compression. 12/2021 Lynette Toure MD [id number],SJoe 10/2021 C ONCLUSIONS: 1 . Normal left [...] for exercise-induced myocardial ischemia Lynette Toure MD [id number],C,B P elevated. Discussion of benefits for remote [...] 20 Mg Tablet (Lisinopril) Lynette Toure MD [id number],C,V ector 10/26/21 CONCLUSIONS: 1 . No evidence of significant venous insufficiency of the lower extremities bilaterally. 2 . Significant venous insufficiency of the great saphenous vein bilaterally. 3 . Significant venous insufficiency of the femoral vein bilaterally. E lectronically Signed By: Carrie Toure MD, [facility] Will schedule JAG and venogram to eval for May-Thurner syndrome. Lynette Toure MD [id number],S,s tart lasix 20mg daily for 1month and see if ther eis improveent c heck venouls doplers a nd check for chf Lynette Toure MD [id number],S, Lynette patiño MD [id number],C, H er updated medication list for this problem includes: Simvastatin 10 Mg Tablet (Simvastatin) Lynette Toure MD [id number],C,c grahamk echo and pft c heck stress Lynette Toure MD [id number],C, H er updated medication list for this [...] a day Lisinopril 20 Mg Tablet (Lisinopril) Amie mosqueda 2023 w ill recheck A1c, recalls her [...] continue use. Lynette Toure MD Cardiology: E cho 10/2021 C ONCLUSIONS: 1 . [...] benefiting from therapy and should continue use. Lyentte Toure MD Cardiology: S he had stenting [...] on ASA plavix. Lynette Toure MD Cardiology: C berto A1c, Lipid panel was good LDL [...] doplers a nd check for chf Lynette oTure MD Cardiology:Conclusio ns: The diffusing capacity is [...] Routine 6 minute walk test DLCO - 41482 FRC - 05506 FVC - 90775 HISTORY OF PROCEDURES Procedure Date Procedure Name [...] MD compl eted FVC / MVV - 73160 Lynette Toure MD completed BLOOD COUNT HEMOGLOBIN Lynette Toure MD completed FRC - 91231 Lynette Toure MD comp leted SpO2 w/o 6min walk/titration yLnette Toure MD completed SVC - 69850 Lynette Toure MD comp leted DLCO - 96001 Lynette Toure MD com pleted
--- OUTSIDE RECORDS SUMMARY | 2024-11-24 16:00 | XMS_ITS | Clinical Summary ---
Author Organization [facility] Address [address] [address] Care Team Providers Care President Name Role Phone Keenan William MD Primary Care Provider [phone] [facility],non-owned Affiliates and Associated Physician Practices is amultiple site organization consisting of ambulatory clinics and hospital sitesin [place], [place], [place] and [place]. This disclosure is being madepursuant to the Care Everywhere program and may not contain all information available regarding this patient. Last updated 18.[facility] Allergies No known active allergies Medications * Be aware that medications may not be up to date on this document. Alwaysverify current medications with the patient. lisinopril (PRINIVIL; ZESTRIL) 20 MG tablet Take 20 mg by mouth once daily Active insulin glargine (LANTUS) vial Inject 55 Units subcutaneously at bedtime Active naproxen sodium (ANAPROX DS) 550 MG tablet Take 1 Tab by mouth 2 times daily as needed for Pain 20 Tab 0 6 Active Additional Information Patient not taking.Reported on 11/28/2021 HYDROcodone-ac etaminophen (NORCO) 5-325 MG tablet Take 1 Tab by mouth every 4 hours as needed for Pain 15 Tab 0 6 Active Additional Information Patient not taking.Reported on 11/28/2021 hydroCHLOROthi azide (MICROZIDE) 12.5 MG capsule 1 Active FEROSUL 325 (65 Fe) MG tablet Take 325 mg by mouth once daily 1 Active simvastatin (ZOCOR) 10 MG tablet 1 Active metFORMIN (GLUCOPHAGE) 1000 MG tablet 2 Active Family History Medical History Relation Name Comments Cancer - Breast Maternal Aunt Lymphoma Mother Relation Name Status Comments Maternal Aunt Mother Social History Tobacco Use Types Packs/Day Years Used Date Smoking Tobacco: Never Smokeless Tobacco: Never Alcohol Use Standard Drinks/Week Comments No 0 (1 standard drink = 0.6 oz pur e alcohol) Comments Unknown Sex and Gender Information Value Date Recorded Sex Assigned at Not on file Legal Sex Female 5:36 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 Gender Identity Not on file Sexual Orientation [...] 10/28/2020 MAMMOGRAM 11/29/2023 11/28/2021, 01/27/2021 COVID-19 VACCINE (2023-2 5 season) 2024 DEPRESSION SCREENING 07/16/2024 INFLUENZA VACCINE (Season Ended) 2025 ZOSTER VACCINE (1 of 2) 2030 HIB VACCINE Aged Out No longer eligi ble based on patient's age to complete this topic HPV VACCINE Aged Out No longer eligi ble based on patient's age to complete this topic MENINGOCOCCAL (Group B) VACCINE SHARED DECISION-MAKING Aged Out No longer eligible based on patient's age to complete this topic MENINGOCOCCAL GROUPS A/C/Y/W VACCINE Aged Out No longer eligible b [...] her baseline screening mammogram on 11/03/2020 at [facility], was found to have an asymmetry [...] institution, bilaterally screening mammogram dated 11/03/2020 from [facility] MAMMOGRAPHY: TECHNICAL INFORMATION: Diagnostic mammogram obtained [...] without a benign or a malignant lesion. us Sharron Currie MD MAMMO ORDERABLES Final Resu lt * (ABNORMAL) COMPREHENSIVE METABOLIC PANEL (01/10/2016 2:07 [...] - 31 mmol/L 01/10/2016 2:30 AM CDT [facility] Calcium 8.9 8.5 - 10.1 mg/dL 01/10/2016 2:30 AM CDT [facility] Anion Gap 5 5 - 20 mmol/L 01/10/2016 2:30 AM CDT [facility] BUN 11 7 - 21 mg/dL 01/10/2016 2:30 AM CDT [facility] Creatinine 0.89 0.50 - 1.30 mg/dL 01/10/2016 2:30 AM CDT [facility] Alkaline Phosphatase 94 38 - 126 U/L 01/10/2016 2:30 AM CDT [facility] ALT 28 12 - 78 U/L 01/10/2016 2:30 AM CDT [facility] AST 16 5 - 40 U/L 01/10/2016 2:30 AM CDT [facility] Protein Total 8.1 6.4 - 8.2 gm/dL 01/10/2016 2:30 AM CDT [facility] Albumin 3.6 3.4 - 5.0 gm/dL 01/10/2016 2:30 AM CDT [facility] Bilirubin Total 0.2 0.2 - 1.0 mg/dL 01/10/2016 2:30 AM CDT [facility] eGFR by MDRD >60 >60 mL/min/1.7 3m2 01/10/2016 2:30 AM CDT [facility] eGFR by MDRD >60 >60 mL/min/1.7 3m2 01/10/2016 2:30 AM CDT [facility] Blood BLOOD SPECIMEN / Unknown 01/10/2016 2:07 AM CDT 01/10/2016 2:14 AM CDT Andrzej Fitch MD LAB - CHEMISTRY ORDERABLES Final Result Performing Organization Address City/State/[facility] Co de Phone Number [facility] [address] [place] [address] from Last 3 Months or Most Recently Relevant to Health Maintenance Insurance [facility] SELF PAY NO INSURANCE Member Subscriber Plan / Payer (Ef fective for All Dates) Name:Ale Huynh Member ID:Not on file Relation to Subscriber:Not on file Name:ALE HUYNH Subscriber ID:Not on file (Home) Address: [address] [place] [id number] Payer ID:Not on file Group ID:Not on file Type:Self Pay Address: [place], [place] [facility] Care Teams President Relationship Specialty Start Date End Date Keenan William MD [address] [place] [id number] PCP - General 12/21/20
--- NOTE | 2024-11-24 16:11 | ECG_ITS ---
Test Date: 2024-11-24 16:22:07 Measurements Intervals [place] Rate: 87 P: 34 KS: 156 QRS: 14 QRSD: 83 T: 19 QT: 346 QTc: 417 Interpretive Statements SINUS RHYTHM Compared to ECG 08/26/2024 09:37:21 No significant changes Electronically Signed On 11-25-2024 14:48:18 CDT by Esvin Rivera M.D.
--- NOTE | 2024-11-24 16:56 | ED_ITS ---
HPI - Extremity Problem General Chief complaint: Extremity Problem,Nontraumatic Stated complaint: hand and feet swelling Time Seen by Provider: 11/24/24 16:09 History of Present Illness HPI Narrative: [age] old female presents emergency department for evaluation for lower extremity swelling and upper extremity swelling. Patient does take Lasix b.i.d. patient states that Related Data Home Medications ?Medication ?Instructions ?Recorded ?Confirmed ?Last Taken ?Type aspirin 81 mg tablet,delayed 81 mg PO DAILY 02/08/22 09/02/24 08/28/24 History release (Adult Aspirin Regimen) clopidogrel 75 mg tablet 75 mg PO DAILY 02/08/22 09/02/24 08/28/24 History furosemide 20 mg tablet 20 mg PO QAM 02/08/22 09/02/24 09/01/24 History lisinopril 20 mg tablet 20 mg PO DAILY 04/13/22 09/02/24 09/01/24 History metformin 500 mg tablet 500 mg PO DAILY 04/13/22 09/02/24 09/01/24 History simvastatin 10 mg tablet 10 mg PO DAILY 04/13/22 09/02/24 09/01/24 History ferrous sulfate 325 mg (65 mg 325 mg PO DAILY 08/10/22 09/02/24 08/28/24 History iron) tablet (Iron (ferrous sulfate)) cholecalciferol (vitamin D3) 1,250 50,000 unit PO ONCE 08/20/24 09/02/24 08/28/24 History mcg (50,000 unit) tablet insulin glargine 100 unit/mL 45 unit subcut QPM 08/20/24 09/02/24 09/01/24 History subcutaneous solution (Lantus U-100 Insulin) Allergies Allergy/AdvReac Type Severity Reaction Status Date / Time No Known Allergies Allergy Verified 11/24/24 15:59 Review of Systems 2 Review of Systems: All systems reviewed & are unremarkable except as noted in HPI and below PMFSH Past Medical History Medical History (Updated 11/24/24 @ 18:50 by Mustapha Zaidi MD) Hyperlipidemia Hypertension PVD (peripheral vascular disease) KENDAL (obstructive sleep apnea) Heart disease Diabetes Surgical History Surgical History Hx laparoscopic cholecystectomy robotic assisted cholecystectomy 08/21/22 H/O vascular surgery Stent placement bilateral lower extremities December 2021.... IVC and iliac vein stents seen on CT. Family History Family History Other Cancer Heart disease Hypertension Lymphoma Social History Social History Smoking status: Never smoker Alcohol intake: never Substance use: never Substance use type: does not use Living arrangements: with family Occupation/Education: unemployed Gender identity (if verbalized by the patient): Female Spiritual care concerns: No Exam 2 Narrative: APPEARANCE: Well appearing, no pain, no distress, well-nourished. HEAD: normocephalic, atraumatic. EYES: PERRLA/EOMI, conjunctivae clear. NOSE: Normal no drainage EARS:TMS clear with good light reflex. THROAT: Pharynx clear, no exudate. NECK: Supple. No adenopathy, no masses. RESPIRATORY: Airway patent, respirations nonlabored. Clear to auscultation bilaterally, no rales, rhonchi, wheezing. CARDIOVASCULAR: Regular rate and rhythm without murmurs rubs or gallops. ABDOMINAL: Soft, nontender, nondistended, normal bowel sounds MUSCULOSKELETAL: Moves all extremities. Strength/ROM intact, No edema, No calf tenderness. NEURO: Alert. Cranial nerves II through XII intact. Grossly intact SKIN: Warm, dry. Normal Color Course Vital Signs Vital signs: Vital Signs Temperature 98.4 F 11/24/24 16:00 Pulse Rate 92 11/24/24 16:00 Respiratory Rate 16 11/24/24 16:00 Blood Pressure 150/81 H 11/24/24 16:00 Pulse Oximetry 98 11/24/24 16:00 Oxygen Delivery Room Air 11/24/24 16:00 Temperature 98.4 F 11/24/24 16:00 Pulse Rate 92 11/24/24 16:00 Respiratory Rate 16 11/24/24 16:00 Blood Pressure 150/81 H 11/24/24 16:00 Pulse Oximetry 98 11/24/24 16:00 Oxygen Delivery Room Air 11/24/24 16:00 MDM - Extremity (Nontraumatic) Lab Data 11/24/24 16:30 11/24/24 17:22 Labs: Lab Results 05/07/0911/24/24 11/24/24 Range/Units 16:30 17:03 17:22 WBC 7.4 (4.5-10.0) K/mm3 RBC 4.93 (4.2-5.4) M/mm3 Hgb 12.2 (12.0-15.0) g/dL Hct 39.6 (37.0-47.0) % MCV 80.3 (80-100) fl MCH 24.7 L (26-34) pg MCHC 30.8 L (32-36) g/dl RDW 15.1 H (11.5-14.5) % Plt Count 437 H (150-375) k/mm3 MPV 10.4 (7.4-10.4) fl Immature Gran % (Auto) 0.0 (0-0.5) % Neut % (Auto) 50.6 (45.5-73.1) % Lymph % (Auto) 39.6 (18.3-44.2) % [place] % (Auto) 7.8 (2.6-8.5) % Eos % (Auto) 1.2 (0-4.4) % Baso % (Auto) 0.9 (0.2-1.2) % Lymph # (Auto) 2.93 (0.9-3.2) K/mm3 [place] # (Auto) 0.6 (0.1-0.6) K/mm3 Eos # (Auto) 0.1 (0-0.3) K/mm3 Baso # (Auto) 0.1 (0.0-0.1) K/mm3 Abs Immat Gran (auto) 0.00 (0.00-0.031) K/mm3 Absolute Neuts (auto) 3.8 (1.3-6.7) K/mm3 Absolute Nucleated RBC 0.000 (0.0-0.012) K/mm3 Nucleated RBC % 0.0 (0.0-0.2) % % Immature Plt Fraction TNP Sodium 140 (137-145) mmol/L Potassium 4.1 (3.4-5.0) mmol/L Chloride 106 (98-107) mmol/L Carbon Dioxide 27 (22-30) mmol/L Anion Gap 7 (4-12) mmol/L BUN 12 (7-17) mg/dL Creatinine 0.60 L (0.7-1.0) mg/dL Estim Creat Clear Calc 117 ml/min Estimated GFR > 60 (59 - ) Glucose 174 H (65-110) mg/dL Lactic Acid 1.1 (0.7-2.0) mmol/L Calcium 9.1 (8.4-10.2) mg/dL Total Bilirubin 0.2 (0.2-1.3) mg/dL AST 29 (14-36) U/L ALT 20 (6-35) U/L Alkaline Phosphatase 88 (38-126) U/L NT-Pro-B Natriuret Pep < 20 (19.9-100) pg/mL Total Protein 8.0 (6.3-8.2) g/dL Albumin 4.3 (3.5-5.1) g/dL Discharge Plan Discharge Clinical Impression: Edema Patient Disposition: Home Condition: Stable Instructions: Antibiotic Form, Low-Sodium Diet (ED), Edema (ED) Additional Instructions: You were treated with a dose of IV Lasix in the emergency department. Follow a low-sodium diet. Have close follow-up with your physicians. If you have any worsening symptoms then please call or return to the emergency department. Patient Language: Bermudian Prescriptions: No Action furosemide 20 mg tablet 20 mg PO QAM Patient Comments: patient takes 40mg clopidogrel 75 mg tablet 75 mg PO DAILY aspirin [Adult Aspirin Regimen] 81 mg tablet,delayed release (DR/EC) 81 mg PO DAILY metformin 500 mg tablet 500 mg PO DAILY Patient Comments: patient takes 1000mg simvastatin 10 mg tablet 10 mg PO DAILY lisinopril 20 mg tablet 20 mg PO DAILY Patient Comments: patient takes 40mg cholecalciferol (vitamin D3) 1,250 mcg (50,000 unit) tablet 50,000 unit PO ONCE Patient Comments: patient takes on insulin glargine [Lantus U-100 Insulin] 100 unit/mL solution 45 unit subcut QPM hydrocodone-acetaminophen 5-325 mg tablet 1 - 2 tablet PO Q6H PRN (Reason: pain) Qty: 14 0RF ferrous sulfate [Iron (ferrous sulfate)] 325 mg (65 mg iron) Tablet 325 mg PO DAILY Follow-up/Referrals: Keenan William MD [Primary Care Provider] -
[2024-11-24 17:31] LABS: Hematocrit 39.6 % (37.0-47.0); Hemoglobin 12.2 g/dL (12.0-15.0); Mean Corpuscular HGB Conc 30.8 g/dl (32-36); Mean Corpuscular Hemoglobin 24.7 pg (26-34); Mean Corpuscular Volume 80.3 fl (80-100); Mean Platelet Volume 10.4 fl (7.4-10.4); Platelet Count Result 437 k/mm3 (150-375); Red Blood Count 4.93 M/mm3 (4.2-5.4); Red Cell Distribution Width 15.1 % (11.5-14.5); White Blood Count 7.4 K/mm3 (4.5-10.0)
[2024-11-24 17:32] LABS: Basophils Percent Auto 0.9 % (0.2-1.2); Eosinophils Percent Auto 1.2 % (0-4.4); Lymphocytes Percent Auto 39.6 % (18.3-44.2); Monocytes Percent Auto 7.8 % (2.6-8.5); Neutrophils Percent Auto 50.6 % (45.5-73.1)
[2024-11-24 17:33] LABS: Basophils Absolute Auto 0.1 K/mm3 (0.0-0.1); Eosinophils Absolute Auto 0.1 K/mm3 (0-0.3); Lymphocytes Absolute Auto 2.93 K/mm3 (0.9-3.2); Monocytes Absolute Auto 0.6 K/mm3 (0.1-0.6); Neutrophils Absolute Auto 3.8 K/mm3 (1.3-6.7)
[2024-11-24 17:40] LABS: Alanine Aminotransferase 20 U/L (6-35); Albumin Level 4.3 g/dL (3.5-5.1); Alkaline Phosphatase 88 U/L (38-126); Anion Gap 7 mmol/L (4-12); Aspartate Amino Transferase 29 U/L (14-36); Bilirubin,Total 0.2 mg/dL (0.2-1.3); Blood Urea Nitrogen 12 mg/dL (7-17); Calcium 9.1 mg/dL (8.4-10.2); Carbon Dioxide 27 mmol/L (22-30); Chloride 106 mmol/L (98-107); Estimated CRCL calculation 117 ml/min; Estimated Glomerular Filt Rate > 60; Glucose 174 mg/dL (65-110); Potassium 4.1 mmol/L (3.4-5.0); Sodium 140 mmol/L (137-145)
[2024-11-24 17:49] LABS: NT Pro B Type Natriuretic Pept < 20 pg/mL (19.9-100)
[2024-11-24 18:05] LABS: Lactic Acid Reflex 1.1 mmol/L (0.7-2.0)
[2024-11-24] MEDS: FUROSEMIDE INJ 40 MG/4 ML VIAL IV PUSH (18:48)
[2024-11-24 18:56] VITALS: BP 130/93; PULSE 82; RESP 14; O2SAT 100
== END 2024-11-24 18:58 | disposition home or self-care (01) ==
PROVIDERS: Emergency Provider Emergency Medicine; PCP Emergency Medicine
DX: R60.9 Edema, unspecified (principal); E78.5 Hyperlipidemia, unspecified; I10 Essential (primary) hypertension; G47.30 Sleep apnea, unspecified; E11.9 Type 2 diabetes mellitus without complications; Z79.4 Long term (current) use of insulin
CPT/HCPCS: 36415; 71045; 80053; 83605; 83880; 85025; 93005; 96374; 99284; J1938

== ENCOUNTER 2025-06-28 15:00 | Emergency (ER) | payer OTHER, SELFPAY ==
--- OUTSIDE RECORDS SUMMARY | 2017-12-05 09:59 | XMS_ITS | Continuity of Care Document ---
Author Organization [facility] Address [address] [place] [address] Phone Care Team Providers Care Senior Cost Analyst Name Role Phone Prerna Huynh DO Unavailable Unavailable Allergies, Adverse Reactions, Alerts Substance Reaction Status Criticality No Known Allergies Active No Inform ation Medications Medication Instructions Dosage Effective Dates (start - stop) Status Comments Lantus Solostar 100 unit/mL (3 mL) subcutaneous insulin pen Inject 55 units subq route qhs - Active lisinopril 20 mg tablet take 1 tablet by oral route every day 20 MG - Active BD Insulin Pen Needle UF Mini 31 gauge x 3/16 use daily for insulin injection - Active metformin 1,000 mg tablet take 1 tablet by oral route 2 times every day with morning and evening meals 1000 MG - Active gabapentin 100 mg capsule take 1 capsule by oral route 3 times every day 100 MG - Active ferrous sulfate 325 mg (65 mg iron) tablet Take 2 times by mouth every day with orange juice - Active TrueTrack Smart System strips Check blood sugar via fingerstick three times daily - Active TrueTrack lancets BUCCAL Fingerstick: Test glucose up to three times daily as directed - Active Eucerin topical cream Apply to the feet daily, especially after bath - Active Procedures Procedure Date OFFICE/OUTPATIENT VISIT, EST HEMOGLOBIN; GLYCOSYLATED (A1C) 18 OFFICE/OUTPATIENT VISIT, EST OFFICE OUTPT EST 25 MIN Alcohol and/or drug screening 6 HEMOGLOBIN; GLYCOSYLATED (A1C) Dec-30-20 16 COLLECTION OF CAPILLARY BLOOD SPECIMEN ( EG, FINGER, HEEL, EAR STICK) COLLECTION OF VENOUS BLOOD BY VENIPUNCTU RE BLOOD COUNT; COMPLETE (CBC), AUTOMATED (HGB, HCT, RBC, WBC AND PLATELET COUNT) COMPRE METAB PANEL LIPID PANEL COLLECTION OF VENOUS BLOOD BY VENIPUNCTU RE IRON IRON BINDING CAPACITY FERRITIN OFFICE OUTPT EST 25 MIN OFFICE OUTPT EST 25 MIN HEMOGLOBIN; GLYCOSYLATED (A1C) 16 COLLECTION OF CAPILLARY BLOOD SPECIMEN ( EG, FINGER, HEEL, EAR STICK) OFFICE/OUTPATIENT VISIT, Alcohol and/or drug screening 5 OFFICE OUTPT EST 25 MIN THYROID STIMULATING HORMONE (TSH) CALCIFEDIOL (25-OH VITAMIN D-3) 015 THYROXINE; FREE IRON IRON BINDING CAPACITY COLLECTION OF VENOUS BLOOD BY VENIPUNCTU RE FOLIC ACID; SERUM COMPRE METAB PANEL LIPID PANEL COLLECTION OF VENOUS BLOOD BY VENIPUNCTU RE BLOOD COUNT; COMPLETE (CBC), AUTOMATED D IFF HEMOGLOBIN; GLYCOSYLATED (A1C) 15 COLLECTION OF CAPILLARY BLOOD SPECIMEN ( EG, FINGER, HEEL, EAR STICK) CYANOCOBALAMIN (VITAMIN B-12); 15 Surgical extr erupted tooth OFFICE/OUTPATIENT VISIT, EST COLLECTION OF VENOUS BLOOD BY VENIPUNCTU RE OFFICE/OUTPATIENT VISIT, EST Surgical extr erupted tooth Periapical Radiographic, first Image Mar Limit oral eval problem focused 013 OFFICE/OUTPATIENT VISIT, [facility] Advance Directives Directive Yes / No Effective Date File Name No Information Encounters Encounter Description Practice Location Reason(s) For Visit Diagnoses Date Provider Providers Copied on Encounter [facility], [address], [place], [place], [address] , [place] tel: [phone] [facility] No Information 8 Lino Graff. [address], [place], [place], [address], [place]. tel:[phone] OFFICE/OUTPA TIENT VISIT, EST [facility], [address], [place], [place], [address] , [place] tel: [phone] [facility] SOB and Dizziness (chief complaint) Body mass index (BMI) 40.0-44.9, adultType 2 diabetes mellitus with hyperglycemiaEss ential (primary) hypertensionDizz inessIron deficiency anemia, unspecified Lino Graff. [address], [place], [place], [address], [place]. [phone] [facility], [address], [place], [place], [address] , [place] tel: [phone] [facility] No Information 7 No Information OFFICE/OUTPA TIENT VISIT, EST [facility], [address], [place], [place], [address] , [place] tel: [phone] [facility] anemia (chief complaint) diabetes (chief complaint) Type 2 diabetes mellitus with hyperglycemiaMen orrhagiaEssentia l (primary) hypertension 7 No Information OFFICE OUTPT EST 25 MIN [facility], [address], [place], [place], [address] , [place] tel: [phone] [facility] diabetes (chief complaint) Essential (primary) hypertensionIron deficiency anemia, unspecifiedType 2 diabetes mellitus with hyperglycemiaEnc ounter for screening for other disorder 6 No Information OFFICE OUTPT EST 25 MIN [facility], [address], [place], [place], [address] , [place] tel: [phone] [facility] diabetes (chief complaint) hypertensi on (chief complaint) Type 2 diabetes mellitus with diabetic neuropathy, unspecifiedIron deficiency anemia, unspecifiedEssen tial (primary) hypertensionEnco unter for general adult medical examination without abnormal findings 6 No Information OFFICE OUTPT EST 25 MIN [facility], [address], [place], [place], [address] , [place] tel: [phone] [facility] diabetes (chief complaint) Essential (primary) hypertension 6 Kailey Fallon. [address], [place], [place], [address], [place]. [phone] Referring Provider: Vasyl Zaman, [address], [place], [address] . tel:[phone] OFFICE/OUTPA TIENT VISIT, NEW [facility], [address], [place], [place], [address] , [place] tel: [phone] [facility] foot (chief complaint) foot (chief complaint) Venous insufficiencyDia betes mellitus with neurological complications 5 No Information OFFICE OUTPT EST 25 MIN [facility], [address], [place], [place], [address] , [place] tel: [phone] [facility] Diabetes (chief complaint) Hypertensi on (chief complaint) DM (diabetes mellitus)Benign essential hypertensionIron deficiency anemia, unspecifiedOverw eight 5 No Information [facility], [address], [place], [place], [address] , [place] tel: [phone] [facility] Dental examination 4 No Information OFFICE/OUTPA TIENT VISIT, EST [facility], [address], [place], [place], [address] , [place] tel: [phone] [facility] diabetes (chief complaint) Anemia, Iron DeficiencyDiabet es type 2, uncontrolled 4 No Information [facility], [address], [place], [place], [address] , [place] tel: [phone] [facility] No Information 4 No Information OFFICE/OUTPA TIENT VISIT, EST [facility], [address], [place], [place], [address] , tel: [phone] [facility] DM/HTN (chief complaint) Diabetes type 2, uncontrolledHype rtensionLighthea dedness 4 No Information [facility], [address], [place], [place], [address] , tel: [phone] [facility] examination 3 Tiffany Trent. [address], [place], [place], [address], . tel:[phone] [facility], [address], [place], [place], [address] , tel: [phone] [facility] examination 3 Tiffany Trent. [address], [place], [place], [address], . tel:[phone] OFFICE/OUTPA TIENT VISIT, NEW [facility], [address], [place], [place], [address] , tel: [phone] [facility] Hosp f/up for diabetes (chief complaint) hypertensi on (chief complaint) Overweight (chief complaint) DM (diabetes mellitus)HTN (hypertension)Ov erweightConstipa tionBlurred vision 3 No Information Family History Family Member Type Diagnosis Age At Onset Maternal uncle Problem (finding) Maternal history of d iabetes mellitus Mother Problem (finding) hypertension Mother Problem (finding) Maternal history of michelle betes mellitus Maternal aunt Problem (finding) Maternal history of di abetes mellitus Payers Payer name Insurance type Covered democrat ID Authoriza tion(s) No Information Social History Type Description Quantity Date Captured Comments Sex Female Smoking Status No Information Chief Complaint And Reason For Visit No Information Reason For Referral Reason For Referral No Information Plan Of Treatment Date Type Action Status Goal Urine Microalbumin. Due on due Goal Lipid Panel. Due on due Goal BMP fasting. Due on due Goal BMP fasting. Due on due Goal Lipid Panel. Due on due Goal Urine Microalbumin. Due on due Goal BMP fasting. Due on due Goal Urine Microalbumin. Due on due Goal Lipid Panel. Due on due Goal BMP fasting. Due on due Goal Urine Microalbumin. Due on due Goal Lipid Panel. Due on due Goal Urine Microalbumin. Due on due Goal BMP fasting. Due on due Goal Lipid Panel. Due on due Goal BMP fasting. Due on due Goal Lipid Panel. Due on due Goal Urine Microalbumin. Due on due Goal BMP fasting. Due on due Goal Urine Microalbumin. Due on due Goal BMP fasting. Due on due Goal Lipid Panel. Due on due Referral Referred To: Chava Gupta DPM [address] [place], [place], [phone] Ordered: Referrals: Podiatry. Chava Gupta DPM. Evaluate and treat ordered Referral Referred To: [facility] Ordered: Referrals: Ophthalmology. [facility]. Evaluate and treat ordered Referral Referred To: [facility] Ordered: Referral: [facility]. [facility]. Evaluate and treat. ordered Patient Education Iron-Rich Diet: Care In structions completed Future Order: Lab Order POC Hemo globin A1C (OC45), Ordered on: Ordered Future Order: Lab Order CBC (Inc ludes DIFF/PLT) (OC67), Ordered on: Ordered Future Order: Lab Order Urinalys is, Macroscopic (OC80), Ordered on: Ordered Future Order: Lab Order Comprehe nsive Metabolic Panel (OC71), Ordered on: Ordered Future Order: Lab Order Lipid Pa roxie (OC73), Ordered on: Ordered Future Order: Lab Order CBC (Inc ludes DIFF/PLT) (OC67), Ordered on: Ordered Future Order: Lab Order Comprehe nsive Metabolic Panel (OC71), Ordered on: Ordered Future Order: Lab Order Lipid Pa roxie (OC73), Ordered on: Ordered Future Order: Lab Order Microalb umin, Random Urine with Creatinine (QH) ([id number]), Ordered on: Ordered Future Order: Lab Order Urinalys is, Macroscopic (OC80), Ordered on: Ordered Future Order: Lab Order CBC (H/H , RBC, INDICES, WBC, PLT) ([id number]), Appointment on: , Sent on: Sent Future Order: Lab Order COMPREHE NSIVE METABOLIC PANEL W/EGFR ([id number]), Appointment on: , Sent on: Sent Future Order: Lab Order HEMOGLOB IN A1c (496), Appointment on: , Sent on: Sent Future Order: Lab Order LIPID PA ROXIE ([id number]), Appointment on: , Sent on: Sent Future Order: Lab Order TSH, 3RD GENERATION ([id number]), Appointment on: , Sent on: Sent Nutrition Recommendation Nutrition therap y completed History Of Present Illness Encounter Date Complaint History Of Prese nt Illness SOB and Dizziness SOB, Dizziness for 2 weeks, but also happened about 2 months ago.Has DM, BG have been in 200s (Lantus 50U qHS, Gabapentin 100mg TID)Takes Iron 3 times per dayLMP was 3 weeks agoPeriods are heavy at beginning and then lighten upNo controlHas also been having swelling in hands and anklesAlso some cramping and numbness in handsDizziness is worse when going from sitting to standing (takes Lisinopril daily)ROS: denies CP, orthopnea, claudication, irregular heartbeat/palpitations, nausea, and visual disturbances. +SOB with sitting or resting. Does have cramping in calves at rest, but not w ambulation. Fatigue, headache. +peripheral edema, tremor throughout day. +Visual disturbance. No polyuria. Eats lots of ice. diabetes anemia 36 y/o AAF here today to followup with hx of diabetes mellitus, currently on oral medications and taking these daily, due for followup, hemoglobin a1c was 7.0 last visit. Patient has been taking her iron supplement but has been out for 3 weeks now. Has also been out of her insulin for about a week now.Patient does have heavier periods. Periods are occurring monthly, lasting for about 2.5 weeks. diabetes The symptoms beg an 2 years ago. She states the symptoms are chronic. 35 yo AAF with 2 year history of diabetes, is on Lantus, 55 units currently and metformin. She was last here in Jul 2015 and Hgb A1c was 8.5. She is taking her medications as prescribed and feeling well. Her fasting blood sugar has been 230. She eats fried foods, no soda, eats a lot of fruits and vegetables. She sometimes has unusual fatigue, blurred vision, numbness or tingling in the extremities; she sometimes has headaches, polyphagia and polydipsia. She denies muscle weakness, dysuria, urinary incontenence or retention or weight loss or weight gain without explanation. She has not seen an machine inspector. She checks her feet daily and uses Vaseline on them. She walks every day, about 20 minutes, just began this year. diabetes The diabetes jocelyne litus began in 2011. Risk factors include: race. Patient did not use medication, or return for a follow-up. She Has been managed with oral medications and insulin. Home glucose readings: Min 200, Max 300 Comorbidity: Hypertension. Pertinent negatives include blurred vision, burning of extremities, chest pain, constant hunger, diarrhea, dysesthesias, dyspnea, foot ulcers, frequent infections, frequent urination, heartburn, hypoglycemic episodes, increased fatigue, nocturia, polydipsia, slow healing wounds / sores, weight gain and weight loss. Additional information: on lantus 45 U QHS. hypertension The HTN started in 2011. Comorbid conditions include diabetes mellitus. Risk factors include obesity. Pertinent negatives include chest pain, claudication, confusion, diaphoresis, dyspnea, epistaxis, fatigue, headache, hematuria, irregular heartbeat/palpitations, nausea, tinnitus, transient weakness, tremor, visual disturbances and vomiting. diabetes (comments) visit limite d by scheduling as urgent appointmentNeeds prescriptions to continue maintenance medicationslisinopril causing coughsexually active without contraceptionhas never conceivedhome blood sugars 350drinking juiceadditional history and exam:ROS:Respiratory: no dyspnea.Cardiovascular: no cardiac chest pain or leg swellingMusculoskeletal: no leg painsEndocrine: no hypoglycemic episodes. no poyluria, polydipsia.Exam:Respiratory: Normal respiratory effort. Lungs clear to auscultation.Cardiovascular: Auscultation reveals regular rate and rhythm.Extremities: No edema.additional history: No other new drug allergies nor problems since last visit. Patient is taking medications as listed without problems except as noted above.ASSESSMENTS / PLANS (see also medication and order details)Medications are reconciled from any interval medical encounters elsewhere.Education about problems addressed today, active medication list, and information on new medications are provided to patient or parent.Patient or guardian verbalized understanding of and agreement with plan, including medications and return for next visit.Patient is to return at the next available regular appointment, or sooner for new or worsening or persisting problems.Hypertension / revise RX for probable arlette inhibitor cough and potential fertilitydiabetes / stop drinking juice, diet and exercise log, home blood sugar record, rxcough, suspect arlette inhibitor / stop lisinopril diabetes foot Ale Huynh is a 34 year old female. Patient is a diabetic, IDDM. She states that she gets tingling and numbness in her feet and hands. She states that her PCP started her on Gabapentin this month. She states that she occasionally gets cramping in her legs which are relived by hanging her feet off the bed. She states that her feet are not painful often, she is just concerned with the swelling. Diabetes The diabetes jocelyne litus began in 2011. The problem is getting worse. Risk factors include: race. Patient is compliant with using medication. Patient did not return for a follow-up. She Has been managed with oral medications and insulin. Home glucose readings: Min 180, Max 400 Comorbidity: Hypertension. There are no associated symptoms. Pertinent negatives include blurred vision, chest pain, dyspnea, frequent urination, polydipsia and weight gain. Hypertension The HTN started in 2011. Comorbid conditions include diabetes mellitus. It is currently stable. Risk factors include obesity. There are no associated symptoms. Pertinent negatives include chest pain and dyspnea. Functional Status Date Functional Assessmen t No Information Instructions Date Instruction Additional Infor katerine Labs todayLisinopril , Lantus refilled, [facility] to [facility] next week Related to Dizziness Giving encouragement to exercise Related to Body mass index (BMI) 40.0-44.9, adult Lantus was refilled recently, Metformin still has refills on it. I ordered Eucerin cream for her to use on her feet to help with dryness. She is to check blood sugar three times daily and record results for next visit. First check will be before breakfast. Second 2 hours after lunch and last 2 hours after dinner. If the fasting blood sugar is >150, increase the nighttime Lantus by 5 units, then after that by 10% each time until at goal of under 150 fasting. She will follow up in clinic in one month. She will call for appointment for annual eye exam. Patient to keep checking her feet daily and use moisturizer. I also recommended diabetic classes and gave her a pamphlet with information about that. Related to Type 2 diabetes mellitus with hyperglycemia Today, Hgb 11.6. Add ed iron studies and ferritin. Related to Iron deficiency anemia, unspecified Lisinopril 20 mg still has refil ls. Related to Essential (primary) hypertension Eat healthy. Exercis e regularly.- Make appointment with dental.- Make sure you keep up the follow up appointments Related to Encounter for general adult medical examination without abnormal findings Exercise - 20-30 min utes of aerobic exercise 5 days a week will help lower Related to DM (diabetes mellitus) Medication - Take da christin as prescribed. Please bring your medication bottles Related to DM (diabetes mellitus) Increase activity. Related to Be nign essential hypertension Diet - Avoid sugars and white starches. Mediations alone are unable to cont Related to DM (diabetes mellitus) Increase physical activity. Rela kwasi to DM (diabetes mellitus) Check blood sugar twice a day. R elated to DM (diabetes mellitus) Follow a low sodium diet. Relate d to Benign essential hypertension Diet - lots of veget genevieve and fruits, avoid animal fat and excess salt Related to Benign essential hypertension Exercise - 20-30 min utes of aerobic exercise 5 days a week Related to Benign essential hypertension Assessments Type Assessment Date No Information Patient Care Teams Name Effective Dates (start - stop) Status Members No Information
--- NOTE | ~2025-06-28 | US_ITS ---
EXAMINATION: US venous doppler LE RT, 06/28/2025 15:30 APPLICATION COORDINATOR HISTORY: swelling Comparison: None Technique: Jain-scale and color Doppler images were attempted of the lower saphenofemoral junction, common femoral vein,superficial femoral vein, proximal deep femoral vein, proximal deep femoral vein, popliteal vein and posterior tibial veins. Findings: Deep Venous System:Normal flow, augmentation and compressibility. No echogenic thrombus identified. The contralateral saphenofemoral junction appears unremarkable. Superficial Venous SystemNo superficial thrombophlebitis. Soft tissues: Soft tissues are unremarkable. Impression: Negative for DVT. Reviewed, dictated and finalized at location P. ICATION COORDINATOR Impression: Negative for DVT.
--- NOTE | ~2025-06-28 | XR_ITS ---
EXAMINATION: XR ankle RT min 3V, 06/28/2025 16:00 BREAKER OILER HISTORY: ankle swelling COMPARISON: No comparisons available. Findings: No acute fracture or malalignment. No significant degenerative changes. Soft tissues unremarkable. Impression: No acute fracture or malalignment. Reviewed, dictated and finalized at location P. KER OILER Impression: No acute fracture or malalignment.
[2025-06-28 15:00] VITALS: BP 155/99; PULSE 100; RESP 18; TEMP 36.6; O2SAT 100
--- OUTSIDE RECORDS SUMMARY | 2025-06-28 15:27 | XMS_ITS | Clinical Summary ---
Author Organization [facility] Address [address], [address] [place] [address] Phone Care Team Providers Care Search Engine Optimization Analyst Name Role Phone Keenan William MD Primary Care Provider [phone] Neftali Rudd MD Unavailable Allergies No known [...] Tablet 03/27/2022 Active Lancets (OneTouch Delica Plus Iestui35Z) Misc 09/01/2022 Active OneTouch Verio Strip 09/01/2022 Active Lantus SoloStar 100 UNIT/ML Solution Pen-injector 09/05/2023 Active ergocalciferol (VITAMIN D) 51324 UNIT Capsule 09/05/2023 Active FeroSul 325 (65 [...] on file Legal Sex Female 12:29 PM HEAD OF MARKETING ANALYTICS Gender Identity Not on file Sexual Orientation Not on file Last Filed Vital Signs Vital Sign Reading Time Taken Comments Blood Pressure 170/100 06/05/2024 9:02 AM HEAD OF MARKETING ANALYTICS Pulse 75 06/05/2024 9:02 AM HEAD OF MARKETING ANALYTICS Temperature 36.8 C (98.2 F) 06/05/2024 9:02 AM HEAD OF MARKETING ANALYTICS Respiratory Rate 16 06/05/2024 9:02 AM HEAD OF MARKETING ANALYTICS Oxygen Saturation 98% 06/05/2024 9:02 AM HEAD OF MARKETING ANALYTICS Inhaled Oxygen Concentration - - Weight 105.2 kg (232 lb) 06/05/2024 9:02 AM HEAD OF MARKETING ANALYTICS Height 157.5 cm (5' 2) 06/05/2024 9:02 AM HEAD OF MARKETING ANALYTICS Body Mass Index 42.43 06/05/2024 9:02 AM HEAD OF MARKETING ANALYTICS Plan of Treatment Health Maintenance Due Date Last Done Comments TdaP Immunization 1980 Varicella Immunization (1 of 2 - 13+ 2-dose series) 1993 Hepatitis B Immunization (1 of 3 - 19+ 3-dose series) 1999 Pap Smear 2001 Cervical Cancer Screening (CCS) 2010 HPV/Cotest 2010 Mammogram 11/28/2022 11/28/2021, 11/28/2021 Influenza Immunization (#1) 2025 SARS-COV-2 Immunization ( season) 2025 09/20/2021, 09/21/2020 Respiratory Syncytial Virus (RSV) Immunization (Adult) (1 - 1-dose 75+ series) 2055 Discussion re Starting/Frequency of Mammograms Completed 11/28/2021, 06/06/2021 Hepatitis C Virus (HCV) Screening Completed 01/29/2024 Human Papillomavirus (HPV) Immunization (No Doses Required) Completed Meningococcal Immunization (ACWY) Aged Out No longer eligible b ased on patient's age to complete this topic Pneumococcal Immunization Combined Aged Out No longer eligible b ased on patient's age to complete this topic Rotavirus Immunization Aged Out No lo nger eligible based on patient's age to complete this topic Insurance MEDICAID [place] Care Teams Search Engine Optimization Analyst Relationship Specialty Start Date End Date Keenan William MD [address] [place] [id number] PCP - General Family Medicine 09/18/18 Neftali Rudd MD [address] [place] [id number] Consulting Physician Oncology 06/30/22
--- OUTSIDE RECORDS SUMMARY | 2025-06-28 15:27 | XMS_ITS | Clinical Summary ---
Author Organization [facility] [address] Address [address] [place] [address] Care Team Providers Care Trip Rider Name Role Phone Keenan William MD Primary Care Provider [phone] Ron Madera MD Unavailable Allergies No known active allergies Medications ferrous sulfate 325 mg (65 mg of elemental iron) tabletIndicatio ns:Iron Deficiency Anemia Take 1 tablet (325 mg total) by mouth daily Active metFORMIN (GLUCOPHAGE) 1,000 mg tablet Take 1 tablet (1,000 mg total) by mouth 2 (two) times a day with meals Active simvastatin (ZOCOR) 10 mg tablet Take 1 tablet (10 mg total) by mouth nightly Active clopidogreL (PLAVIX) 75 mg tablet Take 1 tablet (75 mg total) by mouth daily 90 tablet 09/25/19 25 Active furosemide (LASIX) 40 mg tablet TAKE 1 TABLET(40 MG) BY MOUTH TWICE DAILY 180 tablet 2 11/08/19 25 Active lisinopriL (PRINIVIL,ZESTR IL) 40 mg tablet Take 1 tablet (40 mg total) by mouth daily 11/08/19 25 Active LANTUS 100 unit/mL (3 mL) pen for injection ADMINISTER 53 UNITS UNDER THE SKIN AT BEDTIME 11/09/19 25 Active ergocalciferol (VITAMIN D) 50,000 unit capsule TAKE 1 CAPSULE BY MOUTH WEEKLY Active albuterol HFA (PROVENTIL HFA,VENTOLIN HFA,PROAIR HFA) 90 mcg/actuation inhaler INHALE 2 PUFFS BY MOUTH EVERY 4 TO 6 HOURS NEEDED FOR SHORTNESS OF BREATH OR WHEEZING Active blood glucose diagnostic (OneTouch Verio test strips) strip 09/01/19 Active lancets misc 09/01/19 Active gabapentin (NEURONTIN) 300 mg capsuleIndicati ons:Diabetic Peripheral Neuropathy Take 1 capsule (300 mg total) by mouth 3 (three) times a day 90 capsule 11 01/07/20 25 026 Active dapagliflozin propanediol (FARXIGA) 10 mg tablet Take 1 tablet (10 mg total) by mouth daily 90 tablet 3 02/05/20 25 026 Active blood-glucose,r eceiver,cont (Dexcom G7 Assistant Activities Director) [facility] USE DIRECTED 1 each 03/09/20 Active blood-glucose sensor (Dexcom G7 Sensor) deviceIndicatio ns:Type 2 diabetes mellitus with diabetic polyneuropathy, with long-term current use of insulin ([facility]) CHANGE EVERY 10 DAYS 3 each 03/09/20 Active dulaglutide (Trulicity) 1.5 mg/0.5 mL pen injectorIndicat ions:Type 2 diabetes mellitus with diabetic polyneuropathy, with long-term current use of insulin ([facility]) ADMINISTER 1.5 MG UNDER THE SKIN 1 TIME A WEEK 2 mL 2 06/26/20 Active dulaglutide (Trulicity) 1.5 mg/0.5 mL pen injectorIndicat ions:Type 2 diabetes mellitus with diabetic polyneuropathy, with long-term current use of insulin ([facility]) Inject 1.5 mg under the skin 1 time a week. 2 mL 1 05/05/20 25 025 Discontinued Active Problems Problem Noted Date Diagnosed Date BMI 38.0-38.9,adult 12/19/2024 Encounters Date Type Department Care Team Description 05/05/2025 Telephone [facility] [place] [facility] [address] [address] Nakia Garcia MD Med Refill (Trulicity) from Last 3 Months Surgical History Surgery Date Site/Laterality Comments CHOLECYSTECTOMY HYSTERECTOMY OTHER SURGICAL HISTORY stents BLE Medical History Medical History Date Comments Obstructive sleep apnea Hypertension Peripheral neuropathy Iron deficiency anemia Coronary artery disease Vitamin D deficiency Type 2 diabetes mellitus Family History Medical History Relation Name Comments Diabetes Mother Relation Name Status Comments Mother Alive Social History Tobacco Use Types Packs/Day Years Used Date Smoking Tobacco: Never Smokeless Tobacco: Never Tobacco Cessation:Counseling Given: Not Answered AUDIT-C Answer Date Recorded Q1: How often do you have a drink containing alc ohol? 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 Gender Identity Not on file Sexual Orientation Not on file Last Filed Vital Signs Vital Sign Reading Time Taken Comments Blood Pressure 120/86 02/04/2025 11:11 AM CDT Pulse 73 02/04/2025 11:11 AM CDT Temperature - - Respiratory Rate 15 01/06/2025 9:30 AM CDT Oxygen Saturation 97% 12/19/2024 10:52 AM CDT Inhaled Oxygen Concentration - - Weight 104.3 kg (230 lb) 02/04/2025 11:11 AM CDT Height 162.6 cm (5' 4) 01/06/2025 9:30 AM CDT Body Mass Index 39.48 01/06/2025 9:30 AM CDT Plan of Treatment Health Maintenance Due Date Last Done Comments Depression Screening 1980 Hepatitis C Screening 1980 Dilated Eye Exam 1980 Foot Exam 1980 DTaP/Tdap/Td Vaccine (1 - Tdap) 1991 Varicella Vaccines (1 of 2 - 13+ 2-dose series) 1993 Hepatitis B Screening 1998 Regular Well Visit/Exam 18-64 1998 Pneumococcal vaccine <65 (1 of 2 - PCV) 1999 HPV Vaccines (1 - 3-dose SCDM series) 2007 Breast Cancer Screening-Mammogram 11/28/2022 022, 11/28/2021 Covid-19 Vaccine ( - season) 03/16/202502/2022, 09/21/2020 Influenza Vaccine (#1) 2025 Hemoglobin A1C 07/08/2025 01/06/2025 Albumin Creatinine Ratio, Urine 01/06/2026 Lipid Panel 01/06/2026 01/06/2025, 08/26/2024 eGFR 01/06/2026 01/06/2025 Procedures Procedure Name Priority Date/Time Associated Diagnosis Comments EGFR Routine 01/06/2025 9:54 AM CDT Type 2 diabetes mellitus with diabetic polyneuropathy, with long-term current use of insulin (HCC) LIPID PANEL Routine 01/06/2025 9:54 AM CDT Type 2 diabetes mellitus with diabetic polyneuropathy, with long-term current use of insulin (HCC) ALBUMIN CREATININE RATIO, URINE Routine 01/06/2025 9:54 AM CDT Type 2 diabetes mellitus with diabetic polyneuropathy, with long-term current use of insulin (HCC) POCT HEMOGLOBIN A1C Routine 01/06/2025 9 :33 AM CDT Type 2 diabetes mellitus with diabetic polyneuropathy, with long-term current use of insulin (HCC) from Last 3 Months or Most Recently Relevant to Health Maintenance Results * eGFR (01/06/2025 9:54 AM CDT) [facility] eGFR >90 >=60 mL/min/1. 73 m2 Comment: Interpretive Data Reference Interval Normal >/= 90 mL/min/1.73m2 Mildly decreased* 60 - 89 mL/min/1.73m2 Mildly to moderately decreased 45 - 59 mL/min/1.73m2 Moderately to severely decreased 30 - 44 mL/min/1.73m2 Severely decreased 15 - 29 mL/min/1.73m2 Kidney Failure < 15 mL/min/1.73m2 *Relative to young adult level Estimated glomerular filtration rate is determined by the 2020 CKD-EPI equation recommended by the National Kidney Foundation (A Unifying Approach to GFR Estimation: Recommendations of the NKF-ASK Task Force on Reassessing the Inclusion of Race in Diagnosing Kidney Disease, JASN 2020). The CKD-EPI equation should not be used for patients with unstable renal function and has not been validated in children and those over 70. Current interpretive data was last reviewed 2021. Blood 01/06/2025 9:54 AM CDT 01/06/2025 12:23 PM CDT Nakia Sequeira MD LAB BLOOD ORDERABLE S Final Result Performing Organization Address [facility] Co de Phone Number JAZ [phone] [address] [place] [address] * Albumin Creatinine Ratio, Urine (01/06/2025 9:54 AM CDT) Albumin Ur <12.0 mg/L Comment: Interpretive Data No reference range established. Current interpretive data was last revised 2018. Creatinine Ur 221.0 mg/dL JAZ Comment: Interpretive Data No reference range established. Current interpretive data was last revised 2018. Albumin Creatinine Ratio, Ur <5 1 - 29 mg/g JAZ Urine 01/06/2025 9:54 AM CDT 01/06/2025 12:10 PM CDT Nakia Sequeira MD LAB URINE ORDERABLE S Final Result Performing Organization Address [facility] de Phone Number JAZ PRYOR [phone] [address] [place] [address] * Lipid panel (01/06/2025 9:54 AM CDT) Cholesterol 149 30 - 199 mg/dL Comment: Interpretive Data Ages < or = 19 years Acceptable: <170 mg/dL Borderline high: 170-199 mg/dL High: >or= 200 mg/dL Ages > or = 20 years Desirable: <200 mg/dL Borderline high: 200-239 mg/dL High: >or= 240 mg/dL Literature References: 1. Expert Panel on Integrated Guidelines for Cardiovascular Health and Risk Reduction in Children and Adolescents. Pediatrics 2011;128:S213 2. NCEP Expert Panel. Circulation 2004;110:227 Current Interpretive Data was last revised on 2018. Triglycerides 54 <=149 mg/dL JAZ Comment: Interpretive Data Ages < or = 9 years Acceptable: <75 mg/dL Borderline high: 75-99 mg/dL High: >or= 100 mg/dL Ages 10 to 20 years Acceptable: <90 mg/dL Borderline high: 90-129 mg/dL High: >or= 130 mg/dL Ages > or = 20 years Desirable: <150 mg/dL Borderline high: 150-199 mg/dL High: 200-499 mg/dL Very high: >or= 499 mg/dL Literature References: 1. Expert Panel on Integrated Guidelines for Cardiovascular Health and Risk Reduction in Children and Adolescents. Pediatrics 2011;128:S213 2. NCEP Expert Panel. Circulation 2004;110:227 Current Interpretive Data was last revised on 2018. HDL 70 >=40 mg/dL JAZ Comment: Interpretive Data Ages < or = 19 years Acceptable: >45 mg/dL Borderline low: 40-45 mg/dL Low: <40 mg/dL Ages > or = 20 years Desirable: >or= 60 mg/dL Low: <40 mg/dL Literature References: 1. Expert Panel on Integrated Guidelines for Cardiovascular Health and Risk Reduction in Children and Adolescents. Pediatrics 2011;128:S213 2. NCEP Expert Panel. Circulation 2004;110:227 Current Interpretive Data was last revised on 2018. LDL, calculated 68 <=129 mg/dL JAZ Comment: Interpretive Data Ages < or = 19 years Acceptable: <110 mg/dL Borderline high: 110-129 mg/dL High: >or= 130 mg/dL Ages > or = 20 years Optimal: <100 mg/dL Near optimal: 100-129 mg/dL Borderline high: 130-159 mg/dL High: >160 mg/dL Calculated using the Uzair LDL-C estimating equation. This equation was implemented on 2024. Prior to this date LDL-C was estimated using the Friedewald equation. Literature References: 1. Expert Panel on Integrated Guidelines for Cardiovascular Health and Risk Reduction in Children and Adolescents. Pediatrics 2011;128:S213 2. NCEP Expert Panel. Circulation 2004;110:227 3. Uzair Holloway et al. CHEMA Cardiol. 2020 November 13;5(5):540-548. doi: 10.1001/jamacardio.2020.0013 Current Interpretive Data was last revised on 2024. Non-HDL Cholesterol 79 mg/dL JAZ PRYOR Comment: Interpretive Data Ages < or = 19 years Acceptable: <120 mg/dL Borderline high: 120-144 mg/dL High: >145 mg/dL Ages > or = 20 years When triglycerides are >200 mg/dL, Non-HDL cholesterol is a secondary target of therapy with treatment goals that are 30 mg/dL greater than the LDL cholesterol target. Literature References: 1. Expert Panel on Integrated Guidelines for Cardiovascular Health and Risk Reduction in Children and Adolescents. Pediatrics 2011;128:S213 2. NCEP Expert Panel. Circulation 2004;110:227 Current Interpretive Data was last revised on 2018. Chol/HDL ratio 2 JAZ PYROR Blood 01/06/2025 9:54 AM CDT 01/06/2025 12:10 PM CDT Nakia Sequeira MD LAB BLOOD ORDERABLE S Final Result JAZ [id number] [address] Department of Laboratories [place] [id number] * (ABNORMAL) POCT hemoglobin A1c (01/06/2025 9:33 AM CDT) Hemoglobin A1C, POC 7.3(A) 4.0 - 5.6 % Blood 01/06/2025 9:33 AM CDT Nakia eSqueira MD POINT OF CARE TEST ORDERABLES Final Result from Last 3 Months or Most Recently Relevant to Health Maintenance [place] [address] [place] [address] [facility] Care Teams Trip Rider Relationship Specialty Start Date End Date Keenan William MD [address] [facility] [address] [place] [address] PCP - General Emergency Medicine 07/03/24 Ron Madera MD [address] [place] [address] [address] [facility] [place] [address] [place] [address] Consulting Physician Cardiology 12/23/24
--- OUTSIDE RECORDS SUMMARY | 2025-06-28 15:27 | XMS_ITS | Encounter Summary ---
Author Organization [facility] Address [address] [place] [address] Care Team Providers Care Roof Shingler Name Role Phone Keenan William MD Primary Care Provider [phone] Ron Madera MD Unavailable Encounter Details Date Type Department Care Team (Late st Contact Info) Description 08/13/2024 Orders Only [facility] [place] Health Information Management [address] [place] [address] Scanning, Provider Social History Tobacco Use Types Packs/Day Years Used Date Smoking Tobacco: Never Assessed Comments Unknown Sex and Gender Information Value Date Recorded Sex Assigned at Not on file 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 Gender Identity Not on file Sexual Orientation Not on file documented as of this encounter Plan of Treatment Not on file documented as of this encounter Procedures Procedure Name Priority Date/Time Associated Diagnosis Comments CARDIOLOGY DOCUMENT SCAN 08/13/2024 documented in this encounter Results * Cardiology Document Scan (08/13/2024) Anatomical Region Laterality Modality Other us Provider Scanning CV CARDIAC SERVICES PROCEDURES Final Result documented in this encounter Visit Diagnoses Not on filedocumented in this encounter Care Teams Roof Shingler Relationship Specialty Start Date End Date Keenan William MD [address] [facility] [address] [place] [address] PCP - General Emergency Medicine 07/03/24 Ron Madera MD [address] [facility] [address] [facility] [address] [place], [place] [id number] Consulting Physician Cardiology 12/23/24 documented as of this encounter
--- OUTSIDE RECORDS SUMMARY | 2025-06-28 15:27 | XMS_ITS | Clinical Summary ---
Author Organization [facility] [employer] Address [address] [facility] [place] [address] Care Team Providers Care Extension Service Agent Name Role Phone Keenan William MD Primary Care Provider [phone] Source Comments [facility],non-owned Affiliates and Associated Physician Practices is amultiple site organization consisting of ambulatory clinics and hospital sitesin [place], [place], [place] and [place]. This disclosure is being madepursuant to the Care Everywhere program and may not contain all information available regarding this patient. Last updated 18.[facility] [employer] Allergies No known active allergies Medications * [...] on file Legal Sex Female 5:36 AM INCLUSION SPECIAL EDUCATOR Gender Identity Not on file Sexual Orientation [...] 10:06 AM CDT Height 165.1 cm (5' 5) 11/28/2021 10:06 AM CDT Body Mass Index 38.27 11/28/2021 10:06 AM CDT Plan of Treatment Health Maintenance Due Date Last Done Comments HIV SCREENING 1995 HEPATITIS C SCREENING 07/28/1998 DTAP/TDAP/TD VACCINES (1 - Tdap) 1999 HEPATITIS B VACCINE (1 of 3 - 19+ 3-dose series) 1999 HPV VACCINE (1 - 3-dose SCDM series) 2007 SCREENING FOR DIABETES 01/27/2021 01/10/2016 PAP SMEAR 10/29/2023 10/28/2020, 10/28/2020 MAMMOGRAM 11/29/2023 11/28/2021, 01/27/2021 DEPRESSION SCREENING 07/16/2024 COVID-19 VACCINE (1 - 2024-2 6 season) 2025 INFLUENZA VACCINE (#1) 2025 ZOSTER VACCINE (1 of 2) 2030 [...] her baseline screening mammogram on 11/03/2020 at [facility], was found to have an asymmetry in [...] institution, bilaterally screening mammogram dated 11/03/2020 from [facility] MAMMOGRAPHY: TECHNICAL INFORMATION: Diagnostic mammogram obtained with [...] >60 mL/min/1.7 3m2 01/10/2016 2:30 AM CDT [facility] eGFR by MDRD >60 >60 mL/min/1.7 3m2 01/10/2016 2:30 AM CDT [facility] Blood BLOOD SPECIMEN / Unknown 01/10/2016 2:07 AM CDT 01/10/2016 2:14 AM CDT Andrzej Fitch MD LAB - CHEMISTRY ORDERABLES Final Result Performing Organization Address City/State/[facility] Co de Phone Number [facility] [address] [place] [address] from Last 3 Months or Most Recently Relevant to Health Maintenance Insurance [facility] SELF PAY NO INSURANCE Member Subscriber Plan / Payer (Ef fective for All Dates) Name:Ale Huynh Member ID:Not on file Relation to Subscriber:Not on file Name:ALE HUYNH Subscriber ID:Not on file (Home) Address: [address] [place] [id number] Payer ID:Not on file Group ID:Not on file Type:Self Pay Address: [place], [place] [facility] Care Teams Extension Service Agent Relationship Specialty Start Date End Date Keenan William MD [address] [place] [address] PCP - General 12/21/20
--- NOTE | 2025-06-28 15:42 | ED.GENADULT ---
HPI - General Adult General Chief complaint: Extremity Injury, Lower Stated complaint: right ankle pain, no injury Time Seen by Provider: 06/28/25 15:08 History of Present Illness HPI narrative: A 44-year-old female presenting right lower extremity injury. Patient states 3 days ago she went to get up off the couch and took a step and suddenly had shooting pain up her right leg starting in her ankle. She denies injury or trauma. States she has been limping on it since. Neurovascular intact. Related Data Home Medications ?Medication ?Instructions ?Recorded ?Confirmed ?Last Taken ?Type aspirin 81 mg tablet,delayed 81 mg PO DAILY 02/08/22 09/02/24 08/28/24 History release (Adult Aspirin Regimen) clopidogrel 75 mg tablet 75 mg PO DAILY 02/08/22 09/02/24 08/28/24 History furosemide 20 mg tablet 20 mg PO QAM 02/08/22 09/02/24 09/01/24 History lisinopril 20 mg tablet 20 mg PO DAILY 04/13/22 09/02/24 09/01/24 History metformin 500 mg tablet 500 mg PO DAILY 04/13/22 09/02/24 09/01/24 History simvastatin 10 mg tablet 10 mg PO DAILY 04/13/22 09/02/24 09/01/24 History ferrous sulfate 325 mg (65 mg 325 mg PO DAILY 08/10/22 09/02/24 08/28/24 History iron) tablet (Iron (ferrous sulfate)) cholecalciferol (vitamin D3) 1,250 50,000 unit PO ONCE 08/20/24 09/02/24 08/28/24 History mcg (50,000 unit) tablet insulin glargine 100 unit/mL 45 unit subcut QPM 08/20/24 09/02/24 09/01/24 History subcutaneous solution (Lantus U-100 Insulin) Allergies Allergy/AdvReac Type Severity Reaction Status Date / Time No Known Allergies Allergy Verified 06/28/25 15:04 Review of Systems Review of Systems: All systems reviewed & are unremarkable except as noted in HPI and below PMFSH Past Medical History Medical History (Updated 06/28/25 @ 16:18 by DORINDA Aviles) Hyperlipidemia Hypertension PVD (peripheral vascular disease) KENDAL (obstructive sleep apnea) Heart disease Diabetes Surgical History Surgical History Hx laparoscopic cholecystectomy robotic assisted cholecystectomy 08/21/22 H/O vascular surgery Stent placement bilateral lower extremities December 2021.... IVC and iliac vein stents seen on CT. Family History Family History Other Cancer Heart disease Hypertension Lymphoma Social History Social History Smoking status: Never smoker Alcohol intake: never Substance use: never Substance use type: does not use Living arrangements: with family Occupation/Education: unemployed Gender identity (if verbalized by the patient): Female Spiritual care concerns: No Exam Narrative: GENERAL: No acute distress. HEAD: Normocephalic, atraumatic. EYES: PERRLA and EOMI. ENT: Nares clear, no rhinorrhea or epistaxis. Mucous membranes moist. Oropharynx without tonsillar hypertrophy exudate or other lesions. Bilateral TMs pearly ennis non-bulging NECK: Supple. No adenopathy or masses. No carotid bruits or JVD CHEST: Clear to auscultation. No respiratory distress. No wheezes rales or rhonchi HEART: Regular rate and rhythm. No murmur heard. Normal peripheral pulses. ABDOMEN: Soft, nontender, nondistended, normal active bowel sounds. EXTREMITIES: Normal range of motion. Lateral and midline surrounding malleolar swelling and TTP. No erythema or bruising. 5/5 strength. Neurovascular intact. SKIN: Warm, dry, no rash. NEURO: No focal deficits. Alert and oriented x3. PSYCH: Normal mood and affect Course Vital Signs Vital signs: Vital Signs Temperature 97.8 F 06/28/25 15:00 Pulse Rate 100 06/28/25 15:00 Respiratory Rate 18 06/28/25 15:00 Blood Pressure 155/99 H 06/28/25 15:00 Pulse Oximetry 100 06/28/25 15:00 Oxygen Delivery Room Air 06/28/25 15:00 Temperature 97.8 F 06/28/25 15:00 Pulse Rate 100 06/28/25 15:00 Respiratory Rate 18 06/28/25 15:00 Blood Pressure 155/99 H 06/28/25 15:00 Pulse Oximetry 100 06/28/25 15:00 Oxygen Delivery Room Air 06/28/25 15:00 [facility] Narrative Medical decision making narrative: A 44-year-old female presenting right lower extremity injury. Patient states 3 days ago she she got up off her couch and took a step and suddenly had shooting pain up her right leg starting in her ankle. She denies injury or trauma. States she has been limping on it since. Neurovascular intact. Upon my initial assessment patient appears nontoxic with stable vitals. Ankle x-ray demonstrates no acute abnormalities. Venous Doppler ultrasound demonstrates negative DVT. Patient?s injury is consistent with musculoskeletal etiology. No signs of neurologic or vascular compromise on physical examination. Compartments are soft without signs of compartment syndrome. Pain is consistent with exam and injury. Patient is felt to be stable for discharge home and further outpatient management and treatment. Given reasons to return. Differential Diagnosis Differential Diagnosis: Differential diagnostic considerations for lower extremity injury include ankle sprain/strain, acute internal derangement of knee, fracture of femur, fracture of hip, puncture wound of foot, fracture of toe, fracture of ankle, tendon rupture (achilles/patellar/quadriceps). Medical Records I have reviewed the following patient records and this information was taken into consideration when formulating the assessment and plan.: previous labs, previous ER visits and previous hospitalizations Imaging Data Attestation: I personally reviewed and interpreted this imaging study as follows: Radiologist's impression: ITS Impressions Venous Doppler Study 06/28/25 16:01 Impression: Negative for DVT. Ankle X-Ray 06/28/25 16:08 Impression: No acute fracture or malalignment. Discharge Plan Discharge Clinical Impression: Ankle sprain and strain Patient Disposition: Home Condition: Stable Instructions: Ankle Sprain (ED) Additional Instructions: Return to the ER if you experience fever, redness and swelling of your extremity, numbness or any other symptoms that are concerning to you Wear compression and use crutches. Weight-bearing as tolerated. Ice and elevate extremity. Take anti-inflammatories (Aleve, Ibuprofen, Naproxen, etc) and Tylenol as needed for pain. Follow up with your doctor for further care. Patient Language: Malaysian Prescriptions: No Action furosemide 20 mg tablet 20 mg PO QAM Patient Comments: patient takes 40mg clopidogrel 75 mg tablet 75 mg PO DAILY aspirin [Adult Aspirin Regimen] 81 mg tablet,delayed release (DR/EC) 81 mg PO DAILY metformin 500 mg tablet 500 mg PO DAILY Patient Comments: patient takes 1000mg simvastatin 10 mg tablet 10 mg PO DAILY lisinopril 20 mg tablet 20 mg PO DAILY Patient Comments: patient takes 40mg cholecalciferol (vitamin D3) 1,250 mcg (50,000 unit) tablet 50,000 unit PO ONCE Patient Comments: patient takes on insulin glargine [Lantus U-100 Insulin] 100 unit/mL solution 45 unit subcut QPM hydrocodone-acetaminophen 5-325 mg tablet 1 - 2 tablet PO Q6H PRN (Reason: pain) Qty: 14 0RF ferrous sulfate [Iron (ferrous sulfate)] 325 mg (65 mg iron) Tablet 325 mg PO DAILY Follow-up/Referrals: Keenan William MD [Primary Care Provider, Family Practice]
[2025-06-28] MEDS: ACETAMINOPHEN 500 MG TABLET 1000 MG PO (16:06)
== END 2025-06-28 16:34 | disposition home or self-care (01) ==
PROVIDERS: PCP Emergency Medicine
DX: S93.401A Sprain of unspecified ligament of right ankle, initial encounter (principal); S96.911A Strain of unspecified muscle and tendon at ankle and foot level, right foot, initial encounter; I73.9 Peripheral vascular disease, unspecified; I11.9 Hypertensive heart disease without heart failure; E11.9 Type 2 diabetes mellitus without complications; E78.5 Hyperlipidemia, unspecified; G47.33 Obstructive sleep apnea (adult) (pediatric); Z90.49 Acquired absence of other specified parts of digestive tract; Z79.02 Long term (current) use of antithrombotics/antiplatelets; Z79.82 Long term (current) use of aspirin; Z79.84 Long term (current) use of oral hypoglycemic drugs; Z79.899 Other long term (current) drug therapy; X58.XXXA Exposure to other specified factors, initial encounter
CPT/HCPCS: 73610; 93971; 99284; A9270